=== PATIENT | female | born 1940 | race Caucasian/White ===

== ENCOUNTER 2016-07-29 11:05 | Inpatient (IN) | payer MEDICARE, OTHER ==
[~2016-07-29] VITALS: Ht 152.4 cm; Wt 81.1 kg
[2016-07-29] MEDS ORDERED: SODIUM CHLORIDE 0.9% 1L BAG IV* STA (11:08)
--- NOTE | 2016-07-29 11:16 | ERA ---
ER Documentation Chief Complaint Date/Time DATE: 07/29/16 TIME: 11:11 Chief Complaint HPI 76-year-old female history of chronic encephalopathy who presents to the emergency room with altered mental status worse than baseline. EMS providers report, [facility]. The patient does have an advanced directive that states she is okay with chest compressions , IV fluids, hospitalization but does not want mechanical ventilation or intubation. The remainder of HPI is extremely limited. Unknown duration of altered mental status. It appears the patient's baseline is mumbling. She is not mumbling currently. ROS Chronic encephalopathy Medications Home Meds Reported Medications Oxcarbazepine* (Trileptal*) 300 Mg Tablet, 300 MG PO BID, TAB 07/29/16 Quetiapine Fumarate* (Seroquel*) 50 Mg Tablet, 50 MG PO HS, TAB 07/29/16 Quetiapine Fumarate* (Seroquel*) 25 Mg Tablet, 25 MG PO AM, #30 TAB 07/29/16 Guaifenesin-Dextromethorphan* (Robitussin* DM) 100MG/10MG/5ML Syrup, 10 ML PO Q6H Y for COUGH, ML 07/29/16 Multivit,Tx,Iron/Calcm/FA/Mins (Thera-M Caplet) 1 Each Tablet, 1 TAB PO DAILY, TAB 07/29/16 Magnesium Hydroxide* (Milk Of Magnesia*) 400 Mg/5 Ml Oral.susp, 30 ML PO DAILY Y for CONSTIPATION, ML 07/29/16 Mag Hydrox/Al Hydrox/Simeth (Maalox Advanced Suspension) 355 Ml Oral.susp, 30 ML PO Q4H Y for GASTROINTESTINAL UPSET 07/29/16 Lorazepam* (Lorazepam*) 0.5 Mg Tablet, 0.5 MG PO Q6 Y for ANXIETY, TAB 07/29/16 Clonazepam* (Klonopin*) 0.5 Mg Tab, 0.25 MG PO BID Y for ANXIETY, TAB 07/29/16 Ascorbic Acid* (Ascorbic Acid*) 500 Mg/5 Ml Syrup, 500 MG PO DAILY, #150 ML 07/29/16 Acetaminophen* (Acetaminophen*) 650 Mg Tablet, 650 MG PO Q4H Y for PAIN AND OR ELEVATED TEMP, #30 TAB 07/29/16 Ipratropium-Albuterol (Ipratropium-Albuterol) 0.5-3 Mg/3 Ml Ampul.neb, 3 ML INHALATION Q6 Y for SHORTNESS OF BREATH, #30 VIAL 07/29/16 Na Phos,M-B/Na Phos,Di-Ba (Fleet Enema Extra) 230 Ml Enema, 230 ML RC Q48H Y for CONSTIPATION, ENEMA 07/29/16 Ferrous Sulfate* (Ferrous Sulfate*) 325 Mg Tabec, 325 MG PO BID, TAB 07/29/16 Bisacodyl (Dulcolax) 10 Mg Supp.rect, 10 MG RC DAILY Y for CONSTIPATION, SUPP.RECT 07/29/16 Divalproex Sodium* (Depakote* Sprinkle) 125 Mg Cap.sprink, 250 MG PO BID, #180 CAP 07/29/16 Cranberry Extract (Cranberry) 425 Mg Capsule, 425 MG PO BID, CAP 07/29/16 Docusate Sodium* (Colace*) 100 Mg Capsule, 200 MG PO HS, #60 CAP 07/29/16 Diphenhydramine Hcl* (Diphenhydramine Hcl*) 25 Mg Capsule, 25 MG PO Q6 Y for ITCHING, CAP 07/29/16 Aspirin* (Aspirin* Chew) 81 Mg Tab.chew, 81 MG PO DAILY, TAB.CHEW 07/29/16 Albuterol Sulfate* (Albuterol Sulfate* Neb) 0.083%-3 Ml Neb, 2.5 MG NEB Q6H Y for WHEEZING AND SOB, #30 VIAL 07/29/16 Physical Exam Vitals Vital Signs Date Time Temp Pulse Resp B/P Pulse Ox O2 Delivery O2 Flow Rate FiO2 07/29/16 11:30 Nasal Cannula 2 07/29/16 11:12 99.5 91 26 111/68 96 Physical Exam General: No significant distress, responsive to sternal rub, protecting airway Head: Normocephalic, atraumatic. Eyes: Pupils equally reactive, EOM intact ENT: Dry mucous membranes Neck: Supple, no lymphadenopathy Respiratory: Lungs clear bilaterally, no distress Cardiovascular: RRR, no murmurs, rubs, or gallops Abdominal: Soft, non-tender, non-distended, no peritoneal signs : Deferred MSK: Limited movement of all 4 extremities, no bony abnormalities Neurologic: Limited exam, and encephalopathic, limited movement of all 4 extremities Skin: No rash, no significant breakdown Psych: Unable to assess Result Diagram: 07/29/16 1115 07/29/16 1115 Results 24 hrs Laboratory Tests Test 07/29/16 11:08 07/29/16 11:15 Blood Gas Specimen Source Blood arterial Arterial Blood Date Drawn 07/29/2016 12:32:52 PM Arterial Blood pH (Temp corrected) 7.414 Arterial Blood pCO2 (Temp correct) 38.5mmhg Arterial Blood pO2 (Temp corrected) 163.0mmHG Arterial Blood HCO3 24.1mmol/L Arterial Blood Base Excess -0.3mmol/L Arterial Blood Oxygen Saturation 98.9mmHG Severiano Test ACCEPTAB Arterial Blood Gas Puncture Site Right Radial Arterial Blood Carboxyhemoglobin 0.3% Arterial Blood Methemoglobin 0.2% Blood Gas A-a O2 Differential 49.0mmHg Oxyhemoglobin Percent 98.4% Total Hemoglobin 11.7g/dl Blood Gas Temperature 37.0C Blood Gas Modality NASAL CANNULA FiO2 36.0% Blood Gas Notified Whom LS Blood Gas Notified Time 07/29/2016 12:38:52 PM White Blood Count 11.310^3/ul Red Blood Count 3.7310^6/ul Hemoglobin 11.0g/dl Hematocrit 33.5% Mean Corpuscular Volume 89.8fl Mean Corpuscular Hemoglobin 29.5pg Mean Corpuscular Hemoglobin Concent 32.8g/dl Red Cell Distribution Width 15.2% Platelet Count 49042^3/UL Mean Platelet Volume 10.1fl Neutrophils % 87.0% Band Neutrophils % 4.0% Lymphocytes % 4.0% Monocytes % 5.0% Neutrophils # 9.810^3/ul Lymphocytes # 0.510^3/ul Monocytes # 0.610^3/ul Differential Comment MANUAL DIFF Large Platelets OCCASIONAL Prothrombin Time 14.7Sec Prothrombin Time Ratio 1.1 INR International Normalized Ratio 1.15 Activated Partial Thromboplast Time 28.6Sec Sodium Level 135mmol/L Potassium Level 4.0mmol/L Chloride Level 101mmol/L Carbon Dioxide Level 25mmol/L Anion Gap 13 Blood Urea Nitrogen 31mg/dl Creatinine 1.21mg/dl Glucose Level 110mg/dl Lactic Acid Level 2.3mmol/L Calcium Level 9.6mg/dl Total Bilirubin 0.2mg/dl Direct Bilirubin 0.00mg/dl Indirect Bilirubin 0.2mg/dl Aspartate Amino Transf (AST/SGOT) 15IU/L Alanine Aminotransferase (ALT/SGPT) 21IU/L Alkaline Phosphatase 87IU/L Troponin I < 0.012ng/ml Total Protein 7.7g/dl Albumin 4.3g/dl Globulin 3.40g/dl Albumin/Globulin Ratio 1.26 Current Medications Medications (Trade) Dose Ordered Sig/Fabiola Route PRN Reason Start Time Stop Time Status Last Admin Dose Admin Sodium Chloride 2820 ml 2,820 ml BOLUS OVER 2 HOURS STAT IV* 07/29/16 11:08 07/29/16 11:10 DC 07/29/16 11:55 Ceftriaxone Sodium (Rocephin) 50 ml @ 100 mls/hr ONCE ONCE IVPB 07/29/16 13:00 07/29/16 13:29 DC 07/29/16 13:22 Ondansetron HCl (Zofran Inj) 4 mg BRIDGE ORDER PRN IV NAUSEA AND/OR VOMITING 07/29/16 15:00 07/30/16 14:59 Acetaminophen (Tylenol Tab) 650 mg ER BRIDGE PRN PO MILD PAIN/FEVER 07/29/16 15:00 07/30/16 14:59 Procedures/MDM EKG, MONITORS, & DIAGNOSTIC IMAGING: EKG: I reviewed and interpreted a 12-lead EKG. Rhythm: Normal sinus rhythm Ectopy: None Intervals: No abnormalities ST segments: No elevations or depressions T waves: No contiguous inversions Chest x-ray: I reviewed and interpreted a 1 view of the chest Mediastinum: No enlargement Cardiac silhouette: No cardiomegaly Airspace: Atelectasis without focal infiltrate Bones: No evidence of fracture CT brain: IMPRESSION: No significant change. 1. No acute intracranial hemorrhage. 2. Severe ventriculomegaly which is greater than sulcal prominence suggesting central greater than peripheral volume loss. Hydrocephalus or normal pressure hydrocephalus is not excluded. 3. Right frontal approach ventriculostomy catheter. 4. Mild generalized cerebral volume loss. 5. Minimal chronic microvascular ischemic changes. Further findings as detailed above. RPTAT: PP LAB INTERPRETATION: Mild leukocytosis, borderline lactic acidosis, urine not resulted given low volume MEDICAL DECISION MAKING: The patient presents with acute on chronic encephalopathy of unclear etiology. A broad differential exists including intracranial hemorrhage, electrolyte disturbance, dehydration, UTI, sepsis, progression of chronic encephalopathy. It should be noted that the patient does not wish to be intubated. We will continue to care for the patient in accordance with her goals of care. The patient will benefit from laboratory testing, diagnostic imaging including CT brain, chest x-ray, EKG, laboratory testing including troponin, lactic acid and blood cultures. Urinalysis to be obtained as well. Arterial blood gas to rule out hypercarbic state. ER COURSE: The patient has insufficient urine to check a urinalysis but does have a history of UTI, empiric antibiotics in the form of ceftriaxone provided. The patient does have a borderline lactic acid greater than 2 but no Sirs criteria. Consider dehydration. The patient has been treated as sepsis but again the patient does not meet sepsis criteria in the emergency room. Again, the patient does not meet sepsis criteria in the emergency department. She was given a 30 cc/kg bolus of saline, blood cultures, ceftriaxone. The patient will be admitted for further management of altered mental status. I kept the patient and/or family informed of laboratory and diagnostic imaging results throughout the emergency room course. DISPOSITION PLAN: Medical surgical admission to management acute on chronic encephalopathy CONSULTATION: Accepting care team and consultations: I discussed the current laboratory data, diagnostic imaging and emergency care provided. Admitting team: Dr. Felipe Admitting team indication: Insurance directed Departure Diagnosis: Primary Impression: Altered level of consciousness Additional Impressions: Urinary tract infection Qualified Code: N39.0 - Urinary tract infection without hematuria, site unspecified Moderate dehydration Lactic acidosis Condition: Stable MELVIN ALEGRE MD Jul 29, 2016 11:16
[2016-07-29 11:39] LABS: ADD SCAN DIFF NO
[2016-07-29 11:43] LABS: ABNORMAL IP MESSAGE 1; HEMATOCRIT 33.5 % (37.0-47.0); MEAN CORPUSCULAR HEMOGLOBIN 29.5 pg (29.0-33.0); MEAN CORPUSCULAR HGB CONC 32.8 g/dl (32.0-37.0); MEAN CORPUSCULAR VOLUME 89.8 fl (82.0-101.0); MEAN PLATELET VOLUME 10.1 fl (7.4-10.4); PLATELET COUNT 286 10^3/UL (140-415); RED BLOOD COUNT 3.73 10^6/ul (4.20-5.40); RED CELL DISTRIBUTION WIDTH 15.2 % (11.5-14.5); WHITE BLOOD COUNT 11.3 10^3/ul (4.8-10.8)
--- NOTE | 2016-07-29 11:53 | RADRPT ---
PROCEDURE: Noncontrast CT Head. CLINICAL INDICATION: Altered level of consciousness. Weakness. TECHNIQUE: Noncontrast CT of the head was obtained. The administered radiation dose was CTDI vol = 45.01 mGy, DLP = 720.23 mGy-cm. One or more of the following dose reduction techniques were used: Au tomated exposure control, Adjustment of the mA and/or kV according to patient size, or Use of iterat speedy reconstruction technique. COMPARISON: Noncontrast CT of the head from June 19, 2016. FINDINGS: There is severe ventricular dilatation greater than mild sulcal prominence suggesting central greate r than peripheral volume loss or hydrocephalus. There is a right frontal approach ventriculostomy c atheter with tip within the right frontal horn. There is minimal periventricular hypoattenuation sug gesting chronic microvascular ischemic changes. There is mild generalized cerebral volume loss. There are moderate to extensive vascular calcificat ions within the intracranial carotid arteries. There is no loss of miller-white differentiation to suggest acute territorial infarction. There is no acute intracranial hemorrhage or extra-axial fluid collection. There is no mass effect. No midline shift is identified. The patient is status post right lens surgery. The paranasal sinuses are well aerated. No destructive osseous lesion is identified. IMPRESSION: No significant change. 1. No acute intracranial hemorrhage. 2. Severe ventriculomegaly which is greater than sulcal prominence suggesting central greater than p eripheral volume loss. Hydrocephalus or normal pressure hydrocephalus is not excluded. 3. Right frontal approach ventriculostomy catheter. 4. Mild generalized cerebral volume loss. 5. Minimal chronic microvascular ischemic changes. Further findings as detailed above. RPTAT: PP .Rhett Nevarez MD, Date Time Electronically viewed and signed by .Rhett Nevarez MD, on 07/29/2016 11:53 .F/
[2016-07-29 12:01] LABS: INR 1.15; PROTIME 14.7 Sec (12.2-14.2); PT RATIO 1.1
[2016-07-29 12:02] LABS: PARTIAL THROMBOPLASTIN TIME 28.6 Sec (25.0-35.0)
[2016-07-29 12:04] LABS: ALANINE AMINOTRANSFERASE 21 IU/L (13-69); ALBUMIN 4.3 g/dl (3.3-4.9); ALBUMIN/GLOBULIN RATIO 1.26; ALKALINE PHOSPHATASE 87 IU/L (42-121); ANION GAP 13 (8-16); ASPARTATE AMINO TRANSFERASE 15 IU/L (15-46); BILIRUBIN,INDIRECT 0.2 mg/dl (0-1.1); BILIRUBIN,TOTAL 0.2 mg/dl (0.2-1.3); BLOOD UREA NITROGEN 31 mg/dl (7-20); CALCIUM 9.6 mg/dl (8.4-10.2); CARBON DIOXIDE 25 mmol/L (21-31); CHLORIDE 101 mmol/L (97-110); CREATININE 1.21 mg/dl (0.44-1.00); GLUCOSE 110 mg/dl (70-220); SODIUM 135 mmol/L (135-144); TOTAL PROTEIN 7.7 g/dl (6.1-8.1)
[2016-07-29 12:16] LABS: TROPONIN-I < 0.012 ng/ml (0.00-0.12)
[2016-07-29] MEDS ORDERED: LORA0.5T PO (12:23)
[2016-07-29] MEDS ORDERED: DIPH25CA6 PO (12:23)
[2016-07-29] MEDS ORDERED: FER325 PO (12:23)
[2016-07-29] MEDS ORDERED: MAG355OR14 PO (12:23)
[2016-07-29] MEDS ORDERED: CRAN425C PO (12:23)
[2016-07-29] MEDS ORDERED: ACET-2047 PO (12:23)
[2016-07-29] MEDS ORDERED: ALBU2.5V3 NEB (12:23)
[2016-07-29] MEDS ORDERED: ASPI81TA3 PO (12:23)
[2016-07-29] MEDS ORDERED: CLON-429 PO (12:23)
[2016-07-29] MEDS ORDERED: ASCO500S2 PO (12:23)
[2016-07-29] MEDS ORDERED: MAGN400O4 PO (12:23)
[2016-07-29] MEDS ORDERED: UDROBDM PO (12:23)
[2016-07-29] MEDS ORDERED: QUET25TA26 PO (12:23)
[2016-07-29] MEDS ORDERED: DIVA125C11 PO (12:23)
[2016-07-29] MEDS ORDERED: DOCU-144 PO (12:23)
[2016-07-29] MEDS ORDERED: BISA10SU55 RC (12:23)
[2016-07-29] MEDS ORDERED: MULT-276 PO (12:23)
[2016-07-29] MEDS ORDERED: IPRA3AMP INHALATION (12:23)
[2016-07-29] MEDS ORDERED: NA P230E RC (12:23)
[2016-07-29] MEDS ORDERED: OXCA300T3 PO (12:23)
[2016-07-29] MEDS ORDERED: QUET50TA16 PO (12:23)
[2016-07-29 12:39] LABS: Allen Test ACCEPTAB; Arterial Base Excess -0.3 mmol/L (-3.0-3); Arterial COHb 0.3 % (0.0-3.0); Arterial Fraction of Oxyhgb 98.4 % (93.0-99.0); Arterial HCO3 24.1 mmol/L (22.0-26.0); Arterial MetHb 0.2 % (0.0-1.5); Arterial Total Hemglobin 11.7 g/dl (12.0-18.0); MODE NASAL CANNULA
[2016-07-29 13:00] LABS: LYMPHOCYTES # 0.5 10^3/ul (0.8-2.9); MONOCYTE # 0.6 10^3/ul (0.3-0.9); NEUTROPHIL # 9.8 10^3/ul (1.6-7.5)
[2016-07-29] MEDS ORDERED: CEFTRIAXONE 1 GM/50 ML (PMX) 50 ML IVPB ONE (13:00)
--- NOTE | 2016-07-29 13:43 | RADRPT ---
PROCEDURE: XR Chest. CLINICAL INDICATION: Altered level of consciousness TECHNIQUE: Chest AP portable. COMPARISON: No comparison available. 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 The mediastinal structures are unremarkable. There is calcification of the thoracic aorta (consiste nt with atherosclerosis). There is mild cardiomegaly. There is mild pulmonary venous hypertension. There are low lung volumes. There is mild bibasilar subsegmental atelectasis. The pleural spaces are unremarkable. There are senescent changes of the axial skeleton. IMPRESSION: Mild cardiomegaly. Mild pulmonary venous hypertension. Low lung volumes. Mild bibasilar subsegmental atelectasis RPTAT: HGDB .Eamon Chahal MD, Date Time Electronically viewed and signed by .Eamon Chahal MD, on 07/29/2016 13:42 .B/
[2016-07-29] MEDS ORDERED: ONDANSETRON 4 MG INJ IV PRN ×2 (15:00→19:30)
[2016-07-29] MEDS ORDERED: ACETAMINOPHEN 325 MG TAB PO PRN (15:00)
[2016-07-29 16:15] VITALS: BP 120/56; PULSE 95; RESP 24
[2016-07-29 16:30] LABS: ADD UMIC YES; UR BILIRUBIN (Dip) NEGATIVE (NEGATIVE); UR BLOOD (Dip) 3+ (NEGATIVE); UR CLARITY CLEAR (CLEAR); UR COLOR LT. YELLOW (YELLOW); UR GLUCOSE (Dip) NEGATIVE (NEGATIVE); UR KETONES (Dip) NEGATIVE (NEGATIVE); UR LEUKOCYTE ESTERASE (Dip) 3+ (NEGATIVE); UR NITRITE (Dip) NEGATIVE (NEGATIVE); UR TOTAL PROTEIN (Dip) TRACE (NEGATIVE); UR UROBILINOGEN (Dip) 0.2 E.U./dL (0.1-1.0)
[2016-07-29 16:36] LABS: UR BACTERIA MODERATE
[2016-07-29] MEDS ORDERED: GLUCAGON 1 MG INJ IM PRN (19:30)
[2016-07-29] MEDS ORDERED: GLUCOSE GEL 15 GRAM TUBE BUCCAL PRN (19:30)
[2016-07-29] MEDS ORDERED: GLUCOSE GEL 15 GRAM TUBE PO PRN ×2 (19:30)
[2016-07-29] MEDS ORDERED: ACETAMINOPHEN 650 MG SUPP PR PRN (19:30)
[2016-07-29] MEDS ORDERED: DEXTROSE 50% 50 ML SYRINGE IV PRN ×2 (19:30)
--- NOTE | 2016-07-29 19:34 | HP ---
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 EMS providers report, very limited information from [facility] facility. The patient does have an advanced directive that states she is okay with chest compressions , IV fluids, hospitalization but does not want mechanical ventilation or intubation. The remainder of HPI is extremely limited. Unknown duration of altered mental status. It appears the patient's baseline is mumbling. She is not mumbling currently. ROS Chronic encephalopathy ROS Subjective hx not possible: pt non-verbal PMH/Family/Social Past Medical History Atherosclerotic Heart Disease, Hydrocephalus Hx Sepsis Anemia Hypothyroidism GERD Morbid Obesity Intellectual Disabilities Bipolar/Psychosis Past Surgical History Past Surgical Hx: other (sp right STRATEGY DIRECTOR shunt ) Social History Smoking Status: Unknown if ever smoked Exam/Review of Systems Vital Signs Vitals Vital Signs Date Time Temp Pulse Resp B/P Pulse Ox O2 Delivery O2 Flow Rate FiO2 07/29/16 18:12 Nasal Cannula 5.0 07/29/16 16:15 99.5 95 24 120/56 100 Exam Constitutional: alert, well developed Eyes: nl sclera Respiratory: clear to auscultation, normal air movement Cardiovascular: nl pulses, regular rate and rhythm Gastrointestinal: non-tender, soft Musculoskeletal: muscle weakness Neurological: lethargic Skin: other Labs Result Diagram: 07/29/16 1115 07/29/16 1115 Procedures Procedures EKG: Rhythm: Normal sinus rhythm Ectopy: None Intervals: No abnormalities ST segments: No elevations or depressions T waves: No contiguous inversions Chest x-ray: Mediastinum: No enlargement Cardiac silhouette: No cardiomegaly Airspace: Atelectasis without focal infiltrate Bones: No evidence of fracture CT brain: IMPRESSION: No significant change. 1. No acute intracranial hemorrhage. 2. Severe ventriculomegaly which is greater than sulcal prominence suggesting central greater than peripheral volume loss. Hydrocephalus or normal pressure hydrocephalus is not excluded. 3. Right frontal approach ventriculostomy catheter. 4. Mild generalized cerebral volume loss. 5. Minimal chronic microvascular ischemic changes. JAMES POMPA Jul 29, 2016 18:40
[2016-07-29] MEDS: SOD CHLORIDE 0.45% 1,000 ML IV SCH (19:46)
--- NOTE | 2016-07-29 20:19 | RADRPT ---
PROCEDURE: Renal US. CLINICAL INDICATION: Renal dysfunction. TECHNIQUE: Multiple sonographic images of the kidneys and urinary bladder were obtained. The imag es were reviewed on a PACS workstation. COMPARISON: No prior studies are available for comparison. FINDINGS: This is a limited study due to patient body habitus and overlying bowel gas. The right kidney measures 10.6 cm. The left kidney measures 9.1 cm. There is no renal mass. There is no hydronephrosis. There is a nonobstructing 1.0 cm calculus in the mid right kidney and a nonobstructing 0.9 cm calcul us in the mid left kidney. Renal parenchymal thickness is normal bilaterally. Echogenicity is normal bilaterally. The perirenal regions are normal with no fluid collection or mass. The urinary bladder is unremarkable. IMPRESSION: 1. Limited study. 2. Nonobstructing bilateral renal calculi. 3. No hydronephrosis. 4. Otherwise unremarkable renal ultrasound. RPTAT: QQ .Carlton Infante MD, MD Date Time Electronically viewed and signed by .Carlton Infante MD, on 07/29/2016 20:19 .R/
[2016-07-29 20:31] VITALS: BP 114/55; RESP 18
[2016-07-29] MEDS: INSULIN ASPART [NOVOLOG] 3 ML PEN SC SCH (21:00)
--- NOTE | 2016-07-29 22:06 | CONS ---
DATE OF ADMISSION: 07/29/2016 DATE OF CONSULTATION: 07/29/2016 TYPE OF CONSULTATION: Nephrology. REFERRING PHYSICIAN: Dr. Felipe REASON FOR CONSULTATION: Acute kidney injury. 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 The patient is noted to have lactic acidosis and urinary tract infection. She is a lso noted to have acute kidney injury with elevated creatinine and BUN, also had low blood pressures with decreased urine output, and Renal has been consulted for nonoliguric acute kidney injury. REVIEW OF SYSTEMS: Unable to obtain from the patient since she is currently altered. 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 SOCIAL HISTORY: No smoking, alcohol, recreational drug use. FAMILY HISTORY: Not available. PHYSICAL EXAMINATION: VITAL SIGNS: Temperature 99.3, heart rate 96, respirations 18, blood pressure 114/55, saturation is 97% on 5 L nasal cannula. GENERAL: Awake, alert, mild to moderate distress. HEENT: Pupils equal, round, reactive to light and accommodation. Extraocular muscles are intact. NECK: Supple. No JVD, no lymphadenopathy. LUNGS: Clear to auscultation. Bilateral basilar rales present. HEART: S1, S2, regular rate, regular rhythm. No murmur. ABDOMEN: Soft, nontender, nondistended. Bowel sounds are present. EXTREMITIES: No clubbing, cyanosis, edema. NEUROLOGICAL: Nonfocal, intact. PSYCHIATRIC: Appropriate affect and mood. LABORATORY DATA: WBC 11.3, hemoglobin 11, platelet count 286. Sodium 135, potassium 4, chloride 10 1, bicarbonate 25, BUN 31, creatinine 1.2, glucose 110, calcium is 9.6. Lactic acid 2.3, improved t o 1.8. LFTs are normal. PT, PTT, INR are normal. Urinalysis is dirty. IMPRESSION: This is a 76-year-old female who is getting admitted for altered level of consciousness , possibly secondary to urinary tract infection, and Renal has been consulted for: 1. Nonoliguric acute kidney injury, likely secondary to prerenal azotemia and also secondary to uri nary tract infection. 2. 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 3. Hypertension. 4. Altered of consciousness and altered mental status. 5. Urinary tract infection. 6. Anemia of chronic disease. 7. Alzheimer dementia. 8. Diabetes mellitus type 2. PLAN: Thank you, Dr. Felipe, for this consultation. 1. The patient currently has been started on IV antibiotic, Levaquin, to cover her for urinary trac t infection. She received IV ceftriaxone in the emergency room. 2. Continue the IV fluid half NS at 50 mL/hour. I am expecting the patient's creatinine to improve with IV fluid hydration and IV antibiotics. Meanwhile, I will order the patient's renal ultrasound to assess for kidney size and to rule out hydronephrosis. 3. The patient currently seen on the med/surg floor, and she will be followed up along with the cou rse of the primary care team. Once again, thank you, Dr. Felipe, for this consultation. Total time spent in this patient's consultation making assessment and plan, communicating with the n ursing staff on the floor took more than 60 minutes. Dictated By: ELLYN RECINOS MD, KP/ERIS Conf#: [id number] DID#: [id number]
[2016-07-30] MEDS: ACCU-CHEK XX SCH (02:00)
[2016-07-30] MEDS ORDERED: PANTOPRAZOLE 40 MG INJ IV SCH (06:00)
[2016-07-30 06:01] LABS: ADD SCAN DIFF NO
[2016-07-30 06:12] LABS: BASOPHILS % 0.4 % (0.0-2.0); EOSINOPHILS # 0.1 10^3/ul (0.0-0.5); EOSINOPHILS % 0.9 % (0.0-7.0); HEMOGLOBIN 10.1 g/dl (12.0-16.0); LYMPHOCYTES # 0.6 10^3/ul (0.8-2.9); LYMPHOCYTES % 8.4 % (15.0-51.0); MEAN CORPUSCULAR HEMOGLOBIN 28.9 pg (29.0-33.0); MEAN CORPUSCULAR HGB CONC 31.6 g/dl (32.0-37.0); MEAN CORPUSCULAR VOLUME 91.7 fl (82.0-101.0); MEAN PLATELET VOLUME 10.1 fl (7.4-10.4); MONOCYTE # 0.8 10^3/ul (0.3-0.9); MONOCYTES % 10.4 % (0.0-11.0); NEUTROPHIL # 6.1 10^3/ul (1.6-7.5); NEUTROPHILS % 79.6 % (39.0-77.0); PLATELET COUNT 236 10^3/UL (140-415); RED BLOOD COUNT 3.49 10^6/ul (4.20-5.40); RED CELL DISTRIBUTION WIDTH 15.5 % (11.5-14.5); WHITE BLOOD COUNT 7.6 10^3/ul (4.8-10.8)
[2016-07-30 06:43] LABS: CALCIUM 9.6 mg/dl (8.4-10.2); CREATININE 1.04 mg/dl (0.44-1.00); POTASSIUM 4.1 mmol/L (3.5-5.1)
[2016-07-30 07:04] LABS: CHOL/HDL RATIO 2.3 RATIO
[2016-07-30] MEDS: INSULIN ASPART [NOVOLOG] 3 ML PEN SC SCH ×2 (07:50→11:40)
[2016-07-30 08:47] VITALS: BP 110/56; RESP 16
[2016-07-30] MEDS: LEVOFLOXACIN 250MG/D5W (PMX) 50 ML IVPB SCH (10:49)
[2016-07-30] MEDS: DEXTROSE 5%-0.45% NACL 1,000 ML IV SCH (10:55)
[2016-07-30] MEDS: SOD CHLORIDE 0.45% 1,000 ML IV SCH (15:30)
--- NOTE | 2016-07-30 16:04 | PN ---
Date/Time of Note Date/Time of Note DATE: 07/30/16 TIME: 15:51 Assessment/Plan VTE Prophylaxis VTE Prophylaxis Intervention: SCD's Lines/Catheters IV Catheter Type (from Nrs): Peripheral IV Assessment/Plan Assessment/Plan Patient is currently is awake alert to name and situation follow commands, able to void. Assessment and plan: - Sepsis secondary to urinary tract infection with leukocytosis elevated lactate and encephalopathy. - Acute metabolic encephalopathy, resolved. - Urinary tract infection, will add vancomycin to cover her enterococcus. - Acute kidney injury, likely secondary to prerenal azotemia and also secondary to urinary tract infection. Dr. Acevedo is following in nephrology consultation. - Coronary artery disease - Hypertension. - History of [employer] shunt - Epilepsy, resume Trileptal. - Bipolar disorder with psychosis - Anemia of chronic disease. Further recommendations based on clinical course. Plan of care discussed with Dr. Felipe. Exam/Review of Systems Vital Signs Vitals Vital Signs Date Time Temp Pulse Resp B/P Pulse Ox O2 Delivery O2 Flow Rate FiO2 07/30/16 08:47 99.2 78 16 110/56 98 07/30/16 08:00 5.0 07/29/16 20:41 Nasal Cannula Intake and Output 07/29/16 07/29/16 07/30/16 15:00 23:00 07:00 Intake Total 500 ml Balance 500 ml Exam Constitutional: alert Head: atraumatic Neck: supple Respiratory: clear to auscultation Cardiovascular: nl pulses Gastrointestinal: non-tender, soft Extremities: normal pulses, other (Contracted) Neurological: nl mental status Results Result Diagram: 07/30/16 0510 07/30/16 0510 Results 24 hrs Laboratory Tests Test 07/29/16 16:20 07/29/16 18:40 07/29/16 21:42 07/30/16 05:10 Urine Color LT. YELLOW Urine Clarity CLEAR Urine pH 6.0 Urine Specific [place] 1.015 Urine Ketones NEGATIVE Urine Nitrite NEGATIVE Urine Bilirubin NEGATIVE Urine Urobilinogen 0.2 E.U./dL Urine Leukocyte Esterase 3+ H Urine Microscopic RBC 10-25 Urine Microscopic WBC 25-50 Urine Epithelial Cells MODERATE Urine Bacteria MODERATE Urine Hemoglobin 3+ H Urine Glucose NEGATIVE Urine Total Protein TRACE Lactic Acid Level 1.3 1.8 Ammonia 10 Bedside Glucose 107 White Blood Count 7.6 # Red Blood Count 3.49 L Hemoglobin 10.1 L Hematocrit 32.0 L Mean Corpuscular Volume 91.7 Mean Corpuscular Hemoglobin 28.9 L Mean Corpuscular Hemoglobin Concent 31.6 L Red Cell Distribution Width 15.5 H Platelet Count 236 Mean Platelet Volume 10.1 Neutrophils % 79.6 H Lymphocytes % 8.4 L Monocytes % 10.4 Eosinophils % 0.9 Basophils % 0.4 Nucleated Red Blood Cells % 0.0 Neutrophils # 6.1 Lymphocytes # 0.6 L Monocytes # 0.8 Eosinophils # 0.1 Basophils # 0.0 Nucleated Red Blood Cells # 0.0 Sodium Level 142 Potassium Level 4.1 Chloride Level 107 Carbon Dioxide Level 26 Anion Gap 13 Blood Urea Nitrogen 22 H Creatinine 1.04 H Glucose Level 77 Hemoglobin A1c 5.6 Calcium Level 9.6 Triglycerides Level 73 Cholesterol Level 134 LDL Cholesterol, Calculated 63 HDL Cholesterol 56 Cholesterol/HDL Ratio 2.3 Thyroid Stimulating Hormone (TSH) 1.810 Free Thyroxine 0.62 L Test 07/30/16 08:24 07/30/16 12:03 Bedside Glucose 87 82 Medications Medications Current Medications Levofloxacin/ Dextrose (Levaquin 250 Mg/ D5W 50 ml (Pmx)) 50 ml @ 50 mls/hr Q24H IVPB Last administered on 07/30/16 10:49; Admin Dose 50 MLS/HR; Start at 09:00 Diagnostic Test (Pha) 1 ea 1 ea 02 XX ; Start 07/30/16 at 02:00 Sodium Chloride (1/2 NS) 1,000 ml @ 50 mls/hr Q20H IV Last administered on 19:46; Admin Dose 50 MLS/HR; Start 07/29/16 at 19:30 Miscellaneous Information 1 ea NOTE XX ; Start 07/29/16 at 19:30 Glucose (Glutose) 15 gm Q15M PRN PO DECREASED GLUCOSE; Start 07/29/16 at 19:30 Glucose (Glutose) 22.5 gm Q15M PRN PO DECREASED GLUCOSE; Start 07/29/16 at 19: 30 Dextrose (D50w Syringe) 25 ml Q15M PRN IV DECREASED GLUCOSE; Start 07/29/16 at 19:30 Dextrose (D50w Syringe) 50 ml Q15M PRN IV DECREASED GLUCOSE; Start 07/29/16 at 19:30 Glucagon (Glucagen) 1 mg Q15M PRN IM DECREASED GLUCOSE; Start 07/29/16 at 19:30 Glucose (Glutose) 15 gm Q15M PRN BUCCAL DECREASED GLUCOSE; Start 07/29/16 at 19 :30 Pantoprazole (Protonix Iv) 40 mg DAILY@06 IV Last administered on 07/30/16 05: 44; Admin Dose 40 MG; Start 07/30/16 at 06:00 Ondansetron HCl (Zofran Inj) 4 mg Q6H PRN IV NAUSEA AND/OR VOMITING; Start at 19:30 Acetaminophen 650 mg 650 mg Q6H PRN [place] FEVER GREATER THAN 100.6; Start at 19:30 Dextrose/Sodium Chloride (D5-1/2ns) 1,000 ml @ 75 mls/hr [id number] IV Last administered on 07/30/16 10:55; Admin Dose 75 MLS/HR; Start 07/30/16 at 10:30 UMESH WILLETT Jul 30, 2016 16:02
[2016-07-30] MEDS ORDERED: VANCOMYCIN IV PER PHARMACY XX SCH (16:30)
--- NOTE | 2016-07-30 17:48 | CONS ---
Date/Time of Note Date/Time of Note DATE: 07/30/16 TIME: 17:46 Assessment/Plan Assessment/Plan Additional Assessment/Plan 1. Nonoliguric acute kidney injury, likely secondary to prerenal azotemia and also secondary to urinary tract infection. 2. 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 3. Hypertension. 4. Altered of consciousness and altered mental status. 5. Urinary tract infection. 6. Anemia of chronic disease. 7. Alzheimer dementia. 8. Diabetes mellitus type 2. PLAN: cr imrpoving with IVF hydration and UTI treatment, expectin it to be normal IV abx as per PMD BP stable afebrile will follow up Consultation Date/Type/Reason Admit Date/Time Jul 29, 2016 at 16:46 Initial Consult Date Type of Consultation: NEPHROLOGY Reason for Consultation acute kidney Injury Referring Provider: SHEN GAYLE MD 24 HR Interval Summary Free Text/Dictation no acute events, BP stable, Cr improving Exam/Review of Systems Vital Signs Vitals Vital Signs Date Time Temp Pulse Resp B/P Pulse Ox O2 Delivery O2 Flow Rate FiO2 07/30/16 08:47 99.2 78 16 110/56 98 07/30/16 08:00 5.0 07/29/16 20:41 Nasal Cannula Intake and Output 07/29/16 07/29/16 07/30/16 15:00 23:00 07:00 Intake Total 500 ml Balance 500 ml Exam GENERAL: Awake, alert, mild to moderate distress. HEENT: Pupils equal, round, reactive to light and accommodation. Extraocular muscles are intact. NECK: Supple. No JVD, no lymphadenopathy. LUNGS: Clear to auscultation. Bilateral basilar rales present. HEART: S1, S2, regular rate, regular rhythm. No murmur. ABDOMEN: Soft, nontender, nondistended. Bowel sounds are present. EXTREMITIES: No clubbing, cyanosis, edema. NEUROLOGICAL: Nonfocal, intact. PSYCHIATRIC: Appropriate affect and mood. Results Result Diagram: 07/30/16 0510 07/30/16 0510 Results 24 hrs Laboratory Tests Test 07/29/16 18:40 07/29/16 21:42 07/30/16 05:10 07/30/16 08:24 Lactic Acid Level 1.8 Ammonia 10 Bedside Glucose 107 87 White Blood Count 7.6 # Red Blood Count 3.49 L Hemoglobin 10.1 L Hematocrit 32.0 L Mean Corpuscular Volume 91.7 Mean Corpuscular Hemoglobin 28.9 L Mean Corpuscular Hemoglobin Concent 31.6 L Red Cell Distribution Width 15.5 H Platelet Count 236 Mean Platelet Volume 10.1 Neutrophils % 79.6 H Lymphocytes % 8.4 L Monocytes % 10.4 Eosinophils % 0.9 Basophils % 0.4 Nucleated Red Blood Cells % 0.0 Neutrophils # 6.1 Lymphocytes # 0.6 L Monocytes # 0.8 Eosinophils # 0.1 Basophils # 0.0 Nucleated Red Blood Cells # 0.0 Sodium Level 142 Potassium Level 4.1 Chloride Level 107 Carbon Dioxide Level 26 Anion Gap 13 Blood Urea Nitrogen 22 H Creatinine 1.04 H Glucose Level 77 Hemoglobin A1c 5.6 Calcium Level 9.6 Triglycerides Level 73 Cholesterol Level 134 LDL Cholesterol, Calculated 63 HDL Cholesterol 56 Cholesterol/HDL Ratio 2.3 Thyroid Stimulating Hormone (TSH) 1.810 Free Thyroxine 0.62 L Test 07/30/16 12:03 Bedside Glucose 82 Medications Medications Current Medications Levofloxacin/ Dextrose (Levaquin 250 Mg/ D5W 50 ml (Pmx)) 50 ml @ 50 mls/hr Q24H IVPB Last administered on 07/30/16 10:49; Admin Dose 50 MLS/HR; Start at 09:00 Diagnostic Test (Pha) 1 ea 1 ea 02 XX ; Start 07/30/16 at 02:00 Sodium Chloride (1/2 NS) 1,000 ml @ 50 mls/hr Q20H IV Last administered on 19:46; Admin Dose 50 MLS/HR; Start 07/29/16 at 19:30 Miscellaneous Information 1 ea NOTE XX ; Start 07/29/16 at 19:30 Glucose (Glutose) 15 gm Q15M PRN PO DECREASED GLUCOSE; Start 07/29/16 at 19:30 Glucose (Glutose) 22.5 gm Q15M PRN PO DECREASED GLUCOSE; Start 07/29/16 at 19: 30 Dextrose (D50w Syringe) 25 ml Q15M PRN IV DECREASED GLUCOSE; Start 07/29/16 at 19:30 Dextrose (D50w Syringe) 50 ml Q15M PRN IV DECREASED GLUCOSE; Start 07/29/16 at 19:30 Glucagon (Glucagen) 1 mg Q15M PRN IM DECREASED GLUCOSE; Start 07/29/16 at 19:30 Glucose (Glutose) 15 gm Q15M PRN BUCCAL DECREASED GLUCOSE; Start 07/29/16 at 19 :30 Ondansetron HCl (Zofran Inj) 4 mg Q6H PRN IV NAUSEA AND/OR VOMITING; Start at 19:30 Acetaminophen 650 mg 650 mg Q6H PRN [place] FEVER GREATER THAN 100.6; Start at 19:30 Dextrose/Sodium Chloride (D5-1/2ns) 1,000 ml @ 75 mls/hr [id number] IV Last administered on 07/30/16t 10:55; Admin Dose 75 MLS/HR; Start 07/30/16 at 10:30 Pantoprazole (Protonix Tab) 40 mg DAILY@06 PO ; Start 07/31/16 at 06:00 Oxcarbazepine 300 mg 300 mg BID PO ; Start 07/30/16 at 21:00 Vancomycin HCl 1.75 gm/Sodium Chloride 500 ml @ 125 mls/hr Q24H IVPB ; Start at 18:00; Stop 07/30/16 at 23:59 Vancomycin HCl (Vancocin) 250 ml @ 125 mls/hr Q24H IVPB ; Start 07/31/16 at 20: 00 ELLYN RECINOS MD Jul 30, 2016 17:48
[2016-07-30] MEDS ORDERED: VANCOMYCIN 1.75 GM in NS 500 ML IVPB SCH (18:00)
[2016-07-30] MEDS ORDERED: BISACODYL 10 MG SUPP PR PRN (18:00)
[2016-07-30] MEDS ORDERED: MAGNESIUM HYDROXIDE 30ML CUP PO PRN (18:00)
[2016-07-30] MEDS ORDERED: ALBUTEROL/IPRATROPIUM (NEB) 3 ML AMP HHN PRN (18:00)
[2016-07-30] MEDS ORDERED: ALBUTEROL 0.083% (NEB) 2.5 MG/3 ML AMP NEB PRN (18:00)
[2016-07-30] MEDS ORDERED: ACETAMINOPHEN 325 MG TAB PO PRN (18:00)
[2016-07-30 19:56] VITALS: BP 135/63; RESP 18
[2016-07-30] MEDS ORDERED: OXCARBAZEPINE 300 MG TAB PO SCH (21:00)
[2016-07-30] MEDS: DOCUSATE SODIUM 100 MG CAP PO SCH (21:38)
[2016-07-30] MEDS: FERROUS SULFATE (EC) 325 MG TAB PO SCH (21:38)
[2016-07-30] MEDS: DIVALPROEX SPRINKLE 125 MG CAP PO SCH (21:38)
[2016-07-30] MEDS: OXCARBAZEPINE 300 MG TAB PO SCH (21:38)
[2016-07-30] MEDS: QUETIAPINE 25 MG TAB PO SCH (21:38)
[2016-07-31] MEDS: ACCU-CHEK XX SCH (02:00)
[2016-07-31] MEDS: DEXTROSE 5%-0.45% NACL 1,000 ML IV SCH ×2 (02:12→13:10)
[2016-07-31 06:04] LABS: ADD SCAN DIFF NO; BASOPHILS % 0.3 % (0.0-2.0); EOSINOPHILS # 0.2 10^3/ul (0.0-0.5); EOSINOPHILS % 3.1 % (0.0-7.0); HEMATOCRIT 31.3 % (37.0-47.0); LYMPHOCYTES # 0.9 10^3/ul (0.8-2.9); LYMPHOCYTES % 13.6 % (15.0-51.0); MEAN CORPUSCULAR HEMOGLOBIN 29.2 pg (29.0-33.0); MEAN CORPUSCULAR HGB CONC 31.9 g/dl (32.0-37.0); MEAN CORPUSCULAR VOLUME 91.3 fl (82.0-101.0); MEAN PLATELET VOLUME 10.1 fl (7.4-10.4); MONOCYTE # 0.9 10^3/ul (0.3-0.9); MONOCYTES % 13.3 % (0.0-11.0); NEUTROPHIL # 4.7 10^3/ul (1.6-7.5); NEUTROPHILS % 69.4 % (39.0-77.0); PLATELET COUNT 220 10^3/UL (140-415); RED BLOOD COUNT 3.43 10^6/ul (4.20-5.40); RED CELL DISTRIBUTION WIDTH 15.3 % (11.5-14.5); WHITE BLOOD COUNT 6.7 10^3/ul (4.8-10.8)
[2016-07-31 06:23] LABS: CREATININE 1.23 mg/dl (0.44-1.00); POTASSIUM 3.5 mmol/L (3.5-5.1)
[2016-07-31] MEDS: PANTOPRAZOLE (EC) 40 MG TAB PO SCH (06:41)
[2016-07-31 08:21] VITALS: BP 104/55; RESP 18
[2016-07-31] MEDS: LEVOFLOXACIN 250MG/D5W (PMX) 50 ML IVPB SCH (09:15)
[2016-07-31] MEDS: OXCARBAZEPINE 300 MG TAB PO SCH ×2 (09:16→21:39)
[2016-07-31] MEDS: DIVALPROEX SPRINKLE 125 MG CAP PO SCH ×2 (09:16→21:39)
[2016-07-31] MEDS: FERROUS SULFATE (EC) 325 MG TAB PO SCH ×2 (09:16→21:39)
[2016-07-31] MEDS: QUETIAPINE 25 MG TAB PO SCH ×2 (09:16→21:39)
[2016-07-31] MEDS: ASPIRIN 81 MG TAB PO SCH (09:16)
[2016-07-31] MEDS: MUPIROCIN 2% 22 GM OINT TOP SCH ×2 (14:01→21:40)
[2016-07-31] MEDS: NS + KCL 20 MEQ 1,000 ML IV SCH (17:25)
--- NOTE | 2016-07-31 17:30 | PN ---
Date/Time of Note Date/Time of Note DATE: 07/31/16 TIME: 17:23 Assessment/Plan VTE Prophylaxis VTE Prophylaxis Intervention: SCD's Lines/Catheters IV Catheter Type (from [facility]): Peripheral IV Assessment/Plan Chief Complaint/Hosp Course Patient spiked fever last night, remains afebrile, neurological status is at patient's baseline. Assessment and plan: - Sepsis secondary to urinary tract infection with leukocytosis elevated lactate and encephalopathy, resolving. Follow up on repeat blood cultures. - Acute metabolic encephalopathy, resolved. - Urinary tract infection, continue Levaquin and vancomycin. 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 Dr. Acevedo is following in nephrology consultation. - Coronary artery disease, continue aspirin. - Hypertension. Patient is currently normotensive. - History of [employer] shunt - Epilepsy, continue Trileptal. - Bipolar disorder with psychosis. Continue Seroquel. - Anemia of chronic disease. Further recommendations based on clinical course. Plan of care discussed with Dr. Felipe. Problems: Exam/Review of Systems Vital Signs Vitals Vital Signs Date Time Temp Pulse Resp B/P Pulse Ox O2 Delivery O2 Flow Rate FiO2 07/31/16 08:21 98.6 67 18 104/55 96 07/30/16 08:00 5.0 07/29/16 20:41 Nasal Cannula Intake and Output 07/30/16 07/30/16 07/31/16 15:00 23:00 07:00 Intake Total 300 ml 615 ml 1150 ml Balance 300 ml 615 ml 1150 ml Exam Constitutional: alert Head: atraumatic Neck: supple Respiratory: clear to auscultation Cardiovascular: nl pulses Gastrointestinal: non-tender, soft Extremities: normal pulses, other (Contracted) Neurological: nl mental status Results Result Diagram: 07/31/16 0440 07/31/16 0440 Results 24 hrs Laboratory Tests Test 07/30/16 17:57 07/31/16 04:40 Bedside Glucose 92 White Blood Count 6.7 Red Blood Count 3.43 L Hemoglobin 10.0 L Hematocrit 31.3 L Mean Corpuscular Volume 91.3 Mean Corpuscular Hemoglobin 29.2 Mean Corpuscular Hemoglobin Concent 31.9 L Red Cell Distribution Width 15.3 H Platelet Count 220 Mean Platelet Volume 10.1 Neutrophils % 69.4 Lymphocytes % 13.6 L Monocytes % 13.3 H Eosinophils % 3.1 Basophils % 0.3 Nucleated Red Blood Cells % 0.0 Neutrophils # 4.7 Lymphocytes # 0.9 Monocytes # 0.9 Eosinophils # 0.2 Basophils # 0.0 Nucleated Red Blood Cells # 0.0 Sodium Level 136 Potassium Level 3.5 Chloride Level 105 Carbon Dioxide Level 25 Anion Gap 10 Blood Urea Nitrogen 22 H Creatinine 1.23 H Glucose Level 110 Calcium Level 9.0 Medications Medications Current Medications Levofloxacin/ Dextrose (Levaquin 250 Mg/ D5W 50 ml (Pmx)) 50 ml @ 50 mls/hr Q24H IVPB Last administered on 07/31/16 09:15; Admin Dose 50 MLS/HR; Start at 09:00 Diagnostic Test (Pha) (Accu-Chek) 1 ea 02 XX ; Start 07/30/16 at 02:00 Miscellaneous Information 1 ea NOTE XX ; Start 07/29/16 at 19:30 Glucose (Glutose) 15 gm Q15M PRN PO DECREASED GLUCOSE; Start 07/29/16 at 19:30 Glucose (Glutose) 22.5 gm Q15M PRN PO DECREASED GLUCOSE; Start 07/29/16 at 19: 30 Dextrose (D50w Syringe) 25 ml Q15M PRN IV DECREASED GLUCOSE; Start 07/29/16 at 19:30 Dextrose (D50w Syringe) 50 ml Q15M PRN IV DECREASED GLUCOSE; Start 07/29/16 at 19:30 Glucagon (Glucagen) 1 mg Q15M PRN IM DECREASED GLUCOSE; Start 07/29/16 at 19:30 Glucose (Glutose) 15 gm Q15M PRN BUCCAL DECREASED GLUCOSE; Start 07/29/16 at 19 :30 Ondansetron HCl (Zofran Inj) 4 mg Q6H PRN IV NAUSEA AND/OR VOMITING; Start at 19:30 Acetaminophen (Tylenol Supp) 650 mg Q6H PRN [place] FEVER GREATER THAN 100.6; Start 07/29/16 at 19:30 Pantoprazole (Protonix Tab) 40 mg DAILY@06 PO Last administered on 07/31/16 06 :41; Admin Dose 40 MG; Start 07/31/16 at 06:00 Oxcarbazepine (Trileptal) 300 mg BID PO Last administered on 07/31/16 09:16; Admin Dose 300 MG; Start 07/30/16 at 21:00 Acetaminophen (Tylenol Tab) 650 mg Q4H PRN PO PAIN AND OR ELEVATED TEMP Last administered on 07/30/16 21:39; Admin Dose 650 MG; Start 07/30/16 at 18:00 Aspirin (Aspirin) 81 mg DAILY PO Last administered on 07/31/16 09:16; Admin Dose 81 MG; Start 07/31/16 at 09:00 Bisacodyl (Dulcolax Supp) 10 mg DAILY PRN [place] CONSTIPATION; Start 07/30/16 at 18 :00 Clonazepam (Klonopin) 0.25 mg BID PRN PO ANXIETY; Start 07/30/16 at 18:00 Diphenhydramine HCl (Benadryl) 25 mg Q6H PRN PO ITCHING; Start 07/30/16 at 18: 00 Divalproex Sodium (Depakote Sprinkle) 250 mg BID PO Last administered on 09:16; Admin Dose 250 MG; Start 07/30/16 at 21:00 Docusate Sodium (Colace) 200 mg HS PO Last administered on 07/30/16 21:38; Admin Dose 200 MG; Start 07/30/16 at 21:00 Ferrous Sulfate (Ferrous Sulfate (Ec)) 325 mg BID PO Last administered on 09:16; Admin Dose 325 MG; Start 07/30/16 at 21:00 Lorazepam (Ativan) 0.5 mg Q6H PRN PO ANXIETY; Start 07/30/16 at 18:00 Magnesium Hydroxide (Milk Of Mag) 30 ml DAILY PRN PO CONSTIPATION; Start at 18:00 Quetiapine Fumarate (Seroquel) 25 mg AM PO Last administered on 07/31/16 09:16 ; Admin Dose 25 MG; Start 07/31/16 at 09:00 Quetiapine Fumarate 50 mg 50 mg HS PO Last administered on 07/30/16 21:38; Admin Dose 50 MG; Start 07/30/16 at 21:00 Vancomycin HCl/ Sodium Chloride (Vancocin/NS) 150 ml @ 75 mls/hr Q24H IVPB ; Start 07/31/16 at 20:00 Mupirocin 1 applic 1 applic BID TOP Last administered on 07/31/16t 14:01; Admin Dose 1 APPLIC; Start 07/31/16 at 12:00 Potassium Chloride/Sodium Chloride (NS-KCl 20 Meq) 1,000 ml @ 50 mls/hr Q20H IV ; Start 07/31/16 at 17:00 UMESH WILLETT Jul 31, 2016 17:30
--- NOTE | 2016-07-31 18:18 | CONS ---
DATE OF ADMISSION: 07/29/2016 DATE OF CONSULTATION: 07/31/2016 TYPE OF CONSULTATION: Infectious disease. REASON FOR CONSULTATION: Antibiotic management. HISTORY OF PRESENT ILLNESS: Muriel Walter is a 76-year-old female who came in on the with hi story of chronic encephalopathy and presented to the emergency room with altered mental status worse than baseline. Her past problems include: 1. Coronary artery disease. 2. Hydrocephalus. 3. Hypothyroidism. 4. GERD. 5. Morbid obesity. 6. Intellectual disabilities. 7. Bipolar/psychosis. 8. Status post right ventriculoperitoneal or ASSESSOR shunt. On admission, her white count was 11.3, H and H of 11 and 33.5, platelet count 286,000. BUN and cre atinine 31/1.21, glucose of 110. PAST MEDICAL HISTORY: Operations as outlined. FAMILY HISTORY: Noncontributory. SOCIAL HISTORY: She does not smoke, drink, or abuse drugs. ALLERGIES: NONE TO PENICILLIN, SULFA, OR FOODS. MEDICATIONS: Per chart. REVIEW OF SYSTEMS: Noncontributory. PHYSICAL EXAMINATION: GENERAL: The patient is an elderly appearing, nonverbal female who is awake and in no acute distres s. VITAL SIGNS: Stable. T-max of 99.5. SKIN: Without generalized rash. HEENT: Within normal limits. NECK: Supple. LYMPH NODES: None palpable. CHEST: Decreased breath sounds at the bases. HEART: Without murmur or gallop. ABDOMEN: Soft, nontender without organosplenomegaly or masses. EXTREMITIES: Without cyanosis, clubbing, or edema. RECTAL AND GENITAL: Deferred. NEUROLOGIC: No focal neurological abnormality. IMAGING STUDIES: CT scan of the brain shows severe ventriculomegaly, greater than sulcal prominence suggesting central greater than peripheral volume loss, hydrocephalus with normal pressure hydrocep halus is not excluded. She has a right frontal approach ventriculostomy catheter. LABORATORY DATA: Her white count today is 6.7. Her BUN and creatinine are 22/1.23. Urine shows 3+ leukocyte esterase and 25 to 50 white cells per high powered field. Blood cultures are negative. Urine cultures showing Enterobacter cloacae, enterococcus, gram-negative rods. The enterococcus is sensitive to ampicillin. The enterobacter is sensitive to cefotaxime. IMPRESSION AND PLAN: The patient is currently on vancomycin and Levaquin and the enterobacter compl ex is sensitive to Levaquin, so we are going to continue the Levaquin and vancomycin. We will obser ve her. Her chest x-ray showed mild pulmonary venous hypertension. A renal ultrasound showed nonob structing bilateral renal calculi. We will continue her on vancomycin and Levaquin. I will dictate my findings to Dr. Gayle and also to Dr. Viky Acevedo. Dictated By: ANDRAE TORRES MD, JD/NTS Conf#: [id number] DID#: [id number] CC: ELLYN ACEVEDO MD; SHEN GAYLE MD;*[facility]*
--- NOTE | 2016-07-31 19:40 | CONS ---
Date/Time of Note Date/Time of Note DATE: 07/31/16 TIME: 19:39 Assessment/Plan Assessment/Plan Additional Assessment/Plan 1. Nonoliguric acute kidney injury, likely secondary to prerenal azotemia and also secondary to urinary tract infection. 2. 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 3. Hypertension. 4. Altered of consciousness and altered mental status. 5. Urinary tract infection. 6. Anemia of chronic disease. 7. Alzheimer dementia. 8. Diabetes mellitus type 2. PLAN: on iVF< Cr bumped to 1.23- will montior with IVF today- if continues to rise tomorrow then we will consider giving Albumin IV abx as per PMD BP stable afebrile will follow up Consultation Date/Type/Reason Admit Date/Time Jul 29, 2016 at 16:46 Type of Consultation: NEPHROLOGY Referring Provider: SHEN GAYLE MD 24 HR Interval Summary Free Text/Dictation Cr bumped to 1.23 Exam/Review of Systems Vital Signs Vitals Vital Signs Date Time Temp Pulse Resp B/P Pulse Ox O2 Delivery O2 Flow Rate FiO2 07/31/16 08:21 98.6 67 18 104/55 96 07/30/16 08:00 5.0 07/29/16 20:41 Nasal Cannula Intake and Output 07/30/16 07/30/16 07/31/16 15:00 23:00 07:00 Intake Total 300 ml 615 ml 1990 ml Balance 300 ml 615 ml 1990 ml Results Result Diagram: 07/31/16 0440 07/31/16 0440 Results 24 hrs Laboratory Tests Test 07/31/16 04:40 White Blood Count 6.7 Red Blood Count 3.43 L Hemoglobin 10.0 L Hematocrit 31.3 L Mean Corpuscular Volume 91.3 Mean Corpuscular Hemoglobin 29.2 Mean Corpuscular Hemoglobin Concent 31.9 L Red Cell Distribution Width 15.3 H Platelet Count 220 Mean Platelet Volume 10.1 Neutrophils % 69.4 Lymphocytes % 13.6 L Monocytes % 13.3 H Eosinophils % 3.1 Basophils % 0.3 Nucleated Red Blood Cells % 0.0 Neutrophils # 4.7 Lymphocytes # 0.9 Monocytes # 0.9 Eosinophils # 0.2 Basophils # 0.0 Nucleated Red Blood Cells # 0.0 Sodium Level 136 Potassium Level 3.5 Chloride Level 105 Carbon Dioxide Level 25 Anion Gap 10 Blood Urea Nitrogen 22 H Creatinine 1.23 H Glucose Level 110 Calcium Level 9.0 Medications Medications Current Medications Levofloxacin/ Dextrose (Levaquin 250 Mg/ D5W 50 ml (Pmx)) 50 ml @ 50 mls/hr Q24H IVPB Last administered on 07/31/16 09:15; Admin Dose 50 MLS/HR; Start at 09:00 Diagnostic Test (Pha) (Accu-Chek) 1 ea 02 XX ; Start 07/30/16 at 02:00 Miscellaneous Information 1 ea NOTE XX ; Start 07/29/16 at 19:30 Glucose (Glutose) 15 gm Q15M PRN PO DECREASED GLUCOSE; Start 07/29/16 at 19:30 Glucose (Glutose) 22.5 gm Q15M PRN PO DECREASED GLUCOSE; Start 07/29/16 at 19: 30 Dextrose (D50w Syringe) 25 ml Q15M PRN IV DECREASED GLUCOSE; Start 07/29/16 at 19:30 Dextrose (D50w Syringe) 50 ml Q15M PRN IV DECREASED GLUCOSE; Start 07/29/16 at 19:30 Glucagon (Glucagen) 1 mg Q15M PRN IM DECREASED GLUCOSE; Start 07/29/16 at 19:30 Glucose (Glutose) 15 gm Q15M PRN BUCCAL DECREASED GLUCOSE; Start 07/29/16 at 19 :30 Ondansetron HCl (Zofran Inj) 4 mg Q6H PRN IV NAUSEA AND/OR VOMITING; Start at 19:30 Acetaminophen (Tylenol Supp) 650 mg Q6H PRN [place] FEVER GREATER THAN 100.6; Start 07/29/16 at 19:30 Pantoprazole (Protonix Tab) 40 mg DAILY@06 PO Last administered on 07/31/16 06 :41; Admin Dose 40 MG; Start 07/31/16 at 06:00 Oxcarbazepine (Trileptal) 300 mg BID PO Last administered on 07/31/16 09:16; Admin Dose 300 MG; Start 07/30/16 at 21:00 Acetaminophen (Tylenol Tab) 650 mg Q4H PRN PO PAIN AND OR ELEVATED TEMP Last administered on 07/30/16 21:39; Admin Dose 650 MG; Start 07/30/16 at 18:00 Aspirin (Aspirin) 81 mg DAILY PO Last administered on 07/31/16 09:16; Admin Dose 81 MG; Start 07/31/16 at 09:00 Bisacodyl (Dulcolax Supp) 10 mg DAILY PRN [place] CONSTIPATION; Start 07/30/16 at 18 :00 Clonazepam (Klonopin) 0.25 mg BID PRN PO ANXIETY; Start 07/30/16 at 18:00 Diphenhydramine HCl (Benadryl) 25 mg Q6H PRN PO ITCHING; Start 07/30/16 at 18: 00 Divalproex Sodium (Depakote Sprinkle) 250 mg BID PO Last administered on 09:16; Admin Dose 250 MG; Start 07/30/16 at 21:00 Docusate Sodium (Colace) 200 mg HS PO Last administered on 07/30/16 21:38; Admin Dose 200 MG; Start 07/30/16 at 21:00 Ferrous Sulfate (Ferrous Sulfate (Ec)) 325 mg BID PO Last administered on 09:16; Admin Dose 325 MG; Start 07/30/16 at 21:00 Lorazepam (Ativan) 0.5 mg Q6H PRN PO ANXIETY; Start 07/30/16 at 18:00 Magnesium Hydroxide (Milk Of Mag) 30 ml DAILY PRN PO CONSTIPATION; Start at 18:00 Quetiapine Fumarate (Seroquel) 25 mg AM PO Last administered on 07/31/16 09:16 ; Admin Dose 25 MG; Start 07/31/16 at 09:00 Quetiapine Fumarate 50 mg 50 mg HS PO Last administered on 07/30/16 21:38; Admin Dose 50 MG; Start 07/30/16 at 21:00 Vancomycin HCl/ Sodium Chloride (Vancocin/NS) 150 ml @ 75 mls/hr Q24H IVPB ; Start 07/31/16 at 20:00 Mupirocin 1 applic 1 applic BID TOP Last administered on 07/31/16 14:01; Admin Dose 1 APPLIC; Start 07/31/16 at 12:00 Potassium Chloride/Sodium Chloride (NS-KCl 20 Meq) 1,000 ml @ 50 mls/hr Q20H IV Last administered on 07/31/16 17:25; Admin Dose 50 MLS/HR; Start 07/31/16 at 17:00 ELLYN RECINOS MD Jul 31, 2016 19:40
[2016-07-31] MEDS: VANCOMYCIN 750 MG in SOD CHLORIDE 0.9% 150 ML IVPB SCH (19:52)
[2016-07-31] MEDS ORDERED: VANCOMYCIN 1 GM in NS 250 ML IVPB SCH (20:00)
[2016-07-31 20:11] VITALS: BP 116/57; RESP 18
[2016-07-31] MEDS: DOCUSATE SODIUM 100 MG CAP PO SCH (21:38)
[2016-08-01] MEDS: DIPHENHYDRAMINE 25 MG CAP PO PRN (01:07)
[2016-08-01] MEDS: ACCU-CHEK XX SCH (01:59)
[2016-08-01] MEDS: LORAZEPAM 0.5 MG TAB PO PRN (02:02)
[2016-08-01] MEDS: PANTOPRAZOLE (EC) 40 MG TAB PO SCH (05:39)
[2016-08-01 05:48] VITALS: BP 111/59; RESP 18
[2016-08-01 06:03] LABS: ADD SCAN DIFF NO
[2016-08-01 06:23] LABS: BASOPHIL # 0.1 10^3/ul (0.0-0.1); BASOPHILS % 0.8 % (0.0-2.0); EOSINOPHILS # 0.6 10^3/ul (0.0-0.5); EOSINOPHILS % 9.5 % (0.0-7.0); HEMATOCRIT 31.6 % (37.0-47.0); HEMOGLOBIN 10.1 g/dl (12.0-16.0); LYMPHOCYTES # 1.2 10^3/ul (0.8-2.9); LYMPHOCYTES % 19.6 % (15.0-51.0); MEAN CORPUSCULAR HEMOGLOBIN 29.2 pg (29.0-33.0); MEAN CORPUSCULAR VOLUME 91.3 fl (82.0-101.0); MEAN PLATELET VOLUME 10.1 fl (7.4-10.4); MONOCYTE # 0.7 10^3/ul (0.3-0.9); MONOCYTES % 11.3 % (0.0-11.0); NEUTROPHIL # 3.6 10^3/ul (1.6-7.5); NEUTROPHILS % 58.6 % (39.0-77.0); PLATELET COUNT 245 10^3/UL (140-415); RED BLOOD COUNT 3.46 10^6/ul (4.20-5.40); RED CELL DISTRIBUTION WIDTH 15.2 % (11.5-14.5); WHITE BLOOD COUNT 6.2 10^3/ul (4.8-10.8)
[2016-08-01 07:06] LABS: CALCIUM 9.1 mg/dl (8.4-10.2); CREATININE 1.21 mg/dl (0.44-1.00); POTASSIUM 3.9 mmol/L (3.5-5.1)
[2016-08-01 08:00] VITALS: BP 130/62; RESP 18
[2016-08-01] MEDS: ASPIRIN 81 MG TAB PO SCH (09:27)
[2016-08-01] MEDS: QUETIAPINE 25 MG TAB PO SCH ×2 (09:27→20:44)
[2016-08-01] MEDS: FERROUS SULFATE (EC) 325 MG TAB PO SCH ×2 (09:27→20:44)
[2016-08-01] MEDS: OXCARBAZEPINE 300 MG TAB PO SCH ×2 (09:27→20:44)
--- NOTE | 2016-08-01 11:50 | PN ---
Date/Time of Note Date/Time of Note DATE: 08/01/16 TIME: 11:45 Assessment/Plan VTE Prophylaxis VTE Prophylaxis Intervention: SCD's Lines/Catheters IV C[facility]ter Type (from [facility]): Peripheral IV Urinary Cath still in place: No Assessment/Plan Chief Complaint/Hosp Course No acute events per RN, patient looks comfortable, stable VS. Assessment and plan: - Sepsis secondary to urinary tract infection with leukocytosis elevated lactate and encephalopathy, resolving. Follow up on repeat blood cultures. - Acute metabolic encephalopathy, resolved. - Urinary tract infection, continue Levaquin and vancomycin. 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 Dr. Acevedo is following in nephrology consultation. - Coronary artery disease, continue aspirin. - Hypertension. Patient is currently normotensive. - History of [employer] shunt - Epilepsy, continue Trileptal. - Bipolar disorder with psychosis. Continue Seroquel. - Anemia of chronic disease. Continue PT. Further recommendations based on clinical course. Plan of care discussed with Dr. Felipe. Problems: Exam/Review of Systems Vital Signs Vitals Vital Signs Date Time Temp Pulse Resp B/P Pulse Ox O2 Delivery O2 Flow Rate FiO2 08/01/16 08:00 98.6 18 18 130/62 96 07/30/16 08:00 5.0 07/29/16 20:41 Nasal Cannula Intake and Output 07/31/16 07/31/16 08/01/16 15:00 23:00 07:00 Intake Total 50 ml 1050 ml 1300 ml Output Total 1050 ml Balance 50 ml 1050 ml 250 ml Exam Constitutional: alert Head: atraumatic Neck: supple Respiratory: clear to auscultation Cardiovascular: nl pulses Gastrointestinal: non-tender, soft Extremities: normal pulses, other (Contracted) Neurological: nl mental status Results Result Diagram: 08/01/16 0450 08/01/16 0450 Results 24 hrs Laboratory Tests Test 08/01/16 04:50 White Blood Count 6.2 Red Blood Count 3.46 L Hemoglobin 10.1 L Hematocrit 31.6 L Mean Corpuscular Volume 91.3 Mean Corpuscular Hemoglobin 29.2 Mean Corpuscular Hemoglobin Concent 32.0 Red Cell Distribution Width 15.2 H Platelet Count 245 Mean Platelet Volume 10.1 Neutrophils % 58.6 Lymphocytes % 19.6 Monocytes % 11.3 H Eosinophils % 9.5 H Basophils % 0.8 Nucleated Red Blood Cells % 0.0 Neutrophils # 3.6 Lymphocytes # 1.2 Monocytes # 0.7 Eosinophils # 0.6 H Basophils # 0.1 Nucleated Red Blood Cells # 0.0 Sodium Level 141 Potassium Level 3.9 Chloride Level 105 Carbon Dioxide Level 25 Anion Gap 15 Blood Urea Nitrogen 24 H Creatinine 1.21 H Glucose Level 88 Calcium Level 9.1 Medications Medications Current Medications Levofloxacin/ Dextrose (Levaquin 250 Mg/ D5W 50 ml (Pmx)) 50 ml @ 50 mls/hr Q24H IVPB Last administered on 07/31/16 09:15; Admin Dose 50 MLS/HR; Start at 09:00 Diagnostic Test (Pha) (Accu-Chek) 1 ea 02 XX ; Start 07/30/16 at 02:00 Miscellaneous Information 1 ea NOTE XX ; Start 07/29/16 at 19:30 Glucose (Glutose) 15 gm Q15M PRN PO DECREASED GLUCOSE; Start 07/29/16 at 19:30 Glucose (Glutose) 22.5 gm Q15M PRN PO DECREASED GLUCOSE; Start 07/29/16 at 19: 30 Dextrose (D50w Syringe) 25 ml Q15M PRN IV DECREASED GLUCOSE; Start 07/29/16 at 19:30 Dextrose (D50w Syringe) 50 ml Q15M PRN IV DECREASED GLUCOSE; Start 07/29/16 at 19:30 Glucagon (Glucagen) 1 mg Q15M PRN IM DECREASED GLUCOSE; Start 07/29/16 at 19:30 Glucose (Glutose) 15 gm Q15M PRN BUCCAL DECREASED GLUCOSE; Start 07/29/16 at 19 :30 Ondansetron HCl (Zofran Inj) 4 mg Q6H PRN IV NAUSEA AND/OR VOMITING; Start at 19:30 Acetaminophen (Tylenol Supp) 650 mg Q6H PRN [place] FEVER GREATER THAN 100.6; Start 07/29/16 at 19:30 Pantoprazole (Protonix Tab) 40 mg DAILY@06 PO Last administered on 08/01/16 05 :39; Admin Dose 40 MG; Start 07/31/16 at 06:00 Oxcarbazepine (Trileptal) 300 mg BID PO Last administered on 08/01/16 09:27; Admin Dose 300 MG; Start 07/30/16 at 21:00 Acetaminophen (Tylenol Tab) 650 mg Q4H PRN PO PAIN AND OR ELEVATED TEMP Last administered on 07/30/16 21:39; Admin Dose 650 MG; Start 07/30/16 at 18:00 Aspirin (Aspirin) 81 mg DAILY PO Last administered on 08/01/16 09:27; Admin Dose 81 MG; Start 07/31/16 at 09:00 Bisacodyl (Dulcolax Supp) 10 mg DAILY PRN [place] CONSTIPATION; Start 07/30/16 at 18 :00 Clonazepam (Klonopin) 0.25 mg BID PRN PO ANXIETY; Start 07/30/16 at 18:00 Diphenhydramine HCl (Benadryl) 25 mg Q6H PRN PO ITCHING Last administered on 01:07; Admin Dose 25 MG; Start 07/30/16 at 18:00 Divalproex Sodium (Depakote Sprinkle) 250 mg BID PO Last administered on 21:39; Admin Dose 250 MG; Start 07/30/16 at 21:00 Docusate Sodium (Colace) 200 mg HS PO Last administered on 07/31/16 21:38; Admin Dose 200 MG; Start 07/30/16 at 21:00 Ferrous Sulfate (Ferrous Sulfate (Ec)) 325 mg BID PO Last administered on 09:27; Admin Dose 325 MG; Start 07/30/16 at 21:00 Lorazepam (Ativan) 0.5 mg Q6H PRN PO ANXIETY Last administered on 08/01/16 02: 02; Admin Dose 0.5 MG; Start 07/30/16 at 18:00 Magnesium Hydroxide (Milk Of Mag) 30 ml DAILY PRN PO CONSTIPATION; Start at 18:00 Quetiapine Fumarate (Seroquel) 25 mg AM PO Last administered on 08/01/16 09:27 ; Admin Dose 25 MG; Start 07/31/16 at 09:00 Quetiapine Fumarate 50 mg 50 mg HS PO Last administered on 07/31/16 21:39; Admin Dose 50 MG; Start 07/30/16 at 21:00 Vancomycin HCl/ Sodium Chloride (Vancocin/NS) 150 ml @ 75 mls/hr Q24H IVPB Last administered on 07/31/16 19:52; Admin Dose 75 MLS/HR; Start 07/31/16 at 20 :00 Mupirocin 1 applic 1 applic BID TOP Last administered on 07/31/16 21:40; Admin Dose 1 APPLIC; Start 07/31/16 at 12:00 Potassium Chloride/Sodium Chloride (NS-KCl 20 Meq) 1,000 ml @ 50 mls/hr Q20H IV Last administered on 07/31/16 17:25; Admin Dose 50 MLS/HR; Start 07/31/16 at 17:00 UMESH WILLETT Aug 01, 2016 11:50
[2016-08-01] MEDS: LEVOFLOXACIN 250MG/D5W (PMX) 50 ML IVPB SCH (12:04)
[2016-08-01] MEDS: NS + KCL 20 MEQ 1,000 ML IV SCH (12:04)
[2016-08-01] MEDS: MUPIROCIN 2% 22 GM OINT TOP SCH ×2 (12:05→20:45)
[2016-08-01] MEDS: DIVALPROEX SPRINKLE 125 MG CAP PO SCH ×2 (12:05→20:44)
--- NOTE | 2016-08-01 13:32 | PN ---
DATE: 08/01/2016 SUBJECTIVE: No acute changes. The patient is awake, looks comfortable, denies pain, discomfort. N o fevers overnight. WBC today 6.2, no shift, no bands. BUN 24, creatinine 1.21. MICROBIOLOGY: Urine culture growing enterococcus species, Klebsiella and Enterobacter cloacae compl ex susceptible to Levaquin. ANTIMICROBIALS: The patient remains on: 1. Vancomycin. 2. Levaquin. ALLERGIES: 1. PENICILLIN. 2. ERTAPENEM. 3. MEROPENEM. PHYSICAL EXAMINATION: GENERAL: This is a fragile, elderly woman who is in no distress. HEENT: Head atraumatic, normocephalic. Sclerae anicteric. Buccal mucosa dry. NECK: Supple. CHEST: Rise symmetrical. Breath sounds clear. HEART: S1, S2. ABDOMEN: Soft, bowel sounds present. EXTREMITIES: Without cyanosis. ASSESSMENT: 1. Resolving sepsis status post fevers, leukocytosis and encephalopathy on admission. 2. Polymicrobial multidrug resistant urinary tract infection. 3. Methicillin-resistant Staphylococcus aureus colonization. 4. Acute kidney injury. 5. Coronary artery disease. 6. Hypertension. 7. History of ventriculoperitoneal shunt placement. PLAN: The patient remains stable on appropriate antimicrobials. Continue present care, anti-aspira tion measures. Dictated By: ALFRED GUZMÁN [employer] for ANDRAE TOMPKINS/ERIS Conf#: [id number] DID#: [id number]
--- NOTE | 2016-08-01 16:43 | CONS ---
Date/Time of Note Date/Time of Note DATE: 08/01/16 TIME: 16:41 Assessment/Plan Assessment/Plan Additional Assessment/Plan 1. Nonoliguric acute kidney injury, likely secondary to prerenal azotemia and also secondary to urinary tract infection. 2. 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 3. Hypertension. 4. Altered of consciousness and altered mental status. 5. Urinary tract infection. 6. Anemia of chronic disease. 7. Alzheimer dementia. 8. Diabetes mellitus type 2. PLAN: on iVF< Cr 1.21 IV abx as per PMD BP stable afebrile will follow up Consultation Date/Type/Reason Admit Date/Time Jul 29, 2016 at 16:46 Type of Consultation: NEPHROLOGY Referring Provider: SHEN GAYLE MD 24 HR Interval Summary Free Text/Dictation doing ok, BP stable Exam/Review of Systems Vital Signs Vitals Vital Signs Date Time Temp Pulse Resp B/P Pulse Ox O2 Delivery O2 Flow Rate FiO2 08/01/16 08:00 98.6 18 18 130/62 96 07/30/16 08:00 5.0 07/29/16 20:41 Nasal Cannula Intake and Output 07/31/16 07/31/16 08/01/16 15:00 23:00 07:00 Intake Total 50 ml 1050 ml 1300 ml Output Total 1050 ml Balance 50 ml 1050 ml 250 ml Exam GENERAL: Awake, alert, mild to moderate distress. HEENT: Pupils equal, round, reactive to light and accommodation. Extraocular muscles are intact. NECK: Supple. No JVD, no lymphadenopathy. LUNGS: Clear to auscultation. Bilateral basilar rales present. HEART: S1, S2, regular rate, regular rhythm. No murmur. ABDOMEN: Soft, nontender, nondistended. Bowel sounds are present. EXTREMITIES: No clubbing, cyanosis, edema. NEUROLOGICAL: Nonfocal, intact. PSYCHIATRIC: Appropriate affect and mood. Results Result Diagram: 08/01/160 08/01/16449 Results 24 hrs Laboratory Tests Test 08/01/16 04:50 White Blood Count 6.2 Red Blood Count 3.46 L Hemoglobin 10.1 L Hematocrit 31.6 L Mean Corpuscular Volume 91.3 Mean Corpuscular Hemoglobin 29.2 Mean Corpuscular Hemoglobin Concent 32.0 Red Cell Distribution Width 15.2 H Platelet Count 245 Mean Platelet Volume 10.1 Neutrophils % 58.6 Lymphocytes % 19.6 Monocytes % 11.3 H Eosinophils % 9.5 H Basophils % 0.8 Nucleated Red Blood Cells % 0.0 Neutrophils # 3.6 Lymphocytes # 1.2 Monocytes # 0.7 Eosinophils # 0.6 H Basophils # 0.1 Nucleated Red Blood Cells # 0.0 Sodium Level 141 Potassium Level 3.9 Chloride Level 105 Carbon Dioxide Level 25 Anion Gap 15 Blood Urea Nitrogen 24 H Creatinine 1.21 H Glucose Level 88 Calcium Level 9.1 Medications Medications Current Medications Levofloxacin/ Dextrose (Levaquin 250 Mg/ D5W 50 ml (Pmx)) 50 ml @ 50 mls/hr Q24H IVPB Last administered on 08/01/16 12:04; Admin Dose 50 MLS/HR; Start at 09:00 Diagnostic Test (Pha) (Accu-Chek) 1 ea 02 XX ; Start 07/30/16 at 02:00 Miscellaneous Information 1 ea NOTE XX ; Start 07/29/16 at 19:30 Glucose (Glutose) 15 gm Q15M PRN PO DECREASED GLUCOSE; Start 07/29/16 at 19:30 Glucose (Glutose) 22.5 gm Q15M PRN PO DECREASED GLUCOSE; Start 07/29/16 at 19: 30 Dextrose (D50w Syringe) 25 ml Q15M PRN IV DECREASED GLUCOSE; Start 07/29/16 at 19:30 Dextrose (D50w Syringe) 50 ml Q15M PRN IV DECREASED GLUCOSE; Start 07/29/16 at 19:30 Glucagon (Glucagen) 1 mg Q15M PRN IM DECREASED GLUCOSE; Start 07/29/16 at 19:30 Glucose (Glutose) 15 gm Q15M PRN BUCCAL DECREASED GLUCOSE; Start 07/29/16 at 19 :30 Ondansetron HCl (Zofran Inj) 4 mg Q6H PRN IV NAUSEA AND/OR VOMITING; Start at 19:30 Acetaminophen (Tylenol Supp) 650 mg Q6H PRN [place] FEVER GREATER THAN 100.6; Start 07/29/16 at 19:30 Pantoprazole (Protonix Tab) 40 mg DAILY@06 PO Last administered on 08/01/16 05 :39; Admin Dose 40 MG; Start 07/31/16 at 06:00 Oxcarbazepine (Trileptal) 300 mg BID PO Last administered on 08/01/16 09:27; Admin Dose 300 MG; Start 07/30/16 at 21:00 Acetaminophen (Tylenol Tab) 650 mg Q4H PRN PO PAIN AND OR ELEVATED TEMP Last administered on 07/30/16 21:39; Admin Dose 650 MG; Start 07/30/16 at 18:00 Aspirin (Aspirin) 81 mg DAILY PO Last administered on 08/01/16 09:27; Admin Dose 81 MG; Start 07/31/16 at 09:00 Bisacodyl (Dulcolax Supp) 10 mg DAILY PRN [place] CONSTIPATION; Start 07/30/16 at 18 :00 Clonazepam (Klonopin) 0.25 mg BID PRN PO ANXIETY; Start 07/30/16 at 18:00 Diphenhydramine HCl (Benadryl) 25 mg Q6H PRN PO ITCHING Last administered on 01:07; Admin Dose 25 MG; Start 07/30/16 at 18:00 Divalproex Sodium (Depakote Sprinkle) 250 mg BID PO Last administered on 12:05; Admin Dose 250 MG; Start 07/30/16 at 21:00 Docusate Sodium (Colace) 200 mg HS PO Last administered on 07/31/16 21:38; Admin Dose 200 MG; Start 07/30/16 at 21:00 Ferrous Sulfate (Ferrous Sulfate (Ec)) 325 mg BID PO Last administered on 09:27; Admin Dose 325 MG; Start 07/30/16 at 21:00 Lorazepam (Ativan) 0.5 mg Q6H PRN PO ANXIETY Last administered on 08/01/16 02: 02; Admin Dose 0.5 MG; Start 07/30/16 at 18:00 Magnesium Hydroxide (Milk Of Mag) 30 ml DAILY PRN PO CONSTIPATION; Start at 18:00 Quetiapine Fumarate (Seroquel) 25 mg AM PO Last administered on 08/01/16 09:27 ; Admin Dose 25 MG; Start 07/31/16 at 09:00 Quetiapine Fumarate 50 mg 50 mg HS PO Last administered on 07/31/16 21:39; Admin Dose 50 MG; Start 07/30/16 at 21:00 Vancomycin HCl/ Sodium Chloride (Vancocin/NS) 150 ml @ 75 mls/hr Q24H IVPB Last administered on 07/31/16 19:52; Admin Dose 75 MLS/HR; Start 07/31/16 at 20 :00 Mupirocin 1 applic 1 applic BID TOP Last administered on 08/01/16 12:05; Admin Dose 1 APPLIC; Start 07/31/16 at 12:00 Potassium Chloride/Sodium Chloride (NS-KCl 20 Meq) 1,000 ml @ 50 mls/hr Q20H IV Last administered on 08/01/16 12:04; Admin Dose 50 MLS/HR; Start 07/31/16 at 17:00 ELLYN RECINOS MD Aug 01, 2016 16:43
[2016-08-01 20:32] VITALS: BP 112/57; RESP 18
[2016-08-01] MEDS: DOCUSATE SODIUM 100 MG CAP PO SCH (20:44)
[2016-08-01] MEDS: VANCOMYCIN 750 MG in SOD CHLORIDE 0.9% 150 ML IVPB SCH (20:44)
[2016-08-02] MEDS: ACCU-CHEK XX SCH (01:19)
[2016-08-02] MEDS: PANTOPRAZOLE (EC) 40 MG TAB PO SCH (05:22)
[2016-08-02 05:44] LABS: CALCIUM 9.4 mg/dl (8.4-10.2); CREATININE 1.03 mg/dl (0.44-1.00); POTASSIUM 4.3 mmol/L (3.5-5.1)
[2016-08-02 08:00] VITALS: BP_SYST 129; BP_SYST 137; BP_DIAS 61; BP_DIAS 77; RESP 20
[2016-08-02] MEDS: ASPIRIN 81 MG TAB PO SCH (08:48)
[2016-08-02] MEDS: DIVALPROEX SPRINKLE 125 MG CAP PO SCH ×2 (08:48→20:07)
[2016-08-02] MEDS: OXCARBAZEPINE 300 MG TAB PO SCH ×2 (08:48→20:09)
[2016-08-02] MEDS: FERROUS SULFATE (EC) 325 MG TAB PO SCH ×2 (08:48→20:08)
[2016-08-02] MEDS: QUETIAPINE 25 MG TAB PO SCH ×2 (08:48→20:08)
[2016-08-02] MEDS: LEVOFLOXACIN 250MG/D5W (PMX) 50 ML IVPB SCH (11:00)
[2016-08-02] MEDS: NS + KCL 20 MEQ 1,000 ML IV SCH (11:16)
[2016-08-02] MEDS: MUPIROCIN 2% 22 GM OINT TOP SCH ×2 (13:00→20:09)
--- NOTE | 2016-08-02 14:28 | CONS ---
Date/Time of Note Date/Time of Note DATE: 08/02/16 TIME: 14:27 Assessment/Plan Assessment/Plan Chief Complaint/Hosp Course SUBJECTIVE: No acute changes. The patient is awake, looks comfortable, denies pain, discomfort. No fevers overnight. MICROBIOLOGY: Urine culture growing enterococcus species, Klebsiella and Enterobacter cloacae complex susceptible to Levaquin. ANTIMICROBIALS: The patient remains on: 1. Vancomycin. 2. Levaquin. ALLERGIES: 1. PENICILLIN. 2. ERTAPENEM. 3. MEROPENEM. PHYSICAL EXAMINATION: GENERAL: This is a fragile, elderly woman who is in no distress. HEENT: Head atraumatic, normocephalic. Sclerae anicteric. Buccal mucosa dry. NECK: Supple. CHEST: Rise symmetrical. Breath sounds clear. HEART: S1, S2. ABDOMEN: Soft, bowel sounds present. EXTREMITIES: Without cyanosis. ASSESSMENT: 1. Resolving sepsis status post fevers, leukocytosis and encephalopathy on admission. 2. Polymicrobial multidrug resistant urinary tract infection. 3. Methicillin-resistant Staphylococcus aureus colonization. 4. Acute kidney injury. 5. Coronary artery disease. 6. Hypertension. 7. History of ventriculoperitoneal shunt placement. PLAN: The patient remains stable, on appropriate antimicrobials. Continue present care, anti-aspiration measures. Abx for 5 more days [facility] staff Problems: Consultation Date/Type/Reason Admit Date/Time Jul 29, 2016 at 16:46 Initial Consult Date Type of Consultation: ID Referring Provider: SHEN GAYLE MD Exam/Review of Systems Vital Signs Vitals Vital Signs Date Time Temp Pulse Resp B/P Pulse Ox O2 Delivery O2 Flow Rate FiO2 08/02/16 08:00 98.8 60 20 137/77 96 07/30/16 08:00 5.0 07/29/16 20:41 Nasal Cannula Intake and Output 08/01/16 08/01/16 08/02/16 15:00 23:00 07:00 Intake Total 500 ml 1310 ml 740 ml Balance 500 ml 1310 ml 740 ml Results Result Diagram: 08/01/16 0450 08/02/16 0445 Results 24 hrs Laboratory Tests Test 08/02/16 04:45 Sodium Level 144 Potassium Level 4.3 Chloride Level 107 Carbon Dioxide Level 25 Anion Gap 16 Blood Urea Nitrogen 28 H Creatinine 1.03 H Glucose Level 100 Calcium Level 9.4 Medications Medications Current Medications Levofloxacin/ Dextrose (Levaquin 250 Mg/ D5W 50 ml (Pmx)) 50 ml @ 50 mls/hr Q24H IVPB Last administered on 08/02/16 11:00; Admin Dose 50 MLS/HR; Start at 09:00 Diagnostic Test (Pha) (Accu-Chek) 1 ea 02 XX ; Start 07/30/16 at 02:00 Miscellaneous Information 1 ea NOTE XX ; Start 07/29/16 at 19:30 Glucose (Glutose) 15 gm Q15M PRN PO DECREASED GLUCOSE; Start 07/29/16 at 19:30 Glucose (Glutose) 22.5 gm Q15M PRN PO DECREASED GLUCOSE; Start 07/29/16 at 19: 30 Dextrose (D50w Syringe) 25 ml Q15M PRN IV DECREASED GLUCOSE; Start 07/29/16 at 19:30 Dextrose (D50w Syringe) 50 ml Q15M PRN IV DECREASED GLUCOSE; Start 07/29/16 at 19:30 Glucagon (Glucagen) 1 mg Q15M PRN IM DECREASED GLUCOSE; Start 07/29/16 at 19:30 Glucose (Glutose) 15 gm Q15M PRN BUCCAL DECREASED GLUCOSE; Start 07/29/16 at 19 :30 Ondansetron HCl (Zofran Inj) 4 mg Q6H PRN IV NAUSEA AND/OR VOMITING; Start at 19:30 Acetaminophen (Tylenol Supp) 650 mg Q6H PRN [place] FEVER GREATER THAN 100.6; Start 07/29/16 at 19:30 Pantoprazole (Protonix Tab) 40 mg DAILY@06 PO Last administered on 08/02/16 05 :22; Admin Dose 40 MG; Start 07/31/16 at 06:00 Oxcarbazepine (Trileptal) 300 mg BID PO Last administered on 08/02/16 08:48; Admin Dose 300 MG; Start 07/30/16 at 21:00 Acetaminophen (Tylenol Tab) 650 mg Q4H PRN PO PAIN AND OR ELEVATED TEMP Last administered on 07/30/16 21:39; Admin Dose 650 MG; Start 07/30/16 at 18:00 Aspirin (Aspirin) 81 mg DAILY PO Last administered on 08/02/16 08:48; Admin Dose 81 MG; Start 07/31/16 at 09:00 Bisacodyl (Dulcolax Supp) 10 mg DAILY PRN [place] CONSTIPATION; Start 07/30/16 at 18 :00 Clonazepam (Klonopin) 0.25 mg BID PRN PO ANXIETY; Start 07/30/16 at 18:00 Diphenhydramine HCl (Benadryl) 25 mg Q6H PRN PO ITCHING Last administered on 01:07; Admin Dose 25 MG; Start 07/30/16 at 18:00 Divalproex Sodium (Depakote Sprinkle) 250 mg BID PO Last administered on 08:48; Admin Dose 250 MG; Start 07/30/16 at 21:00 Docusate Sodium (Colace) 200 mg HS PO Last administered on 08/01/16 20:44; Admin Dose 200 MG; Start 07/30/16 at 21:00 Ferrous Sulfate (Ferrous Sulfate (Ec)) 325 mg BID PO Last administered on 08:48; Admin Dose 325 MG; Start 07/30/16 at 21:00 Lorazepam (Ativan) 0.5 mg Q6H PRN PO ANXIETY Last administered on 08/01/16 02: 02; Admin Dose 0.5 MG; Start 07/30/16 at 18:00 Magnesium Hydroxide (Milk Of Mag) 30 ml DAILY PRN PO CONSTIPATION; Start at 18:00 Quetiapine Fumarate (Seroquel) 25 mg AM PO Last administered on 08/02/16 08:48 ; Admin Dose 25 MG; Start 07/31/16 at 09:00 Quetiapine Fumarate 50 mg 50 mg HS PO Last administered on 08/01/16 20:44; Admin Dose 50 MG; Start 07/30/16 at 21:00 Vancomycin HCl/ Sodium Chloride (Vancocin/NS) 150 ml @ 75 mls/hr Q24H IVPB Last administered on 08/01/16 20:44; Admin Dose 75 MLS/HR; Start 07/31/16 at 20 :00 Mupirocin 1 applic 1 applic BID TOP Last administered on 08/01/16 20:45; Admin Dose 1 APPLIC; Start 07/31/16 at 12:00 Potassium Chloride/Sodium Chloride (NS-KCl 20 Meq) 1,000 ml @ 50 mls/hr Q20H IV Last administered on 08/02/16t 11:16; Admin Dose 50 MLS/HR; Start 07/31/16 at 17:00 Miscellaneous Information (*Rx Drug Level Order Reminder*) VANCO TROUGH @ 1, 900 ON... ONCE ONCE XX ; Start 08/02/16 at 19:00; Stop 08/02/16 at 19:01 ALFRED GUZMÁN NP Aug 02, 2016 14:28
--- NOTE | 2016-08-02 18:56 | PN ---
Date/Time of Note Date/Time of Note DATE: 08/02/16 TIME: 18:55 Assessment/Plan Lines/Catheters IV [facility] ([facility] Peripheral IV Urinary Cath still in place: No Assessment/Plan Assessment/Plan - Sepsis secondary to urinary tract infection with leukocytosis elevated lactate and encephalopathy, resolving. Follow up on repeat blood cultures. - Acute metabolic encephalopathy, resolved. - Urinary tract infection, continue Levaquin and vancomycin. 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 Dr. Acevedo is following in nephrology consultation. - Coronary artery disease, continue aspirin. - Hypertension. Patient is currently normotensive. - History of [employer] shunt - Epilepsy, continue Trileptal. - Bipolar disorder with psychosis. Continue Seroquel. - Anemia of chronic disease. Continue PT. Further recommendations based on clinical course. Plan of care discussed with Dr. Felipe. Subjective 24 Hr Interval Summary Constitutional: improved Respiratory: no complaints Cardiovascular: no complaints Gastrointestinal: no complaints Genitourinary: no complaints Exam/Review of Systems Vital Signs Vitals Vital Signs Date Time Temp Pulse Resp B/P Pulse Ox O2 Delivery O2 Flow Rate FiO2 08/02/16 08:00 98.8 60 20 137/77 96 07/30/16 08:00 5.0 07/29/16 20:41 Nasal Cannula Intake and Output 08/01/16 08/01/16 08/02/16 15:00 23:00 07:00 Intake Total 500 ml 1310 ml 740 ml Balance 500 ml 1310 ml 740 ml Exam Constitutional: alert Respiratory: clear to auscultation, normal air movement Cardiovascular: nl pulses, regular rate and rhythm Gastrointestinal: non-tender, soft Extremities: normal pulses Neurological: nl mental status, nl speech Results Result Diagram: 08/01/16 0450 08/02/16 0445 Results 24 hrs Laboratory Tests Test 08/02/16 04:45 Sodium Level 144 Potassium Level 4.3 Chloride Level 107 Carbon Dioxide Level 25 Anion Gap 16 Blood Urea Nitrogen 28 H Creatinine 1.03 H Glucose Level 100 Calcium Level 9.4 Medications Medications Current Medications Levofloxacin/ Dextrose (Levaquin 250 Mg/ D5W 50 ml (Pmx)) 50 ml @ 50 mls/hr Q24H IVPB Last administered on 08/02/16 11:00; Admin Dose 50 MLS/HR; Start at 09:00 Diagnostic Test (Pha) (Accu-Chek) 1 ea 02 XX ; Start 07/30/16 at 02:00 Miscellaneous Information 1 ea NOTE XX ; Start 07/29/16 at 19:30 Glucose (Glutose) 15 gm Q15M PRN PO DECREASED GLUCOSE; Start 07/29/16 at 19:30 Glucose (Glutose) 22.5 gm Q15M PRN PO DECREASED GLUCOSE; Start 07/29/16 at 19: 30 Dextrose (D50w Syringe) 25 ml Q15M PRN IV DECREASED GLUCOSE; Start 07/29/16 at 19:30 Dextrose (D50w Syringe) 50 ml Q15M PRN IV DECREASED GLUCOSE; Start 07/29/16 at 19:30 Glucagon (Glucagen) 1 mg Q15M PRN IM DECREASED GLUCOSE; Start 07/29/16 at 19:30 Glucose (Glutose) 15 gm Q15M PRN BUCCAL DECREASED GLUCOSE; Start 07/29/16 at 19 :30 Ondansetron HCl (Zofran Inj) 4 mg Q6H PRN IV NAUSEA AND/OR VOMITING; Start at 19:30 Acetaminophen (Tylenol Supp) 650 mg Q6H PRN [place] FEVER GREATER THAN 100.6; Start 07/29/16 at 19:30 Pantoprazole (Protonix Tab) 40 mg DAILY@06 PO Last administered on 08/02/16 05 :22; Admin Dose 40 MG; Start 07/31/16 at 06:00 Oxcarbazepine (Trileptal) 300 mg BID PO Last administered on 08/02/16 08:48; Admin Dose 300 MG; Start 07/30/16 at 21:00 Acetaminophen (Tylenol Tab) 650 mg Q4H PRN PO PAIN AND OR ELEVATED TEMP Last administered on 07/30/16 21:39; Admin Dose 650 MG; Start 07/30/16 at 18:00 Aspirin (Aspirin) 81 mg DAILY PO Last administered on 08/02/16 08:48; Admin Dose 81 MG; Start 07/31/16 at 09:00 Bisacodyl (Dulcolax Supp) 10 mg DAILY PRN [place] CONSTIPATION; Start 07/30/16 at 18 :00 Clonazepam (Klonopin) 0.25 mg BID PRN PO ANXIETY; Start 07/30/16 at 18:00 Diphenhydramine HCl (Benadryl) 25 mg Q6H PRN PO ITCHING Last administered on 01:07; Admin Dose 25 MG; Start 07/30/16 at 18:00 Divalproex Sodium (Depakote Sprinkle) 250 mg BID PO Last administered on 08:48; Admin Dose 250 MG; Start 07/30/16 at 21:00 Docusate Sodium (Colace) 200 mg HS PO Last administered on 08/01/16 20:44; Admin Dose 200 MG; Start 07/30/16 at 21:00 Ferrous Sulfate (Ferrous Sulfate (Ec)) 325 mg BID PO Last administered on 08:48; Admin Dose 325 MG; Start 07/30/16 at 21:00 Lorazepam (Ativan) 0.5 mg Q6H PRN PO ANXIETY Last administered on 08/01/16 02: 02; Admin Dose 0.5 MG; Start 07/30/16 at 18:00 Magnesium Hydroxide (Milk Of Mag) 30 ml DAILY PRN PO CONSTIPATION; Start at 18:00 Quetiapine Fumarate (Seroquel) 25 mg AM PO Last administered on 08/02/16 08:48 ; Admin Dose 25 MG; Start 07/31/16 at 09:00 Quetiapine Fumarate 50 mg 50 mg HS PO Last administered on 08/01/16 20:44; Admin Dose 50 MG; Start 07/30/16 at 21:00 Vancomycin HCl/ Sodium Chloride (Vancocin/NS) 150 ml @ 75 mls/hr Q24H IVPB Last administered on 08/01/16 20:44; Admin Dose 75 MLS/HR; Start 07/31/16 at 20 :00 Mupirocin 1 applic 1 applic BID TOP Last administered on 08/02/16 13:00; Admin Dose 1 APPLIC; Start 07/31/16 at 12:00 Potassium Chloride/Sodium Chloride (NS-KCl 20 Meq) 1,000 ml @ 50 mls/hr Q20H IV Last administered on 08/02/16 11:16; Admin Dose 50 MLS/HR; Start 07/31/16 at 17:00 Miscellaneous Information (*Rx Drug Level Order Reminder*) VANCO TROUGH @ 1, 900 ON... ONCE ONCE XX ; Start 08/02/16 at 19:00; Stop 08/02/16 at 19:01 JAMES POMPA Aug 02, 2016 18:56
--- NOTE | 2016-08-02 19:07 | CONS ---
Date/Time of Note Date/Time of Note DATE: 08/02/16 TIME: 19:06 Assessment/Plan Assessment/Plan Additional Assessment/Plan 1. Nonoliguric acute kidney injury, likely secondary to prerenal azotemia and also secondary to urinary tract infection. 2. 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 3. Hypertension. 4. Altered of consciousness and altered mental status. 5. Urinary tract infection. 6. Anemia of chronic disease. 7. Alzheimer dementia. 8. Diabetes mellitus type 2. PLAN: on iVF< Cr 1.03 IV abx as per PMD BP stable afebrile will follow up Consultation Date/Type/Reason Admit Date/Time Jul 29, 2016 at 16:46 Type of Consultation: NEPHROLOGY Referring Provider: SHEN GAYLE MD Exam/Review of Systems Vital Signs Vitals Vital Signs Date Time Temp Pulse Resp B/P Pulse Ox O2 Delivery O2 Flow Rate FiO2 08/02/16 08:00 98.8 60 20 137/77 96 07/30/16 08:00 5.0 07/29/16 20:41 Nasal Cannula Intake and Output 08/01/16 08/01/16 08/02/16 15:00 23:00 07:00 Intake Total 500 ml 1310 ml 740 ml Balance 500 ml 1310 ml 740 ml Exam GENERAL: Awake, alert, mild to moderate distress. HEENT: Pupils equal, round, reactive to light and accommodation. Extraocular muscles are intact. NECK: Supple. No JVD, no lymphadenopathy. LUNGS: Clear to auscultation. Bilateral basilar rales present. HEART: S1, S2, regular rate, regular rhythm. No murmur. ABDOMEN: Soft, nontender, nondistended. Bowel sounds are present. EXTREMITIES: No clubbing, cyanosis, edema. NEUROLOGICAL: Nonfocal, intact. PSYCHIATRIC: Appropriate affect and mood. Results Result Diagram: 08/01/16 0450 08/02/16 0445 Results 24 hrs Laboratory Tests Test 08/02/16 04:45 Sodium Level 144 Potassium Level 4.3 Chloride Level 107 Carbon Dioxide Level 25 Anion Gap 16 Blood Urea Nitrogen 28 H Creatinine 1.03 H Glucose Level 100 Calcium Level 9.4 Medications Medications Current Medications Levofloxacin/ Dextrose (Levaquin 250 Mg/ D5W 50 ml (Pmx)) 50 ml @ 50 mls/hr Q24H IVPB Last administered on 08/02/16 11:00; Admin Dose 50 MLS/HR; Start at 09:00 Diagnostic Test (Pha) (Accu-Chek) 1 ea 02 XX ; Start 07/30/16 at 02:00 Miscellaneous Information 1 ea NOTE XX ; Start 07/29/16 at 19:30 Glucose (Glutose) 15 gm Q15M PRN PO DECREASED GLUCOSE; Start 07/29/16 at 19:30 Glucose (Glutose) 22.5 gm Q15M PRN PO DECREASED GLUCOSE; Start 07/29/16 at 19: 30 Dextrose (D50w Syringe) 25 ml Q15M PRN IV DECREASED GLUCOSE; Start 07/29/16 at 19:30 Dextrose (D50w Syringe) 50 ml Q15M PRN IV DECREASED GLUCOSE; Start 07/29/16 at 19:30 Glucagon (Glucagen) 1 mg Q15M PRN IM DECREASED GLUCOSE; Start 07/29/16 at 19:30 Glucose (Glutose) 15 gm Q15M PRN BUCCAL DECREASED GLUCOSE; Start 07/29/16 at 19 :30 Ondansetron HCl (Zofran Inj) 4 mg Q6H PRN IV NAUSEA AND/OR VOMITING; Start at 19:30 Acetaminophen (Tylenol Supp) 650 mg Q6H PRN [place] FEVER GREATER THAN 100.6; Start 07/29/16 at 19:30 Pantoprazole (Protonix Tab) 40 mg DAILY@06 PO Last administered on 08/02/16 05 :22; Admin Dose 40 MG; Start 07/31/16 at 06:00 Oxcarbazepine (Trileptal) 300 mg BID PO Last administered on 08/02/16 08:48; Admin Dose 300 MG; Start 07/30/16 at 21:00 Acetaminophen (Tylenol Tab) 650 mg Q4H PRN PO PAIN AND OR ELEVATED TEMP Last administered on 07/30/16 21:39; Admin Dose 650 MG; Start 07/30/16 at 18:00 Aspirin (Aspirin) 81 mg DAILY PO Last administered on 08/02/16 08:48; Admin Dose 81 MG; Start 07/31/16 at 09:00 Bisacodyl (Dulcolax Supp) 10 mg DAILY PRN [place] CONSTIPATION; Start 07/30/16 at 18 :00 Clonazepam (Klonopin) 0.25 mg BID PRN PO ANXIETY; Start 07/30/16 at 18:00 Diphenhydramine HCl (Benadryl) 25 mg Q6H PRN PO ITCHING Last administered on 01:07; Admin Dose 25 MG; Start 07/30/16 at 18:00 Divalproex Sodium (Depakote Sprinkle) 250 mg BID PO Last administered on 08:48; Admin Dose 250 MG; Start 07/30/16 at 21:00 Docusate Sodium (Colace) 200 mg HS PO Last administered on 08/01/16 20:44; Admin Dose 200 MG; Start 07/30/16 at 21:00 Ferrous Sulfate (Ferrous Sulfate (Ec)) 325 mg BID PO Last administered on 08:48; Admin Dose 325 MG; Start 07/30/16 at 21:00 Lorazepam (Ativan) 0.5 mg Q6H PRN PO ANXIETY Last administered on 08/01/16 02: 02; Admin Dose 0.5 MG; Start 07/30/16 at 18:00 Magnesium Hydroxide (Milk Of Mag) 30 ml DAILY PRN PO CONSTIPATION; Start at 18:00 Quetiapine Fumarate (Seroquel) 25 mg AM PO Last administered on 08/02/16 08:48 ; Admin Dose 25 MG; Start 07/31/16 at 09:00 Quetiapine Fumarate 50 mg 50 mg HS PO Last administered on 08/01/16 20:44; Admin Dose 50 MG; Start 07/30/16 at 21:00 Vancomycin HCl/ Sodium Chloride (Vancocin/NS) 150 ml @ 75 mls/hr Q24H IVPB Last administered on 08/01/16 20:44; Admin Dose 75 MLS/HR; Start 07/31/16 at 20 :00 Mupirocin 1 applic 1 applic BID TOP Last administered on 08/02/16 13:00; Admin Dose 1 APPLIC; Start 07/31/16 at 12:00 Potassium Chloride/Sodium Chloride (NS-KCl 20 Meq) 1,000 ml @ 50 mls/hr Q20H IV Last administered on 08/02/16 11:16; Admin Dose 50 MLS/HR; Start 07/31/16 at 17:00 ELLYN RECINOS MD Aug 02, 2016 19:07
[2016-08-02] MEDS: DOCUSATE SODIUM 100 MG CAP PO SCH (20:07)
[2016-08-02] MEDS: VANCOMYCIN 1 GM in NS 250 ML IVPB SCH (20:09)
[2016-08-02 20:44] VITALS: BP 109/52; RESP 18
[2016-08-03] MEDS: ACCU-CHEK XX SCH (01:42)
[2016-08-03] MEDS: NS + KCL 20 MEQ 1,000 ML IV SCH ×2 (05:00→17:31)
[2016-08-03] MEDS: PANTOPRAZOLE (EC) 40 MG TAB PO SCH (05:16)
[2016-08-03 06:56] LABS: ADD SCAN DIFF NO
[2016-08-03 07:02] LABS: BASOPHIL # 0.1 10^3/ul (0.0-0.1); BASOPHILS % 0.8 % (0.0-2.0); EOSINOPHILS # 0.8 10^3/ul (0.0-0.5); EOSINOPHILS % 11.6 % (0.0-7.0); HEMATOCRIT 33.6 % (37.0-47.0); HEMOGLOBIN 10.9 g/dl (12.0-16.0); LYMPHOCYTES # 1.3 10^3/ul (0.8-2.9); LYMPHOCYTES % 19.9 % (15.0-51.0); MEAN CORPUSCULAR HEMOGLOBIN 29.1 pg (29.0-33.0); MEAN CORPUSCULAR HGB CONC 32.4 g/dl (32.0-37.0); MEAN CORPUSCULAR VOLUME 89.8 fl (82.0-101.0); MEAN PLATELET VOLUME 10.1 fl (7.4-10.4); MONOCYTE # 0.5 10^3/ul (0.3-0.9); NEUTROPHIL # 3.9 10^3/ul (1.6-7.5); NEUTROPHILS % 59.4 % (39.0-77.0); PLATELET COUNT 287 10^3/UL (140-415); RED BLOOD COUNT 3.74 10^6/ul (4.20-5.40); RED CELL DISTRIBUTION WIDTH 14.8 % (11.5-14.5); WHITE BLOOD COUNT 6.5 10^3/ul (4.8-10.8)
[2016-08-03 07:55] LABS: CALCIUM 9.5 mg/dl (8.4-10.2); CREATININE 1.13 mg/dl (0.44-1.00); POTASSIUM 4.3 mmol/L (3.5-5.1)
[2016-08-03 08:00] VITALS: BP 147/67; RESP 18
[2016-08-03] MEDS: LEVOFLOXACIN 250MG/D5W (PMX) 50 ML IVPB SCH (08:54)
[2016-08-03] MEDS: DIVALPROEX SPRINKLE 125 MG CAP PO SCH ×2 (08:55→20:05)
[2016-08-03] MEDS: ASPIRIN 81 MG TAB PO SCH (08:55)
[2016-08-03] MEDS: MUPIROCIN 2% 22 GM OINT TOP SCH ×2 (08:55→20:06)
[2016-08-03] MEDS: QUETIAPINE 25 MG TAB PO SCH ×2 (08:55→20:05)
[2016-08-03] MEDS: FERROUS SULFATE (EC) 325 MG TAB PO SCH ×2 (08:55→20:05)
[2016-08-03] MEDS: OXCARBAZEPINE 300 MG TAB PO SCH ×2 (09:06→20:05)
--- NOTE | 2016-08-03 13:30 | CONS ---
Date/Time of Note Date/Time of Note DATE: 08/03/16 TIME: 13:30 Assessment/Plan Assessment/Plan Chief Complaint/Hosp Course SUBJECTIVE: No acute changes. The patient is awake, looks comfortable, denies pain, discomfort. No fevers overnight. MICROBIOLOGY: Urine culture growing enterococcus species, Klebsiella and Enterobacter cloacae complex susceptible to Levaquin. ANTIMICROBIALS: The patient remains on: 1. Vancomycin. 2. Levaquin. ALLERGIES: 1. PENICILLIN. 2. ERTAPENEM. 3. MEROPENEM. PHYSICAL EXAMINATION: GENERAL: This is a fragile, elderly woman who is in no distress. HEENT: Head atraumatic, normocephalic. Sclerae anicteric. Buccal mucosa dry. NECK: Supple. CHEST: Rise symmetrical. Breath sounds clear. HEART: S1, S2. ABDOMEN: Soft, bowel sounds present. EXTREMITIES: Without cyanosis. ASSESSMENT: 1. Resolving sepsis status post fevers, leukocytosis and encephalopathy on admission. 2. Polymicrobial multidrug resistant urinary tract infection. 3. Methicillin-resistant Staphylococcus aureus colonization. 4. Acute kidney injury. 5. Coronary artery disease. 6. Hypertension. 7. History of ventriculoperitoneal shunt placement. PLAN: The patient remains stable, on appropriate antimicrobials. Continue present care, anti-aspiration measures. Abx for 4 more days [facility] staff Problems: Consultation Date/Type/Reason Admit Date/Time Jul 29, 2016 at 16:46 Type of Consultation: ID Referring Provider: SHEN GAYLE MD Exam/Review of Systems Vital Signs Vitals Vital Signs Date Time Temp Pulse Resp B/P Pulse Ox O2 Delivery O2 Flow Rate FiO2 08/03/16 08:00 98.8 54 18 147/67 94 07/30/16 08:00 5.0 Intake and Output 08/02/16 08/02/16 08/03/16 15:00 23:00 07:00 Intake Total 250 ml 880 ml Balance 250 ml 880 ml Results Result Diagram: 08/03/16 0532 08/03/16 0532 Results 24 hrs Laboratory Tests Test 08/02/16 18:59 08/03/16 05:32 Vancomycin Level Trough 9.7 L White Blood Count 6.5 Red Blood Count 3.74 L Hemoglobin 10.9 L Hematocrit 33.6 L Mean Corpuscular Volume 89.8 Mean Corpuscular Hemoglobin 29.1 Mean Corpuscular Hemoglobin Concent 32.4 Red Cell Distribution Width 14.8 H Platelet Count 287 Mean Platelet Volume 10.1 Neutrophils % 59.4 Lymphocytes % 19.9 Monocytes % 8.0 Eosinophils % 11.6 H Basophils % 0.8 Nucleated Red Blood Cells % 0.0 Neutrophils # 3.9 Lymphocytes # 1.3 Monocytes # 0.5 Eosinophils # 0.8 H Basophils # 0.1 Nucleated Red Blood Cells # 0.0 Sodium Level 140 Potassium Level 4.3 Chloride Level 106 Carbon Dioxide Level 24 Anion Gap 14 Blood Urea Nitrogen 30 H Creatinine 1.13 H Glucose Level 87 Calcium Level 9.5 Medications Medications Current Medications Levofloxacin/ Dextrose (Levaquin 250 Mg/ D5W 50 ml (Pmx)) 50 ml @ 50 mls/hr Q24H IVPB Last administered on 08/03/16 08:54; Admin Dose 50 MLS/HR; Start at 09:00 Diagnostic Test (Pha) (Accu-Chek) 1 ea 02 XX ; Start 07/30/16 at 02:00 Miscellaneous Information 1 ea NOTE XX ; Start 07/29/16 at 19:30 Glucose (Glutose) 15 gm Q15M PRN PO DECREASED GLUCOSE; Start 07/29/16 at 19:30 Glucose (Glutose) 22.5 gm Q15M PRN PO DECREASED GLUCOSE; Start 07/29/16 at 19: 30 Dextrose (D50w Syringe) 25 ml Q15M PRN IV DECREASED GLUCOSE; Start 07/29/16 at 19:30 Dextrose (D50w Syringe) 50 ml Q15M PRN IV DECREASED GLUCOSE; Start 07/29/16 at 19:30 Glucagon (Glucagen) 1 mg Q15M PRN IM DECREASED GLUCOSE; Start 07/29/16 at 19:30 Glucose (Glutose) 15 gm Q15M PRN BUCCAL DECREASED GLUCOSE; Start 07/29/16 at 19 :30 Ondansetron HCl (Zofran Inj) 4 mg Q6H PRN IV NAUSEA AND/OR VOMITING; Start at 19:30 Acetaminophen (Tylenol Supp) 650 mg Q6H PRN [place] FEVER GREATER THAN 100.6; Start 07/29/16 at 19:30 Pantoprazole (Protonix Tab) 40 mg DAILY@06 PO Last administered on 08/03/16 05 :16; Admin Dose 40 MG; Start 07/31/16 at 06:00 Oxcarbazepine (Trileptal) 300 mg BID PO Last administered on 08/03/16 09:06; Admin Dose 300 MG; Start 07/30/16 at 21:00 Acetaminophen (Tylenol Tab) 650 mg Q4H PRN PO PAIN AND OR ELEVATED TEMP Last administered on 07/30/16 21:39; Admin Dose 650 MG; Start 07/30/16 at 18:00 Aspirin (Aspirin) 81 mg DAILY PO Last administered on 08/03/16 08:55; Admin Dose 81 MG; Start 07/31/16 at 09:00 Bisacodyl (Dulcolax Supp) 10 mg DAILY PRN [place] CONSTIPATION; Start 07/30/16 at 18 :00 Clonazepam (Klonopin) 0.25 mg BID PRN PO ANXIETY; Start 07/30/16 at 18:00 Diphenhydramine HCl (Benadryl) 25 mg Q6H PRN PO ITCHING Last administered on 01:07; Admin Dose 25 MG; Start 07/30/16 at 18:00 Divalproex Sodium (Depakote Sprinkle) 250 mg BID PO Last administered on 08:55; Admin Dose 250 MG; Start 07/30/16 at 21:00 Docusate Sodium (Colace) 200 mg HS PO Last administered on 08/02/16 20:07; Admin Dose 200 MG; Start 07/30/16 at 21:00 Ferrous Sulfate (Ferrous Sulfate (Ec)) 325 mg BID PO Last administered on 08:55; Admin Dose 325 MG; Start 07/30/16 at 21:00 Lorazepam (Ativan) 0.5 mg Q6H PRN PO ANXIETY Last administered on 08/01/16 02: 02; Admin Dose 0.5 MG; Start 07/30/16 at 18:00 Magnesium Hydroxide (Milk Of Mag) 30 ml DAILY PRN PO CONSTIPATION; Start at 18:00 Quetiapine Fumarate (Seroquel) 25 mg AM PO Last administered on 08/03/16 08:55 ; Admin Dose 25 MG; Start 07/31/16 at 09:00 Quetiapine Fumarate (Seroquel) 50 mg HS PO Last administered on 08/02/16 20:08 ; Admin Dose 50 MG; Start 07/30/16 at 21:00 Mupirocin 1 applic 1 applic BID TOP Last administered on 08/03/16 08:55; Admin Dose 1 APPLIC; Start 07/31/16 at 12:00 Potassium Chloride/Sodium Chloride 1,000 ml @ 50 mls/hr Q20H IV Last administered on 08/02/16 11:16; Admin Dose 50 MLS/HR; Start 07/31/16 at 17:00 Vancomycin HCl (Vancocin) 250 ml @ 125 mls/hr Q24H IVPB Last administered on 20:09; Admin Dose 125 MLS/HR; Start 08/02/16 at 20:15 ALFRED GUZMÁN NP Aug 03, 2016 13:30
--- NOTE | 2016-08-03 15:13 | PN ---
Date/Time of Note Date/Time of Note DATE: 08/03/16 TIME: 15:12 Assessment/Plan VTE Prophylaxis VTE Prophylaxis Intervention: SCD's Lines/Catheters IV [facility]ter [facility]from [facility]): Peripheral IV Urinary Cath still in place: No Assessment/Plan Chief Complaint/Hosp Course Patient looks comfortable, stable VS. Assessment and plan: - Sepsis secondary to urinary tract infection with leukocytosis elevated lactate and encephalopathy, resolving. Continue abx per ID. - Acute metabolic encephalopathy, resolved. - Urinary tract infection. 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 Dr. Acevedo is following in nephrology consultation. - Coronary artery disease, continue aspirin. - Hypertension. Patient is currently normotensive. - History of [employer] shunt - Epilepsy, continue Trileptal. - Bipolar disorder with psychosis. Continue Seroquel. - Anemia of chronic disease. Continue PT. Further recommendations based on clinical course. Plan of care discussed with Dr. Felipe. Problems: Exam/Review of Systems Vital Signs Vitals Vital Signs Date Time Temp Pulse Resp B/P Pulse Ox O2 Delivery O2 Flow Rate FiO2 08/03/16 08:00 98.8 54 18 147/67 94 07/30/16 08:00 5.0 Intake and Output 08/02/16 08/02/16 08/03/16 15:00 23:00 07:00 Intake Total 250 ml 880 ml Balance 250 ml 880 ml Exam Constitutional: alert Head: atraumatic Neck: supple Respiratory: clear to auscultation Cardiovascular: nl pulses Gastrointestinal: non-tender, soft Extremities: normal pulses, other (Contracted) Neurological: nl mental status Results Result Diagram: 08/03/16 0532 08/03/16 0532 Results 24 hrs Laboratory Tests Test 08/02/16 18:59 08/03/16 05:32 Vancomycin Level Trough 9.7 L White Blood Count 6.5 Red Blood Count 3.74 L Hemoglobin 10.9 L Hematocrit 33.6 L Mean Corpuscular Volume 89.8 Mean Corpuscular Hemoglobin 29.1 Mean Corpuscular Hemoglobin Concent 32.4 Red Cell Distribution Width 14.8 H Platelet Count 287 Mean Platelet Volume 10.1 Neutrophils % 59.4 Lymphocytes % 19.9 Monocytes % 8.0 Eosinophils % 11.6 H Basophils % 0.8 Nucleated Red Blood Cells % 0.0 Neutrophils # 3.9 Lymphocytes # 1.3 Monocytes # 0.5 Eosinophils # 0.8 H Basophils # 0.1 Nucleated Red Blood Cells # 0.0 Sodium Level 140 Potassium Level 4.3 Chloride Level 106 Carbon Dioxide Level 24 Anion Gap 14 Blood Urea Nitrogen 30 H Creatinine 1.13 H Glucose Level 87 Calcium Level 9.5 Medications Medications Current Medications Levofloxacin/ Dextrose (Levaquin 250 Mg/ D5W 50 ml (Pmx)) 50 ml @ 50 mls/hr Q24H IVPB Last administered on 08/03/16 08:54; Admin Dose 50 MLS/HR; Start at 09:00 Diagnostic Test (Pha) (Accu-Chek) 1 ea 02 XX ; Start 07/30/16 at 02:00 Miscellaneous Information 1 ea NOTE XX ; Start 07/29/16 at 19:30 Glucose (Glutose) 15 gm Q15M PRN PO DECREASED GLUCOSE; Start 07/29/16 at 19:30 Glucose (Glutose) 22.5 gm Q15M PRN PO DECREASED GLUCOSE; Start 07/29/16 at 19: 30 Dextrose (D50w Syringe) 25 ml Q15M PRN IV DECREASED GLUCOSE; Start 07/29/16 at 19:30 Dextrose (D50w Syringe) 50 ml Q15M PRN IV DECREASED GLUCOSE; Start 07/29/16 at 19:30 Glucagon (Glucagen) 1 mg Q15M PRN IM DECREASED GLUCOSE; Start 07/29/16 at 19:30 Glucose (Glutose) 15 gm Q15M PRN BUCCAL DECREASED GLUCOSE; Start 07/29/16 at 19 :30 Ondansetron HCl (Zofran Inj) 4 mg Q6H PRN IV NAUSEA AND/OR VOMITING; Start at 19:30 Acetaminophen (Tylenol Supp) 650 mg Q6H PRN [place] FEVER GREATER THAN 100.6; Start 07/29/16 at 19:30 Pantoprazole (Protonix Tab) 40 mg DAILY@06 PO Last administered on 08/03/16 05 :16; Admin Dose 40 MG; Start 07/31/16 at 06:00 Oxcarbazepine (Trileptal) 300 mg BID PO Last administered on 08/03/16 09:06; Admin Dose 300 MG; Start 07/30/16 at 21:00 Acetaminophen (Tylenol Tab) 650 mg Q4H PRN PO PAIN AND OR ELEVATED TEMP Last administered on 07/30/16 21:39; Admin Dose 650 MG; Start 07/30/16 at 18:00 Aspirin (Aspirin) 81 mg DAILY PO Last administered on 08/03/16 08:55; Admin Dose 81 MG; Start 07/31/16 at 09:00 Bisacodyl (Dulcolax Supp) 10 mg DAILY PRN [place] CONSTIPATION; Start 07/30/16 at 18 :00 Clonazepam (Klonopin) 0.25 mg BID PRN PO ANXIETY; Start 07/30/16 at 18:00 Diphenhydramine HCl (Benadryl) 25 mg Q6H PRN PO ITCHING Last administered on 01:07; Admin Dose 25 MG; Start 07/30/16 at 18:00 Divalproex Sodium (Depakote Sprinkle) 250 mg BID PO Last administered on 08:55; Admin Dose 250 MG; Start 07/30/16 at 21:00 Docusate Sodium (Colace) 200 mg HS PO Last administered on 08/02/16 20:07; Admin Dose 200 MG; Start 07/30/16 at 21:00 Ferrous Sulfate (Ferrous Sulfate (Ec)) 325 mg BID PO Last administered on 08:55; Admin Dose 325 MG; Start 07/30/16 at 21:00 Lorazepam (Ativan) 0.5 mg Q6H PRN PO ANXIETY Last administered on 08/01/16 02: 02; Admin Dose 0.5 MG; Start 07/30/16 at 18:00 Magnesium Hydroxide (Milk Of Mag) 30 ml DAILY PRN PO CONSTIPATION; Start at 18:00 Quetiapine Fumarate (Seroquel) 25 mg AM PO Last administered on 08/03/16 08:55 ; Admin Dose 25 MG; Start 07/31/16 at 09:00 Quetiapine Fumarate (Seroquel) 50 mg HS PO Last administered on 08/02/16 20:08 ; Admin Dose 50 MG; Start 07/30/16 at 21:00 Mupirocin 1 applic 1 applic BID TOP Last administered on 08/03/16 08:55; Admin Dose 1 APPLIC; Start 07/31/16 at 12:00 Potassium Chloride/Sodium Chloride 1,000 ml @ 50 mls/hr Q20H IV Last administered on 08/02/16 11:16; Admin Dose 50 MLS/HR; Start 07/31/16 at 17:00 Vancomycin HCl (Vancocin) 250 ml @ 125 mls/hr Q24H IVPB Last administered on 20:09; Admin Dose 125 MLS/HR; Start 08/02/16 at 20:15 UMESH WILLETT Aug 03, 2016 15:13
--- NOTE | 2016-08-03 17:06 | CONS ---
Date/Time of Note Date/Time of Note DATE: 08/03/16 TIME: 17:05 Assessment/Plan Assessment/Plan Additional Assessment/Plan 1. Nonoliguric acute kidney injury, likely secondary to prerenal azotemia and also secondary to urinary tract infection. 2. 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 3. Hypertension. 4. Altered of consciousness and altered mental status. 5. Urinary tract infection. 6. Anemia of chronic disease. 7. Alzheimer dementia. 8. Diabetes mellitus type 2. PLAN: Cr imrpove to 1.13 IV abx as per PMD BP stable afebrile will follow up possible D/c plan to SNF over the weekend Consultation Date/Type/Reason Admit Date/Time Jul 29, 2016 at 16:46 Type of Consultation: ID Referring Provider: SHEN GAYLE MD Exam/Review of Systems Vital Signs Vitals Vital Signs Date Time Temp Pulse Resp B/P Pulse Ox O2 Delivery O2 Flow Rate FiO2 08/03/16 08:00 98.8 54 18 147/67 94 07/30/16 08:00 5.0 Intake and Output 08/02/16 08/02/16 08/03/16 15:00 23:00 07:00 Intake Total 250 ml 880 ml Balance 250 ml 880 ml Exam GENERAL: Awake, alert, mild to moderate distress. HEENT: Pupils equal, round, reactive to light and accommodation. Extraocular muscles are intact. NECK: Supple. No JVD, no lymphadenopathy. LUNGS: Clear to auscultation. Bilateral basilar rales present. HEART: S1, S2, regular rate, regular rhythm. No murmur. ABDOMEN: Soft, nontender, nondistended. Bowel sounds are present. EXTREMITIES: No clubbing, cyanosis, edema. NEUROLOGICAL: Nonfocal, intact. PSYCHIATRIC: Appropriate affect and mood. Results Result Diagram: 08/03/16 0532 08/03/16 0532 Results 24 hrs Laboratory Tests Test 08/02/16 18:59 08/03/16 05:32 Vancomycin Level Trough 9.7 L White Blood Count 6.5 Red Blood Count 3.74 L Hemoglobin 10.9 L Hematocrit 33.6 L Mean Corpuscular Volume 89.8 Mean Corpuscular Hemoglobin 29.1 Mean Corpuscular Hemoglobin Concent 32.4 Red Cell Distribution Width 14.8 H Platelet Count 287 Mean Platelet Volume 10.1 Neutrophils % 59.4 Lymphocytes % 19.9 Monocytes % 8.0 Eosinophils % 11.6 H Basophils % 0.8 Nucleated Red Blood Cells % 0.0 Neutrophils # 3.9 Lymphocytes # 1.3 Monocytes # 0.5 Eosinophils # 0.8 H Basophils # 0.1 Nucleated Red Blood Cells # 0.0 Sodium Level 140 Potassium Level 4.3 Chloride Level 106 Carbon Dioxide Level 24 Anion Gap 14 Blood Urea Nitrogen 30 H Creatinine 1.13 H Glucose Level 87 Calcium Level 9.5 Medications Medications Current Medications Levofloxacin/ Dextrose (Levaquin 250 Mg/ D5W 50 ml (Pmx)) 50 ml @ 50 mls/hr Q24H IVPB Last administered on 08/03/16 08:54; Admin Dose 50 MLS/HR; Start at 09:00 Diagnostic Test (Pha) (Accu-Chek) 1 ea 02 XX ; Start 07/30/16 at 02:00 Miscellaneous Information 1 ea NOTE XX ; Start 07/29/16 at 19:30 Glucose (Glutose) 15 gm Q15M PRN PO DECREASED GLUCOSE; Start 07/29/16 at 19:30 Glucose (Glutose) 22.5 gm Q15M PRN PO DECREASED GLUCOSE; Start 07/29/16 at 19: 30 Dextrose (D50w Syringe) 25 ml Q15M PRN IV DECREASED GLUCOSE; Start 07/29/16 at 19:30 Dextrose (D50w Syringe) 50 ml Q15M PRN IV DECREASED GLUCOSE; Start 07/29/16 at 19:30 Glucagon (Glucagen) 1 mg Q15M PRN IM DECREASED GLUCOSE; Start 07/29/16 at 19:30 Glucose (Glutose) 15 gm Q15M PRN BUCCAL DECREASED GLUCOSE; Start 07/29/16 at 19 :30 Ondansetron HCl (Zofran Inj) 4 mg Q6H PRN IV NAUSEA AND/OR VOMITING; Start at 19:30 Acetaminophen (Tylenol Supp) 650 mg Q6H PRN [place] FEVER GREATER THAN 100.6; Start 07/29/16 at 19:30 Pantoprazole (Protonix Tab) 40 mg DAILY@06 PO Last administered on 08/03/16 05 :16; Admin Dose 40 MG; Start 07/31/16 at 06:00 Oxcarbazepine (Trileptal) 300 mg BID PO Last administered on 08/03/16 09:06; Admin Dose 300 MG; Start 07/30/16 at 21:00 Acetaminophen (Tylenol Tab) 650 mg Q4H PRN PO PAIN AND OR ELEVATED TEMP Last administered on 07/30/16 21:39; Admin Dose 650 MG; Start 07/30/16 at 18:00 Aspirin (Aspirin) 81 mg DAILY PO Last administered on 08/03/16 08:55; Admin Dose 81 MG; Start 07/31/16 at 09:00 Bisacodyl (Dulcolax Supp) 10 mg DAILY PRN [place] CONSTIPATION; Start 07/30/16 at 18 :00 Clonazepam (Klonopin) 0.25 mg BID PRN PO ANXIETY; Start 07/30/16 at 18:00 Diphenhydramine HCl (Benadryl) 25 mg Q6H PRN PO ITCHING Last administered on 01:07; Admin Dose 25 MG; Start 07/30/16 at 18:00 Divalproex Sodium (Depakote Sprinkle) 250 mg BID PO Last administered on 08:55; Admin Dose 250 MG; Start 07/30/16 at 21:00 Docusate Sodium (Colace) 200 mg HS PO Last administered on 08/02/16 20:07; Admin Dose 200 MG; Start 07/30/16 at 21:00 Ferrous Sulfate (Ferrous Sulfate (Ec)) 325 mg BID PO Last administered on 08:55; Admin Dose 325 MG; Start 07/30/16 at 21:00 Lorazepam (Ativan) 0.5 mg Q6H PRN PO ANXIETY Last administered on 08/01/16 02: 02; Admin Dose 0.5 MG; Start 07/30/16 at 18:00 Magnesium Hydroxide (Milk Of Mag) 30 ml DAILY PRN PO CONSTIPATION; Start at 18:00 Quetiapine Fumarate (Seroquel) 25 mg AM PO Last administered on 08/03/16 08:55 ; Admin Dose 25 MG; Start 07/31/16 at 09:00 Quetiapine Fumarate (Seroquel) 50 mg HS PO Last administered on 08/02/16 20:08 ; Admin Dose 50 MG; Start 07/30/16 at 21:00 Mupirocin 1 applic 1 applic BID TOP Last administered on 08/03/16 08:55; Admin Dose 1 APPLIC; Start 07/31/16 at 12:00 Potassium Chloride/Sodium Chloride 1,000 ml @ 50 mls/hr Q20H IV Last administered on 08/02/16 11:16; Admin Dose 50 MLS/HR; Start 07/31/16 at 17:00 Vancomycin HCl (Vancocin) 250 ml @ 125 mls/hr Q24H IVPB Last administered on 20:09; Admin Dose 125 MLS/HR; Start 08/02/16 at 20:15 ELLYN RECINOS MD Aug 03, 2016 17:06
[2016-08-03 20:00] VITALS: BP 125/60; RESP 20
[2016-08-03] MEDS: DOCUSATE SODIUM 100 MG CAP PO SCH (20:05)
[2016-08-03] MEDS: VANCOMYCIN 1 GM in NS 250 ML IVPB SCH (20:06)
[2016-08-04] MEDS: NS + KCL 20 MEQ 1,000 ML IV SCH ×2 (00:27→20:31)
[2016-08-04] MEDS: ACCU-CHEK XX SCH (01:02)
[2016-08-04] MEDS: PANTOPRAZOLE (EC) 40 MG TAB PO SCH (05:56)
[2016-08-04 07:45] VITALS: BP 121/59; PULSE 62; RESP 18
[2016-08-04] MEDS: DIVALPROEX SPRINKLE 125 MG CAP PO SCH ×2 (08:56→20:32)
[2016-08-04] MEDS: QUETIAPINE 25 MG TAB PO SCH ×2 (08:57→20:32)
[2016-08-04] MEDS: OXCARBAZEPINE 300 MG TAB PO SCH ×2 (08:57→20:32)
[2016-08-04] MEDS: ASPIRIN 81 MG TAB PO SCH (08:57)
[2016-08-04] MEDS: FERROUS SULFATE (EC) 325 MG TAB PO SCH ×2 (08:57→20:32)
[2016-08-04] MEDS: MUPIROCIN 2% 22 GM OINT TOP SCH ×2 (08:58→20:34)
[2016-08-04] MEDS: LEVOFLOXACIN 250MG/D5W (PMX) 50 ML IVPB SCH (08:58)
--- NOTE | 2016-08-04 13:14 | CONS ---
Date/Time of Note Date/Time of Note DATE: 08/04/16 TIME: 13:13 Assessment/Plan Assessment/Plan Additional Assessment/Plan 1. Nonoliguric acute kidney injury, likely secondary to prerenal azotemia and also secondary to urinary tract infection. 2. 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 3. Hypertension. 4. Altered of consciousness and altered mental status. 5. Urinary tract infection. 6. Anemia of chronic disease. 7. Alzheimer dementia. 8. Diabetes mellitus type 2. PLAN: Cr imrpove to 1.13 IV abx as per PMD BP stable afebrile will follow up possible D/c plan to SNF over the weekend Consultation Date/Type/Reason Admit Date/Time Jul 29, 2016 at 16:46 Type of Consultation: NEPHROLOGY Referring Provider: SHEN GAYLE MD Exam/Review of Systems Vital Signs Vitals Vital Signs Date Time Temp Pulse Resp B/P Pulse Ox O2 Delivery O2 Flow Rate FiO2 08/04/16 07:45 98.0 62 18 121/59 98 Room Air Intake and Output 08/03/16 08/03/16 08/04/16 15:00 23:00 07:00 Intake Total 50 ml 1950 ml 770 ml Balance 50 ml 1950 ml 770 ml Exam GENERAL: Awake, alert, mild to moderate distress. HEENT: Pupils equal, round, reactive to light and accommodation. Extraocular muscles are intact. NECK: Supple. No JVD, no lymphadenopathy. LUNGS: Clear to auscultation. Bilateral basilar rales present. HEART: S1, S2, regular rate, regular rhythm. No murmur. ABDOMEN: Soft, nontender, nondistended. Bowel sounds are present. EXTREMITIES: No clubbing, cyanosis, edema. NEUROLOGICAL: Nonfocal, intact. PSYCHIATRIC: Appropriate affect and mood. Results Result Diagram: 08/03/16 0532 08/03/16 0532 Medications Medications Current Medications Levofloxacin/ Dextrose (Levaquin 250 Mg/ D5W 50 ml (Pmx)) 50 ml @ 50 mls/hr Q24H IVPB Last administered on 08/04/16t 08:58; Admin Dose 50 MLS/HR; Start at 09:00 Diagnostic Test (Pha) (Accu-Chek) 1 ea 02 XX ; Start 07/30/16 at 02:00 Miscellaneous Information 1 ea NOTE XX ; Start 07/29/16 at 19:30 Glucose (Glutose) 15 gm Q15M PRN PO DECREASED GLUCOSE; Start 07/29/16 at 19:30 Glucose (Glutose) 22.5 gm Q15M PRN PO DECREASED GLUCOSE; Start 07/29/16 at 19: 30 Dextrose (D50w Syringe) 25 ml Q15M PRN IV DECREASED GLUCOSE; Start 07/29/16 at 19:30 Dextrose (D50w Syringe) 50 ml Q15M PRN IV DECREASED GLUCOSE; Start 07/29/16 at 19:30 Glucagon (Glucagen) 1 mg Q15M PRN IM DECREASED GLUCOSE; Start 07/29/16 at 19:30 Glucose (Glutose) 15 gm Q15M PRN BUCCAL DECREASED GLUCOSE; Start 07/29/16 at 19 :30 Ondansetron HCl (Zofran Inj) 4 mg Q6H PRN IV NAUSEA AND/OR VOMITING; Start at 19:30 Acetaminophen (Tylenol Supp) 650 mg Q6H PRN [place] FEVER GREATER THAN 100.6; Start 07/29/16 at 19:30 Pantoprazole (Protonix Tab) 40 mg DAILY@06 PO Last administered on 08/04/16 05 :56; Admin Dose 40 MG; Start 07/31/16 at 06:00 Oxcarbazepine (Trileptal) 300 mg BID PO Last administered on 08/04/16 08:57; Admin Dose 300 MG; Start 07/30/16 at 21:00 Acetaminophen (Tylenol Tab) 650 mg Q4H PRN PO PAIN AND OR ELEVATED TEMP Last administered on 07/30/16 21:39; Admin Dose 650 MG; Start 07/30/16 at 18:00 Aspirin (Aspirin) 81 mg DAILY PO Last administered on 08/04/16 08:57; Admin Dose 81 MG; Start 07/31/16 at 09:00 Bisacodyl (Dulcolax Supp) 10 mg DAILY PRN [place] CONSTIPATION; Start 07/30/16 at 18 :00 Clonazepam (Klonopin) 0.25 mg BID PRN PO ANXIETY; Start 07/30/16 at 18:00 Diphenhydramine HCl (Benadryl) 25 mg Q6H PRN PO ITCHING Last administered on 01:07; Admin Dose 25 MG; Start 07/30/16 at 18:00 Divalproex Sodium (Depakote Sprinkle) 250 mg BID PO Last administered on 08:56; Admin Dose 250 MG; Start 07/30/16 at 21:00 Docusate Sodium (Colace) 200 mg HS PO Last administered on 08/03/16 20:05; Admin Dose 200 MG; Start 07/30/16 at 21:00 Ferrous Sulfate (Ferrous Sulfate (Ec)) 325 mg BID PO Last administered on 08:57; Admin Dose 325 MG; Start 07/30/16 at 21:00 Lorazepam (Ativan) 0.5 mg Q6H PRN PO ANXIETY Last administered on 08/01/16 02: 02; Admin Dose 0.5 MG; Start 07/30/16 at 18:00 Magnesium Hydroxide (Milk Of Mag) 30 ml DAILY PRN PO CONSTIPATION; Start at 18:00 Quetiapine Fumarate (Seroquel) 25 mg AM PO Last administered on 08/04/16 08:57 ; Admin Dose 25 MG; Start 07/31/16 at 09:00 Quetiapine Fumarate (Seroquel) 50 mg HS PO Last administered on 08/03/16 20:05 ; Admin Dose 50 MG; Start 07/30/16 at 21:00 Mupirocin 1 applic 1 applic BID TOP Last administered on 08/04/16 08:58; Admin Dose 1 APPLIC; Start 07/31/16 at 12:00 Potassium Chloride/Sodium Chloride 1,000 ml @ 50 mls/hr Q20H IV Last administered on 08/03/16 17:31; Admin Dose 50 MLS/HR; Start 07/31/16 at 17:00 Vancomycin HCl (Vancocin) 250 ml @ 125 mls/hr Q24H IVPB Last administered on 20:06; Admin Dose 125 MLS/HR; Start 08/02/16 at 20:15 ELLYN RECINOS MD Aug 04, 2016 13:14
--- NOTE | 2016-08-04 13:43 | DS ---
Date/Time of Note Date/Time of Note DATE: 08/04/16 TIME: 13:41 Discharge Summary Admission/Discharge Info Admit Date/Time Jul 29, 2016 at 16:46 Discharge Date/Time 08/04/16 Discharge Diagnosis 1) urinary tract infection Patient Condition: Fair Consults ID Hx of Present Illness HPI 76-year-old female history of chronic encephalopathy who presents to the emergency room with altered mental status worse than baseline. EMS providers report, [facility]. The patient does have an advanced directive that states she is okay with chest compressions , IV fluids, hospitalization but does not want mechanical ventilation or intubation. The remainder of HPI is extremely limited. Unknown duration of altered mental status. It appears the patient's baseline is mumbling. She is not mumbling currently. ROS Chronic encephalopathy Hospital Course Patient admitted for urinary tract infection. Patient treated with antibiotics and slowly improved. Patient felt to be stable and will return to assisted with continue antibiotics. Patient looks comfortable, stable VS. Assessment and plan: - Sepsis secondary to urinary tract infection with leukocytosis elevated lactate and encephalopathy, resolving. Continue abx per ID. - Acute metabolic encephalopathy, resolved. - Urinary tract infection. 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 Dr. Acevedo is following in nephrology consultation. - Coronary artery disease, continue aspirin. - Hypertension. Patient is currently normotensive. - History of BUSBOY shunt - Epilepsy, continue Trileptal. - Bipolar disorder with psychosis. Continue Seroquel. - Anemia of chronic disease. Continue PT. Further recommendations based on clinical course. Plan of care discussed with Dr. Felipe. Home Meds Reported Medications Oxcarbazepine* (Trileptal*) 300 Mg Tablet, 300 MG PO BID, TAB 07/29/16 Quetiapine Fumarate* (Seroquel*) 50 Mg Tablet, 50 MG PO HS, TAB 07/29/16 Quetiapine Fumarate* (Seroquel*) 25 Mg Tablet, 25 MG PO AM, #30 TAB 07/29/16 Guaifenesin-Dextromethorphan* (Robitussin* DM) 100MG/10MG/5ML Syrup, 10 ML PO Q6H Y for COUGH, ML 07/29/16 Multivit,Tx,Iron/Calcm/FA/Mins (Thera-M Caplet) 1 Each Tablet, 1 TAB PO DAILY, TAB 07/29/16 Magnesium Hydroxide* (Milk Of Magnesia*) 400 Mg/5 Ml Oral.susp, 30 ML PO DAILY Y for CONSTIPATION, ML 07/29/16 Mag Hydrox/Al Hydrox/Simeth (Maalox Advanced Suspension) 355 Ml Oral.susp, 30 ML PO Q4H Y for GASTROINTESTINAL UPSET 07/29/16 Lorazepam* (Lorazepam*) 0.5 Mg Tablet, 0.5 MG PO Q6 Y for ANXIETY, TAB 07/29/16 Clonazepam* (Klonopin*) 0.5 Mg Tab, 0.25 MG PO BID Y for ANXIETY, TAB 07/29/16 Ascorbic Acid* (Ascorbic Acid*) 500 Mg/5 Ml Syrup, 500 MG PO DAILY, #150 ML 07/29/16 Acetaminophen* (Acetaminophen*) 650 Mg Tablet, 650 MG PO Q4H Y for PAIN AND OR ELEVATED TEMP, #30 TAB 07/29/16 Ipratropium-Albuterol (Ipratropium-Albuterol) 0.5-3 Mg/3 Ml Ampul.neb, 3 ML INHALATION Q6 Y for SHORTNESS OF BREATH, #30 VIAL 07/29/16 Na Phos,M-B/Na Phos,Di-Ba (Fleet Enema Extra) 230 Ml Enema, 230 ML RC Q48H Y for CONSTIPATION, ENEMA 07/29/16 Ferrous Sulfate* (Ferrous Sulfate*) 325 Mg Tabec, 325 MG PO BID, TAB 07/29/16 Bisacodyl (Dulcolax) 10 Mg Supp.rect, 10 MG RC DAILY Y for CONSTIPATION, SUPP.RECT 07/29/16 Divalproex Sodium* (Depakote* Sprinkle) 125 Mg Cap.sprink, 250 MG PO BID, #180 CAP 07/29/16 Cranberry Extract (Cranberry) 425 Mg Capsule, 425 MG PO BID, CAP 07/29/16 Docusate Sodium* (Colace*) 100 Mg Capsule, 200 MG PO HS, #60 CAP 07/29/16 Diphenhydramine Hcl* (Diphenhydramine Hcl*) 25 Mg Capsule, 25 MG PO Q6 Y for ITCHING, CAP 07/29/16 Aspirin* (Aspirin* Chew) 81 Mg Tab.chew, 81 MG PO DAILY, TAB.CHEW 07/29/16 Albuterol Sulfate* (Albuterol Sulfate* Neb) 0.083%-3 Ml Neb, 2.5 MG NEB Q6H Y for WHEEZING AND SOB, #30 VIAL 07/29/16 Primary Care Provider MD ADELA Oden LOREN Y Aug 04, 2016 13:43
[2016-08-04] MEDS: DIPHENHYDRAMINE 25 MG CAP PO PRN (16:59)
--- NOTE | 2016-08-04 19:37 | CONS ---
Date/Time of Note Date/Time of Note DATE: 08/04/16 TIME: 19:33 Assessment/Plan Assessment/Plan Chief Complaint/Hosp Course ID PROGRESS NOTE * SUBJECTIVE: Eyes open, lethargic, VSS, NAD, no fevers, no complaints offered. * MICROBIOLOGY: Urine culture growing enterococcus species, Klebsiella and Enterobacter cloacae complex susceptible to Levaquin. * ANTIMICROBIALS: 1. Vancomycin. 2. Levaquin. PHYSICAL EXAMINATION: GENERAL: This is a fragile, elderly woman who is in no distress. HEENT: Head atraumatic, normocephalic. Sclerae anicteric. Buccal mucosa dry. NECK: Supple. CHEST: Rise symmetrical. Breath sounds clear. HEART: S1, S2. ABDOMEN: Soft, bowel sounds present. EXTREMITIES: Without cyanosis. ID ASSESSMENT: 1. Resolving sepsis status post fevers, leukocytosis and encephalopathy on admission. 2. Polymicrobial multidrug resistant urinary tract infection. 3. Methicillin-resistant Staphylococcus aureus colonization. 4. Acute kidney injury. 5. Coronary artery disease. 6. Hypertension. 7. History of ventriculoperitoneal shunt placement. 8. MULTIPLE ABX ALLERGIES: PENICILLIN. ERTAPENEM. MEROPENEM. ID PLAN: The patient remains stable, on appropriate antimicrobials. Continue present care, anti-aspiration measures. * Continue ABX until last . Problems: Consultation Date/Type/Reason Admit Date/Time Jul 29, 2016 at 16:46 Initial Consult Date Type of Consultation: ID Referring Provider: SHEN GAYLE MD Exam/Review of Systems Vital Signs Vitals Vital Signs Date Time Temp Pulse Resp B/P Pulse Ox O2 Delivery O2 Flow Rate FiO2 08/04/16 07:45 98.0 62 18 121/59 98 Room Air Intake and Output 08/03/16 08/03/16 08/04/16 15:00 23:00 07:00 Intake Total 50 ml 1950 ml 770 ml Balance 50 ml 1950 ml 770 ml Results Result Diagram: 08/03/16 0532 08/03/16 0532 Medications Medications Current Medications Levofloxacin/ Dextrose (Levaquin 250 Mg/ D5W 50 ml (Pmx)) 50 ml @ 50 mls/hr Q24H IVPB Last administered on 08/04/16t 08:58; Admin Dose 50 MLS/HR; Start at 09:00 Diagnostic Test (Pha) (Accu-Chek) 1 ea 02 XX ; Start 07/30/16 at 02:00 Miscellaneous Information 1 ea NOTE XX ; Start 07/29/16 at 19:30 Glucose (Glutose) 15 gm Q15M PRN PO DECREASED GLUCOSE; Start 07/29/16 at 19:30 Glucose (Glutose) 22.5 gm Q15M PRN PO DECREASED GLUCOSE; Start 07/29/16 at 19: 30 Dextrose (D50w Syringe) 25 ml Q15M PRN IV DECREASED GLUCOSE; Start 07/29/16 at 19:30 Dextrose (D50w Syringe) 50 ml Q15M PRN IV DECREASED GLUCOSE; Start 07/29/16 at 19:30 Glucagon (Glucagen) 1 mg Q15M PRN IM DECREASED GLUCOSE; Start 07/29/16 at 19:30 Glucose (Glutose) 15 gm Q15M PRN BUCCAL DECREASED GLUCOSE; Start 07/29/16 at 19 :30 Ondansetron HCl (Zofran Inj) 4 mg Q6H PRN IV NAUSEA AND/OR VOMITING; Start at 19:30 Acetaminophen (Tylenol Supp) 650 mg Q6H PRN [place] FEVER GREATER THAN 100.6; Start 07/29/16 at 19:30 Pantoprazole (Protonix Tab) 40 mg DAILY@06 PO Last administered on 08/04/16 05 :56; Admin Dose 40 MG; Start 07/31/16 at 06:00 Oxcarbazepine (Trileptal) 300 mg BID PO Last administered on 08/04/16 08:57; Admin Dose 300 MG; Start 07/30/16 at 21:00 Acetaminophen (Tylenol Tab) 650 mg Q4H PRN PO PAIN AND OR ELEVATED TEMP Last administered on 07/30/16 21:39; Admin Dose 650 MG; Start 07/30/16 at 18:00 Aspirin (Aspirin) 81 mg DAILY PO Last administered on 08/04/16 08:57; Admin Dose 81 MG; Start 07/31/16 at 09:00 Bisacodyl (Dulcolax Supp) 10 mg DAILY PRN [place] CONSTIPATION; Start 07/30/16 at 18 :00 Clonazepam (Klonopin) 0.25 mg BID PRN PO ANXIETY; Start 07/30/16 at 18:00 Diphenhydramine HCl (Benadryl) 25 mg Q6H PRN PO ITCHING Last administered on 16:59; Admin Dose 25 MG; Start 07/30/16 at 18:00 Divalproex Sodium (Depakote Sprinkle) 250 mg BID PO Last administered on 08:56; Admin Dose 250 MG; Start 07/30/16 at 21:00 Docusate Sodium (Colace) 200 mg HS PO Last administered on 08/03/16 20:05; Admin Dose 200 MG; Start 07/30/16 at 21:00 Ferrous Sulfate (Ferrous Sulfate (Ec)) 325 mg BID PO Last administered on 08:57; Admin Dose 325 MG; Start 07/30/16 at 21:00 Lorazepam (Ativan) 0.5 mg Q6H PRN PO ANXIETY Last administered on 08/01/16 02: 02; Admin Dose 0.5 MG; Start 07/30/16 at 18:00 Magnesium Hydroxide (Milk Of Mag) 30 ml DAILY PRN PO CONSTIPATION; Start at 18:00 Quetiapine Fumarate (Seroquel) 25 mg AM PO Last administered on 08/04/16 08:57 ; Admin Dose 25 MG; Start 07/31/16 at 09:00 Quetiapine Fumarate (Seroquel) 50 mg HS PO Last administered on 08/03/16 20:05 ; Admin Dose 50 MG; Start 07/30/16 at 21:00 Mupirocin 1 applic 1 applic BID TOP Last administered on 08/04/16 08:58; Admin Dose 1 APPLIC; Start 07/31/16 at 12:00 Potassium Chloride/Sodium Chloride 1,000 ml @ 50 mls/hr Q20H IV Last administered on 08/03/16 17:31; Admin Dose 50 MLS/HR; Start 07/31/16 at 17:00 Vancomycin HCl (Vancocin) 250 ml @ 125 mls/hr Q24H IVPB Last administered on 20:06; Admin Dose 125 MLS/HR; Start 08/02/16 at 20:15 JESSICA JARRETT NP Aug 04, 2016 19:37
[2016-08-04] MEDS: VANCOMYCIN 1 GM in NS 250 ML IVPB SCH (20:31)
[2016-08-04] MEDS: DOCUSATE SODIUM 100 MG CAP PO SCH (20:32)
[2016-08-04 20:54] VITALS: BP 118/56; RESP 19
[2016-08-05] MEDS: ACCU-CHEK XX SCH (02:00)
[2016-08-05] MEDS: PANTOPRAZOLE (EC) 40 MG TAB PO SCH (06:03)
[2016-08-05 07:57] VITALS: BP 130/73; RESP 17
[2016-08-05] MEDS: MUPIROCIN 2% 22 GM OINT TOP SCH ×2 (08:16→20:33)
[2016-08-05] MEDS: QUETIAPINE 25 MG TAB PO SCH ×2 (08:16→20:34)
[2016-08-05] MEDS: OXCARBAZEPINE 300 MG TAB PO SCH ×2 (08:16→20:34)
[2016-08-05] MEDS: ASPIRIN 81 MG TAB PO SCH (08:16)
[2016-08-05] MEDS: FERROUS SULFATE (EC) 325 MG TAB PO SCH ×2 (08:16→20:33)
[2016-08-05] MEDS: LEVOFLOXACIN 250MG/D5W (PMX) 50 ML IVPB SCH (08:16)
[2016-08-05] MEDS: DIVALPROEX SPRINKLE 125 MG CAP PO SCH ×2 (08:16→20:34)
--- NOTE | 2016-08-05 13:06 | PN ---
Date/Time of Note Date/Time of Note DATE: 08/05/16 TIME: 13:05 Assessment/Plan VTE Prophylaxis VTE Prophylaxis Intervention: other Lines/Catheters IV Catheter Type (from [facility]): Peripheral IV Urinary Cath still in place: No Assessment/Plan Chief Complaint/Hosp Course Patient admitted for urinary tract infection. Patient treated with antibiotics and slowly improved. Patient felt to be stable and will return to [facility] with continue antibiotics. Patient looks comfortable, stable VS. Assessment and plan: - Sepsis secondary to urinary tract infection with leukocytosis elevated lactate and encephalopathy, resolving. Continue abx per ID. - Acute metabolic encephalopathy, resolved. - Urinary tract infection. 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 Dr. Acevedo is following in nephrology consultation. - Coronary artery disease, continue aspirin. - Hypertension. Patient is currently normotensive. - History of [employer] shunt - Epilepsy, continue Trileptal. - Bipolar disorder with psychosis. Continue Seroquel. - Anemia of chronic disease. Continue PT. Further recommendations based on clinical course. Plan of care discussed with Dr. Felipe. Problems: Subjective 24 Hr Interval Summary Free Text/Dictation Patient has no complaints, is enjoying her lunch Exam/Review of Systems Vital Signs Vitals Vital Signs Date Time Temp Pulse Resp B/P Pulse Ox O2 Delivery O2 Flow Rate FiO2 08/05/16 07:57 98.5 83 17 130/73 97 08/04/16 07:45 Room Air Intake and Output 08/04/16 08/04/16 08/05/16 15:00 23:00 07:00 Intake Total 750 ml 590 ml Balance 750 ml 590 ml Exam Constitutional: well developed Head: atraumatic, normocephalic Neck: supple Respiratory: diminished breath sounds Cardiovascular: regular rate and rhythm Gastrointestinal: non-tender, soft Extremities: normal pulses Results Result Diagram: 08/03/16 0532 08/03/16 0532 Medications Medications Current Medications Levofloxacin/ Dextrose (Levaquin 250 Mg/ D5W 50 ml (Pmx)) 50 ml @ 50 mls/hr Q24H IVPB Last administered on 08/05/16t 08:16; Admin Dose 50 MLS/HR; Start at 09:00 Diagnostic Test (Pha) (Accu-Chek) 1 ea 02 XX ; Start 07/30/16 at 02:00 Miscellaneous Information 1 ea NOTE XX ; Start 07/29/16 at 19:30 Glucose (Glutose) 15 gm Q15M PRN PO DECREASED GLUCOSE; Start 07/29/16 at 19:30 Glucose (Glutose) 22.5 gm Q15M PRN PO DECREASED GLUCOSE; Start 07/29/16 at 19: 30 Dextrose (D50w Syringe) 25 ml Q15M PRN IV DECREASED GLUCOSE; Start 07/29/16 at 19:30 Dextrose (D50w Syringe) 50 ml Q15M PRN IV DECREASED GLUCOSE; Start 07/29/16 at 19:30 Glucagon (Glucagen) 1 mg Q15M PRN IM DECREASED GLUCOSE; Start 07/29/16 at 19:30 Glucose (Glutose) 15 gm Q15M PRN BUCCAL DECREASED GLUCOSE; Start 07/29/16 at 19 :30 Ondansetron HCl (Zofran Inj) 4 mg Q6H PRN IV NAUSEA AND/OR VOMITING; Start at 19:30 Acetaminophen (Tylenol Supp) 650 mg Q6H PRN [place] FEVER GREATER THAN 100.6; Start 07/29/16 at 19:30 Pantoprazole (Protonix Tab) 40 mg DAILY@06 PO Last administered on 08/05/16 06 :03; Admin Dose 40 MG; Start 07/31/16 at 06:00 Oxcarbazepine (Trileptal) 300 mg BID PO Last administered on 08/05/16 08:16; Admin Dose 300 MG; Start 07/30/16 at 21:00 Acetaminophen (Tylenol Tab) 650 mg Q4H PRN PO PAIN AND OR ELEVATED TEMP Last administered on 07/30/16 21:39; Admin Dose 650 MG; Start 07/30/16 at 18:00 Aspirin (Aspirin) 81 mg DAILY PO Last administered on 08/05/16 08:16; Admin Dose 81 MG; Start 07/31/16 at 09:00 Bisacodyl (Dulcolax Supp) 10 mg DAILY PRN [place] CONSTIPATION; Start 07/30/16 at 18 :00 Clonazepam (Klonopin) 0.25 mg BID PRN PO ANXIETY; Start 07/30/16 at 18:00 Diphenhydramine HCl (Benadryl) 25 mg Q6H PRN PO ITCHING Last administered on 16:59; Admin Dose 25 MG; Start 07/30/16 at 18:00 Divalproex Sodium (Depakote Sprinkle) 250 mg BID PO Last administered on 08:16; Admin Dose 250 MG; Start 07/30/16 at 21:00 Docusate Sodium (Colace) 200 mg HS PO Last administered on 08/04/16 20:32; Admin Dose 200 MG; Start 07/30/16 at 21:00 Ferrous Sulfate (Ferrous Sulfate (Ec)) 325 mg BID PO Last administered on 08:16; Admin Dose 325 MG; Start 07/30/16 at 21:00 Lorazepam (Ativan) 0.5 mg Q6H PRN PO ANXIETY Last administered on 08/01/16 02: 02; Admin Dose 0.5 MG; Start 07/30/16 at 18:00 Magnesium Hydroxide (Milk Of Mag) 30 ml DAILY PRN PO CONSTIPATION; Start at 18:00 Quetiapine Fumarate (Seroquel) 25 mg AM PO Last administered on 08/05/16 08:16 ; Admin Dose 25 MG; Start 07/31/16 at 09:00 Quetiapine Fumarate (Seroquel) 50 mg HS PO Last administered on 08/04/16 20:32 ; Admin Dose 50 MG; Start 07/30/16 at 21:00 Mupirocin 1 applic 1 applic BID TOP Last administered on 08/05/16 08:16; Admin Dose 1 APPLIC; Start 07/31/16 at 12:00 Potassium Chloride/Sodium Chloride 1,000 ml @ 50 mls/hr Q20H IV Last administered on 08/04/16 20:31; Admin Dose 50 MLS/HR; Start 07/31/16 at 17:00 Vancomycin HCl (Vancocin) 250 ml @ 125 mls/hr Q24H IVPB Last administered on 20:31; Admin Dose 125 MLS/HR; Start 08/02/16 at 20:15 Miscellaneous Information (*Rx Drug Level Order Reminder*) VANCOMYCIN TROUGH AT 1900 ONCE ONCE XX ; Start 08/05/16 at 19:00; Stop 08/05/16 at 19:01 JONN CHAPMAN Aug 05, 2016 13:06
--- NOTE | 2016-08-05 17:58 | CONS ---
Date/Time of Note Date/Time of Note DATE: 08/05/16 TIME: 17:57 Assessment/Plan Assessment/Plan Chief Complaint/Hosp Course SUBJECTIVE: No acute changes. The patient is awake, looks comfortable, denies pain, discomfort. MICROBIOLOGY: Urine culture growing enterococcus species, Klebsiella and Enterobacter cloacae complex susceptible to Levaquin. ANTIMICROBIALS: The patient remains on: 1. Vancomycin. 2. Levaquin. ALLERGIES: 1. PENICILLIN. 2. ERTAPENEM. 3. MEROPENEM. PHYSICAL EXAMINATION: GENERAL: This is a fragile, elderly woman who is in no distress. HEENT: Head atraumatic, normocephalic. Sclerae anicteric. Buccal mucosa dry. NECK: Supple. CHEST: Rise symmetrical. Breath sounds clear. HEART: S1, S2. ABDOMEN: Soft, bowel sounds present. EXTREMITIES: Without cyanosis. ASSESSMENT: 1. Resolving sepsis status post fevers, leukocytosis and encephalopathy on admission. 2. Polymicrobial multidrug resistant urinary tract infection. 3. Methicillin-resistant Staphylococcus aureus colonization. 4. Acute kidney injury. 5. Coronary artery disease. 6. Hypertension. 7. History of ventriculoperitoneal shunt placement. PLAN: The patient remains stable, completing abx. Continue present care, anti- aspiration measures. DW staff Problems: Consultation Date/Type/Reason Admit Date/Time Jul 29, 2016 at 16:46 Type of Consultation: ID Referring Provider: SHEN GAYLE MD Exam/Review of Systems Vital Signs Vitals Vital Signs Date Time Temp Pulse Resp B/P Pulse Ox O2 Delivery O2 Flow Rate FiO2 08/05/16 07:57 98.5 83 17 130/73 97 08/04/16 07:45 Room Air Intake and Output 08/04/16 08/04/16 08/05/16 15:00 23:00 07:00 Intake Total 750 ml 590 ml Balance 750 ml 590 ml Results Result Diagram: 08/03/16 0532 08/03/16 0532 Medications Medications Current Medications Levofloxacin/ Dextrose (Levaquin 250 Mg/ D5W 50 ml (Pmx)) 50 ml @ 50 mls/hr Q24H IVPB Last administered on 08/05/16t 08:16; Admin Dose 50 MLS/HR; Start at 09:00 Diagnostic Test (Pha) (Accu-Chek) 1 ea 02 XX ; Start 07/30/16 at 02:00 Miscellaneous Information 1 ea NOTE XX ; Start 07/29/16 at 19:30 Glucose (Glutose) 15 gm Q15M PRN PO DECREASED GLUCOSE; Start 07/29/16 at 19:30 Glucose (Glutose) 22.5 gm Q15M PRN PO DECREASED GLUCOSE; Start 07/29/16 at 19: 30 Dextrose (D50w Syringe) 25 ml Q15M PRN IV DECREASED GLUCOSE; Start 07/29/16 at 19:30 Dextrose (D50w Syringe) 50 ml Q15M PRN IV DECREASED GLUCOSE; Start 07/29/16 at 19:30 Glucagon (Glucagen) 1 mg Q15M PRN IM DECREASED GLUCOSE; Start 07/29/16 at 19:30 Glucose (Glutose) 15 gm Q15M PRN BUCCAL DECREASED GLUCOSE; Start 07/29/16 at 19 :30 Ondansetron HCl (Zofran Inj) 4 mg Q6H PRN IV NAUSEA AND/OR VOMITING; Start at 19:30 Acetaminophen (Tylenol Supp) 650 mg Q6H PRN [place] FEVER GREATER THAN 100.6; Start 07/29/16 at 19:30 Pantoprazole (Protonix Tab) 40 mg DAILY@06 PO Last administered on 08/05/16 06 :03; Admin Dose 40 MG; Start 07/31/16 at 06:00 Oxcarbazepine (Trileptal) 300 mg BID PO Last administered on 08/05/16 08:16; Admin Dose 300 MG; Start 07/30/16 at 21:00 Acetaminophen (Tylenol Tab) 650 mg Q4H PRN PO PAIN AND OR ELEVATED TEMP Last administered on 07/30/16 21:39; Admin Dose 650 MG; Start 07/30/16 at 18:00 Aspirin (Aspirin) 81 mg DAILY PO Last administered on 08/05/16 08:16; Admin Dose 81 MG; Start 07/31/16 at 09:00 Bisacodyl (Dulcolax Supp) 10 mg DAILY PRN [place] CONSTIPATION; Start 07/30/16 at 18 :00 Clonazepam (Klonopin) 0.25 mg BID PRN PO ANXIETY; Start 07/30/16 at 18:00 Diphenhydramine HCl (Benadryl) 25 mg Q6H PRN PO ITCHING Last administered on 16:59; Admin Dose 25 MG; Start 07/30/16 at 18:00 Divalproex Sodium (Depakote Sprinkle) 250 mg BID PO Last administered on 08:16; Admin Dose 250 MG; Start 07/30/16 at 21:00 Docusate Sodium (Colace) 200 mg HS PO Last administered on 08/04/16 20:32; Admin Dose 200 MG; Start 07/30/16 at 21:00 Ferrous Sulfate (Ferrous Sulfate (Ec)) 325 mg BID PO Last administered on 08:16; Admin Dose 325 MG; Start 07/30/16 at 21:00 Lorazepam (Ativan) 0.5 mg Q6H PRN PO ANXIETY Last administered on 08/01/16 02: 02; Admin Dose 0.5 MG; Start 07/30/16 at 18:00 Magnesium Hydroxide (Milk Of Mag) 30 ml DAILY PRN PO CONSTIPATION; Start at 18:00 Quetiapine Fumarate (Seroquel) 25 mg AM PO Last administered on 08/05/16 08:16 ; Admin Dose 25 MG; Start 07/31/16 at 09:00 Quetiapine Fumarate (Seroquel) 50 mg HS PO Last administered on 08/04/16 20:32 ; Admin Dose 50 MG; Start 07/30/16 at 21:00 Mupirocin 1 applic 1 applic BID TOP Last administered on 08/05/16 08:16; Admin Dose 1 APPLIC; Start 07/31/16 at 12:00 Potassium Chloride/Sodium Chloride 1,000 ml @ 50 mls/hr Q20H IV Last administered on 08/04/16 20:31; Admin Dose 50 MLS/HR; Start 07/31/16 at 17:00 Vancomycin HCl (Vancocin) 250 ml @ 125 mls/hr Q24H IVPB Last administered on 20:31; Admin Dose 125 MLS/HR; Start 08/02/16 at 20:15 Miscellaneous Information (*Rx Drug Level Order Reminder*) VANCOMYCIN TROUGH AT 1900 ONCE ONCE XX ; Start 08/05/16 at 19:00; Stop 08/05/16 at 19:01 ALFRED GUZMÁN NP Aug 05, 2016 17:58
[2016-08-05] MEDS: NS + KCL 20 MEQ 1,000 ML IV SCH (18:36)
[2016-08-05 20:09] VITALS: BP 128/61; RESP 18
[2016-08-05] MEDS: DOCUSATE SODIUM 100 MG CAP PO SCH (20:33)
[2016-08-05] MEDS: VANCOMYCIN 1 GM in NS 250 ML IVPB SCH (21:31)
[2016-08-05] MEDS: LORAZEPAM 0.5 MG TAB PO PRN (22:01)
[2016-08-05] MEDS ORDERED: hydrOXYzine HCL 25 MG TAB PO PRN ×2 (23:00)
[2016-08-06] MEDS: ACCU-CHEK XX SCH (02:00)
[2016-08-06] MEDS: PANTOPRAZOLE (EC) 40 MG TAB PO SCH (05:41)
[2016-08-06 08:14] VITALS: BP 100/48; RESP 18
[2016-08-06] MEDS: LEVOFLOXACIN 250MG/D5W (PMX) 50 ML IVPB SCH (09:05)
[2016-08-06] MEDS: FERROUS SULFATE (EC) 325 MG TAB PO SCH ×2 (09:13→20:07)
[2016-08-06] MEDS: ASPIRIN 81 MG TAB PO SCH (09:13)
[2016-08-06] MEDS: QUETIAPINE 25 MG TAB PO SCH ×2 (09:13→20:06)
[2016-08-06] MEDS: OXCARBAZEPINE 300 MG TAB PO SCH ×2 (09:13→20:07)
[2016-08-06] MEDS: MUPIROCIN 2% 22 GM OINT TOP SCH ×2 (09:13→20:06)
[2016-08-06] MEDS: DIVALPROEX SPRINKLE 125 MG CAP PO SCH ×2 (09:13→20:07)
[2016-08-06] MEDS: NS + KCL 20 MEQ 1,000 ML IV SCH ×2 (13:00→18:00)
--- NOTE | 2016-08-06 13:57 | CONS ---
Date/Time of Note Date/Time of Note DATE: 08/06/16 TIME: 13:56 Assessment/Plan Assessment/Plan Chief Complaint/Hosp Course SUBJECTIVE: No acute changes. The patient is alert, looks comfortable, denies pain, discomfort. MICROBIOLOGY: Urine culture growing enterococcus species, Klebsiella and Enterobacter cloacae complex susceptible to Levaquin. ANTIMICROBIALS: 1. Vancomycin. 2. Levaquin. ALLERGIES: 1. PENICILLIN. 2. ERTAPENEM. 3. MEROPENEM. PHYSICAL EXAMINATION: GENERAL: This is a fragile, elderly woman who is in no distress. HEENT: Head atraumatic, normocephalic. Sclerae anicteric. Buccal mucosa dry. NECK: Supple. CHEST: Rise symmetrical. Breath sounds clear. HEART: S1, S2. ABDOMEN: Soft, bowel sounds present. EXTREMITIES: Without cyanosis. ASSESSMENT: 1. S/p sepsis with fevers, leukocytosis and encephalopathy on admission. 2. Polymicrobial multidrug resistant urinary tract infection. 3. Methicillin-resistant Staphylococcus aureus colonization. 4. Acute kidney injury. 5. Coronary artery disease. 6. Hypertension. 7. History of ventriculoperitoneal shunt placement. PLAN: The patient remains stable, will dc abx and observe. Will reculture prn. DW staff Problems: Consultation Date/Type/Reason Admit Date/Time Jul 29, 2016 at 16:46 Type of Consultation: ID Referring Provider: SHEN GAYLE MD Exam/Review of Systems Vital Signs Vitals Vital Signs Date Time Temp Pulse Resp B/P Pulse Ox O2 Delivery O2 Flow Rate FiO2 08/06/16 08:14 97.7 73 18 100/48 98 08/04/16 07:45 Room Air Intake and Output 08/05/16 08/05/16 08/06/16 15:00 23:00 07:00 Intake Total 50 ml 1500 ml 1075 ml Balance 50 ml 1500 ml 1075 ml Results Result Diagram: 08/03/16 0532 08/03/16 0532 Results 24 hrs Laboratory Tests Test 08/05/16 19:25 Vancomycin Level Trough 13.9 Medications Medications Current Medications Levofloxacin/ Dextrose (Levaquin 250 Mg/ D5W 50 ml (Pmx)) 50 ml @ 50 mls/hr Q24H IVPB Last administered on 08/06/16t 09:05; Admin Dose 50 MLS/HR; Start at 09:00 Diagnostic Test (Pha) (Accu-Chek) 1 ea 02 XX ; Start 07/30/16 at 02:00 Miscellaneous Information 1 ea NOTE XX ; Start 07/29/16 at 19:30 Glucose (Glutose) 15 gm Q15M PRN PO DECREASED GLUCOSE; Start 07/29/16 at 19:30 Glucose (Glutose) 22.5 gm Q15M PRN PO DECREASED GLUCOSE; Start 07/29/16 at 19: 30 Dextrose (D50w Syringe) 25 ml Q15M PRN IV DECREASED GLUCOSE; Start 07/29/16 at 19:30 Dextrose (D50w Syringe) 50 ml Q15M PRN IV DECREASED GLUCOSE; Start 07/29/16 at 19:30 Glucagon (Glucagen) 1 mg Q15M PRN IM DECREASED GLUCOSE; Start 07/29/16 at 19:30 Glucose (Glutose) 15 gm Q15M PRN BUCCAL DECREASED GLUCOSE; Start 07/29/16 at 19 :30 Ondansetron HCl (Zofran Inj) 4 mg Q6H PRN IV NAUSEA AND/OR VOMITING; Start at 19:30 Acetaminophen (Tylenol Supp) 650 mg Q6H PRN [place] FEVER GREATER THAN 100.6; Start 07/29/16 at 19:30 Pantoprazole (Protonix Tab) 40 mg DAILY@06 PO Last administered on 08/06/16 05 :41; Admin Dose 40 MG; Start 07/31/16 at 06:00 Oxcarbazepine (Trileptal) 300 mg BID PO Last administered on 08/06/16 09:13; Admin Dose 300 MG; Start 07/30/16 at 21:00 Acetaminophen (Tylenol Tab) 650 mg Q4H PRN PO PAIN AND OR ELEVATED TEMP Last administered on 07/30/16 21:39; Admin Dose 650 MG; Start 07/30/16 at 18:00 Aspirin (Aspirin) 81 mg DAILY PO Last administered on 08/06/16 09:13; Admin Dose 81 MG; Start 07/31/16 at 09:00 Bisacodyl (Dulcolax Supp) 10 mg DAILY PRN [place] CONSTIPATION; Start 07/30/16 at 18 :00 Clonazepam (Klonopin) 0.25 mg BID PRN PO ANXIETY; Start 07/30/16 at 18:00 Diphenhydramine HCl (Benadryl) 25 mg Q6H PRN PO ITCHING Last administered on 16:59; Admin Dose 25 MG; Start 07/30/16 at 18:00 Divalproex Sodium (Depakote Sprinkle) 250 mg BID PO Last administered on 09:13; Admin Dose 250 MG; Start 07/30/16 at 21:00 Docusate Sodium (Colace) 200 mg HS PO Last administered on 08/05/16 20:33; Admin Dose 200 MG; Start 07/30/16 at 21:00 Ferrous Sulfate (Ferrous Sulfate (Ec)) 325 mg BID PO Last administered on 09:13; Admin Dose 325 MG; Start 07/30/16 at 21:00 Lorazepam (Ativan) 0.5 mg Q6H PRN PO ANXIETY Last administered on 08/05/16 22: 01; Admin Dose 0.5 MG; Start 07/30/16 at 18:00 Magnesium Hydroxide (Milk Of Mag) 30 ml DAILY PRN PO CONSTIPATION; Start at 18:00 Quetiapine Fumarate (Seroquel) 25 mg AM PO Last administered on 08/06/16 09:13 ; Admin Dose 25 MG; Start 07/31/16 at 09:00 Quetiapine Fumarate (Seroquel) 50 mg HS PO Last administered on 08/05/16 20:34 ; Admin Dose 50 MG; Start 07/30/16 at 21:00 Mupirocin 1 applic 1 applic BID TOP Last administered on 08/06/16 09:13; Admin Dose 1 APPLIC; Start 07/31/16 at 12:00 Potassium Chloride/Sodium Chloride 1,000 ml @ 50 mls/hr Q20H IV Last administered on 08/05/16 18:36; Admin Dose 50 MLS/HR; Start 07/31/16 at 17:00 Vancomycin HCl (Vancocin) 250 ml @ 125 mls/hr Q24H IVPB Last administered on 21:31; Admin Dose 125 MLS/HR; Start 08/02/16 at 20:15 Hydroxyzine HCl (Atarax) 25 mg Q6H PRN PO ITCHING Last administered on 6/25/ 17at 22:51; Admin Dose 25 MG; Start 08/05/16 at 23:00 ALFRED GUZMÁN NP Aug 06, 2016 13:57
--- NOTE | 2016-08-06 15:03 | PN ---
Date/Time of Note Date/Time of Note DATE: 08/06/16 TIME: 15:01 Assessment/Plan VTE Prophylaxis VTE Prophylaxis Intervention: SCD's Lines/Catheters IV C[facility]ter Type (from [email or web address] Peripheral IV Urinary Cath still in place: No Assessment/Plan Chief Complaint/Hosp Course Patient remained afebrile, no change in neuro status. Assessment and plan: - Sepsis secondary to urinary tract infection with leukocytosis elevated lactate and encephalopathy, resolving. Continue abx per ID. Dr. Galvez is following infection disease consultation. - Acute metabolic encephalopathy, resolved. - Urinary tract infection. 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 Dr. Acevedo is following in nephrology consultation. - Coronary artery disease, continue aspirin. - History of [employer] shunt - Epilepsy, continue Trileptal. - Bipolar disorder with psychosis. Continue Seroquel. - Anemia of chronic disease. Continue PT. Further recommendations based on clinical course. Plan of care discussed with Dr. Felipe. Problems: Exam/Review of Systems Vital Signs Vitals Vital Signs Date Time Temp Pulse Resp B/P Pulse Ox O2 Delivery O2 Flow Rate FiO2 08/06/16 08:14 97.7 73 18 100/48 98 08/04/16 07:45 Room Air Intake and Output 08/05/16 08/05/16 08/06/16 15:00 23:00 07:00 Intake Total 50 ml 1500 ml 1075 ml Balance 50 ml 1500 ml 1075 ml Exam Constitutional: alert Head: atraumatic Neck: supple Respiratory: clear to auscultation Cardiovascular: nl pulses Gastrointestinal: non-tender, soft Extremities: normal pulses, other (Contracted) Neurological: nl mental status Results Result Diagram: 08/03/16 0532 08/03/16 0532 Results 24 hrs Laboratory Tests Test 08/05/16 19:25 Vancomycin Level Trough 13.9 Medications Medications Current Medications Diagnostic Test (Pha) (Accu-Chek) 1 ea 02 XX ; Start 07/30/16 at 02:00 Miscellaneous Information 1 ea NOTE XX ; Start 07/29/16 at 19:30 Glucose (Glutose) 15 gm Q15M PRN PO DECREASED GLUCOSE; Start 07/29/16 at 19:30 Glucose (Glutose) 22.5 gm Q15M PRN PO DECREASED GLUCOSE; Start 07/29/16 at 19: 30 Dextrose (D50w Syringe) 25 ml Q15M PRN IV DECREASED GLUCOSE; Start 07/29/16 at 19:30 Dextrose (D50w Syringe) 50 ml Q15M PRN IV DECREASED GLUCOSE; Start 07/29/16 at 19:30 Glucagon (Glucagen) 1 mg Q15M PRN IM DECREASED GLUCOSE; Start 07/29/16 at 19:30 Glucose (Glutose) 15 gm Q15M PRN BUCCAL DECREASED GLUCOSE; Start 07/29/16 at 19 :30 Ondansetron HCl (Zofran Inj) 4 mg Q6H PRN IV NAUSEA AND/OR VOMITING; Start at 19:30 Acetaminophen (Tylenol Supp) 650 mg Q6H PRN [place] FEVER GREATER THAN 100.6; Start 07/29/16 at 19:30 Pantoprazole (Protonix Tab) 40 mg DAILY@06 PO Last administered on 08/06/16 05 :41; Admin Dose 40 MG; Start 07/31/16 at 06:00 Oxcarbazepine (Trileptal) 300 mg BID PO Last administered on 08/06/16 09:13; Admin Dose 300 MG; Start 07/30/16 at 21:00 Acetaminophen (Tylenol Tab) 650 mg Q4H PRN PO PAIN AND OR ELEVATED TEMP Last administered on 07/30/16 21:39; Admin Dose 650 MG; Start 07/30/16 at 18:00 Aspirin (Aspirin) 81 mg DAILY PO Last administered on 08/06/16 09:13; Admin Dose 81 MG; Start 07/31/16 at 09:00 Bisacodyl (Dulcolax Supp) 10 mg DAILY PRN [place] CONSTIPATION; Start 07/30/16 at 18 :00 Clonazepam (Klonopin) 0.25 mg BID PRN PO ANXIETY; Start 07/30/16 at 18:00 Diphenhydramine HCl (Benadryl) 25 mg Q6H PRN PO ITCHING Last administered on 16:59; Admin Dose 25 MG; Start 07/30/16 at 18:00 Divalproex Sodium (Depakote Sprinkle) 250 mg BID PO Last administered on 09:13; Admin Dose 250 MG; Start 07/30/16 at 21:00 Docusate Sodium (Colace) 200 mg HS PO Last administered on 08/05/16 20:33; Admin Dose 200 MG; Start 07/30/16 at 21:00 Ferrous Sulfate (Ferrous Sulfate (Ec)) 325 mg BID PO Last administered on 09:13; Admin Dose 325 MG; Start 07/30/16 at 21:00 Lorazepam (Ativan) 0.5 mg Q6H PRN PO ANXIETY Last administered on 08/05/16 22: 01; Admin Dose 0.5 MG; Start 07/30/16 at 18:00 Magnesium Hydroxide (Milk Of Mag) 30 ml DAILY PRN PO CONSTIPATION; Start at 18:00 Quetiapine Fumarate (Seroquel) 25 mg AM PO Last administered on 08/06/16 09:13 ; Admin Dose 25 MG; Start 07/31/16 at 09:00 Quetiapine Fumarate (Seroquel) 50 mg HS PO Last administered on 08/05/16 20:34 ; Admin Dose 50 MG; Start 07/30/16 at 21:00 Mupirocin 1 applic 1 applic BID TOP Last administered on 08/06/16 09:13; Admin Dose 1 APPLIC; Start 07/31/16 at 12:00 Potassium Chloride/Sodium Chloride (NS-KCl 20 Meq) 1,000 ml @ 50 mls/hr Q20H IV Last administered on 08/05/16 18:36; Admin Dose 50 MLS/HR; Start 07/31/16 at 17:00 Hydroxyzine HCl (Atarax) 25 mg Q6H PRN PO ITCHING Last administered on 22:51; Admin Dose 25 MG; Start 08/05/16 at 23:00 UMESH WILLETT Aug 06, 2016 15:03
--- NOTE | 2016-08-06 17:45 | CONS ---
Date/Time of Note Date/Time of Note DATE: 08/06/16 TIME: 17:45 Assessment/Plan Assessment/Plan Additional Assessment/Plan 1. Nonoliguric acute kidney injury, likely secondary to prerenal azotemia and also secondary to urinary tract infection. 2. 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 3. Hypertension. 4. Altered of consciousness and altered mental status. 5. Urinary tract infection. 6. Anemia of chronic disease. 7. Alzheimer dementia. 8. Diabetes mellitus type 2. PLAN: Cr imrpove to 1.13 IV abx as per PMD BP stable afebrile will follow up possible D/c plan to SNF Consultation Date/Type/Reason Admit Date/Time Jul 29, 2016 at 16:46 Type of Consultation: NEPHROLOGY Referring Provider: SHEN GAYLE MD Exam/Review of Systems Vital Signs Vitals Vital Signs Date Time Temp Pulse Resp B/P Pulse Ox O2 Delivery O2 Flow Rate FiO2 08/06/16 08:14 97.7 73 18 100/48 98 08/04/16 07:45 Room Air Intake and Output 08/05/16 08/05/16 08/06/16 15:00 23:00 07:00 Intake Total 50 ml 1500 ml 1075 ml Balance 50 ml 1500 ml 1075 ml Results Result Diagram: 08/03/16 0532 08/03/16 0532 Results 24 hrs Laboratory Tests Test 08/05/16 19:25 Vancomycin Level Trough 13.9 Medications Medications Current Medications Diagnostic Test (Pha) (Accu-Chek) 1 ea 02 XX ; Start 07/30/16 at 02:00 Miscellaneous Information 1 ea NOTE XX ; Start 07/29/16 at 19:30 Glucose (Glutose) 15 gm Q15M PRN PO DECREASED GLUCOSE; Start 07/29/16 at 19:30 Glucose (Glutose) 22.5 gm Q15M PRN PO DECREASED GLUCOSE; Start 07/29/16 at 19: 30 Dextrose (D50w Syringe) 25 ml Q15M PRN IV DECREASED GLUCOSE; Start 07/29/16 at 19:30 Dextrose (D50w Syringe) 50 ml Q15M PRN IV DECREASED GLUCOSE; Start 07/29/16 at 19:30 Glucagon (Glucagen) 1 mg Q15M PRN IM DECREASED GLUCOSE; Start 07/29/16 at 19:30 Glucose (Glutose) 15 gm Q15M PRN BUCCAL DECREASED GLUCOSE; Start 07/29/16 at 19 :30 Ondansetron HCl (Zofran Inj) 4 mg Q6H PRN IV NAUSEA AND/OR VOMITING; Start at 19:30 Acetaminophen (Tylenol Supp) 650 mg Q6H PRN [place] FEVER GREATER THAN 100.6; Start 07/29/16 at 19:30 Pantoprazole (Protonix Tab) 40 mg DAILY@06 PO Last administered on 08/06/16 05 :41; Admin Dose 40 MG; Start 07/31/16 at 06:00 Oxcarbazepine (Trileptal) 300 mg BID PO Last administered on 08/06/16 09:13; Admin Dose 300 MG; Start 07/30/16 at 21:00 Acetaminophen (Tylenol Tab) 650 mg Q4H PRN PO PAIN AND OR ELEVATED TEMP Last administered on 07/30/16 21:39; Admin Dose 650 MG; Start 07/30/16 at 18:00 Aspirin (Aspirin) 81 mg DAILY PO Last administered on 08/06/16 09:13; Admin Dose 81 MG; Start 07/31/16 at 09:00 Bisacodyl (Dulcolax Supp) 10 mg DAILY PRN [place] CONSTIPATION; Start 07/30/16 at 18 :00 Clonazepam (Klonopin) 0.25 mg BID PRN PO ANXIETY; Start 07/30/16 at 18:00 Diphenhydramine HCl (Benadryl) 25 mg Q6H PRN PO ITCHING Last administered on 16:59; Admin Dose 25 MG; Start 07/30/16 at 18:00 Divalproex Sodium (Depakote Sprinkle) 250 mg BID PO Last administered on 09:13; Admin Dose 250 MG; Start 07/30/16 at 21:00 Docusate Sodium (Colace) 200 mg HS PO Last administered on 08/05/16 20:33; Admin Dose 200 MG; Start 07/30/16 at 21:00 Ferrous Sulfate (Ferrous Sulfate (Ec)) 325 mg BID PO Last administered on 09:13; Admin Dose 325 MG; Start 07/30/16 at 21:00 Lorazepam (Ativan) 0.5 mg Q6H PRN PO ANXIETY Last administered on 08/05/16 22: 01; Admin Dose 0.5 MG; Start 07/30/16 at 18:00 Magnesium Hydroxide (Milk Of Mag) 30 ml DAILY PRN PO CONSTIPATION; Start at 18:00 Quetiapine Fumarate (Seroquel) 25 mg AM PO Last administered on 08/06/16 09:13 ; Admin Dose 25 MG; Start 07/31/16 at 09:00 Quetiapine Fumarate (Seroquel) 50 mg HS PO Last administered on 08/05/16 20:34 ; Admin Dose 50 MG; Start 07/30/16 at 21:00 Mupirocin 1 applic 1 applic BID TOP Last administered on 08/06/16 09:13; Admin Dose 1 APPLIC; Start 07/31/16 at 12:00 Potassium Chloride/Sodium Chloride (NS-KCl 20 Meq) 1,000 ml @ 50 mls/hr Q20H IV Last administered on 08/05/16 18:36; Admin Dose 50 MLS/HR; Start 07/31/16 at 17:00 Hydroxyzine HCl (Atarax) 25 mg Q6H PRN PO ITCHING Last administered on 22:51; Admin Dose 25 MG; Start 08/05/16 at 23:00 ELLYN RECINOS MD Aug 06, 2016 17:45
[2016-08-06] MEDS: DOCUSATE SODIUM 100 MG CAP PO SCH (20:06)
[2016-08-06] MEDS: LORAZEPAM 0.5 MG TAB PO PRN (20:12)
[2016-08-06 20:16] VITALS: BP 119/58; RESP 17
[2016-08-06] MEDS: clonAZEPAM 0.5 MG TAB PO PRN (21:11)
[2016-08-06] MEDS ORDERED: ZOLPIDEM 5 MG TAB PO PRN ×2 (21:30→22:00)
[2016-08-07] MEDS: ACCU-CHEK XX SCH (02:00)
[2016-08-07] MEDS: PANTOPRAZOLE (EC) 40 MG TAB PO SCH (05:53)
[2016-08-07 08:00] VITALS: BP 125/60; PULSE 90; RESP 17
[2016-08-07 08:13] LABS: CALCIUM 9.9 mg/dl (8.4-10.2); CREATININE 1.2 mg/dl (0.44-1.00); POTASSIUM 4.6 mmol/L (3.5-5.1)
[2016-08-07] MEDS: FERROUS SULFATE (EC) 325 MG TAB PO SCH (08:18)
[2016-08-07] MEDS: QUETIAPINE 25 MG TAB PO SCH (08:18)
[2016-08-07] MEDS: ASPIRIN 81 MG TAB PO SCH (08:18)
[2016-08-07] MEDS: OXCARBAZEPINE 300 MG TAB PO SCH (08:18)
[2016-08-07] MEDS: DIVALPROEX SPRINKLE 125 MG CAP PO SCH (08:18)
[2016-08-07] MEDS: MUPIROCIN 2% 22 GM OINT TOP SCH (08:19)
[2016-08-07] MEDS: LORAZEPAM 0.5 MG TAB PO PRN ×2 (10:16→17:01)
[2016-08-07] MEDS: NS + KCL 20 MEQ 1,000 ML IV SCH (10:16)
[2016-08-07] MEDS: clonAZEPAM 0.5 MG TAB PO PRN (11:15)
--- NOTE | 2016-08-07 18:01 | CONS ---
Date/Time of Note Date/Time of Note DATE: 08/07/16 TIME: 18:00 Assessment/Plan Assessment/Plan Additional Assessment/Plan 1. Nonoliguric acute kidney injury, likely secondary to prerenal azotemia and also secondary to urinary tract infection. 2. 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 3. Hypertension. 4. Altered of consciousness and altered mental status. 5. Urinary tract infection. 6. Anemia of chronic disease. 7. Alzheimer dementia. 8. Diabetes mellitus type 2. PLAN: Cr imrpove to 1.2, Na 147 IV abx as per PMD BP stable afebrile will follow up possible D/c plan to SNF Consultation Date/Type/Reason Admit Date/Time Jul 29, 2016 at 16:46 Type of Consultation: NEPHROLOGY Referring Provider: SHEN GAYLE MD 24 HR Interval Summary Free Text/Dictation no acute events, Exam/Review of Systems Vital Signs Vitals Vital Signs Date Time Temp Pulse Resp B/P Pulse Ox O2 Delivery O2 Flow Rate FiO2 08/06/16 20:16 98.2 73 17 119/58 94 08/04/16 07:45 Room Air Intake and Output 08/06/16 08/06/16 08/07/16 15:00 23:00 07:00 Intake Total 50 ml 1655 ml 1100 ml Balance 50 ml 1655 ml 1100 ml Results Result Diagram: 08/03/16 0532 08/07/16 0636 Results 24 hrs Laboratory Tests Test 08/07/16 06:36 Sodium Level 147 H Potassium Level 4.6 Chloride Level 110 Carbon Dioxide Level 24 Anion Gap 18 H Blood Urea Nitrogen 42 H Creatinine 1.20 H Glucose Level 132 Calcium Level 9.9 Medications Medications Current Medications Diagnostic Test (Pha) (Accu-Chek) 1 ea 02 XX ; Start 07/30/16 at 02:00 Miscellaneous Information 1 ea NOTE XX ; Start 07/29/16 at 19:30 Glucose (Glutose) 15 gm Q15M PRN PO DECREASED GLUCOSE; Start 07/29/16 at 19:30 Glucose (Glutose) 22.5 gm Q15M PRN PO DECREASED GLUCOSE; Start 07/29/16 at 19: 30 Dextrose (D50w Syringe) 25 ml Q15M PRN IV DECREASED GLUCOSE; Start 07/29/16 at 19:30 Dextrose (D50w Syringe) 50 ml Q15M PRN IV DECREASED GLUCOSE; Start 07/29/16 at 19:30 Glucagon (Glucagen) 1 mg Q15M PRN IM DECREASED GLUCOSE; Start 07/29/16 at 19:30 Glucose (Glutose) 15 gm Q15M PRN BUCCAL DECREASED GLUCOSE; Start 07/29/16 at 19 :30 Ondansetron HCl (Zofran Inj) 4 mg Q6H PRN IV NAUSEA AND/OR VOMITING; Start at 19:30 Acetaminophen (Tylenol Supp) 650 mg Q6H PRN [place] FEVER GREATER THAN 100.6; Start 07/29/16 at 19:30 Pantoprazole (Protonix Tab) 40 mg DAILY@06 PO Last administered on 08/07/16 05 :53; Admin Dose 40 MG; Start 07/31/16 at 06:00 Oxcarbazepine (Trileptal) 300 mg BID PO Last administered on 08/07/16 08:18; Admin Dose 300 MG; Start 07/30/16 at 21:00 Acetaminophen (Tylenol Tab) 650 mg Q4H PRN PO PAIN AND OR ELEVATED TEMP Last administered on 07/30/16 21:39; Admin Dose 650 MG; Start 07/30/16 at 18:00 Aspirin (Aspirin) 81 mg DAILY PO Last administered on 08/07/16 08:18; Admin Dose 81 MG; Start 07/31/16 at 09:00 Bisacodyl (Dulcolax Supp) 10 mg DAILY PRN [place] CONSTIPATION; Start 07/30/16 at 18 :00 Clonazepam (Klonopin) 0.25 mg BID PRN PO ANXIETY Last administered on 11:15; Admin Dose 0.25 MG; Start 07/30/16 at 18:00 Diphenhydramine HCl (Benadryl) 25 mg Q6H PRN PO ITCHING Last administered on 16:59; Admin Dose 25 MG; Start 07/30/16 at 18:00 Divalproex Sodium (Depakote Sprinkle) 250 mg BID PO Last administered on 08:18; Admin Dose 250 MG; Start 07/30/16 at 21:00 Docusate Sodium (Colace) 200 mg HS PO Last administered on 08/06/16 20:06; Admin Dose 200 MG; Start 07/30/16 at 21:00 Ferrous Sulfate (Ferrous Sulfate (Ec)) 325 mg BID PO Last administered on 08:18; Admin Dose 325 MG; Start 07/30/16 at 21:00 Lorazepam (Ativan) 0.5 mg Q6H PRN PO ANXIETY Last administered on 08/07/16 17: 01; Admin Dose 0.5 MG; Start 07/30/16 at 18:00 Magnesium Hydroxide (Milk Of Mag) 30 ml DAILY PRN PO CONSTIPATION; Start at 18:00 Quetiapine Fumarate (Seroquel) 25 mg AM PO Last administered on 08/07/16 08:18 ; Admin Dose 25 MG; Start 07/31/16 at 09:00 Quetiapine Fumarate (Seroquel) 50 mg HS PO Last administered on 08/06/16 20:06 ; Admin Dose 50 MG; Start 07/30/16 at 21:00 Mupirocin 1 applic 1 applic BID TOP Last administered on 08/07/16 08:19; Admin Dose 1 APPLIC; Start 07/31/16 at 12:00 Potassium Chloride/Sodium Chloride (NS-KCl 20 Meq) 1,000 ml @ 50 mls/hr Q20H IV Last administered on 08/07/16 10:16; Admin Dose 50 MLS/HR; Start 07/31/16 at 17:00 Hydroxyzine HCl (Atarax) 25 mg Q6H PRN PO ITCHING Last administered on 22:51; Admin Dose 25 MG; Start 08/05/16 at 23:00 Zolpidem Tartrate (Ambien) 10 mg HS PRN PO INSOMNIA; Start 08/06/16 at 22:00 ELLYN RECINOS MD Aug 07, 2016 18:01
[2016-08-07] MEDS ORDERED: LORAZEPAM 0.5 MG TAB PO PRN (19:00)
--- NOTE | 2016-08-07 21:15 | CONS ---
Date/Time of Note Date/Time of Note DATE: 08/07/16 TIME: 21:14 Assessment/Plan Assessment/Plan Chief Complaint/Hosp Course SUBJECTIVE: No acute changes. The patient is alert, eating lunch, looks comfortable ALLERGIES: 1. PENICILLIN. 2. ERTAPENEM. 3. MEROPENEM. PHYSICAL EXAMINATION: GENERAL: This is a fragile, elderly woman who is in no distress. HEENT: Head atraumatic, normocephalic. Sclerae anicteric. Buccal mucosa dry. NECK: Supple. CHEST: Rise symmetrical. Breath sounds clear. HEART: S1, S2. ABDOMEN: Soft, bowel sounds present. EXTREMITIES: Without cyanosis. ASSESSMENT: 1. S/p sepsis with fevers, leukocytosis and encephalopathy on admission. 2. S/p polymicrobial multidrug resistant urinary tract infection. 3. Methicillin-resistant Staphylococcus aureus colonization. 4. Acute kidney injury. 5. Coronary artery disease. 6. Hypertension. 7. History of ventriculoperitoneal shunt placement. PLAN: The patient remains stable, completed abx, pending dc planning. DW staff Problems: Consultation Date/Type/Reason Admit Date/Time Jul 29, 2016 at 16:46 Type of Consultation: ID Referring Provider: SHEN GAYLE MD Exam/Review of Systems Vital Signs Vitals Vital Signs Date Time Temp Pulse Resp B/P Pulse Ox O2 Delivery O2 Flow Rate FiO2 08/07/16 08:00 97.6 90 17 125/60 95 Room Air Intake and Output 08/06/16 08/06/16 08/07/16 15:00 23:00 07:00 Intake Total 50 ml 1655 ml 1100 ml Balance 50 ml 1655 ml 1100 ml Results Result Diagram: 08/03/16 0532 08/07/16 0636 Results 24 hrs Laboratory Tests Test 08/07/16 06:36 Sodium Level 147 H Potassium Level 4.6 Chloride Level 110 Carbon Dioxide Level 24 Anion Gap 18 H Blood Urea Nitrogen 42 H Creatinine 1.20 H Glucose Level 132 Calcium Level 9.9 ALFRED GUZMÁN NP Aug 07, 2016 21:15
--- NOTE | 2016-08-10 20:15 | DS ---
Date/Time of Note Date/Time of Note DATE: 08/10/16 TIME: 20:12 Discharge Summary Admission/Discharge Info Admit Date/Time Jul 29, 2016 at 16:46 Discharge Date/Time Aug 07, 2016 at 20:01 Discharge Diagnosis - Sepsis secondary to urinary tract infection - Acute metabolic encephalopathy, resolved. - Urinary tract infection. 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 - Anemia of chronic disease. Patient Condition: Good Hx of Present Illness HPI 76-year-old female history of chronic encephalopathy who presents to the emergency room with altered mental status worse than baseline. EMS providers report, very limited information from [facility] facility. The patient does have an advanced directive that states she is okay with chest compressions , IV fluids, hospitalization but does not want mechanical ventilation or intubation. The remainder of HPI is extremely limited. Unknown duration of altered mental status. ROS Chronic encephalopathy Hospital Course - Sepsis secondary to urinary tract infection with leukocytosis elevated lactate and encephalopathy, resolving. Continue abx per ID. Dr. Galvez is following infection disease consultation. - Acute metabolic encephalopathy, resolved. - Urinary tract infection. 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 Dr. Acevedo is following in nephrology consultation. - Coronary artery disease, continue aspirin. 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 - Bipolar disorder with psychosis. Continue Seroquel. - Anemia of chronic disease. Home Meds Reported Medications Oxcarbazepine* (Trileptal*) 300 Mg Tablet, 300 MG PO BID, TAB 07/29/16 Quetiapine Fumarate* (Seroquel*) 50 Mg Tablet, 50 MG PO HS, TAB 07/29/16 Quetiapine Fumarate* (Seroquel*) 25 Mg Tablet, 25 MG PO AM, #30 TAB 07/29/16 Guaifenesin-Dextromethorphan* (Robitussin* DM) 100MG/10MG/5ML Syrup, 10 ML PO Q6H Y for COUGH, ML 07/29/16 Multivit,Tx,Iron/Calcm/FA/Mins (Thera-M Caplet) 1 Each Tablet, 1 TAB PO DAILY, TAB 07/29/16 Magnesium Hydroxide* (Milk Of Magnesia*) 400 Mg/5 Ml Oral.susp, 30 ML PO DAILY Y for CONSTIPATION, ML 07/29/16 Mag Hydrox/Al Hydrox/Simeth (Maalox Advanced Suspension) 355 Ml Oral.susp, 30 ML PO Q4H Y for GASTROINTESTINAL UPSET 07/29/16 Lorazepam* (Lorazepam*) 0.5 Mg Tablet, 0.5 MG PO Q6 Y for ANXIETY, TAB 07/29/16 Clonazepam* (Klonopin*) 0.5 Mg Tab, 0.25 MG PO BID Y for ANXIETY, TAB 07/29/16 Ascorbic Acid* (Ascorbic Acid*) 500 Mg/5 Ml Syrup, 500 MG PO DAILY, #150 ML 07/29/16 Acetaminophen* (Acetaminophen*) 650 Mg Tablet, 650 MG PO Q4H Y for PAIN AND OR ELEVATED TEMP, #30 TAB 07/29/16 Ipratropium-Albuterol (Ipratropium-Albuterol) 0.5-3 Mg/3 Ml Ampul.neb, 3 ML INHALATION Q6 Y for SHORTNESS OF BREATH, #30 VIAL 07/29/16 Na Phos,M-B/Na Phos,Di-Ba (Fleet Enema Extra) 230 Ml Enema, 230 ML RC Q48H Y for CONSTIPATION, ENEMA 07/29/16 Ferrous Sulfate* (Ferrous Sulfate*) 325 Mg Tabec, 325 MG PO BID, TAB 07/29/16 Bisacodyl (Dulcolax) 10 Mg Supp.rect, 10 MG RC DAILY Y for CONSTIPATION, SUPP.RECT 07/29/16 Divalproex Sodium* (Depakote* Sprinkle) 125 Mg Cap.sprink, 250 MG PO BID, #180 CAP 07/29/16 Cranberry Extract (Cranberry) 425 Mg Capsule, 425 MG PO BID, CAP 07/29/16 Docusate Sodium* (Colace*) 100 Mg Capsule, 200 MG PO HS, #60 CAP 07/29/16 Diphenhydramine Hcl* (Diphenhydramine Hcl*) 25 Mg Capsule, 25 MG PO Q6 Y for ITCHING, CAP 07/29/16 Aspirin* (Aspirin* Chew) 81 Mg Tab.chew, 81 MG PO DAILY, TAB.CHEW 07/29/16 Albuterol Sulfate* (Albuterol Sulfate* Neb) 0.083%-3 Ml Neb, 2.5 MG NEB Q6H Y for WHEEZING AND SOB, #30 VIAL 07/29/16 Primary Care Provider MD TAMIE Oden SVETLANA Aug 10, 2016 20:15
== END 2016-08-07 20:01 | DRG 871 ==
LOC: E/R 11:05 → MS2 16:46 → MS1 23:06 → PP2 08-01 02:15
PROVIDERS: ADMIT Internal Medicine; ATTEND Internal Medicine
DX: A41.9 Sepsis, unspecified organism (principal); G93.41 Metabolic encephalopathy; N17.9 Acute kidney failure, unspecified; N39.0 Urinary tract infection, site not specified; B95.2 Enterococcus as the cause of diseases classified elsewhere; B96.89 Other specified bacterial agents as the cause of diseases classified elsewhere; D63.8 Anemia in other chronic diseases classified elsewhere; E03.9 Hypothyroidism, unspecified; E11.21 Type 2 diabetes mellitus with diabetic nephropathy; E66.01 Morbid (severe) obesity due to excess calories; F31.9 Bipolar disorder, unspecified; F79 Unspecified intellectual disabilities; F02.80 Dementia in other diseases classified elsewhere, unspecified severity, without behavioral disturbance, psychotic disturbance, mood disturbance, and anxiety; G30.9 Alzheimer's disease, unspecified; G40.909 Epilepsy, unspecified, not intractable, without status epilepticus; I10 Essential (primary) hypertension; Z68.34 Body mass index [BMI] 34.0-34.9, adult; Z98.2 Presence of cerebrospinal fluid drainage device; I25.10 Atherosclerotic heart disease of native coronary artery without angina pectoris; Z22.322 Carrier or suspected carrier of Methicillin resistant Staphylococcus aureus; Z16.35 Resistance to multiple antimicrobial drugs
CPT/HCPCS: 36415; 36600; 70450; 71010; 76775; 80048; 80053; 80061; 80202; 81001; 82140; 82803; 82962; 83036; 83605; 84439; 84443; 84484; 85025; 85610; 85730; 87040; 87070; 87086; 92610; 93005; 96374; 97110; 97162; 97530; C9113; J0696; J1815; J1956; J3370; J3480; J7030; J7040; J7042

== ENCOUNTER 2016-08-13 13:22 | Inpatient (IN) | payer MEDICARE, OTHER ==
[~2016-08-13] VITALS: Ht 160 cm; Wt 82.0 kg
[~2016-08-13 13:22] MED LIST: ACET-2047 PO; ALBU2.5V3 NEB; ASCO500S2 PO; ASPI81TA3 PO; BISA10SU55 RC; CLON-429 PO; CRAN425C PO; DIPH25CA6 PO; DIVA125C11 PO; DOCU-144 PO; FER325 PO; IPRA3AMP INHALATION; LORA0.5T PO; MAG355OR14 PO; MAGN400O4 PO; MULT-276 PO; NA P230E RC; OXCA300T3 PO; QUET25TA26 PO; QUET50TA16 PO; UDROBDM PO
[2016-08-13 14:05] LABS: ADD SCAN DIFF NO
--- NOTE | 2016-08-13 14:05 | ERA ---
ER Documentation Chief Complaint Date/Time DATE: 08/13/16 TIME: 14:03 Chief Complaint INCREASED PARANOIA PER STAFF NON COMBATIVE. ALERT BUT CONFUSED. 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 The patient states that staff members at the assisted living facility are trying to get her in or possibly part of the government agency. The patient denies any headaches or fevers or chills, no chest pain or shortness of breath no suicidal thoughts. Remainder of history is somewhat limited given the patient's disorganized state. ROS All systems reviewed and are negative except as per history of present illness. Medications Home Meds Reported Medications Oxcarbazepine* (Trileptal*) 300 Mg Tablet, 300 MG PO BID, TAB 07/29/16 Quetiapine Fumarate* (Seroquel*) 50 Mg Tablet, 50 MG PO HS, TAB 07/29/16 Quetiapine Fumarate* (Seroquel*) 25 Mg Tablet, 25 MG PO AM, #30 TAB 07/29/16 Guaifenesin-Dextromethorphan* (Robitussin* DM) 100MG/10MG/5ML Syrup, 10 ML PO Q6H Y for COUGH, ML 07/29/16 Multivit,Tx,Iron/Calcm/FA/Mins (Thera-M Caplet) 1 Each Tablet, 1 TAB PO DAILY, TAB 07/29/16 Magnesium Hydroxide* (Milk Of Magnesia*) 400 Mg/5 Ml Oral.susp, 30 ML PO DAILY Y for CONSTIPATION, ML 07/29/16 Mag Hydrox/Al Hydrox/Simeth (Maalox Advanced Suspension) 355 Ml Oral.susp, 30 ML PO Q4H Y for GASTROINTESTINAL UPSET 07/29/16 Lorazepam* (Lorazepam*) 0.5 Mg Tablet, 0.5 MG PO Q6 Y for ANXIETY, TAB 07/29/16 Clonazepam* (Klonopin*) 0.5 Mg Tab, 0.25 MG PO BID Y for ANXIETY, TAB 07/29/16 Ascorbic Acid* (Ascorbic Acid*) 500 Mg/5 Ml Syrup, 500 MG PO DAILY, #150 ML 07/29/16 Acetaminophen* (Acetaminophen*) 650 Mg Tablet, 650 MG PO Q4H Y for PAIN AND OR ELEVATED TEMP, #30 TAB 07/29/16 Ipratropium-Albuterol (Ipratropium-Albuterol) 0.5-3 Mg/3 Ml Ampul.neb, 3 ML INHALATION Q6 Y for SHORTNESS OF BREATH, #30 VIAL 07/29/16 Na Phos,M-B/Na Phos,Di-Ba (Fleet Enema Extra) 230 Ml Enema, 230 ML RC Q48H Y for CONSTIPATION, ENEMA 07/29/16 Ferrous Sulfate* (Ferrous Sulfate*) 325 Mg Tabec, 325 MG PO BID, TAB 07/29/16 Bisacodyl (Dulcolax) 10 Mg Supp.rect, 10 MG RC DAILY Y for CONSTIPATION, SUPP.RECT 07/29/16 Divalproex Sodium* (Depakote* Sprinkle) 125 Mg Cap.sprink, 250 MG PO BID, #180 CAP 07/29/16 Cranberry Extract (Cranberry) 425 Mg Capsule, 425 MG PO BID, CAP 07/29/16 Docusate Sodium* (Colace*) 100 Mg Capsule, 200 MG PO HS, #60 CAP 07/29/16 Diphenhydramine Hcl* (Diphenhydramine Hcl*) 25 Mg Capsule, 25 MG PO Q6 Y for ITCHING, CAP 07/29/16 Aspirin* (Aspirin* Chew) 81 Mg Tab.chew, 81 MG PO DAILY, TAB.CHEW 07/29/16 Albuterol Sulfate* (Albuterol Sulfate* Neb) 0.083%-3 Ml Neb, 2.5 MG NEB Q6H Y for WHEEZING AND SOB, #30 VIAL 07/29/16 Allergies Allergies: Coded Allergies: chocolate flavor (Verified Allergy, Severe, HIVES, 08/13/16) PER SON, per residential meropenem (Verified Allergy, Severe, HIVES, 08/13/16) PER SON, per residential strawberry (Verified Allergy, Severe, HIVES, 08/13/16) PER SON, per residential tomato (Verified Allergy, Severe, HIVES, 08/13/16) PER SON, per residential ertapenem (Verified Allergy, Unknown, 08/13/16) ibuprofen (Verified Allergy, Unknown, HIVES, 08/13/16) soap (Verified Allergy, Unknown, 08/13/16) per residential Cecil And Derivatives (Verified Adverse Reaction, Severe, HIVES, 08/13/16) per residential, PER SON Penicillins (Verified Adverse Reaction, Severe, HIVES, 08/13/16) PER SON, per residential PMhx/Soc Hx Neurological Disorder: Yes Hx Cardiac Disorders: Yes (angina, atherosclerosis) Hx Psychiatric Problems: Yes (bipolar, dementia, alzheimers) FmHx Family History: No diabetes Physical Exam Vitals Vital Signs Date Time Temp Pulse Resp B/P Pulse Ox O2 Delivery O2 Flow Rate FiO2 08/13/16 16:59 66 18 118/56 98 Room Air 08/13/16 13:42 98.7 94 20 146/88 97 Physical Exam General: Well developed, well nourished, no acute distress Head: Normocephalic, atraumatic. Eyes: Pupils equally reactive, EOM intact ENT: Moist mucous membranes Neck: Supple, no lymphadenopathy Respiratory: Lungs clear bilaterally, no distress Cardiovascular: RRR, no murmurs, rubs, or gallops Abdominal: Soft, non-tender, non-distended, no peritoneal signs : Deferred MSK: No edema, no unilateral swelling, 5/5 strength Neurologic: Alert and oriented, moving all extremities, normal speech, no focal weakness, no cerebellar signs Skin: No rash Psych: Agitated, delusions of persecution, paranoia Result Diagram: 08/13/16 1339 08/13/16 1339 Results 24 hrs Laboratory Tests Test 08/13/16 13:39 08/13/16 15:10 White Blood Count 7.710^3/ul Red Blood Count 3.6010^6/ul Hemoglobin 10.7g/dl Hematocrit 33.4% Mean Corpuscular Volume 92.8fl Mean Corpuscular Hemoglobin 29.7pg Mean Corpuscular Hemoglobin Concent 32.0g/dl Red Cell Distribution Width 14.9% Platelet Count 19821^3/UL Mean Platelet Volume 10.2fl Neutrophils % 69.8% Lymphocytes % 15.9% Monocytes % 6.6% Eosinophils % 6.6% Basophils % 0.8% Nucleated Red Blood Cells % 0.0/100WBC Neutrophils # 5.410^3/ul Lymphocytes # 1.210^3/ul Monocytes # 0.510^3/ul Eosinophils # 0.510^3/ul Basophils # 0.110^3/ul Nucleated Red Blood Cells # 0.010^3/ul Sodium Level 143mmol/L Potassium Level 4.4mmol/L Chloride Level 109mmol/L Carbon Dioxide Level 23mmol/L Anion Gap 15 Blood Urea Nitrogen 34mg/dl Creatinine 1.32mg/dl Glucose Level 131mg/dl Calcium Level 9.0mg/dl Total Bilirubin 0.0mg/dl Direct Bilirubin 0.00mg/dl Indirect Bilirubin 0.0mg/dl Aspartate Amino Transf (AST/SGOT) 12IU/L Alanine Aminotransferase (ALT/SGPT) 19IU/L Alkaline Phosphatase 99IU/L Total Protein 8.0g/dl Albumin 4.4g/dl Globulin 3.60g/dl Albumin/Globulin Ratio 1.22 Ethyl Alcohol Level < 10.0mg/dl Urine Color YELLOW Urine Clarity SLIGHTLY CLOUDY Urine pH 6.0 Urine Specific [place] 1.015 Urine Ketones NEGATIVEmg/dL Urine Nitrite NEGATIVEmg/dL Urine Bilirubin NEGATIVEmg/dL Urine Urobilinogen NEGATIVEmg/dL Urine Leukocyte Esterase 3+Nayana/ul Urine Microscopic RBC 8/HPF Urine Microscopic WBC 146/HPF Urine Bacteria FEW/HPF Urine Yeast (Budding) FEW/HPF Urine Hemoglobin 1+mg/dL Urine Glucose NEGATIVEmg/dL Urine Total Protein NEGATIVEmg/dl Urine Opiates Screen Negative Urine Barbiturates Negative Urine Amphetamines Screen Negative Urine Benzodiazepines Screen Negative Urine Cocaine Screen Negative Urine Cannabinoids Negative Current Medications Medications (Trade) Dose Ordered Sig/Fabiola Route PRN Reason Start Time Stop Time Status Last Admin Dose Admin Ciprofloxacin (Cipro) 500 mg ONCE ONCE PO 08/13/16 16:00 08/13/16 16:01 DC 08/13/16 15:56 Ondansetron HCl (Zofran Inj) 4 mg BRIDGE ORDER PRN IV NAUSEA AND/OR VOMITING 08/13/16 17:00 08/14/16 16:59 Acetaminophen (Tylenol Tab) 650 mg ER BRIDGE PRN PO MILD PAIN/FEVER 08/13/16 17:00 08/14/16 16:59 Acetaminophen (Tylenol Tab) 650 mg Q4H PRN PO PAIN AND OR ELEVATED TEMP 08/13/16 17:30 Albuterol (Proventil 0.083% (Neb)) 2.5 mg Q6H PRN NEB WHEEZING AND SOB 08/13/16 17:30 Ascorbic Acid (Vitamin C) 500 mg DAILY PO 08/14/16 09:00 Aspirin (Aspirin) 81 mg DAILY PO 08/14/16 09:00 Bisacodyl (Dulcolax Supp) 10 mg DAILY PRN [place] CONSTIPATION 08/13/16 17:30 Clonazepam (Klonopin) 0.25 mg BID PRN PO ANXIETY 08/13/16 17:30 Divalproex Sodium (Depakote Sprinkle) 250 mg BID PO 08/13/16 21:00 Docusate Sodium (Colace) 200 mg HS PO 08/13/16 21:00 Ferrous Sulfate (Ferrous Sulfate (Ec)) 325 mg BID PO 08/13/16 21:00 Oxcarbazepine (Trileptal) 300 mg BID PO 08/13/16 21:00 Quetiapine Fumarate (Seroquel) 25 mg AM PO 08/14/16 09:00 Quetiapine Fumarate (Seroquel) 50 mg HS PO 08/13/16 21:00 Ondansetron HCl (Zofran Inj) 4 mg Q6H PRN IV NAUSEA AND/OR VOMITING 08/13/16 17:30 Enoxaparin Sodium (Lovenox) 30 mg DAILY SC 08/14/16 09:00 Lorazepam 0.5 mg 0.5 mg Q6H PRN PO AGITATION 08/13/16 17:30 Aztreonam/Sodium Chloride (Azactam/NS) 100 ml @ 100 mls/hr Q12 IVPB 08/13/16 18:00 Procedures/MDM EKG/DIAGNOSTIC IMAGING: CT brain: IMPRESSION: 1. No intracranial hemorrhage, mass effect or midline shift. 2. No change in severe ventriculomegaly of the lateral and third ventricles sparing the bilateral temporal horns of the lateral ventricle. Right frontal approach ROOFING PLANT SUPERVISOR shunt catheter remains in place. 3. Generalized atrophy more evident in bilateral frontal lobes. 4. Mild generalized atrophy. Mild microangiopathic ischemic change. 5. Intracranial atherosclerosis. RPTAT: BB LAB INTERPRETATION: UTI MEDICAL DECISION MAKING: The patient's presentation is consistent with underlying psychiatric illness and likely exacerbation of this illness and/or psychosis. I have a much lower clinical concern for delirium or acute organic pathology such as toxicologic, metabolic, ischemic, intracranial hemorrhage, infectious process. However, we must rule this out prior to relying a diagnosis of underlying psychiatric illness. The patient's workup will include medical screening examination, laboratory analysis, and diagnostic imaging such as EKG, chest x-ray or CT brain as indicated. If the patient's medical examination and laboratory analysis do not reveal acute organic pathology the patient will be medically cleared for psychiatric evaluation. ER COURSE: The patient's laboratory analysis, diagnostic imaging do not suggest an acute organic pathology. At this time I believe the patient's presentation is very consistent with underlying psychiatric illness. The patient is medically cleared for psychiatric evaluation. The patient may benefit from geropsychiatric hospitalization. I will attempt to get the patient placed at [facility] who has the specialized facility. The benefits outweigh the risks of transfer at this time. [facility] and [facility] are full. I spoke to Dr. Felipe to admit the patient for urinary tract infection and attempt psychiatric evaluation as an inpatient. Cipro provided for UTI I kept the patient and/or family informed of laboratory and diagnostic imaging results throughout the emergency room course. DISPOSITION PLAN: Medical surgical admission for UTI, psychiatric evaluation Accepting care team and consultations: I discussed the current laboratory data, diagnostic imaging and emergency care provided. Admitting team: Dr. Felipe Admitting team indication: Insurance directed Departure Diagnosis: Primary Impression: Urinary tract infection Qualified Code: N30.00 - Acute cystitis without hematuria Additional Impressions: Altered mental status Qualified Code: R41.82 - Altered mental status, unspecified altered mental status type Acute psychosis MELVIN ALEGRE MD Aug 13, 2016 14:04
[2016-08-13 14:06] LABS: BASOPHIL # 0.1 10^3/ul (0.0-0.1); BASOPHILS % 0.8 % (0.0-2.0); EOSINOPHILS # 0.5 10^3/ul (0.0-0.5); EOSINOPHILS % 6.6 % (0.0-7.0); HEMATOCRIT 33.4 % (37.0-47.0); HEMOGLOBIN 10.7 g/dl (12.0-16.0); LYMPHOCYTES # 1.2 10^3/ul (0.8-2.9); LYMPHOCYTES % 15.9 % (15.0-51.0); MEAN CORPUSCULAR HEMOGLOBIN 29.7 pg (29.0-33.0); MEAN CORPUSCULAR VOLUME 92.8 fl (82.0-101.0); MEAN PLATELET VOLUME 10.2 fl (7.4-10.4); MONOCYTE # 0.5 10^3/ul (0.3-0.9); MONOCYTES % 6.6 % (0.0-11.0); NEUTROPHIL # 5.4 10^3/ul (1.6-7.5); NEUTROPHILS % 69.8 % (39.0-77.0); PLATELET COUNT 322 10^3/UL (140-415); RED CELL DISTRIBUTION WIDTH 14.9 % (11.5-14.5); WHITE BLOOD COUNT 7.7 10^3/ul (4.8-10.8)
--- NOTE | 2016-08-13 14:16 | RADRPT ---
PROCEDURE: CT Brain without contrast. CLINICAL INDICATION: Headache. Medical clearance. TECHNIQUE: A CT of the brain was performed on a multidetector CT scanner utilizing axial sections from the skull base through the vertex without contrast. Images were reviewed on a high-resolution [employer] workstation. Exam CTDI = 43.77 mGy and the DLP = 720.23 mGy-cm. One or more of the following dose reduction techniques were used: Automated exposure control Adjustment of the mA and/or kV according to patient size. Use of iterative reconstruction technique. COMPARISON: CT head 07/29/2016 FINDINGS: There is severe ventriculomegaly involving the lateral and third ventricle sparing the temporal horn s of the lateral ventricles. Right frontal approach SATELLITE INSTALLATION TECHNICIAN shunt catheter remains in place. There is a trophy more evident in the bilateral frontal lobes. There is no evidence of intracranial hemorrhage, mass effect or midline shift. No abnormal intra-axial or extra-axial fluid collections are seen. The density of the brain is normal and the miller/white matter differentiation is well preserved. Mil d patchy diffuse deep white matter microangiopathic ischemic change is seen. The osseous structur es are unremarkable. Paranasal sinuses are clear. Vascular calcifications are identified. IMPRESSION: 1. No intracranial hemorrhage, mass effect or midline shift. 2. No change in severe ventriculomegaly of the lateral and third ventricles sparing the bilateral t emporal horns of the lateral ventricle. Right frontal approach SATELLITE INSTALLATION TECHNICIAN shunt catheter remains in place. 3. Generalized atrophy more evident in bilateral frontal lobes. 4. Mild generalized atrophy. Mild microangiopathic ischemic change. 5. Intracranial atherosclerosis. RPTAT: BB .Lj Parsons MD, Date Time Electronically viewed and signed by .Lj Parsons MD, MD on 08/13/2016 14:16 .O/
[2016-08-13 14:24] LABS: ALANINE AMINOTRANSFERASE 19 IU/L (13-69); ALBUMIN 4.4 g/dl (3.3-4.9); ALBUMIN/GLOBULIN RATIO 1.22; ALKALINE PHOSPHATASE 99 IU/L (42-121); ANION GAP 15 (8-16); ASPARTATE AMINO TRANSFERASE 12 IU/L (15-46); BLOOD UREA NITROGEN 34 mg/dl (7-20); CARBON DIOXIDE 23 mmol/L (21-31); CHLORIDE 109 mmol/L (97-110); CREATININE 1.32 mg/dl (0.44-1.00); GLUCOSE 131 mg/dl (70-220); POTASSIUM 4.4 mmol/L (3.5-5.1); SODIUM 143 mmol/L (135-144)
[2016-08-13 14:29] LABS: ETHANOL < 10.0 mg/dl
[2016-08-13 15:23] LABS: ADD UMIC YES; UR ASCORBIC ACID NEGATIVE (NEGATIVE); UR BACTERIA FEW /HPF (NONE SEEN); UR BILIRUBIN (Dip) NEGATIVE (NEGATIVE); UR BLOOD (Dip) 1+ mg/dL (NEGATIVE); UR BUDDING YEAST FEW /HPF (NONE SEEN); UR CLARITY SLIGHTLY CLOUDY (CLEAR); UR COLOR YELLOW (YELLOW); UR GLUCOSE (Dip) NEGATIVE (NEGATIVE); UR KETONES (Dip) NEGATIVE (NEGATIVE); UR LEUKOCYTE ESTERASE (Dip) 3+ Leu/ul (NEGATIVE); UR NITRITE (Dip) NEGATIVE (NEGATIVE); UR RBC 8 /HPF (0-5); UR SPECIFIC GRAVITY (Dip) 1.015 (1.003-1.030); UR TOTAL PROTEIN (Dip) NEGATIVE (NEGATIVE); UR UROBILINOGEN (Dip) NEGATIVE (NEGATIVE); UR WBC CLUMPS FEW /HPF (NONE SEEN)
[2016-08-13] MEDS ORDERED: CIPROFLOXACIN 500 MG TAB PO ONE (16:00)
[2016-08-13 16:05] LABS: BARBITURATES Negative (NEGATIVE); BENZODIAZEPINES Negative (NEGATIVE)
[2016-08-13 16:06] LABS: CANNABINOIDS Negative (NEGATIVE); COCAINE Negative (NEGATIVE); OPIATES Negative (NEGATIVE)
[2016-08-13] MEDS ORDERED: ACETAMINOPHEN 325 MG TAB PO PRN ×2 (17:00→17:30)
[2016-08-13] MEDS ORDERED: ONDANSETRON 4 MG INJ IV PRN ×2 (17:00→17:30)
--- NOTE | 2016-08-13 17:11 | HP ---
Date/Time of Note Date/Time of Note DATE: 08/13/16 TIME: 17:05 Assessment/Plan VTE Prophylaxis VTE Prophylaxis Intervention: SCD's Lines/Catheters Urinary Cath still in place: Yes Reason Cath still needed: urinary retention Assessment/Plan Assessment/Plan - Urinary tract infection per UA. Cont abx, f/up on cx. Dr Galvez will be following in ID consultation. - Bipolar disorder with psychosis. 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 PMH/Family/Social Past Medical History Atherosclerotic Heart Disease, Hydrocephalus Hx Sepsis Anemia Hypothyroidism GERD Morbid Obesity Intellectual Disabilities Bipolar/Psychosis Past Surgical History Past Surgical Hx: other Family History Significant Family History: no pertinent family hx Social History Smoking Status: Never smoker Exam/Review of Systems Vital Signs Vitals Vital Signs Date Time Temp Pulse Resp B/P Pulse Ox O2 Delivery O2 Flow Rate FiO2 08/13/16 16:59 66 18 118/56 98 Room Air 08/13/16 13:42 98.7 Exam Constitutional: alert Psych: anxiety Head: atraumatic, normocephalic ENMT: mucosa pink and moist Neck: non-tender, supple Respiratory: normal air movement Cardiovascular: nl pulses Gastrointestinal: non-tender, soft Neurological: confused Skin: nl turgor Labs Result Diagram: 08/13/16 1339 08/13/16 1339 UMESH WILLETT Aug 13, 2016 17:11
[2016-08-13] MEDS ORDERED: BISACODYL 10 MG SUPP PR PRN (17:30)
[2016-08-13] MEDS ORDERED: ALBUTEROL 0.083% (NEB) 2.5 MG/3 ML AMP NEB PRN (17:30)
[2016-08-13 18:10] VITALS: BP 127/60; RESP 18
[2016-08-13 19:53] VITALS: Ht 160 cm; Wt 82.0 kg
[2016-08-13 20:01] VITALS: BP 118/56; RESP 18
[2016-08-13] MEDS: AZTREONAM 2 GM in SOD CHLORIDE 0.9% 100 ML IVPB SCH (20:56)
[2016-08-13] MEDS: FERROUS SULFATE (EC) 325 MG TAB PO SCH (20:57)
[2016-08-13] MEDS: DOCUSATE SODIUM 100 MG CAP PO SCH (20:57)
[2016-08-13] MEDS ORDERED: QUETIAPINE 25 MG TAB PO SCH (21:00)
[2016-08-13] MEDS: SOD CHLORIDE 0.45% 1,000 ML IV SCH (21:11)
[2016-08-13] MEDS: OXCARBAZEPINE 300 MG TAB PO SCH (21:39)
[2016-08-13] MEDS: DIVALPROEX SPRINKLE 125 MG CAP PO SCH (21:39)
[2016-08-14 05:35] LABS: ADD SCAN DIFF NO
[2016-08-14 05:39] LABS: BASOPHIL # 0.1 10^3/ul (0.0-0.1); BASOPHILS % 0.9 % (0.0-2.0); EOSINOPHILS # 0.6 10^3/ul (0.0-0.5); EOSINOPHILS % 9.7 % (0.0-7.0); HEMATOCRIT 31.4 % (37.0-47.0); HEMOGLOBIN 9.6 g/dl (12.0-16.0); LYMPHOCYTES # 1.5 10^3/ul (0.8-2.9); LYMPHOCYTES % 25.4 % (15.0-51.0); MEAN CORPUSCULAR HEMOGLOBIN 28.6 pg (29.0-33.0); MEAN CORPUSCULAR HGB CONC 30.6 g/dl (32.0-37.0); MEAN CORPUSCULAR VOLUME 93.5 fl (82.0-101.0); MEAN PLATELET VOLUME 10.5 fl (7.4-10.4); MONOCYTE # 0.5 10^3/ul (0.3-0.9); MONOCYTES % 8.5 % (0.0-11.0); NEUTROPHIL # 3.2 10^3/ul (1.6-7.5); NEUTROPHILS % 55.2 % (39.0-77.0); PLATELET COUNT 263 10^3/UL (140-415); RED BLOOD COUNT 3.36 10^6/ul (4.20-5.40); RED CELL DISTRIBUTION WIDTH 15.3 % (11.5-14.5); WHITE BLOOD COUNT 5.9 10^3/ul (4.8-10.8)
[2016-08-14 07:22] LABS: CREATININE 1.46 mg/dl (0.44-1.00); POTASSIUM 4.7 mmol/L (3.5-5.1)
[2016-08-14 07:45] VITALS: BP 139/63; RESP 18
[2016-08-14] MEDS ORDERED: QUETIAPINE 25 MG TAB PO SCH (09:00)
[2016-08-14] MEDS: ENOXAPARIN 30 MG/0.3 ML SYG SC SCH (09:38)
[2016-08-14] MEDS: DIVALPROEX SPRINKLE 125 MG CAP PO SCH ×2 (09:39→21:35)
[2016-08-14] MEDS: ASCORBIC ACID 500 MG TAB PO SCH (09:39)
[2016-08-14] MEDS: ASPIRIN 81 MG TAB PO SCH (09:39)
[2016-08-14] MEDS: OXCARBAZEPINE 300 MG TAB PO SCH ×2 (09:39→21:36)
[2016-08-14] MEDS: FERROUS SULFATE (EC) 325 MG TAB PO SCH ×2 (09:39→21:36)
[2016-08-14] MEDS: AZTREONAM 2 GM in SOD CHLORIDE 0.9% 100 ML IVPB SCH ×2 (10:31→21:42)
[2016-08-14] MEDS: LORAZEPAM 0.5 MG TAB PO PRN (11:38)
--- NOTE | 2016-08-14 12:17 | PN ---
Date/Time of Note Date/Time of Note DATE: 08/14/16 TIME: 12:09 Assessment/Plan VTE Prophylaxis VTE Prophylaxis Intervention: other Lines/Catheters IV Catheter Type (from Nrsg): Peripheral IV Urinary Cath still in place: No Assessment/Plan Assessment/Plan - Urinary tract infection per UA. Cont abx, f/up on cx. Dr Galvez will be following in ID consultation. - Bipolar disorder with psychosis. - Acute metabolic encephalopathy - Acute kidney injury - Coronary artery disease - History of PINMAKER shunt - Epilepsy MAR Felipe Subjective 24 Hr Interval Summary Free Text/Dictation confused, no fever, chest pain. shortness of breath reported. agitated, screams at staff, will get a psych consult for her med adjustments. conditioning room worker consult to get psych consult. dw staff. Respiratory: no complaints Cardiovascular: no complaints Gastrointestinal: no complaints Exam/Review of Systems Vital Signs Vitals Vital Signs Date Time Temp Pulse Resp B/P Pulse Ox O2 Delivery O2 Flow Rate FiO2 08/14/16 07:45 98.0 71 18 139/63 96 08/13/16 20:00 Room Air Intake and Output 08/13/16 08/13/16 08/14/16 14:59 22:59 06:59 Intake Total 100 ml 550 ml Output Total 250 ml Balance 100 ml 300 ml Exam Constitutional: alert, well developed Respiratory: clear to auscultation, normal air movement Cardiovascular: nl pulses, regular rate and rhythm Gastrointestinal: non-tender, soft Musculoskeletal: nl extremities to inspection Extremities: normal pulses Neurological: confused Results Result Diagram: 08/14/16 0516 08/14/16 0516 Results 24 hrs Laboratory Tests Test 08/13/16 13:39 08/13/16 15:10 08/14/16 05:16 White Blood Count 7.7 5.9 # Red Blood Count 3.60 L 3.36 L Hemoglobin 10.7 L 9.6 L Hematocrit 33.4 L 31.4 L Mean Corpuscular Volume 92.8 93.5 Mean Corpuscular Hemoglobin 29.7 28.6 L Mean Corpuscular Hemoglobin Concent 32.0 30.6 L Red Cell Distribution Width 14.9 H 15.3 H Platelet Count 322 263 Mean Platelet Volume 10.2 10.5 H Neutrophils % 69.8 55.2 Lymphocytes % 15.9 25.4 Monocytes % 6.6 8.5 Eosinophils % 6.6 9.7 H Basophils % 0.8 0.9 Nucleated Red Blood Cells % 0.0 0.0 Neutrophils # 5.4 3.2 Lymphocytes # 1.2 1.5 Monocytes # 0.5 0.5 Eosinophils # 0.5 0.6 H Basophils # 0.1 0.1 Nucleated Red Blood Cells # 0.0 0.0 Sodium Level 143 142 Potassium Level 4.4 4.7 Chloride Level 109 111 H Carbon Dioxide Level 23 23 Anion Gap 15 13 Blood Urea Nitrogen 34 H 36 H Creatinine 1.32 H 1.46 H Glucose Level 131 94 Calcium Level 9.0 9.0 Total Bilirubin 0.0 L Direct Bilirubin 0.00 Indirect Bilirubin 0.0 Aspartate Amino Transf (AST/SGOT) 12 L Alanine Aminotransferase (ALT/SGPT) 19 Alkaline Phosphatase 99 Total Protein 8.0 Albumin 4.4 Globulin 3.60 H Albumin/Globulin Ratio 1.22 Ethyl Alcohol Level < 10.0 Urine Color YELLOW Urine Clarity SLIGHTLY CLOUDY A Urine pH 6.0 Urine Specific [place] 1.015 Urine Ketones NEGATIVE Urine Nitrite NEGATIVE Urine Bilirubin NEGATIVE Urine Urobilinogen NEGATIVE Urine Leukocyte Esterase 3+ H Urine Microscopic RBC 8 H Urine Microscopic WBC 146 H Urine Bacteria FEW A Urine Yeast (Budding) FEW A Urine Hemoglobin 1+ H Urine Glucose NEGATIVE Urine Total Protein NEGATIVE Urine Opiates Screen Negative Urine Barbiturates Negative Urine Amphetamines Screen Negative Urine Benzodiazepines Screen Negative Urine Cocaine Screen Negative Urine Cannabinoids Negative Medications Medications Current Medications Acetaminophen (Tylenol Tab) 650 mg Q4H PRN PO PAIN AND OR ELEVATED TEMP; Start 08/13/16 at 17:30 Albuterol (Proventil 0.083% (Neb)) 2.5 mg Q6H PRN NEB WHEEZING AND SOB; Start 08/13/16 at 17:30 Ascorbic Acid (Vitamin C) 500 mg DAILY PO Last administered on 08/14/16 09:39; Admin Dose 500 MG; Start 08/14/16 at 09:00 Aspirin (Aspirin) 81 mg DAILY PO Last administered on 08/14/16 09:39; Admin Dose 81 MG; Start 08/14/16 at 09:00 Bisacodyl (Dulcolax Supp) 10 mg DAILY PRN [place] CONSTIPATION; Start 08/13/16 at 17: 30 Clonazepam (Klonopin) 0.25 mg BID PRN PO ANXIETY; Start 08/13/16 at 17:30 Divalproex Sodium (Depakote Sprinkle) 250 mg BID PO Last administered on 09:39; Admin Dose 250 MG; Start 08/13/16 at 21:00 Docusate Sodium (Colace) 200 mg HS PO Last administered on 08/13/16 20:57; Admin Dose 200 MG; Start 08/13/16 at 21:00 Ferrous Sulfate (Ferrous Sulfate (Ec)) 325 mg BID PO Last administered on 09:39; Admin Dose 325 MG; Start 08/13/16 at 21:00 Oxcarbazepine (Trileptal) 300 mg BID PO Last administered on 08/14/16 09:39; Admin Dose 300 MG; Start 08/13/16 at 21:00 Quetiapine Fumarate (Seroquel) 25 mg AM PO Last administered on 08/14/16 09:39 ; Admin Dose 25 MG; Start 08/14/16 at 09:00 Quetiapine Fumarate (Seroquel) 50 mg HS PO Last administered on 08/13/16 20:57 ; Admin Dose 50 MG; Start 08/13/16 at 21:00 Ondansetron HCl (Zofran Inj) 4 mg Q6H PRN IV NAUSEA AND/OR VOMITING; Start 08/13 at 17:30 Enoxaparin Sodium (Lovenox) 30 mg DAILY SC Last administered on 08/14/16 09:38 ; Admin Dose 30 MG; Start 08/14/16 at 09:00 Lorazepam 0.5 mg 0.5 mg Q6H PRN PO AGITATION Last administered on 08/14/16 11: 38; Admin Dose 0.5 MG; Start 08/13/16 at 17:30 Aztreonam 2 gm/ Sodium Chloride 100 ml @ 100 mls/hr Q12 IVPB Last administered on 08/14/16 10:31; Admin Dose 100 MLS/HR; Start 08/13/16 at 18:00 Sodium Chloride (1/2 NS) 1,000 ml @ 60 mls/hr [id number] IV Last administered on 08/13/16 21:11; Admin Dose 60 MLS/HR; Start 08/13/16 at 21:30 JAMES POMPA Aug 14, 2016 12:16
--- NOTE | 2016-08-14 13:32 | CONS ---
Date/Time of Note Date/Time of Note DATE: 08/14/16 TIME: 13:29 Assessment/Plan Assessment/Plan Chief Complaint/Hosp Course No acute changes overnight, patient is lying comfortably in bed, complaining of pain and itching, no fevers. Laboratory data: WBC 5.9 H&H 9.6 and 31.4 platelets 263 no shift BUN 36 creatinine 1.46 Diagnostics: CT of the brain yesterday revealed no intracranial hemorrhage and no changes Antimicrobials: patient is on aztreonam status post oral Cipro dose Allergies: penicillins Invanz Merrem Physical examination: Chronically ill-appearing fragile elderly woman who is alert in no distress. Head atraumatic normocephalic, sclera nonicteric. Neck is supple, trachea midline. Chest rise symmetrical breath sounds clear, diminished basis. Heart S1-S2. Abdomen soft, bowel tones present. Extremities without cyanosis. ASSESSMENT: 1. Acute encephalopathy 2. Recurrent UTI as per urinalysis 3. History of methicillin-resistant Staphylococcus aureus colonization. 4. Acute kidney injury. 5. Dementia. 6. Hypertension. 7. History of ventriculoperitoneal shunt placement. PLAN: Clinically stable, pending urine culture, will add Diflucan for presence of yeast in the urine Discussed with staff Problems: Consultation Date/Type/Reason Admit Date/Time Aug 13, 2016 at 16:40 Initial Consult Date Type of Consultation: ID Exam/Review of Systems Vital Signs Vitals Vital Signs Date Time Temp Pulse Resp B/P Pulse Ox O2 Delivery O2 Flow Rate FiO2 08/14/16 07:45 98.0 71 18 139/63 96 08/13/16 20:00 Room Air Intake and Output 08/13/16 08/13/16 08/14/16 15:00 23:00 07:00 Intake Total 100 ml 550 ml Output Total 250 ml Balance 100 ml 300 ml Results Result Diagram: 08/14/16 0516 08/14/16 0516 Results 24 hrs Laboratory Tests Test 08/13/16 13:39 08/13/16 15:10 08/14/16 05:16 White Blood Count 7.7 5.9 # Red Blood Count 3.60 L 3.36 L Hemoglobin 10.7 L 9.6 L Hematocrit 33.4 L 31.4 L Mean Corpuscular Volume 92.8 93.5 Mean Corpuscular Hemoglobin 29.7 28.6 L Mean Corpuscular Hemoglobin Concent 32.0 30.6 L Red Cell Distribution Width 14.9 H 15.3 H Platelet Count 322 263 Mean Platelet Volume 10.2 10.5 H Neutrophils % 69.8 55.2 Lymphocytes % 15.9 25.4 Monocytes % 6.6 8.5 Eosinophils % 6.6 9.7 H Basophils % 0.8 0.9 Nucleated Red Blood Cells % 0.0 0.0 Neutrophils # 5.4 3.2 Lymphocytes # 1.2 1.5 Monocytes # 0.5 0.5 Eosinophils # 0.5 0.6 H Basophils # 0.1 0.1 Nucleated Red Blood Cells # 0.0 0.0 Sodium Level 143 142 Potassium Level 4.4 4.7 Chloride Level 109 111 H Carbon Dioxide Level 23 23 Anion Gap 15 13 Blood Urea Nitrogen 34 H 36 H Creatinine 1.32 H 1.46 H Glucose Level 131 94 Calcium Level 9.0 9.0 Total Bilirubin 0.0 L Direct Bilirubin 0.00 Indirect Bilirubin 0.0 Aspartate Amino Transf (AST/SGOT) 12 L Alanine Aminotransferase (ALT/SGPT) 19 Alkaline Phosphatase 99 Total Protein 8.0 Albumin 4.4 Globulin 3.60 H Albumin/Globulin Ratio 1.22 Ethyl Alcohol Level < 10.0 Urine Color YELLOW Urine Clarity SLIGHTLY CLOUDY A Urine pH 6.0 Urine Specific [place] 1.015 Urine Ketones NEGATIVE Urine Nitrite NEGATIVE Urine Bilirubin NEGATIVE Urine Urobilinogen NEGATIVE Urine Leukocyte Esterase 3+ H Urine Microscopic RBC 8 H Urine Microscopic WBC 146 H Urine Bacteria FEW A Urine Yeast (Budding) FEW A Urine Hemoglobin 1+ H Urine Glucose NEGATIVE Urine Total Protein NEGATIVE Urine Opiates Screen Negative Urine Barbiturates Negative Urine Amphetamines Screen Negative Urine Benzodiazepines Screen Negative Urine Cocaine Screen Negative Urine Cannabinoids Negative Medications Medications Current Medications Acetaminophen (Tylenol Tab) 650 mg Q4H PRN PO PAIN AND OR ELEVATED TEMP; Start 08/13/16 at 17:30 Albuterol (Proventil 0.083% (Neb)) 2.5 mg Q6H PRN NEB WHEEZING AND SOB; Start 08/13/16 at 17:30 Ascorbic Acid (Vitamin C) 500 mg DAILY PO Last administered on 08/14/16 09:39; Admin Dose 500 MG; Start 08/14/16 at 09:00 Aspirin (Aspirin) 81 mg DAILY PO Last administered on 08/14/16 09:39; Admin Dose 81 MG; Start 08/14/16 at 09:00 Bisacodyl (Dulcolax Supp) 10 mg DAILY PRN [place] CONSTIPATION; Start 08/13/16 at 17: 30 Clonazepam (Klonopin) 0.25 mg BID PRN PO ANXIETY; Start 08/13/16 at 17:30 Divalproex Sodium (Depakote Sprinkle) 250 mg BID PO Last administered on 09:39; Admin Dose 250 MG; Start 08/13/16 at 21:00 Docusate Sodium (Colace) 200 mg HS PO Last administered on 08/13/16 20:57; Admin Dose 200 MG; Start 08/13/16 at 21:00 Ferrous Sulfate (Ferrous Sulfate (Ec)) 325 mg BID PO Last administered on 09:39; Admin Dose 325 MG; Start 08/13/16 at 21:00 Oxcarbazepine (Trileptal) 300 mg BID PO Last administered on 08/14/16 09:39; Admin Dose 300 MG; Start 08/13/16 at 21:00 Quetiapine Fumarate (Seroquel) 25 mg AM PO Last administered on 08/14/16 09:39 ; Admin Dose 25 MG; Start 08/14/16 at 09:00 Quetiapine Fumarate (Seroquel) 50 mg HS PO Last administered on 08/13/16 20:57 ; Admin Dose 50 MG; Start 08/13/16 at 21:00 Ondansetron HCl (Zofran Inj) 4 mg Q6H PRN IV NAUSEA AND/OR VOMITING; Start 08/13 at 17:30 Enoxaparin Sodium (Lovenox) 30 mg DAILY SC Last administered on 08/14/16 09:38 ; Admin Dose 30 MG; Start 08/14/16 at 09:00 Lorazepam 0.5 mg 0.5 mg Q6H PRN PO AGITATION Last administered on 08/14/16 11: 38; Admin Dose 0.5 MG; Start 08/13/16 at 17:30 Aztreonam 2 gm/ Sodium Chloride 100 ml @ 100 mls/hr Q12 IVPB Last administered on 08/14/16 10:31; Admin Dose 100 MLS/HR; Start 08/13/16 at 18:00 Sodium Chloride (1/2 NS) 1,000 ml @ 60 mls/hr [id number] IV Last administered on 08/13/16t 21:11; Admin Dose 60 MLS/HR; Start 08/13/16 at 21:30 ALFRED GUZMÁN NP Aug 14, 2016 13:32 ALFRED GUZMÁN NP Aug 14, 2016 13:32
--- NOTE | 2016-08-14 14:17 | PSY ---
Date/Time of Note Date/Time of Note DATE: 08/14/16 TIME: 17:10 Psychiatric Subjective Eval Consent Pt consented to telemedicine: Yes Subjective Evaluation Patient location: inpatient Chief Complaint: INCREASED PARANOIA PER STAFF NON COMBATIVE. ALERT BUT CONFUSED. NO TRAUMA History of present illness HPI: 76 yo female with ho bipolar disorder, pt was living at long-term and became agitated, delusional (concerned about infestation of nrusing home and now hospital and that it iwll infect her shunt), constantly reporting itchign near shunt, much less sleep, disorganization. WAs sent to the hospital has UTI and now on inpatient medicine. Denies AVH, drug use, SI/hi. Her son was in the room and gave this hx as pt was nearly unable to provide history. Past Psych Hx: numerous psych admits for sharon/psychosis, one suicide attempt -PMHx: hydrocephalus s/p shunt 15 yo ago, current uti Meds: trileptal 300mg bid, seroquel 25mg/50mg, VPA 250mg bid, asa, lovenox, atiavan and clonazepam prn All: as above MSE: pt lying in bed, seems overly alert, very focused and aroused thought not moving and just lying in bed, not moving staring straight ahead, robotic, intense speech, very vague adn denies most questions, denies avh denises si/hi, knows it is august 14 but thinks it is 2001, does not know president Imp: 76 yo female manic and delirious likely due to UTI -VPA level and continue current dose -increase seroquel to 75mg bid for 2 days then 100mg bid, -fall precautions -must find out doses of ativan and clonazepam that she was actually taking at long-term and give the same amount in hospital no more no less as patients this age and delirious should not receive benzodiazepins except to prevent withdrawal -prn of 50mg seroquel for moderate agitation -recommend reconsult psych tomorrow -continue close monitoring for infection Medical history Problems Medical Problems: (1) Acute psychosis Status: Acute (2) Altered level of consciousness Status: Acute (3) Altered mental status Status: Acute (4) Lactic acidosis Status: Acute (5) Moderate dehydration Status: Acute (6) Urinary tract infection Status: Acute (7) Urinary tract infection Status: Acute Allergies: Coded Allergies: chocolate flavor (Verified Allergy, Severe, HIVES, 08/13/16) PER SON, per long-term meropenem (Verified Allergy, Severe, HIVES, 08/13/16) PER SON, per long-term strawberry (Verified Allergy, Severe, HIVES, 08/13/16) PER SON, per long-term tomato (Verified Allergy, Severe, HIVES, 08/13/16) PER SON, per long-term ertapenem (Verified Allergy, Unknown, 08/13/16) ibuprofen (Verified Allergy, Unknown, HIVES, 08/13/16) soap (Verified Allergy, Unknown, 08/13/16) per long-term [place] And Derivatives (Verified Adverse Reaction, Severe, HIVES, 08/13/16) per long-term, PER SON Penicillins (Verified Adverse Reaction, Severe, HIVES, 08/13/16) PER SON, per long-term Psychiatric Objective Eval Mental Status Examination: Laboratory Results Laboratory Tests Test 08/13/16 13:39 08/13/16 15:10 08/14/16 05:16 White Blood Count 7.710^3/ul 5.910^3/ul Red Blood Count 3.6010^6/ul 3.3610^6/ul Hemoglobin 10.7g/dl 9.6g/dl Hematocrit 33.4% 31.4% Mean Corpuscular Volume 92.8fl 93.5fl Mean Corpuscular Hemoglobin 29.7pg 28.6pg Mean Corpuscular Hemoglobin Concent 32.0g/dl 30.6g/dl Red Cell Distribution Width 14.9% 15.3% Platelet Count 80087^3/UL 12274^3/UL Mean Platelet Volume 10.2fl 10.5fl Neutrophils % 69.8% 55.2% Lymphocytes % 15.9% 25.4% Monocytes % 6.6% 8.5% Eosinophils % 6.6% 9.7% Basophils % 0.8% 0.9% Nucleated Red Blood Cells % 0.0/100WBC 0.0/100WBC Neutrophils # 5.410^3/ul 3.210^3/ul Lymphocytes # 1.210^3/ul 1.510^3/ul Monocytes # 0.510^3/ul 0.510^3/ul Eosinophils # 0.510^3/ul 0.610^3/ul Basophils # 0.110^3/ul 0.110^3/ul Nucleated Red Blood Cells # 0.010^3/ul 0.010^3/ul Sodium Level 143mmol/L 142mmol/L Potassium Level 4.4mmol/L 4.7mmol/L Chloride Level 109mmol/L 111mmol/L Carbon Dioxide Level 23mmol/L 23mmol/L Anion Gap 15 13 Blood Urea Nitrogen 34mg/dl 36mg/dl Creatinine 1.32mg/dl 1.46mg/dl Glucose Level 131mg/dl 94mg/dl Calcium Level 9.0mg/dl 9.0mg/dl Total Bilirubin 0.0mg/dl Direct Bilirubin 0.00mg/dl Indirect Bilirubin 0.0mg/dl Aspartate Amino Transf (AST/SGOT) 12IU/L Alanine Aminotransferase (ALT/SGPT) 19IU/L Alkaline Phosphatase 99IU/L Total Protein 8.0g/dl Albumin 4.4g/dl Globulin 3.60g/dl Albumin/Globulin Ratio 1.22 Ethyl Alcohol Level < 10.0mg/dl Urine Color YELLOW Urine Clarity SLIGHTLY CLOUDY Urine pH 6.0 Urine Specific [place] 1.015 Urine Ketones NEGATIVEmg/dL Urine Nitrite NEGATIVEmg/dL Urine Bilirubin NEGATIVEmg/dL Urine Urobilinogen NEGATIVEmg/dL Urine Leukocyte Esterase 3+[place]/ul Urine Microscopic RBC 8/HPF Urine Microscopic WBC 146/HPF Urine Bacteria FEW/HPF Urine Yeast (Budding) FEW/HPF Urine Hemoglobin 1+mg/dL Urine Glucose NEGATIVEmg/dL Urine Total Protein NEGATIVEmg/dl Urine Opiates Screen Negative Urine Barbiturates Negative Urine Amphetamines Screen Negative Urine Benzodiazepines Screen Negative Urine Cocaine Screen Negative Urine Cannabinoids Negative LUIS E SZYMANSKI Aug 14, 2016 14:16
--- NOTE | 2016-08-14 14:33 | CONS ---
Date/Time of Note Date/Time of Note DATE: 08/14/16 TIME: 14:32 Assessment/Plan Assessment/Plan Additional Assessment/Plan 1 . acute Kidney injury due to UTI and prerenal azotemia 2. Acute encephalopathy due to UTI 3. Recurrent UTI as per Urinalysis 4. H/o MRSA Colonisation 5. H/o Bipolar disorder 6. Hypertension 7. Dementia 8. H/o CAN CAPPER shunt placement Plan : Continue current IV abx as per ID continue current IVF 1/2 NS at 60 cc/hr Expecting creatinine to improve with IVF BP stable ID following will follow up Total time spent in Consultation and communicating with Nursing staff is more than 60 minutes Consultation Date/Type/Reason Admit Date/Time Aug 13, 2016 at 16:40 Date of Consultation: Aug 14, 2016 Type of Consultation: NEPHROLOGY Reason for Consultation acute kidney injury Referring Provider: SHEN GAYLE MD Hx of Present Illness The patient is a 76-year-old female history of CAN CAPPER shunt, bipolar disorder who presents with agitation and paranoia that has been worse over the last several days. she is found to have Acute encephalopathy , sepsis with fevers, leukocytosis and encephalopathy on admission.she also has Recurrent UTI as per urinalysis . Renal has been consulted for acute kidney injury with Creatinine 1.46 Subjective hx not possible: pt non-verbal Respiratory: no complaints Cardiovascular: no complaints Gastrointestinal: no complaints Psychological: anxiety Past Surgical History Past Surgical Hx: other Social History Smoking Status: Never smoker Exam/Review of Systems Vital Signs Vitals Vital Signs Date Time Temp Pulse Resp B/P Pulse Ox O2 Delivery O2 Flow Rate FiO2 08/14/16 07:45 98.0 71 18 139/63 96 08/13/16 20:00 Room Air Intake and Output 08/13/16 08/13/16 08/14/16 15:00 23:00 07:00 Intake Total 100 ml 550 ml Output Total 250 ml Balance 100 ml 300 ml Exam Constitutional: alert, other (agitated ) Psych: no complaints Head: normocephalic Neck: non-tender, supple Respiratory: clear to auscultation, normal air movement Cardiovascular: regular rate and rhythm Gastrointestinal: non-tender, soft Musculoskeletal: nl extremities to inspection Neurological: TECHNOLOGY ADMINISTRATOR II-XII intact, confused Results Result Diagram: 08/14/16 0516 08/14/16 0516 Results 24 hrs Laboratory Tests Test 08/13/16 15:10 08/14/16 05:16 Urine Color YELLOW Urine Clarity SLIGHTLY CLOUDY A Urine pH 6.0 Urine Specific [place] 1.015 Urine Ketones NEGATIVE Urine Nitrite NEGATIVE Urine Bilirubin NEGATIVE Urine Urobilinogen NEGATIVE Urine Leukocyte Esterase 3+ H Urine Microscopic RBC 8 H Urine Microscopic WBC 146 H Urine Bacteria FEW A Urine Yeast (Budding) FEW A Urine Hemoglobin 1+ H Urine Glucose NEGATIVE Urine Total Protein NEGATIVE Urine Opiates Screen Negative Urine Barbiturates Negative Urine Amphetamines Screen Negative Urine Benzodiazepines Screen Negative Urine Cocaine Screen Negative Urine Cannabinoids Negative White Blood Count 5.9 # Red Blood Count 3.36 L Hemoglobin 9.6 L Hematocrit 31.4 L Mean Corpuscular Volume 93.5 Mean Corpuscular Hemoglobin 28.6 L Mean Corpuscular Hemoglobin Concent 30.6 L Red Cell Distribution Width 15.3 H Platelet Count 263 Mean Platelet Volume 10.5 H Neutrophils % 55.2 Lymphocytes % 25.4 Monocytes % 8.5 Eosinophils % 9.7 H Basophils % 0.9 Nucleated Red Blood Cells % 0.0 Neutrophils # 3.2 Lymphocytes # 1.5 Monocytes # 0.5 Eosinophils # 0.6 H Basophils # 0.1 Nucleated Red Blood Cells # 0.0 Sodium Level 142 Potassium Level 4.7 Chloride Level 111 H Carbon Dioxide Level 23 Anion Gap 13 Blood Urea Nitrogen 36 H Creatinine 1.46 H Glucose Level 94 Calcium Level 9.0 Medications Medications Current Medications Acetaminophen (Tylenol Tab) 650 mg Q4H PRN PO PAIN AND OR ELEVATED TEMP; Start 08/13/16 at 17:30 Albuterol (Proventil 0.083% (Neb)) 2.5 mg Q6H PRN NEB WHEEZING AND SOB; Start 08/13/16 at 17:30 Ascorbic Acid (Vitamin C) 500 mg DAILY PO Last administered on 08/14/16 09:39; Admin Dose 500 MG; Start 08/14/16 at 09:00 Aspirin (Aspirin) 81 mg DAILY PO Last administered on 08/14/16 09:39; Admin Dose 81 MG; Start 08/14/16 at 09:00 Bisacodyl (Dulcolax Supp) 10 mg DAILY PRN [place] CONSTIPATION; Start 08/13/16 at 17: 30 Clonazepam (Klonopin) 0.25 mg BID PRN PO ANXIETY; Start 08/13/16 at 17:30 Divalproex Sodium (Depakote Sprinkle) 250 mg BID PO Last administered on 09:39; Admin Dose 250 MG; Start 08/13/16 at 21:00 Docusate Sodium (Colace) 200 mg HS PO Last administered on 08/13/16 20:57; Admin Dose 200 MG; Start 08/13/16 at 21:00 Ferrous Sulfate (Ferrous Sulfate (Ec)) 325 mg BID PO Last administered on 09:39; Admin Dose 325 MG; Start 08/13/16 at 21:00 Oxcarbazepine (Trileptal) 300 mg BID PO Last administered on 08/14/16 09:39; Admin Dose 300 MG; Start 08/13/16 at 21:00 Quetiapine Fumarate (Seroquel) 25 mg AM PO Last administered on 08/14/16 09:39 ; Admin Dose 25 MG; Start 08/14/16 at 09:00 Quetiapine Fumarate (Seroquel) 50 mg HS PO Last administered on 08/13/16 20:57 ; Admin Dose 50 MG; Start 08/13/16 at 21:00 Ondansetron HCl (Zofran Inj) 4 mg Q6H PRN IV NAUSEA AND/OR VOMITING; Start 08/13 at 17:30 Enoxaparin Sodium (Lovenox) 30 mg DAILY SC Last administered on 08/14/16 09:38 ; Admin Dose 30 MG; Start 08/14/16 at 09:00 Lorazepam 0.5 mg 0.5 mg Q6H PRN PO AGITATION Last administered on 08/14/16 11: 38; Admin Dose 0.5 MG; Start 08/13/16 at 17:30 Aztreonam 2 gm/ Sodium Chloride 100 ml @ 100 mls/hr Q12 IVPB Last administered on 08/14/16 10:31; Admin Dose 100 MLS/HR; Start 08/13/16 at 18:00 Sodium Chloride (1/2 NS) 1,000 ml @ 60 mls/hr [id number] IV Last administered on 08/13/16 21:11; Admin Dose 60 MLS/HR; Start 08/13/16 at 21:30 Fluconazole (Diflucan) 100 mg DAILY PO ; Start 08/14/16 at 14:00 ELLYN RECINOS MD Aug 14, 2016 14:33
[2016-08-14] MEDS: FLUCONAZOLE 100 MG TAB PO SCH (14:38)
[2016-08-14] MEDS: SOD CHLORIDE 0.45% 1,000 ML IV SCH ×2 (14:39→18:28)
[2016-08-14] MEDS: clonAZEPAM 0.5 MG TAB PO PRN (16:52)
[2016-08-14] MEDS: DIPHENHYDRAMINE 50 MG INJ IV PRN (19:49)
[2016-08-14 20:00] VITALS: BP 131/61; RESP 20
[2016-08-14] MEDS: DOCUSATE SODIUM 100 MG CAP PO SCH (21:35)
[2016-08-14] MEDS: QUETIAPINE 25 MG TAB PO SCH (21:36)
[2016-08-15 06:09] LABS: ADD SCAN DIFF NO
[2016-08-15 06:11] LABS: BASOPHILS % 0.6 % (0.0-2.0); EOSINOPHILS # 0.5 10^3/ul (0.0-0.5); EOSINOPHILS % 7.8 % (0.0-7.0); HEMOGLOBIN 10.7 g/dl (12.0-16.0); LYMPHOCYTES # 1.4 10^3/ul (0.8-2.9); MEAN CORPUSCULAR HEMOGLOBIN 29.3 pg (29.0-33.0); MEAN CORPUSCULAR HGB CONC 31.5 g/dl (32.0-37.0); MEAN CORPUSCULAR VOLUME 93.2 fl (82.0-101.0); MEAN PLATELET VOLUME 10.5 fl (7.4-10.4); MONOCYTE # 0.5 10^3/ul (0.3-0.9); NEUTROPHILS % 62.3 % (39.0-77.0); PLATELET COUNT 284 10^3/UL (140-415); RED BLOOD COUNT 3.65 10^6/ul (4.20-5.40); RED CELL DISTRIBUTION WIDTH 14.8 % (11.5-14.5); WHITE BLOOD COUNT 6.4 10^3/ul (4.8-10.8)
[2016-08-15 07:00] LABS: CALCIUM 9.5 mg/dl (8.4-10.2); CREATININE 1.29 mg/dl (0.44-1.00); POTASSIUM 4.5 mmol/L (3.5-5.1)
[2016-08-15 07:43] VITALS: BP 136/64; RESP 18
[2016-08-15] MEDS: QUETIAPINE 25 MG TAB PO SCH ×2 (09:09→21:30)
[2016-08-15] MEDS: ASCORBIC ACID 500 MG TAB PO SCH (09:09)
[2016-08-15] MEDS: ASPIRIN 81 MG TAB PO SCH (09:09)
[2016-08-15] MEDS: FERROUS SULFATE (EC) 325 MG TAB PO SCH ×2 (09:10→21:30)
[2016-08-15] MEDS: OXCARBAZEPINE 300 MG TAB PO SCH ×2 (09:10→21:30)
[2016-08-15] MEDS: FLUCONAZOLE 100 MG TAB PO SCH (09:10)
[2016-08-15] MEDS: DIVALPROEX SPRINKLE 125 MG CAP PO SCH ×2 (09:11→21:30)
[2016-08-15] MEDS: ENOXAPARIN 30 MG/0.3 ML SYG SC SCH (09:15)
[2016-08-15] MEDS: AZTREONAM 2 GM in SOD CHLORIDE 0.9% 100 ML IVPB SCH ×2 (09:16→21:30)
--- NOTE | 2016-08-15 12:46 | CONS ---
Date/Time of Note Date/Time of Note DATE: 08/15/16 TIME: 12:44 Assessment/Plan Assessment/Plan Chief Complaint/Hosp Course Subjective no acute changes overnight, patient is lying comfortably in bed, no fevers. Antimicrobials: Aztreonam Diflucan Allergies: penicillins Invanz Merrem Physical examination: Chronically ill-appearing fragile elderly woman who is alert in no distress. Head atraumatic normocephalic, sclera nonicteric. Neck is supple, trachea midline. Chest rise symmetrical breath sounds clear, diminished basis. Heart S1-S2. Abdomen soft, bowel tones present. Extremities without cyanosis. ASSESSMENT: 1. Acute encephalopathy 2. Recurrent UTI as per urinalysis 3. History of methicillin-resistant Staphylococcus aureus colonization. 4. Acute kidney injury. 5. Dementia. 6. Hypertension. 7. History of ventriculoperitoneal shunt placement. PLAN: Clinically stable, pending urine culture Discussed with staff Problems: Consultation Date/Type/Reason Admit Date/Time Aug 13, 2016 at 16:40 Type of Consultation: Infectious disease Referring Provider: SHEN GAYLE MD Exam/Review of Systems Vital Signs Vitals Vital Signs Date Time Temp Pulse Resp B/P Pulse Ox O2 Delivery O2 Flow Rate FiO2 08/15/16 07:43 98.0 67 18 136/64 98 08/14/16 20:00 Room Air Intake and Output 08/14/16 08/14/16 08/15/16 15:00 23:00 07:00 Intake Total 1880 ml 1260 ml Balance 1880 ml 1260 ml Results Result Diagram: 08/15/16 0520 08/15/16 0520 Results 24 hrs Laboratory Tests Test 08/15/16 05:20 White Blood Count 6.4 Red Blood Count 3.65 L Hemoglobin 10.7 L Hematocrit 34.0 L Mean Corpuscular Volume 93.2 Mean Corpuscular Hemoglobin 29.3 Mean Corpuscular Hemoglobin Concent 31.5 L Red Cell Distribution Width 14.8 H Platelet Count 284 Mean Platelet Volume 10.5 H Neutrophils % 62.3 Lymphocytes % 22.0 Monocytes % 7.0 Eosinophils % 7.8 H Basophils % 0.6 Nucleated Red Blood Cells % 0.0 Neutrophils # 4.0 Lymphocytes # 1.4 Monocytes # 0.5 Eosinophils # 0.5 Basophils # 0.0 Nucleated Red Blood Cells # 0.0 Sodium Level 144 Potassium Level 4.5 Chloride Level 103 Carbon Dioxide Level 25 Anion Gap 21 #H Blood Urea Nitrogen 37 H Creatinine 1.29 H Glucose Level 94 Calcium Level 9.5 Medications Medications Current Medications Acetaminophen (Tylenol Tab) 650 mg Q4H PRN PO PAIN AND OR ELEVATED TEMP; Start 08/13/16 at 17:30 Albuterol (Proventil 0.083% (Neb)) 2.5 mg Q6H PRN NEB WHEEZING AND SOB; Start 08/13/16 at 17:30 Ascorbic Acid (Vitamin C) 500 mg DAILY PO Last administered on 08/15/16 09:09; Admin Dose 500 MG; Start 08/14/16 at 09:00 Aspirin (Aspirin) 81 mg DAILY PO Last administered on 08/15/16 09:09; Admin Dose 81 MG; Start 08/14/16 at 09:00 Bisacodyl (Dulcolax Supp) 10 mg DAILY PRN [place] CONSTIPATION; Start 08/13/16 at 17: 30 Clonazepam (Klonopin) 0.25 mg BID PRN PO ANXIETY Last administered on 08/14/16 16:52; Admin Dose 0.25 MG; Start 08/13/16 at 17:30 Divalproex Sodium (Depakote Sprinkle) 250 mg BID PO Last administered on 09:11; Admin Dose 250 MG; Start 08/13/16 at 21:00 Docusate Sodium (Colace) 200 mg HS PO Last administered on 08/14/16 21:35; Admin Dose 200 MG; Start 08/13/16 at 21:00 Ferrous Sulfate (Ferrous Sulfate (Ec)) 325 mg BID PO Last administered on 09:10; Admin Dose 325 MG; Start 08/13/16 at 21:00 Oxcarbazepine (Trileptal) 300 mg BID PO Last administered on 08/15/16 09:10; Admin Dose 300 MG; Start 08/13/16 at 21:00 Ondansetron HCl (Zofran Inj) 4 mg Q6H PRN IV NAUSEA AND/OR VOMITING; Start 08/13 at 17:30 Enoxaparin Sodium (Lovenox) 30 mg DAILY SC Last administered on 08/15/16 09:15 ; Admin Dose 30 MG; Start 08/14/16 at 09:00 Lorazepam 0.5 mg 0.5 mg Q6H PRN PO AGITATION Last administered on 08/14/16 11: 38; Admin Dose 0.5 MG; Start 08/13/16 at 17:30 Aztreonam 2 gm/ Sodium Chloride 100 ml @ 100 mls/hr Q12 IVPB Last administered on 08/15/16 09:16; Admin Dose 100 MLS/HR; Start 08/13/16 at 18:00 Sodium Chloride (1/2 NS) 1,000 ml @ 60 mls/hr [id number] IV Last administered on 08/14/16 18:28; Admin Dose 60 MLS/HR; Start 08/13/16 at 21:30 Fluconazole (Diflucan) 100 mg DAILY PO Last administered on 08/15/16 09:10; Admin Dose 100 MG; Start 08/14/16 at 14:00 Quetiapine Fumarate (Seroquel) 75 mg BID PO Last administered on 08/15/16 09:09 ; Admin Dose 75 MG; Start 08/14/16 at 21:00; Stop 08/16/16 at 09:01 Quetiapine Fumarate (Seroquel) 100 mg BID PO ; Start 08/16/16 at 21:00 Diphenhydramine HCl (Benadryl) 25 mg Q6H PRN IV itching Last administered on 19:49; Admin Dose 25 MG; Start 08/14/16 at 19:30 ALFRED GUZMÁN NP Aug 15, 2016 12:45
--- NOTE | 2016-08-15 15:10 | PN ---
Date/Time of Note Date/Time of Note DATE: 08/15/16 TIME: 15:04 Assessment/Plan VTE Prophylaxis VTE Prophylaxis Intervention: SCD's Lines/Catheters IV C[facility] Type (from [facility] Peripheral IV Urinary Cath still in place: No Assessment/Plan Chief Complaint/Hosp Course No acute events overnight, patient looks comfortable, afebrile. Assessment/Plan - Urinary tract infection per UA. Cont abx, f/up on cx. Dr Galvez is following in ID consultation. - Bipolar disorder with psychosis. Status post evaluation by tele-psychiatry. Continue Seroquel. Continue VPA, will check level. - Acute metabolic encephalopathy, resolving. - Acute kidney injury, Dr. Acevedo is following in nephrology consultation - Coronary artery disease - History of hydrocephalus, status post SALES REPRESENTATIVE shunt - Epilepsy, continue Trileptal. Further recommendations based on clinical course. Plan of care discussed with Dr. Felipe Problems: Exam/Review of Systems Vital Signs Vitals Vital Signs Date Time Temp Pulse Resp B/P Pulse Ox O2 Delivery O2 Flow Rate FiO2 08/15/16 07:43 98.0 67 18 136/64 98 08/14/16 20:00 Room Air Intake and Output 08/14/16 08/14/16 08/15/16 15:00 23:00 07:00 Intake Total 1880 ml 1260 ml Balance 1880 ml 1260 ml Exam Constitutional: alert Psych: anxiety Head: atraumatic, normocephalic ENMT: mucosa pink and moist Neck: non-tender, supple Respiratory: normal air movement Cardiovascular: nl pulses Gastrointestinal: non-tender, soft Neurological: confused Skin: nl turgor Results Result Diagram: 08/15/1620 08/15/16 0520 Results 24 hrs Laboratory Tests Test 08/15/16 05:20 White Blood Count 6.4 Red Blood Count 3.65 L Hemoglobin 10.7 L Hematocrit 34.0 L Mean Corpuscular Volume 93.2 Mean Corpuscular Hemoglobin 29.3 Mean Corpuscular Hemoglobin Concent 31.5 L Red Cell Distribution Width 14.8 H Platelet Count 284 Mean Platelet Volume 10.5 H Neutrophils % 62.3 Lymphocytes % 22.0 Monocytes % 7.0 Eosinophils % 7.8 H Basophils % 0.6 Nucleated Red Blood Cells % 0.0 Neutrophils # 4.0 Lymphocytes # 1.4 Monocytes # 0.5 Eosinophils # 0.5 Basophils # 0.0 Nucleated Red Blood Cells # 0.0 Sodium Level 144 Potassium Level 4.5 Chloride Level 103 Carbon Dioxide Level 25 Anion Gap 21 #H Blood Urea Nitrogen 37 H Creatinine 1.29 H Glucose Level 94 Calcium Level 9.5 Medications Medications Current Medications Acetaminophen (Tylenol Tab) 650 mg Q4H PRN PO PAIN AND OR ELEVATED TEMP; Start 08/13/16 at 17:30 Albuterol (Proventil 0.083% (Neb)) 2.5 mg Q6H PRN NEB WHEEZING AND SOB; Start 08/13/16 at 17:30 Ascorbic Acid (Vitamin C) 500 mg DAILY PO Last administered on 08/15/16 09:09; Admin Dose 500 MG; Start 08/14/16 at 09:00 Aspirin (Aspirin) 81 mg DAILY PO Last administered on 08/15/16 09:09; Admin Dose 81 MG; Start 08/14/16 at 09:00 Bisacodyl (Dulcolax Supp) 10 mg DAILY PRN [place] CONSTIPATION; Start 08/13/16 at 17: 30 Clonazepam (Klonopin) 0.25 mg BID PRN PO ANXIETY Last administered on 08/14/16 16:52; Admin Dose 0.25 MG; Start 08/13/16 at 17:30 Divalproex Sodium (Depakote Sprinkle) 250 mg BID PO Last administered on 09:11; Admin Dose 250 MG; Start 08/13/16 at 21:00 Docusate Sodium (Colace) 200 mg HS PO Last administered on 08/14/16 21:35; Admin Dose 200 MG; Start 08/13/16 at 21:00 Ferrous Sulfate (Ferrous Sulfate (Ec)) 325 mg BID PO Last administered on 09:10; Admin Dose 325 MG; Start 08/13/16 at 21:00 Oxcarbazepine (Trileptal) 300 mg BID PO Last administered on 08/15/16 09:10; Admin Dose 300 MG; Start 08/13/16 at 21:00 Ondansetron HCl (Zofran Inj) 4 mg Q6H PRN IV NAUSEA AND/OR VOMITING; Start 08/13 at 17:30 Enoxaparin Sodium (Lovenox) 30 mg DAILY SC Last administered on 08/15/16 09:15 ; Admin Dose 30 MG; Start 08/14/16 at 09:00 Lorazepam 0.5 mg 0.5 mg Q6H PRN PO AGITATION Last administered on 08/14/16 11: 38; Admin Dose 0.5 MG; Start 08/13/16 at 17:30 Aztreonam 2 gm/ Sodium Chloride 100 ml @ 100 mls/hr Q12 IVPB Last administered on 08/15/16 09:16; Admin Dose 100 MLS/HR; Start 08/13/16 at 18:00 Sodium Chloride (1/2 NS) 1,000 ml @ 60 mls/hr [id number] IV Last administered on 08/14/16 18:28; Admin Dose 60 MLS/HR; Start 08/13/16 at 21:30 Fluconazole (Diflucan) 100 mg DAILY PO Last administered on 08/15/16 09:10; Admin Dose 100 MG; Start 08/14/16 at 14:00 Quetiapine Fumarate (Seroquel) 75 mg BID PO Last administered on 08/15/16 09:09 ; Admin Dose 75 MG; Start 08/14/16 at 21:00; Stop 08/16/16 at 09:01 Quetiapine Fumarate (Seroquel) 100 mg BID PO ; Start 08/16/16 at 21:00 Diphenhydramine HCl (Benadryl) 25 mg Q6H PRN IV itching Last administered on 19:49; Admin Dose 25 MG; Start 08/14/16 at 19:30 UMESH WILLETT Aug 15, 2016 15:09
[2016-08-15] MEDS: SOD CHLORIDE 0.45% 1,000 ML IV SCH (15:29)
--- NOTE | 2016-08-15 17:35 | CONS ---
Date/Time of Note Date/Time of Note DATE: 08/15/16 TIME: 17:30 Assessment/Plan Assessment/Plan Chief Complaint/Hosp Course The patient is a 76-year-old female history of CALENDER OPERATOR HELPER shunt, bipolar disorder who presents with agitation and paranoia that has been worse over the last several days. she is found to have Acute encephalopathy , sepsis with fevers, leukocytosis and encephalopathy on admission.she also has Recurrent UTI as per urinalysis . Renal has been consulted for acute kidney injury with Creatinine 1.46 Problems: Additional Assessment/Plan 1 . acute Kidney injury due to UTI and prerenal azotemia 2. Acute encephalopathy due to UTI 3. Recurrent UTI as per Urinalysis 4. H/o MRSA Colonisation 5. H/o Bipolar disorder 6. Hypertension 7. Dementia 8. H/o CALENDER OPERATOR HELPER shunt placement Plan : Continue current IV abx as per ID, Creatinine improved to 1.29 continue current IVF 1/2 NS at 60 cc/hr Expecting creatinine to improve with IVF BP stable ID following will follow up Consultation Date/Type/Reason Admit Date/Time Aug 13, 2016 at 16:40 Initial Consult Date 08/14/16 Type of Consultation: NEPHROLOGY Referring Provider: SHEN GAYLE MD Exam/Review of Systems Vital Signs Vitals Vital Signs Date Time Temp Pulse Resp B/P Pulse Ox O2 Delivery O2 Flow Rate FiO2 08/15/16 07:43 98.0 67 18 136/64 98 08/14/16 20:00 Room Air Intake and Output 08/14/16 08/14/16 08/15/16 15:00 23:00 07:00 Intake Total 1880 ml 1260 ml Balance 1880 ml 1260 ml Exam Constitutional: alert, other (agitated ) Psych: no complaints Head: normocephalic Neck: non-tender, supple Respiratory: clear to auscultation, normal air movement Cardiovascular: regular rate and rhythm Gastrointestinal: non-tender, soft Musculoskeletal: nl extremities to inspection Neurological: IT SALES EXECUTIVE II-XII intact, confused Results Result Diagram: 08/15/16 0520 08/15/16 0520 Results 24 hrs Laboratory Tests Test 08/15/16 05:20 White Blood Count 6.4 Red Blood Count 3.65 L Hemoglobin 10.7 L Hematocrit 34.0 L Mean Corpuscular Volume 93.2 Mean Corpuscular Hemoglobin 29.3 Mean Corpuscular Hemoglobin Concent 31.5 L Red Cell Distribution Width 14.8 H Platelet Count 284 Mean Platelet Volume 10.5 H Neutrophils % 62.3 Lymphocytes % 22.0 Monocytes % 7.0 Eosinophils % 7.8 H Basophils % 0.6 Nucleated Red Blood Cells % 0.0 Neutrophils # 4.0 Lymphocytes # 1.4 Monocytes # 0.5 Eosinophils # 0.5 Basophils # 0.0 Nucleated Red Blood Cells # 0.0 Sodium Level 144 Potassium Level 4.5 Chloride Level 103 Carbon Dioxide Level 25 Anion Gap 21 #H Blood Urea Nitrogen 37 H Creatinine 1.29 H Glucose Level 94 Calcium Level 9.5 Medications Medications Current Medications Acetaminophen (Tylenol Tab) 650 mg Q4H PRN PO PAIN AND OR ELEVATED TEMP; Start 08/13/16 at 17:30 Albuterol (Proventil 0.083% (Neb)) 2.5 mg Q6H PRN NEB WHEEZING AND SOB; Start 08/13/16 at 17:30 Ascorbic Acid (Vitamin C) 500 mg DAILY PO Last administered on 08/15/16 09:09; Admin Dose 500 MG; Start 08/14/16 at 09:00 Aspirin (Aspirin) 81 mg DAILY PO Last administered on 08/15/16 09:09; Admin Dose 81 MG; Start 08/14/16 at 09:00 Bisacodyl (Dulcolax Supp) 10 mg DAILY PRN [place] CONSTIPATION; Start 08/13/16 at 17: 30 Clonazepam (Klonopin) 0.25 mg BID PRN PO ANXIETY Last administered on 08/14/16 16:52; Admin Dose 0.25 MG; Start 08/13/16 at 17:30 Divalproex Sodium (Depakote Sprinkle) 250 mg BID PO Last administered on 09:11; Admin Dose 250 MG; Start 08/13/16 at 21:00 Docusate Sodium (Colace) 200 mg HS PO Last administered on 08/14/16 21:35; Admin Dose 200 MG; Start 08/13/16 at 21:00 Ferrous Sulfate (Ferrous Sulfate (Ec)) 325 mg BID PO Last administered on 09:10; Admin Dose 325 MG; Start 08/13/16 at 21:00 Oxcarbazepine (Trileptal) 300 mg BID PO Last administered on 08/15/16 09:10; Admin Dose 300 MG; Start 08/13/16 at 21:00 Ondansetron HCl (Zofran Inj) 4 mg Q6H PRN IV NAUSEA AND/OR VOMITING; Start 08/13 at 17:30 Enoxaparin Sodium (Lovenox) 30 mg DAILY SC Last administered on 08/15/16 09:15 ; Admin Dose 30 MG; Start 08/14/16 at 09:00 Lorazepam 0.5 mg 0.5 mg Q6H PRN PO AGITATION Last administered on 08/14/16 11: 38; Admin Dose 0.5 MG; Start 08/13/16 at 17:30 Aztreonam 2 gm/ Sodium Chloride 100 ml @ 100 mls/hr Q12 IVPB Last administered on 08/15/16 09:16; Admin Dose 100 MLS/HR; Start 08/13/16 at 18:00 Sodium Chloride (1/2 NS) 1,000 ml @ 60 mls/hr [id number] IV Last administered on 08/15/16 15:29; Admin Dose 60 MLS/HR; Start 08/13/16 at 21:30 Fluconazole (Diflucan) 100 mg DAILY PO Last administered on 08/15/16 09:10; Admin Dose 100 MG; Start 08/14/16 at 14:00 Quetiapine Fumarate (Seroquel) 75 mg BID PO Last administered on 08/15/16 09:09 ; Admin Dose 75 MG; Start 08/14/16 at 21:00; Stop 08/16/16 at 09:01 Quetiapine Fumarate (Seroquel) 100 mg BID PO ; Start 08/16/16 at 21:00 Diphenhydramine HCl (Benadryl) 25 mg Q6H PRN IV itching Last administered on 19:49; Admin Dose 25 MG; Start 08/14/16 at 19:30 ELLYN RECINOS MD Aug 15, 2016 17:35
[2016-08-15 20:20] VITALS: BP 120/58; RESP 18
[2016-08-15] MEDS: LORAZEPAM 0.5 MG TAB PO PRN (21:30)
[2016-08-15] MEDS: DOCUSATE SODIUM 100 MG CAP PO SCH (21:30)
[2016-08-16 05:36] LABS: ADD SCAN DIFF NO
[2016-08-16 05:49] LABS: BASOPHIL # 0.1 10^3/ul (0.0-0.1); EOSINOPHILS # 0.6 10^3/ul (0.0-0.5); EOSINOPHILS % 9.4 % (0.0-7.0); HEMATOCRIT 35.6 % (37.0-47.0); HEMOGLOBIN 11.2 g/dl (12.0-16.0); LYMPHOCYTES # 1.2 10^3/ul (0.8-2.9); LYMPHOCYTES % 20.1 % (15.0-51.0); MEAN CORPUSCULAR HEMOGLOBIN 28.9 pg (29.0-33.0); MEAN CORPUSCULAR HGB CONC 31.5 g/dl (32.0-37.0); MEAN PLATELET VOLUME 10.3 fl (7.4-10.4); MONOCYTE # 0.4 10^3/ul (0.3-0.9); MONOCYTES % 6.4 % (0.0-11.0); NEUTROPHIL # 3.8 10^3/ul (1.6-7.5); NEUTROPHILS % 62.8 % (39.0-77.0); PLATELET COUNT 298 10^3/UL (140-415); RED BLOOD COUNT 3.87 10^6/ul (4.20-5.40); RED CELL DISTRIBUTION WIDTH 14.8 % (11.5-14.5); WHITE BLOOD COUNT 6.1 10^3/ul (4.8-10.8)
[2016-08-16] MEDS: DIPHENHYDRAMINE 50 MG INJ IV PRN (05:50)
[2016-08-16 06:48] LABS: CALCIUM 9.5 mg/dl (8.4-10.2); CREATININE 1.06 mg/dl (0.44-1.00); POTASSIUM 4.8 mmol/L (3.5-5.1)
[2016-08-16 07:58] VITALS: BP 100/59; RESP 18
[2016-08-16] MEDS: QUETIAPINE 25 MG TAB PO SCH (08:19)
[2016-08-16] MEDS: FLUCONAZOLE 100 MG TAB PO SCH (08:19)
[2016-08-16] MEDS: FERROUS SULFATE (EC) 325 MG TAB PO SCH ×2 (08:19→22:29)
[2016-08-16] MEDS: AZTREONAM 2 GM in SOD CHLORIDE 0.9% 100 ML IVPB SCH (08:19)
[2016-08-16] MEDS: OXCARBAZEPINE 300 MG TAB PO SCH ×2 (08:20→22:29)
[2016-08-16] MEDS: ASPIRIN 81 MG TAB PO SCH (08:20)
[2016-08-16] MEDS: ASCORBIC ACID 500 MG TAB PO SCH (08:20)
[2016-08-16] MEDS: DIVALPROEX SPRINKLE 125 MG CAP PO SCH ×2 (08:20→22:29)
[2016-08-16] MEDS: ENOXAPARIN 30 MG/0.3 ML SYG SC SCH (08:23)
[2016-08-16] MEDS: ZYVOX 600 MG TAB PO SCH ×2 (10:53→22:29)
[2016-08-16] MEDS: SOD CHLORIDE 0.45% 1,000 ML IV SCH ×2 (10:53→16:10)
--- NOTE | 2016-08-16 11:27 | CONS ---
Date/Time of Note Date/Time of Note DATE: 08/16/16 TIME: 11:23 Assessment/Plan Assessment/Plan Chief Complaint/Hosp Course No acute changes overnight, patient is lying comfortably in bed, no fevers. Allergies: penicillins Invanz Merrem Physical examination: Chronically ill-appearing fragile elderly woman who is alert in no distress. Head atraumatic normocephalic, sclera nonicteric. Neck is supple, trachea midline. Chest rise symmetrical breath sounds clear, diminished basis. Heart S1-S2. Abdomen soft, bowel tones present. Extremities without cyanosis. ASSESSMENT: 1. Acute encephalopathy 2. 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 History of methicillin-resistant Staphylococcus aureus colonization. 4. Acute kidney injury. 5. Dementia. 6. Hypertension. 7. History of ventriculoperitoneal shunt placement. PLAN: Clinically stable, will change abx to Zyvox Discussed with staff Problems: Consultation Date/Type/Reason Admit Date/Time Aug 15, 2016 at 15:31 Type of Consultation: ID Referring Provider: SHEN GAYLE MD Exam/Review of Systems Vital Signs Vitals Vital Signs Date Time Temp Pulse Resp B/P Pulse Ox O2 Delivery O2 Flow Rate FiO2 08/16/16 07:58 98.4 70 18 100/59 95 08/14/16 20:00 Room Air Intake and Output 08/15/16 08/15/16 08/16/16 15:01 23:01 07:01 Intake Total 100 ml 2000 ml 1520 ml Balance 100 ml 2000 ml 1520 ml Results Result Diagram: 08/16/16 0520 08/16/16 0520 Results 24 hrs Laboratory Tests Test 08/16/16 05:20 White Blood Count 6.1 Red Blood Count 3.87 L Hemoglobin 11.2 L Hematocrit 35.6 L Mean Corpuscular Volume 92.0 Mean Corpuscular Hemoglobin 28.9 L Mean Corpuscular Hemoglobin Concent 31.5 L Red Cell Distribution Width 14.8 H Platelet Count 298 Mean Platelet Volume 10.3 Neutrophils % 62.8 Lymphocytes % 20.1 Monocytes % 6.4 Eosinophils % 9.4 H Basophils % 1.0 Nucleated Red Blood Cells % 0.0 Neutrophils # 3.8 Lymphocytes # 1.2 Monocytes # 0.4 Eosinophils # 0.6 H Basophils # 0.1 Nucleated Red Blood Cells # 0.0 Sodium Level 137 Potassium Level 4.8 Chloride Level 101 Carbon Dioxide Level 26 Anion Gap 15 Blood Urea Nitrogen 35 H Creatinine 1.06 H Glucose Level 105 Calcium Level 9.5 Valproic Acid (Depakene) Level 27 L Medications Medications Current Medications Acetaminophen (Tylenol Tab) 650 mg Q4H PRN PO PAIN AND OR ELEVATED TEMP; Start 08/13/16 at 17:30 Albuterol (Proventil 0.083% (Neb)) 2.5 mg Q6H PRN NEB WHEEZING AND SOB; Start 08/13/16 at 17:30 Ascorbic Acid (Vitamin C) 500 mg DAILY PO Last administered on 08/16/16 08:20; Admin Dose 500 MG; Start 08/14/16 at 09:00 Aspirin (Aspirin) 81 mg DAILY PO Last administered on 08/16/16 08:20; Admin Dose 81 MG; Start 08/14/16 at 09:00 Bisacodyl (Dulcolax Supp) 10 mg DAILY PRN [place] CONSTIPATION; Start 08/13/16 at 17: 30 Clonazepam (Klonopin) 0.25 mg BID PRN PO ANXIETY Last administered on 08/14/16 16:52; Admin Dose 0.25 MG; Start 08/13/16 at 17:30 Divalproex Sodium (Depakote Sprinkle) 250 mg BID PO Last administered on 08:20; Admin Dose 250 MG; Start 08/13/16 at 21:00 Docusate Sodium (Colace) 200 mg HS PO Last administered on 08/15/16 21:30; Admin Dose 200 MG; Start 08/13/16 at 21:00 Ferrous Sulfate (Ferrous Sulfate (Ec)) 325 mg BID PO Last administered on 08:19; Admin Dose 325 MG; Start 08/13/16 at 21:00 Oxcarbazepine (Trileptal) 300 mg BID PO Last administered on 08/16/16 08:20; Admin Dose 300 MG; Start 08/13/16 at 21:00 Ondansetron HCl (Zofran Inj) 4 mg Q6H PRN IV NAUSEA AND/OR VOMITING; Start 08/13 at 17:30 Enoxaparin Sodium (Lovenox) 30 mg DAILY SC Last administered on 08/16/16 08:23 ; Admin Dose 30 MG; Start 08/14/16 at 09:00 Lorazepam 0.5 mg 0.5 mg Q6H PRN PO AGITATION Last administered on 08/15/16 21: 30; Admin Dose 0.5 MG; Start 08/13/16 at 17:30 Sodium Chloride (1/2 NS) 1,000 ml @ 60 mls/hr [id number] IV Last administered on 08/16/16 10:53; Admin Dose 60 MLS/HR; Start 08/13/16 at 21:30 Fluconazole (Diflucan) 100 mg DAILY PO Last administered on 08/16/16 08:19; Admin Dose 100 MG; Start 08/14/16 at 14:00 Quetiapine Fumarate (Seroquel) 100 mg BID PO ; Start 08/16/16 at 21:00 Diphenhydramine HCl (Benadryl) 25 mg Q6H PRN IV itching Last administered on 05:50; Admin Dose 25 MG; Start 08/14/16 at 19:30 Linezolid (Zyvox) 600 mg BID PO Last administered on 08/16/16 10:53; Admin Dose 600 MG; Start 08/16/16 at 10:00 ALFRED GUZMÁN NP Aug 16, 2016 11:26
--- NOTE | 2016-08-16 11:54 | PN ---
Date/Time of Note Date/Time of Note DATE: 08/16/16 TIME: 11:50 Assessment/Plan VTE Prophylaxis VTE Prophylaxis Intervention: other Lines/Catheters IV C[facility]ter Type (from [facility]): Peripheral IV Urinary Cath still in place: No Assessment/Plan Assessment/Plan - Urinary tract infection per UA. Cont abx, f/up on cx. Dr Galvez is following in ID consultation. - URINE CULTURE Final Organism 1 VANCO RESISTANT ENTEROCOCCUS COLONY COUNT 50,000 - 60,000 CFU/ml, MULTI DRUG RESISTANT ORGANISM - Bipolar disorder with psychosis. Status post evaluation by tele-psychiatry. Continue Seroquel. Continue VPA, will check level. - Acute metabolic encephalopathy, resolving. - Acute kidney injury, Dr. Acevedo is following in nephrology consultation - Coronary artery disease - History of hydrocephalus, status post PBX OPERATOR shunt - Epilepsy, continue Trileptal. Further recommendations based on clinical course. Plan of care discussed with Dr. Felipe Subjective 24 Hr Interval Summary Free Text/Dictation nad, afebrile, seems comfortable,no agitation, No acute events overnight per staff Cardiovascular: no complaints Gastrointestinal: no complaints Exam/Review of Systems Vital Signs Vitals Vital Signs Date Time Temp Pulse Resp B/P Pulse Ox O2 Delivery O2 Flow Rate FiO2 08/16/16 07:58 98.4 70 18 100/59 95 08/14/16 20:00 Room Air Intake and Output 08/15/16 08/15/16 08/16/16 15:00 23:00 07:00 Intake Total 100 ml 2000 ml 1520 ml Balance 100 ml 2000 ml 1520 ml Exam Constitutional: alert, well developed Respiratory: clear to auscultation, normal air movement Cardiovascular: nl pulses, regular rate and rhythm Gastrointestinal: non-tender, soft Musculoskeletal: nl extremities to inspection Extremities: normal pulses Neurological: other Results Result Diagram: 08/16/16 0520 08/16/16 0520 Results 24 hrs Laboratory Tests Test 08/16/16 05:20 White Blood Count 6.1 Red Blood Count 3.87 L Hemoglobin 11.2 L Hematocrit 35.6 L Mean Corpuscular Volume 92.0 Mean Corpuscular Hemoglobin 28.9 L Mean Corpuscular Hemoglobin Concent 31.5 L Red Cell Distribution Width 14.8 H Platelet Count 298 Mean Platelet Volume 10.3 Neutrophils % 62.8 Lymphocytes % 20.1 Monocytes % 6.4 Eosinophils % 9.4 H Basophils % 1.0 Nucleated Red Blood Cells % 0.0 Neutrophils # 3.8 Lymphocytes # 1.2 Monocytes # 0.4 Eosinophils # 0.6 H Basophils # 0.1 Nucleated Red Blood Cells # 0.0 Sodium Level 137 Potassium Level 4.8 Chloride Level 101 Carbon Dioxide Level 26 Anion Gap 15 Blood Urea Nitrogen 35 H Creatinine 1.06 H Glucose Level 105 Calcium Level 9.5 Valproic Acid (Depakene) Level 27 L Medications Medications Current Medications Acetaminophen (Tylenol Tab) 650 mg Q4H PRN PO PAIN AND OR ELEVATED TEMP; Start 08/13/16 at 17:30 Albuterol (Proventil 0.083% (Neb)) 2.5 mg Q6H PRN NEB WHEEZING AND SOB; Start 08/13/16 at 17:30 Ascorbic Acid (Vitamin C) 500 mg DAILY PO Last administered on 08/16/16 08:20; Admin Dose 500 MG; Start 08/14/16 at 09:00 Aspirin (Aspirin) 81 mg DAILY PO Last administered on 08/16/16 08:20; Admin Dose 81 MG; Start 08/14/16 at 09:00 Bisacodyl (Dulcolax Supp) 10 mg DAILY PRN [place] CONSTIPATION; Start 08/13/16 at 17: 30 Clonazepam (Klonopin) 0.25 mg BID PRN PO ANXIETY Last administered on 08/14/16 16:52; Admin Dose 0.25 MG; Start 08/13/16 at 17:30 Divalproex Sodium (Depakote Sprinkle) 250 mg BID PO Last administered on 08:20; Admin Dose 250 MG; Start 08/13/16 at 21:00 Docusate Sodium (Colace) 200 mg HS PO Last administered on 08/15/16 21:30; Admin Dose 200 MG; Start 08/13/16 at 21:00 Ferrous Sulfate (Ferrous Sulfate (Ec)) 325 mg BID PO Last administered on 08:19; Admin Dose 325 MG; Start 08/13/16 at 21:00 Oxcarbazepine (Trileptal) 300 mg BID PO Last administered on 08/16/16 08:20; Admin Dose 300 MG; Start 08/13/16 at 21:00 Ondansetron HCl (Zofran Inj) 4 mg Q6H PRN IV NAUSEA AND/OR VOMITING; Start 08/13 at 17:30 Enoxaparin Sodium (Lovenox) 30 mg DAILY SC Last administered on 08/16/16 08:23 ; Admin Dose 30 MG; Start 08/14/16 at 09:00 Lorazepam 0.5 mg 0.5 mg Q6H PRN PO AGITATION Last administered on 08/15/16 21: 30; Admin Dose 0.5 MG; Start 08/13/16 at 17:30 Sodium Chloride (1/2 NS) 1,000 ml @ 60 mls/hr [id number] IV Last administered on 08/16/16 10:53; Admin Dose 60 MLS/HR; Start 08/13/16 at 21:30 Fluconazole (Diflucan) 100 mg DAILY PO Last administered on 08/16/16 08:19; Admin Dose 100 MG; Start 08/14/16 at 14:00 Quetiapine Fumarate (Seroquel) 100 mg BID PO ; Start 08/16/16 at 21:00 Diphenhydramine HCl (Benadryl) 25 mg Q6H PRN IV itching Last administered on 05:50; Admin Dose 25 MG; Start 08/14/16 at 19:30 Linezolid (Zyvox) 600 mg BID PO Last administered on 08/16/16 10:53; Admin Dose 600 MG; Start 08/16/16 at 10:00 JAMES POMPA Aug 16, 2016 11:54
--- NOTE | 2016-08-16 16:57 | CONS ---
Date/Time of Note Date/Time of Note DATE: 08/16/16 TIME: 16:54 Assessment/Plan Assessment/Plan Chief Complaint/Hosp Course The patient is a 76-year-old female history of CLAIMS SUPERVISOR shunt, bipolar disorder who presents with agitation and paranoia that has been worse over the last several days. she is found to have Acute encephalopathy , sepsis with fevers, leukocytosis and encephalopathy on admission.she also has Recurrent UTI as per urinalysis . Renal has been consulted for acute kidney injury with Creatinine 1.46 Problems: Additional Assessment/Plan 1 . acute Kidney injury due to UTI and prerenal azotemia 2. Acute encephalopathy due to UTI 3. Recurrent UTI as per Urinalysis 4. H/o MRSA Colonisation 5. H/o Bipolar disorder 6. Hypertension 7. Dementia 8. H/o CLAIMS SUPERVISOR shunt placement Plan : Continue current IV abx as per ID, Creatinine improved to 1.06 continue current IVF 1/2 NS at 60 cc/hr Expecting creatinine to improve with IVF BP stable ID following will follow up Consultation Date/Type/Reason Admit Date/Time Aug 15, 2016 at 15:31 Initial Consult Date 08/14/16 Type of Consultation: NEPHROLOGY Referring Provider: SHEN GAYLE MD 24 HR Interval Summary Free Text/Dictation Cr .06, other electrolytes stable Exam/Review of Systems Vital Signs Vitals Vital Signs Date Time Temp Pulse Resp B/P Pulse Ox O2 Delivery O2 Flow Rate FiO2 08/16/16 07:58 98.4 70 18 100/59 95 08/14/16 20:00 Room Air Intake and Output 08/15/16 08/15/16 08/16/16 15:00 23:00 07:00 Intake Total 100 ml 2000 ml 1520 ml Balance 100 ml 2000 ml 1520 ml Results Result Diagram: 08/16/16 0520 08/16/16 0520 Results 24 hrs Laboratory Tests Test 08/16/16 05:20 White Blood Count 6.1 Red Blood Count 3.87 L Hemoglobin 11.2 L Hematocrit 35.6 L Mean Corpuscular Volume 92.0 Mean Corpuscular Hemoglobin 28.9 L Mean Corpuscular Hemoglobin Concent 31.5 L Red Cell Distribution Width 14.8 H Platelet Count 298 Mean Platelet Volume 10.3 Neutrophils % 62.8 Lymphocytes % 20.1 Monocytes % 6.4 Eosinophils % 9.4 H Basophils % 1.0 Nucleated Red Blood Cells % 0.0 Neutrophils # 3.8 Lymphocytes # 1.2 Monocytes # 0.4 Eosinophils # 0.6 H Basophils # 0.1 Nucleated Red Blood Cells # 0.0 Sodium Level 137 Potassium Level 4.8 Chloride Level 101 Carbon Dioxide Level 26 Anion Gap 15 Blood Urea Nitrogen 35 H Creatinine 1.06 H Glucose Level 105 Calcium Level 9.5 Valproic Acid (Depakene) Level 27 L Medications Medications Current Medications Acetaminophen (Tylenol Tab) 650 mg Q4H PRN PO PAIN AND OR ELEVATED TEMP; Start 08/13/16 at 17:30 Albuterol (Proventil 0.083% (Neb)) 2.5 mg Q6H PRN NEB WHEEZING AND SOB; Start 08/13/16 at 17:30 Ascorbic Acid (Vitamin C) 500 mg DAILY PO Last administered on 08/16/16 08:20; Admin Dose 500 MG; Start 08/14/16 at 09:00 Aspirin (Aspirin) 81 mg DAILY PO Last administered on 08/16/16 08:20; Admin Dose 81 MG; Start 08/14/16 at 09:00 Bisacodyl (Dulcolax Supp) 10 mg DAILY PRN [place] CONSTIPATION; Start 08/13/16 at 17: 30 Clonazepam (Klonopin) 0.25 mg BID PRN PO ANXIETY Last administered on 08/14/16 16:52; Admin Dose 0.25 MG; Start 08/13/16 at 17:30 Divalproex Sodium (Depakote Sprinkle) 250 mg BID PO Last administered on 08:20; Admin Dose 250 MG; Start 08/13/16 at 21:00 Docusate Sodium (Colace) 200 mg HS PO Last administered on 08/15/16 21:30; Admin Dose 200 MG; Start 08/13/16 at 21:00 Ferrous Sulfate (Ferrous Sulfate (Ec)) 325 mg BID PO Last administered on 08:19; Admin Dose 325 MG; Start 08/13/16 at 21:00 Oxcarbazepine (Trileptal) 300 mg BID PO Last administered on 08/16/16 08:20; Admin Dose 300 MG; Start 08/13/16 at 21:00 Ondansetron HCl (Zofran Inj) 4 mg Q6H PRN IV NAUSEA AND/OR VOMITING; Start 08/13 at 17:30 Enoxaparin Sodium (Lovenox) 30 mg DAILY SC Last administered on 08/16/16 08:23 ; Admin Dose 30 MG; Start 08/14/16 at 09:00 Lorazepam 0.5 mg 0.5 mg Q6H PRN PO AGITATION Last administered on 08/15/16 21: 30; Admin Dose 0.5 MG; Start 08/13/16 at 17:30 Sodium Chloride (1/2 NS) 1,000 ml @ 60 mls/hr [id number] IV Last administered on 08/16/16 10:53; Admin Dose 60 MLS/HR; Start 08/13/16 at 21:30 Fluconazole (Diflucan) 100 mg DAILY PO Last administered on 08/16/16 08:19; Admin Dose 100 MG; Start 08/14/16 at 14:00 Quetiapine Fumarate (Seroquel) 100 mg BID PO ; Start 08/16/16 at 21:00 Diphenhydramine HCl (Benadryl) 25 mg Q6H PRN IV itching Last administered on 05:50; Admin Dose 25 MG; Start 08/14/16 at 19:30 Linezolid (Zyvox) 600 mg BID PO Last administered on 08/16/16 10:53; Admin Dose 600 MG; Start 08/16/16 at 10:00 ELLYN RECINOS MD Aug 16, 2016 16:57
[2016-08-16 20:04] VITALS: BP 133/59; RESP 20
[2016-08-16] MEDS: DOCUSATE SODIUM 100 MG CAP PO SCH (22:29)
[2016-08-16] MEDS: QUETIAPINE 100 MG TAB PO SCH (22:29)
[2016-08-17 03:04] VITALS: BP 123/59; RESP 20
[2016-08-17] MEDS: SOD CHLORIDE 0.45% 1,000 ML IV SCH ×2 (05:18→08:50)
[2016-08-17 05:39] LABS: ADD SCAN DIFF NO
[2016-08-17 05:46] LABS: BASOPHIL # 0.1 10^3/ul (0.0-0.1); BASOPHILS % 0.8 % (0.0-2.0); EOSINOPHILS # 0.6 10^3/ul (0.0-0.5); EOSINOPHILS % 9.8 % (0.0-7.0); HEMATOCRIT 31.2 % (37.0-47.0); HEMOGLOBIN 10.3 g/dl (12.0-16.0); LYMPHOCYTES # 1.5 10^3/ul (0.8-2.9); LYMPHOCYTES % 23.8 % (15.0-51.0); MEAN CORPUSCULAR HEMOGLOBIN 29.7 pg (29.0-33.0); MEAN CORPUSCULAR VOLUME 89.9 fl (82.0-101.0); MEAN PLATELET VOLUME 10.3 fl (7.4-10.4); MONOCYTE # 0.5 10^3/ul (0.3-0.9); MONOCYTES % 7.7 % (0.0-11.0); NEUTROPHIL # 3.6 10^3/ul (1.6-7.5); NEUTROPHILS % 57.7 % (39.0-77.0); PLATELET COUNT 285 10^3/UL (140-415); RED BLOOD COUNT 3.47 10^6/ul (4.20-5.40); RED CELL DISTRIBUTION WIDTH 14.8 % (11.5-14.5); WHITE BLOOD COUNT 6.2 10^3/ul (4.8-10.8)
[2016-08-17 06:16] LABS: CALCIUM 9.4 mg/dl (8.4-10.2); CREATININE 1.17 mg/dl (0.44-1.00); POTASSIUM 4.5 mmol/L (3.5-5.1)
[2016-08-17 08:17] VITALS: BP 113/59; RESP 22
[2016-08-17] MEDS: ASPIRIN 81 MG TAB PO SCH (09:01)
[2016-08-17] MEDS: ASCORBIC ACID 500 MG TAB PO SCH (09:01)
[2016-08-17] MEDS: DIVALPROEX SPRINKLE 125 MG CAP PO SCH ×2 (09:02→20:56)
[2016-08-17] MEDS: OXCARBAZEPINE 300 MG TAB PO SCH ×2 (09:02→20:56)
[2016-08-17] MEDS: FERROUS SULFATE (EC) 325 MG TAB PO SCH ×2 (09:02→20:56)
[2016-08-17] MEDS: QUETIAPINE 100 MG TAB PO SCH ×2 (09:02→20:56)
[2016-08-17] MEDS: ZYVOX 600 MG TAB PO SCH ×2 (09:02→20:56)
[2016-08-17] MEDS: FLUCONAZOLE 100 MG TAB PO SCH (09:02)
[2016-08-17] MEDS: ENOXAPARIN 30 MG/0.3 ML SYG SC SCH (09:07)
--- NOTE | 2016-08-17 12:41 | CONS ---
Date/Time of Note Date/Time of Note DATE: 08/17/16 TIME: 12:40 Assessment/Plan Assessment/Plan Chief Complaint/Hosp Course No acute changes. Patient is lethargic, no fevers, looks comfortable Laboratory data: WBC 6.2 H&H 10 point and 31.2 platelets 285, no shift no balance BUN 31 creatinine 1.17 Antimicrobials: Zyvox Allergies: penicillins Invanz Merrem Physical examination: Chronically ill-appearing fragile elderly woman who is alert in no distress. Head atraumatic normocephalic, sclera nonicteric. Neck is supple, trachea midline. Chest rise symmetrical breath sounds clear, diminished basis. Heart S1-S2. Abdomen soft, bowel tones present. Extremities without cyanosis. ASSESSMENT: 1. Acute encephalopathy 2. 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 History of methicillin-resistant Staphylococcus aureus colonization. 4. Acute kidney injury. 5. Dementia. 6. Hypertension. 7. History of ventriculoperitoneal shunt placement. PLAN: Clinically stable, continue present care, antibiotics, follow recommendations of consultants Discussed with staff Problems: Consultation Date/Type/Reason Admit Date/Time Aug 15, 2016 at 15:31 Type of Consultation: ID Referring Provider: SHEN GAYLE MD Exam/Review of Systems Vital Signs Vitals Vital Signs Date Time Temp Pulse Resp B/P Pulse Ox O2 Delivery O2 Flow Rate FiO2 08/17/16 08:17 98.0 69 22 113/59 96 08/14/16 20:00 Room Air Intake and Output 08/16/16 08/16/16 08/17/16 15:00 23:00 07:00 Intake Total 1100 ml 1200 ml 840 ml Balance 1100 ml 1200 ml 840 ml Results Result Diagram: 08/17/16 0522 08/17/16 0522 Results 24 hrs Laboratory Tests Test 08/17/16 05:22 White Blood Count 6.2 Red Blood Count 3.47 L Hemoglobin 10.3 L Hematocrit 31.2 L Mean Corpuscular Volume 89.9 Mean Corpuscular Hemoglobin 29.7 Mean Corpuscular Hemoglobin Concent 33.0 Red Cell Distribution Width 14.8 H Platelet Count 285 Mean Platelet Volume 10.3 Neutrophils % 57.7 Lymphocytes % 23.8 Monocytes % 7.7 Eosinophils % 9.8 H Basophils % 0.8 Nucleated Red Blood Cells % 0.0 Neutrophils # 3.6 Lymphocytes # 1.5 Monocytes # 0.5 Eosinophils # 0.6 H Basophils # 0.1 Nucleated Red Blood Cells # 0.0 Sodium Level 139 Potassium Level 4.5 Chloride Level 100 Carbon Dioxide Level 26 Anion Gap 18 H Blood Urea Nitrogen 37 H Creatinine 1.17 H Glucose Level 99 Calcium Level 9.4 Medications Medications Current Medications Acetaminophen (Tylenol Tab) 650 mg Q4H PRN PO PAIN AND OR ELEVATED TEMP; Start 08/13/16 at 17:30 Albuterol (Proventil 0.083% (Neb)) 2.5 mg Q6H PRN NEB WHEEZING AND SOB; Start 08/13/16 at 17:30 Ascorbic Acid (Vitamin C) 500 mg DAILY PO Last administered on 08/17/16 09:01; Admin Dose 500 MG; Start 08/14/16 at 09:00 Aspirin (Aspirin) 81 mg DAILY PO Last administered on 08/17/16 09:01; Admin Dose 81 MG; Start 08/14/16 at 09:00 Bisacodyl (Dulcolax Supp) 10 mg DAILY PRN [place] CONSTIPATION; Start 08/13/16 at 17: 30 Clonazepam (Klonopin) 0.25 mg BID PRN PO ANXIETY Last administered on 08/14/16 16:52; Admin Dose 0.25 MG; Start 08/13/16 at 17:30 Divalproex Sodium (Depakote Sprinkle) 250 mg BID PO Last administered on 09:02; Admin Dose 250 MG; Start 08/13/16 at 21:00 Docusate Sodium (Colace) 200 mg HS PO Last administered on 08/16/16 22:29; Admin Dose 200 MG; Start 08/13/16 at 21:00 Ferrous Sulfate (Ferrous Sulfate (Ec)) 325 mg BID PO Last administered on 09:02; Admin Dose 325 MG; Start 08/13/16 at 21:00 Oxcarbazepine (Trileptal) 300 mg BID PO Last administered on 08/17/16 09:02; Admin Dose 300 MG; Start 08/13/16 at 21:00 Ondansetron HCl (Zofran Inj) 4 mg Q6H PRN IV NAUSEA AND/OR VOMITING; Start 08/13 at 17:30 Enoxaparin Sodium (Lovenox) 30 mg DAILY SC Last administered on 08/17/16 09:07 ; Admin Dose 30 MG; Start 08/14/16 at 09:00 Lorazepam 0.5 mg 0.5 mg Q6H PRN PO AGITATION Last administered on 08/15/16 21: 30; Admin Dose 0.5 MG; Start 08/13/16 at 17:30 Sodium Chloride (1/2 NS) 1,000 ml @ 60 mls/hr [id number] IV Last administered on 08/17/16 05:18; Admin Dose 60 MLS/HR; Start 08/13/16 at 21:30 Quetiapine Fumarate (Seroquel) 100 mg BID PO Last administered on 08/17/16 09: 02; Admin Dose 100 MG; Start 08/16/16 at 21:00 Diphenhydramine HCl (Benadryl) 25 mg Q6H PRN IV itching Last administered on 05:50; Admin Dose 25 MG; Start 08/14/16 at 19:30 Linezolid (Zyvox) 600 mg BID PO Last administered on 08/17/16 09:02; Admin Dose 600 MG; Start 08/16/16 at 10:00 ALFRED GUZMÁN NP Aug 17, 2016 12:41
--- NOTE | 2016-08-17 15:32 | PN ---
Date/Time of Note Date/Time of Note DATE: 08/17/16 TIME: 15:26 Assessment/Plan VTE Prophylaxis VTE Prophylaxis Intervention: SCD's Lines/Catheters [facility] Peripheral IV Urinary Cath still in place: No Assessment/Plan Chief Complaint/Hosp Course Patient remains hemodynamically stable, afebrile. Assessment/Plan -Recurrent VRE UTI, continue Zyvox. Dr Galvez is following in ID consultation. - Bipolar disorder with psychosis. Status post evaluation by tele-psychiatry. Continue Seroquel, VPA. - Acute metabolic encephalopathy, resolving. - Acute kidney injury, Dr. Acevedo is following in nephrology consultation - Coronary artery disease - History of hydrocephalus, status post ENGINEERING FACULTY shunt - Epilepsy, continue Trileptal. Further recommendations based on clinical course. Plan of care discussed with Dr. Felipe Problems: Exam/Review of Systems Vital Signs Vitals Vital Signs Date Time Temp Pulse Resp B/P Pulse Ox O2 Delivery O2 Flow Rate FiO2 08/17/16 08:17 98.0 69 22 113/59 96 08/14/16 20:00 Room Air Intake and Output 08/16/16 08/16/16 08/17/16 15:00 23:00 07:00 Intake Total 1100 ml 1200 ml 840 ml Balance 1100 ml 1200 ml 840 ml Exam Constitutional: alert Psych: anxiety Head: atraumatic, normocephalic ENMT: mucosa pink and moist Neck: non-tender, supple Respiratory: normal air movement Cardiovascular: nl pulses Gastrointestinal: non-tender, soft Neurological: confused Skin: nl turgor Results Result Diagram: 08/17/16 0522 08/17/16 0522 Results 24 hrs Laboratory Tests Test 08/17/16 05:22 White Blood Count 6.2 Red Blood Count 3.47 L Hemoglobin 10.3 L Hematocrit 31.2 L Mean Corpuscular Volume 89.9 Mean Corpuscular Hemoglobin 29.7 Mean Corpuscular Hemoglobin Concent 33.0 Red Cell Distribution Width 14.8 H Platelet Count 285 Mean Platelet Volume 10.3 Neutrophils % 57.7 Lymphocytes % 23.8 Monocytes % 7.7 Eosinophils % 9.8 H Basophils % 0.8 Nucleated Red Blood Cells % 0.0 Neutrophils # 3.6 Lymphocytes # 1.5 Monocytes # 0.5 Eosinophils # 0.6 H Basophils # 0.1 Nucleated Red Blood Cells # 0.0 Sodium Level 139 Potassium Level 4.5 Chloride Level 100 Carbon Dioxide Level 26 Anion Gap 18 H Blood Urea Nitrogen 37 H Creatinine 1.17 H Glucose Level 99 Calcium Level 9.4 Medications Medications Current Medications Acetaminophen (Tylenol Tab) 650 mg Q4H PRN PO PAIN AND OR ELEVATED TEMP; Start 08/13/16 at 17:30 Albuterol (Proventil 0.083% (Neb)) 2.5 mg Q6H PRN NEB WHEEZING AND SOB; Start 08/13/16 at 17:30 Ascorbic Acid (Vitamin C) 500 mg DAILY PO Last administered on 08/17/16 09:01; Admin Dose 500 MG; Start 08/14/16 at 09:00 Aspirin (Aspirin) 81 mg DAILY PO Last administered on 08/17/16 09:01; Admin Dose 81 MG; Start 08/14/16 at 09:00 Bisacodyl (Dulcolax Supp) 10 mg DAILY PRN [place] CONSTIPATION; Start 08/13/16 at 17: 30 Clonazepam (Klonopin) 0.25 mg BID PRN PO ANXIETY Last administered on 08/14/16 16:52; Admin Dose 0.25 MG; Start 08/13/16 at 17:30 Divalproex Sodium (Depakote Sprinkle) 250 mg BID PO Last administered on 09:02; Admin Dose 250 MG; Start 08/13/16 at 21:00 Docusate Sodium (Colace) 200 mg HS PO Last administered on 08/16/16 22:29; Admin Dose 200 MG; Start 08/13/16 at 21:00 Ferrous Sulfate (Ferrous Sulfate (Ec)) 325 mg BID PO Last administered on 09:02; Admin Dose 325 MG; Start 08/13/16 at 21:00 Oxcarbazepine (Trileptal) 300 mg BID PO Last administered on 08/17/16 09:02; Admin Dose 300 MG; Start 08/13/16 at 21:00 Ondansetron HCl (Zofran Inj) 4 mg Q6H PRN IV NAUSEA AND/OR VOMITING; Start 08/13 at 17:30 Enoxaparin Sodium (Lovenox) 30 mg DAILY SC Last administered on 08/17/16 09:07 ; Admin Dose 30 MG; Start 08/14/16 at 09:00 Lorazepam 0.5 mg 0.5 mg Q6H PRN PO AGITATION Last administered on 08/15/16 21: 30; Admin Dose 0.5 MG; Start 08/13/16 at 17:30 Sodium Chloride (1/2 NS) 1,000 ml @ 60 mls/hr [id number] IV Last administered on 08/17/16 05:18; Admin Dose 60 MLS/HR; Start 08/13/16 at 21:30 Quetiapine Fumarate (Seroquel) 100 mg BID PO Last administered on 08/17/16 09: 02; Admin Dose 100 MG; Start 08/16/16 at 21:00 Diphenhydramine HCl (Benadryl) 25 mg Q6H PRN IV itching Last administered on 05:50; Admin Dose 25 MG; Start 08/14/16 at 19:30 Linezolid (Zyvox) 600 mg BID PO Last administered on 08/17/16 09:02; Admin Dose 600 MG; Start 08/16/16 at 10:00 UMESH WILLETT Aug 17, 2016 15:32
--- NOTE | 2016-08-17 17:13 | CONS ---
Date/Time of Note Date/Time of Note DATE: 08/17/16 TIME: 17:10 Assessment/Plan Assessment/Plan Chief Complaint/Hosp Course Problems: Additional Assessment/Plan 1 . acute Kidney injury due to UTI and prerenal azotemia 2. Acute encephalopathy due to UTI 3. Recurrent UTI as per Urinalysis 4. H/o MRSA Colonisation 5. H/o Bipolar disorder 6. Hypertension 7. Dementia 8. 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 Plan : Continue current IV abx as per ID, Creatinine improved to 1.17 D/c IVF and encourage PO intake Expecting creatinine to improve with IVF BP stable ID following will follow up Consultation Date/Type/Reason Admit Date/Time Aug 15, 2016 at 15:31 Initial Consult Date 08/14/16 Type of Consultation: NEPHROLOGY Referring Provider: SHEN GAYLE MD 24 HR Interval Summary Free Text/Dictation doing ok, BP stable Exam/Review of Systems Vital Signs Vitals Vital Signs Date Time Temp Pulse Resp B/P Pulse Ox O2 Delivery O2 Flow Rate FiO2 08/17/16 08:17 98.0 69 22 113/59 96 08/14/16 20:00 Room Air Intake and Output 08/16/16 08/16/16 08/17/16 15:00 23:00 07:00 Intake Total 1100 ml 1200 ml 840 ml Balance 1100 ml 1200 ml 840 ml Exam Constitutional: alert, other (agitated ) Psych: no complaints Head: normocephalic Neck: non-tender, supple Respiratory: clear to auscultation, normal air movement Cardiovascular: regular rate and rhythm Gastrointestinal: non-tender, soft Musculoskeletal: nl extremities to inspection Neurological: COTTON FEEDER II-XII intact, confused Results Result Diagram: 08/17/16 0522 08/17/16 0522 Results 24 hrs Laboratory Tests Test 08/17/16 05:22 White Blood Count 6.2 Red Blood Count 3.47 L Hemoglobin 10.3 L Hematocrit 31.2 L Mean Corpuscular Volume 89.9 Mean Corpuscular Hemoglobin 29.7 Mean Corpuscular Hemoglobin Concent 33.0 Red Cell Distribution Width 14.8 H Platelet Count 285 Mean Platelet Volume 10.3 Neutrophils % 57.7 Lymphocytes % 23.8 Monocytes % 7.7 Eosinophils % 9.8 H Basophils % 0.8 Nucleated Red Blood Cells % 0.0 Neutrophils # 3.6 Lymphocytes # 1.5 Monocytes # 0.5 Eosinophils # 0.6 H Basophils # 0.1 Nucleated Red Blood Cells # 0.0 Sodium Level 139 Potassium Level 4.5 Chloride Level 100 Carbon Dioxide Level 26 Anion Gap 18 H Blood Urea Nitrogen 37 H Creatinine 1.17 H Glucose Level 99 Calcium Level 9.4 Medications Medications Current Medications Acetaminophen (Tylenol Tab) 650 mg Q4H PRN PO PAIN AND OR ELEVATED TEMP; Start 08/13/16 at 17:30 Albuterol (Proventil 0.083% (Neb)) 2.5 mg Q6H PRN NEB WHEEZING AND SOB; Start 08/13/16 at 17:30 Ascorbic Acid (Vitamin C) 500 mg DAILY PO Last administered on 08/17/16 09:01; Admin Dose 500 MG; Start 08/14/16 at 09:00 Aspirin (Aspirin) 81 mg DAILY PO Last administered on 08/17/16 09:01; Admin Dose 81 MG; Start 08/14/16 at 09:00 Bisacodyl (Dulcolax Supp) 10 mg DAILY PRN [place] CONSTIPATION; Start 08/13/16 at 17: 30 Clonazepam (Klonopin) 0.25 mg BID PRN PO ANXIETY Last administered on 08/14/16 16:52; Admin Dose 0.25 MG; Start 08/13/16 at 17:30 Divalproex Sodium (Depakote Sprinkle) 250 mg BID PO Last administered on 09:02; Admin Dose 250 MG; Start 08/13/16 at 21:00 Docusate Sodium (Colace) 200 mg HS PO Last administered on 08/16/16 22:29; Admin Dose 200 MG; Start 08/13/16 at 21:00 Ferrous Sulfate (Ferrous Sulfate (Ec)) 325 mg BID PO Last administered on 09:02; Admin Dose 325 MG; Start 08/13/16 at 21:00 Oxcarbazepine (Trileptal) 300 mg BID PO Last administered on 08/17/16 09:02; Admin Dose 300 MG; Start 08/13/16 at 21:00 Ondansetron HCl (Zofran Inj) 4 mg Q6H PRN IV NAUSEA AND/OR VOMITING; Start 08/13 at 17:30 Enoxaparin Sodium (Lovenox) 30 mg DAILY SC Last administered on 08/17/16 09:07 ; Admin Dose 30 MG; Start 08/14/16 at 09:00 Lorazepam 0.5 mg 0.5 mg Q6H PRN PO AGITATION Last administered on 08/15/16 21: 30; Admin Dose 0.5 MG; Start 08/13/16 at 17:30 Sodium Chloride (1/2 NS) 1,000 ml @ 60 mls/hr [id number] IV Last administered on 08/17/16 05:18; Admin Dose 60 MLS/HR; Start 08/13/16 at 21:30 Quetiapine Fumarate (Seroquel) 100 mg BID PO Last administered on 08/17/16 09: 02; Admin Dose 100 MG; Start 08/16/16 at 21:00 Diphenhydramine HCl (Benadryl) 25 mg Q6H PRN IV itching Last administered on 05:50; Admin Dose 25 MG; Start 08/14/16 at 19:30 Linezolid (Zyvox) 600 mg BID PO Last administered on 08/17/16 09:02; Admin Dose 600 MG; Start 08/16/16 at 10:00 ELLYN RECINOS MD Aug 17, 2016 17:13
[2016-08-17 20:35] VITALS: BP 140/61; RESP 22
[2016-08-17] MEDS: DOCUSATE SODIUM 100 MG CAP PO SCH (20:56)
[2016-08-18 02:00] VITALS: BP 133/76; PULSE 88; RESP 18
[2016-08-18 03:02] VITALS: BP 125/61; RESP 20
[2016-08-18 08:21] VITALS: BP 108/52; RESP 20
[2016-08-18] MEDS: FERROUS SULFATE (EC) 325 MG TAB PO SCH ×2 (08:40→20:50)
[2016-08-18] MEDS: OXCARBAZEPINE 300 MG TAB PO SCH ×2 (08:40→20:50)
[2016-08-18] MEDS: ASPIRIN 81 MG TAB PO SCH (08:40)
[2016-08-18] MEDS: ZYVOX 600 MG TAB PO SCH ×2 (08:40→20:50)
[2016-08-18] MEDS: DIVALPROEX SPRINKLE 125 MG CAP PO SCH ×2 (08:40→20:50)
[2016-08-18] MEDS: ASCORBIC ACID 500 MG TAB PO SCH (08:40)
[2016-08-18] MEDS: QUETIAPINE 100 MG TAB PO SCH ×2 (08:40→20:50)
[2016-08-18] MEDS: ENOXAPARIN 30 MG/0.3 ML SYG SC SCH (08:46)
[2016-08-18 09:12] LABS: ADD SCAN DIFF NO
[2016-08-18 09:16] LABS: BASOPHIL # 0.1 10^3/ul (0.0-0.1); BASOPHILS % 1.1 % (0.0-2.0); EOSINOPHILS # 0.6 10^3/ul (0.0-0.5); EOSINOPHILS % 11.2 % (0.0-7.0); HEMATOCRIT 36.1 % (37.0-47.0); HEMOGLOBIN 11.2 g/dl (12.0-16.0); LYMPHOCYTES # 1.1 10^3/ul (0.8-2.9); LYMPHOCYTES % 20.7 % (15.0-51.0); MEAN CORPUSCULAR HEMOGLOBIN 28.4 pg (29.0-33.0); MEAN CORPUSCULAR VOLUME 91.4 fl (82.0-101.0); MEAN PLATELET VOLUME 10.4 fl (7.4-10.4); MONOCYTE # 0.4 10^3/ul (0.3-0.9); MONOCYTES % 6.8 % (0.0-11.0); NEUTROPHIL # 3.3 10^3/ul (1.6-7.5); NEUTROPHILS % 59.8 % (39.0-77.0); PLATELET COUNT 303 10^3/UL (140-415); RED BLOOD COUNT 3.95 10^6/ul (4.20-5.40); RED CELL DISTRIBUTION WIDTH 15.2 % (11.5-14.5); WHITE BLOOD COUNT 5.5 10^3/ul (4.8-10.8)
[2016-08-18] MEDS: LORAZEPAM 0.5 MG TAB PO PRN (09:31)
[2016-08-18 09:39] LABS: CALCIUM 9.9 mg/dl (8.4-10.2); CREATININE 1.31 mg/dl (0.44-1.00); POTASSIUM 4.5 mmol/L (3.5-5.1)
--- NOTE | 2016-08-18 10:50 | PN ---
Date/Time of Note Date/Time of Note DATE: 08/18/16 TIME: 10:48 Assessment/Plan VTE Prophylaxis VTE Prophylaxis Intervention: other Lines/Catheters IV [facility] ([facility] Peripheral IV Urinary Cath still in place: No Assessment/Plan Chief Complaint/Hosp Course - Recurrent VRE UTI, continue Zyvox. Dr Galvez is following in ID consultation. - Bipolar disorder with psychosis. Status post evaluation by tele-psychiatry. Continue Seroquel, VPA. - Acute metabolic encephalopathy, resolving. - Acute kidney injury, Dr. 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 - Dermatitis. give hydrocortisone Problems: Subjective 24 Hr Interval Summary Free Text/Dictation Patient complain of rash around neck Exam/Review of Systems Vital Signs Vitals Vital Signs Date Time Temp Pulse Resp B/P Pulse Ox O2 Delivery O2 Flow Rate FiO2 08/18/16 08:21 97.9 74 20 108/52 96 08/18/16 02:00 Room Air Intake and Output 08/17/16 08/17/16 08/18/16 15:00 23:00 07:00 Intake Total 2815 ml 600 ml Balance 2815 ml 600 ml Exam Constitutional: well developed Head: atraumatic, normocephalic Neck: other (rash around neck, dermatitis in appearance), supple Results Result Diagram: 08/18/16 0850 08/18/16 0850 Results 24 hrs Laboratory Tests Test 08/18/16 08:50 White Blood Count 5.5 Red Blood Count 3.95 L Hemoglobin 11.2 L Hematocrit 36.1 L Mean Corpuscular Volume 91.4 Mean Corpuscular Hemoglobin 28.4 L Mean Corpuscular Hemoglobin Concent 31.0 L Red Cell Distribution Width 15.2 H Platelet Count 303 Mean Platelet Volume 10.4 Neutrophils % 59.8 Lymphocytes % 20.7 Monocytes % 6.8 Eosinophils % 11.2 H Basophils % 1.1 Nucleated Red Blood Cells % 0.0 Neutrophils # 3.3 Lymphocytes # 1.1 Monocytes # 0.4 Eosinophils # 0.6 H Basophils # 0.1 Nucleated Red Blood Cells # 0.0 Sodium Level 141 Potassium Level 4.5 Chloride Level 98 Carbon Dioxide Level 27 Anion Gap 21 H Blood Urea Nitrogen 35 H Creatinine 1.31 H Glucose Level 124 Calcium Level 9.9 Medications Medications Current Medications Acetaminophen (Tylenol Tab) 650 mg Q4H PRN PO PAIN AND OR ELEVATED TEMP; Start 08/13/16 at 17:30 Albuterol (Proventil 0.083% (Neb)) 2.5 mg Q6H PRN NEB WHEEZING AND SOB; Start 08/13/16 at 17:30 Ascorbic Acid (Vitamin C) 500 mg DAILY PO Last administered on 08/18/16 08:40; Admin Dose 500 MG; Start 08/14/16 at 09:00 Aspirin (Aspirin) 81 mg DAILY PO Last administered on 08/18/16 08:40; Admin Dose 81 MG; Start 08/14/16 at 09:00 Bisacodyl (Dulcolax Supp) 10 mg DAILY PRN [place] CONSTIPATION; Start 08/13/16 at 17: 30 Clonazepam (Klonopin) 0.25 mg BID PRN PO ANXIETY Last administered on 08/14/16 16:52; Admin Dose 0.25 MG; Start 08/13/16 at 17:30 Divalproex Sodium (Depakote Sprinkle) 250 mg BID PO Last administered on 08:40; Admin Dose 250 MG; Start 08/13/16 at 21:00 Docusate Sodium (Colace) 200 mg HS PO Last administered on 08/17/16 20:56; Admin Dose 200 MG; Start 08/13/16 at 21:00 Ferrous Sulfate (Ferrous Sulfate (Ec)) 325 mg BID PO Last administered on 08:40; Admin Dose 325 MG; Start 08/13/16 at 21:00 Oxcarbazepine (Trileptal) 300 mg BID PO Last administered on 08/18/16 08:40; Admin Dose 300 MG; Start 08/13/16 at 21:00 Ondansetron HCl (Zofran Inj) 4 mg Q6H PRN IV NAUSEA AND/OR VOMITING; Start 08/13 at 17:30 Enoxaparin Sodium (Lovenox) 30 mg DAILY SC Last administered on 08/18/16 08:46 ; Admin Dose 30 MG; Start 08/14/16 at 09:00 Lorazepam (Ativan) 0.5 mg Q6H PRN PO AGITATION Last administered on 08/18/16 09 :31; Admin Dose 0.5 MG; Start 08/13/16 at 17:30 Quetiapine Fumarate (Seroquel) 100 mg BID PO Last administered on 08/18/16 08: 40; Admin Dose 100 MG; Start 08/16/16 at 21:00 Diphenhydramine HCl (Benadryl) 25 mg Q6H PRN IV itching Last administered on 05:50; Admin Dose 25 MG; Start 08/14/16 at 19:30 Linezolid (Zyvox) 600 mg BID PO Last administered on 08/18/16 08:40; Admin Dose 600 MG; Start 08/16/16 at 10:00 JONN CHAPMAN Aug 18, 2016 10:50
--- NOTE | 2016-08-18 12:16 | CONS ---
Date/Time of Note Date/Time of Note DATE: 08/18/16 TIME: 12:15 Assessment/Plan Assessment/Plan Additional Assessment/Plan 1 . acute Kidney injury due to UTI and prerenal azotemia 2. Acute encephalopathy due to UTI 3. Recurrent UTI as per Urinalysis 4. H/o MRSA Colonisation 5. H/o Bipolar disorder 6. Hypertension 7. Dementiayy 8. 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 Plan :ay Continue current IV abx as per ID, Creatinine 1.31 today D/c IVF and encourage PO intake Expecting creatinine to improve with IVF BP stable ID following will follow up Plan of`care Dw Dr Lubna Acevedo/staff Consultation Date/Type/Reason Admit Date/Time Aug 15, 2016 at 15:31 Initial Consult Date 08/14/16 Type of Consultation: NEPHROLOGY Referring Provider: SHEN GAYLE MD 24 HR Interval Summary Free Text/Dictation afebrile, doing ok, BP stable.mood stable, dw staff Exam/Review of Systems Vital Signs Vitals Vital Signs Date Time Temp Pulse Resp B/P Pulse Ox O2 Delivery O2 Flow Rate FiO2 08/18/16 08:21 97.9 74 20 108/52 96 08/18/16 02:00 Room Air Intake and Output 08/17/16 08/17/16 08/18/16 15:00 23:00 07:00 Intake Total 2815 ml 600 ml Balance 2815 ml 600 ml Exam Constitutional: alert, well developed Psych: nl mood/affect Respiratory: clear to auscultation, normal air movement Cardiovascular: nl pulses, regular rate and rhythm Gastrointestinal: non-tender, soft Musculoskeletal: nl extremities to inspection Extremities: edema (mild edema ble noted) Neurological: confused, nl speech Results Result Diagram: 08/18/16 0850 08/18/16 0850 Results 24 hrs Laboratory Tests Test 08/18/16 08:50 White Blood Count 5.5 Red Blood Count 3.95 L Hemoglobin 11.2 L Hematocrit 36.1 L Mean Corpuscular Volume 91.4 Mean Corpuscular Hemoglobin 28.4 L Mean Corpuscular Hemoglobin Concent 31.0 L Red Cell Distribution Width 15.2 H Platelet Count 303 Mean Platelet Volume 10.4 Neutrophils % 59.8 Lymphocytes % 20.7 Monocytes % 6.8 Eosinophils % 11.2 H Basophils % 1.1 Nucleated Red Blood Cells % 0.0 Neutrophils # 3.3 Lymphocytes # 1.1 Monocytes # 0.4 Eosinophils # 0.6 H Basophils # 0.1 Nucleated Red Blood Cells # 0.0 Sodium Level 141 Potassium Level 4.5 Chloride Level 98 Carbon Dioxide Level 27 Anion Gap 21 H Blood Urea Nitrogen 35 H Creatinine 1.31 H Glucose Level 124 Calcium Level 9.9 Medications Medications Current Medications Acetaminophen (Tylenol Tab) 650 mg Q4H PRN PO PAIN AND OR ELEVATED TEMP; Start 08/13/16 at 17:30 Albuterol (Proventil 0.083% (Neb)) 2.5 mg Q6H PRN NEB WHEEZING AND SOB; Start 08/13/16 at 17:30 Ascorbic Acid (Vitamin C) 500 mg DAILY PO Last administered on 08/18/16 08:40; Admin Dose 500 MG; Start 08/14/16 at 09:00 Aspirin (Aspirin) 81 mg DAILY PO Last administered on 08/18/16 08:40; Admin Dose 81 MG; Start 08/14/16 at 09:00 Bisacodyl (Dulcolax Supp) 10 mg DAILY PRN [place] CONSTIPATION; Start 08/13/16 at 17: 30 Clonazepam (Klonopin) 0.25 mg BID PRN PO ANXIETY Last administered on 08/14/16 16:52; Admin Dose 0.25 MG; Start 08/13/16 at 17:30 Divalproex Sodium (Depakote Sprinkle) 250 mg BID PO Last administered on 08:40; Admin Dose 250 MG; Start 08/13/16 at 21:00 Docusate Sodium (Colace) 200 mg HS PO Last administered on 08/17/16 20:56; Admin Dose 200 MG; Start 08/13/16 at 21:00 Ferrous Sulfate (Ferrous Sulfate (Ec)) 325 mg BID PO Last administered on 08:40; Admin Dose 325 MG; Start 08/13/16 at 21:00 Oxcarbazepine (Trileptal) 300 mg BID PO Last administered on 08/18/16 08:40; Admin Dose 300 MG; Start 08/13/16 at 21:00 Ondansetron HCl (Zofran Inj) 4 mg Q6H PRN IV NAUSEA AND/OR VOMITING; Start 08/13 at 17:30 Enoxaparin Sodium (Lovenox) 30 mg DAILY SC Last administered on 08/18/16 08:46 ; Admin Dose 30 MG; Start 08/14/16 at 09:00 Lorazepam (Ativan) 0.5 mg Q6H PRN PO AGITATION Last administered on 08/18/16 09 :31; Admin Dose 0.5 MG; Start 08/13/16 at 17:30 Quetiapine Fumarate (Seroquel) 100 mg BID PO Last administered on 08/18/16 08: 40; Admin Dose 100 MG; Start 08/16/16 at 21:00 Diphenhydramine HCl (Benadryl) 25 mg Q6H PRN IV itching Last administered on 05:50; Admin Dose 25 MG; Start 08/14/16 at 19:30 Linezolid (Zyvox) 600 mg BID PO Last administered on 08/18/16 08:40; Admin Dose 600 MG; Start 08/16/16 at 10:00 Hydrocortisone (Hydrocortisone 1% Cr) 1 applic BID TOP ; Start 08/18/16 at 21:00 JAMES POMPA Aug 18, 2016 12:16
--- NOTE | 2016-08-18 15:55 | CONS ---
Date/Time of Note Date/Time of Note DATE: 08/18/16 TIME: 15:54 Assessment/Plan Assessment/Plan Chief Complaint/Hosp Course No acute changes. Awake, looks comfortable Antimicrobials: Zyvox Allergies: penicillins Invanz Merrem Physical examination: Chronically ill-appearing fragile elderly woman who is alert in no distress. Head atraumatic normocephalic, sclera nonicteric. Neck is supple, trachea midline. Chest rise symmetrical breath sounds clear, diminished basis. Heart S1-S2. Abdomen soft, bowel tones present. Extremities without cyanosis. ASSESSMENT: 1. 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 History of methicillin-resistant Staphylococcus aureus colonization. 4. Acute kidney injury. 5. Dementia. 6. Hypertension. 7. History of ventriculoperitoneal shunt placement. PLAN: Clinically stable, continue present care, antibiotics, follow recommendations of consultants Discussed with staff Problems: Consultation Date/Type/Reason Admit Date/Time Aug 15, 2016 at 15:31 Type of Consultation: Infectious disease Referring Provider: SHEN GAYLE MD Exam/Review of Systems Vital Signs Vitals Vital Signs Date Time Temp Pulse Resp B/P Pulse Ox O2 Delivery O2 Flow Rate FiO2 08/18/16 08:21 97.9 74 20 108/52 96 08/18/16 02:00 Room Air Intake and Output 08/17/16 08/17/16 08/18/16 15:00 23:00 07:00 Intake Total 2815 ml 600 ml Balance 2815 ml 600 ml Results Result Diagram: 08/18/16 0850 08/18/16 0850 Results 24 hrs Laboratory Tests Test 08/18/16 08:50 White Blood Count 5.5 Red Blood Count 3.95 L Hemoglobin 11.2 L Hematocrit 36.1 L Mean Corpuscular Volume 91.4 Mean Corpuscular Hemoglobin 28.4 L Mean Corpuscular Hemoglobin Concent 31.0 L Red Cell Distribution Width 15.2 H Platelet Count 303 Mean Platelet Volume 10.4 Neutrophils % 59.8 Lymphocytes % 20.7 Monocytes % 6.8 Eosinophils % 11.2 H Basophils % 1.1 Nucleated Red Blood Cells % 0.0 Neutrophils # 3.3 Lymphocytes # 1.1 Monocytes # 0.4 Eosinophils # 0.6 H Basophils # 0.1 Nucleated Red Blood Cells # 0.0 Sodium Level 141 Potassium Level 4.5 Chloride Level 98 Carbon Dioxide Level 27 Anion Gap 21 H Blood Urea Nitrogen 35 H Creatinine 1.31 H Glucose Level 124 Calcium Level 9.9 Medications Medications Current Medications Acetaminophen (Tylenol Tab) 650 mg Q4H PRN PO PAIN AND OR ELEVATED TEMP; Start 08/13/16 at 17:30 Albuterol (Proventil 0.083% (Neb)) 2.5 mg Q6H PRN NEB WHEEZING AND SOB; Start 08/13/16 at 17:30 Ascorbic Acid (Vitamin C) 500 mg DAILY PO Last administered on 08/18/16 08:40; Admin Dose 500 MG; Start 08/14/16 at 09:00 Aspirin (Aspirin) 81 mg DAILY PO Last administered on 08/18/16 08:40; Admin Dose 81 MG; Start 08/14/16 at 09:00 Bisacodyl (Dulcolax Supp) 10 mg DAILY PRN [place] CONSTIPATION; Start 08/13/16 at 17: 30 Clonazepam (Klonopin) 0.25 mg BID PRN PO ANXIETY Last administered on 08/14/16 16:52; Admin Dose 0.25 MG; Start 08/13/16 at 17:30 Divalproex Sodium (Depakote Sprinkle) 250 mg BID PO Last administered on 08:40; Admin Dose 250 MG; Start 08/13/16 at 21:00 Docusate Sodium (Colace) 200 mg HS PO Last administered on 08/17/16 20:56; Admin Dose 200 MG; Start 08/13/16 at 21:00 Ferrous Sulfate (Ferrous Sulfate (Ec)) 325 mg BID PO Last administered on 08:40; Admin Dose 325 MG; Start 08/13/16 at 21:00 Oxcarbazepine (Trileptal) 300 mg BID PO Last administered on 08/18/16 08:40; Admin Dose 300 MG; Start 08/13/16 at 21:00 Ondansetron HCl (Zofran Inj) 4 mg Q6H PRN IV NAUSEA AND/OR VOMITING; Start 08/13 at 17:30 Enoxaparin Sodium (Lovenox) 30 mg DAILY SC Last administered on 08/18/16 08:46 ; Admin Dose 30 MG; Start 08/14/16 at 09:00 Lorazepam (Ativan) 0.5 mg Q6H PRN PO AGITATION Last administered on 08/18/16 09 :31; Admin Dose 0.5 MG; Start 08/13/16 at 17:30 Quetiapine Fumarate (Seroquel) 100 mg BID PO Last administered on 08/18/16 08: 40; Admin Dose 100 MG; Start 08/16/16 at 21:00 Diphenhydramine HCl (Benadryl) 25 mg Q6H PRN IV itching Last administered on 05:50; Admin Dose 25 MG; Start 08/14/16 at 19:30 Linezolid (Zyvox) 600 mg BID PO Last administered on 08/18/16 08:40; Admin Dose 600 MG; Start 08/16/16 at 10:00 Hydrocortisone (Hydrocortisone 1% Cr) 1 applic BID TOP ; Start 08/18/16 at 21:00 ALFRED GUZMÁN NP Aug 18, 2016 15:55
[2016-08-18 20:10] VITALS: BP 146/62; RESP 18
[2016-08-18] MEDS: DOCUSATE SODIUM 100 MG CAP PO SCH (20:50)
[2016-08-18] MEDS: HYDROCORTISONE 1% 28 GM CR TOP SCH (20:51)
[2016-08-19 04:11] VITALS: BP 127/56; RESP 18
[2016-08-19 08:15] VITALS: BP 121/58; RESP 18
[2016-08-19] MEDS: DIVALPROEX SPRINKLE 125 MG CAP PO SCH ×2 (08:58→20:34)
[2016-08-19] MEDS: QUETIAPINE 100 MG TAB PO SCH ×2 (08:58→20:35)
[2016-08-19] MEDS: OXCARBAZEPINE 300 MG TAB PO SCH ×2 (08:58→20:35)
[2016-08-19] MEDS: FERROUS SULFATE (EC) 325 MG TAB PO SCH ×2 (08:58→20:35)
[2016-08-19] MEDS: ASPIRIN 81 MG TAB PO SCH (08:58)
[2016-08-19] MEDS: ASCORBIC ACID 500 MG TAB PO SCH (08:58)
[2016-08-19] MEDS: ZYVOX 600 MG TAB PO SCH ×2 (09:04→20:35)
[2016-08-19] MEDS: ENOXAPARIN 30 MG/0.3 ML SYG SC SCH (09:12)
[2016-08-19] MEDS: HYDROCORTISONE 1% 28 GM CR TOP SCH ×2 (09:19→20:34)
--- NOTE | 2016-08-19 11:17 | CONS ---
Date/Time of Note Date/Time of Note DATE: 08/19/16 TIME: 11:15 Assessment/Plan Assessment/Plan Additional Assessment/Plan 1 . acute Kidney injury due to UTI and prerenal azotemia 2. Acute encephalopathy due to UTI 3. Recurrent UTI as per Urinalysis 4. H/o MRSA Colonisation 5. H/o Bipolar disorder 6. Hypertension 7. Dementia 8. 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 dw staff Constitutional: requiring IVF Exam/Review of Systems Vital Signs Vitals Vital Signs Date Time Temp Pulse Resp B/P Pulse Ox O2 Delivery O2 Flow Rate FiO2 08/19/16 08:15 97.7 75 18 121/58 96 08/18/16 02:00 Room Air Intake and Output 08/18/16 08/18/16 08/19/16 14:59 22:59 06:59 Intake Total 1040 ml 350 ml Output Total 1360 ml Balance -320 ml 350 ml Exam Constitutional: alert, well developed Respiratory: clear to auscultation, normal air movement Cardiovascular: nl pulses, regular rate and rhythm Gastrointestinal: non-tender, soft Musculoskeletal: nl extremities to inspection Extremities: normal pulses Neurological: confused, nl speech Results Result Diagram: 08/18/16 0850 08/18/16 0850 Medications Medications Current Medications Acetaminophen (Tylenol Tab) 650 mg Q4H PRN PO PAIN AND OR ELEVATED TEMP; Start 08/13/16 at 17:30 Albuterol (Proventil 0.083% (Neb)) 2.5 mg Q6H PRN NEB WHEEZING AND SOB; Start 08/13/16 at 17:30 Ascorbic Acid (Vitamin C) 500 mg DAILY PO Last administered on 08/19/16t 08:58; Admin Dose 500 MG; Start 08/14/16 at 09:00 Aspirin (Aspirin) 81 mg DAILY PO Last administered on 08/19/16 08:58; Admin Dose 81 MG; Start 08/14/16 at 09:00 Bisacodyl (Dulcolax Supp) 10 mg DAILY PRN [place] CONSTIPATION; Start 08/13/16 at 17: 30 Clonazepam (Klonopin) 0.25 mg BID PRN PO ANXIETY Last administered on 08/14/16 16:52; Admin Dose 0.25 MG; Start 08/13/16 at 17:30 Divalproex Sodium (Depakote Sprinkle) 250 mg BID PO Last administered on 08:58; Admin Dose 250 MG; Start 08/13/16 at 21:00 Docusate Sodium (Colace) 200 mg HS PO Last administered on 08/18/16 20:50; Admin Dose 200 MG; Start 08/13/16 at 21:00 Ferrous Sulfate (Ferrous Sulfate (Ec)) 325 mg BID PO Last administered on 08:58; Admin Dose 325 MG; Start 08/13/16 at 21:00 Oxcarbazepine (Trileptal) 300 mg BID PO Last administered on 08/19/16 08:58; Admin Dose 300 MG; Start 08/13/16 at 21:00 Ondansetron HCl (Zofran Inj) 4 mg Q6H PRN IV NAUSEA AND/OR VOMITING; Start 08/13 at 17:30 Enoxaparin Sodium (Lovenox) 30 mg DAILY SC Last administered on 08/19/16 09:12 ; Admin Dose 30 MG; Start 08/14/16 at 09:00 Lorazepam (Ativan) 0.5 mg Q6H PRN PO AGITATION Last administered on 08/18/16 09 :31; Admin Dose 0.5 MG; Start 08/13/16 at 17:30 Quetiapine Fumarate (Seroquel) 100 mg BID PO Last administered on 08/19/16 08: 58; Admin Dose 100 MG; Start 08/16/16 at 21:00 Diphenhydramine HCl (Benadryl) 25 mg Q6H PRN IV itching Last administered on 05:50; Admin Dose 25 MG; Start 08/14/16 at 19:30 Linezolid (Zyvox) 600 mg BID PO Last administered on 08/19/16 09:04; Admin Dose 600 MG; Start 08/16/16 at 10:00 Hydrocortisone (Hydrocortisone 1% Cr) 1 applic BID TOP Last administered on 08/19 09:19; Admin Dose 1 APPLIC; Start 08/18/16 at 21:00 JAMES POMPA Aug 19, 2016 11:17
--- NOTE | 2016-08-19 11:19 | PN ---
Date/Time of Note Date/Time of Note DATE: 08/19/16 TIME: 11:19 Assessment/Plan VTE Prophylaxis VTE Prophylaxis Intervention: other Lines/Catheters IV [facility] Urinary Cath still in place: No Assessment/Plan Chief Complaint/Hosp Course - Recurrent VRE UTI, continue Zyvox. Dr Galvez is following in ID consultation. - Bipolar disorder with psychosis. Status post evaluation by tele-psychiatry. Continue Seroquel, VPA. - Acute metabolic encephalopathy, resolving. - Acute kidney injury, Dr. Acevedo is following in nephrology consultation - Coronary artery disease - History of hydrocephalus, status post VOCATIONAL REHABILITATION ADMINISTRATOR shunt - Epilepsy, continue Trileptal. - Dermatitis. give hydrocortisone Problems: Subjective 24 Hr Interval Summary Free Text/Dictation Patient appears to be doing better Exam/Review of Systems Vital Signs Vitals Vital Signs Date Time Temp Pulse Resp B/P Pulse Ox O2 Delivery O2 Flow Rate FiO2 08/19/16 08:15 97.7 75 18 121/58 96 08/18/16 02:00 Room Air Intake and Output 08/18/16 08/18/16 08/19/16 15:00 23:00 07:00 Intake Total 1040 ml 350 ml Output Total 1360 ml Balance -320 ml 350 ml Exam Constitutional: well developed Head: atraumatic, normocephalic Neck: supple Respiratory: clear to auscultation Cardiovascular: regular rate and rhythm Gastrointestinal: non-tender, soft Extremities: normal pulses Results Result Diagram: 08/18/16 0850 08/18/16 0850 Medications Medications Current Medications Acetaminophen (Tylenol Tab) 650 mg Q4H PRN PO PAIN AND OR ELEVATED TEMP; Start 08/13/16 at 17:30 Albuterol (Proventil 0.083% (Neb)) 2.5 mg Q6H PRN NEB WHEEZING AND SOB; Start 08/13/16 at 17:30 Ascorbic Acid (Vitamin C) 500 mg DAILY PO Last administered on 08/19/16 08:58; Admin Dose 500 MG; Start 08/14/16 at 09:00 Aspirin (Aspirin) 81 mg DAILY PO Last administered on 08/19/16 08:58; Admin Dose 81 MG; Start 08/14/16 at 09:00 Bisacodyl (Dulcolax Supp) 10 mg DAILY PRN OR CONSTIPATION; Start 08/13/16 at 17: 30 Clonazepam (Klonopin) 0.25 mg BID PRN PO ANXIETY Last administered on 08/14/16 16:52; Admin Dose 0.25 MG; Start 08/13/16 at 17:30 Divalproex Sodium (Depakote Sprinkle) 250 mg BID PO Last administered on 08:58; Admin Dose 250 MG; Start 08/13/16 at 21:00 Docusate Sodium (Colace) 200 mg HS PO Last administered on 08/18/16 20:50; Admin Dose 200 MG; Start 08/13/16 at 21:00 Ferrous Sulfate (Ferrous Sulfate (Ec)) 325 mg BID PO Last administered on 08:58; Admin Dose 325 MG; Start 08/13/16 at 21:00 Oxcarbazepine (Trileptal) 300 mg BID PO Last administered on 08/19/16 08:58; Admin Dose 300 MG; Start 08/13/16 at 21:00 Ondansetron HCl (Zofran Inj) 4 mg Q6H PRN IV NAUSEA AND/OR VOMITING; Start 08/13 at 17:30 Enoxaparin Sodium (Lovenox) 30 mg DAILY SC Last administered on 08/19/16 09:12 ; Admin Dose 30 MG; Start 08/14/16 at 09:00 Lorazepam (Ativan) 0.5 mg Q6H PRN PO AGITATION Last administered on 08/18/16 09 :31; Admin Dose 0.5 MG; Start 08/13/16 at 17:30 Quetiapine Fumarate (Seroquel) 100 mg BID PO Last administered on 08/19/16 08: 58; Admin Dose 100 MG; Start 08/16/16 at 21:00 Diphenhydramine HCl (Benadryl) 25 mg Q6H PRN IV itching Last administered on 05:50; Admin Dose 25 MG; Start 08/14/16 at 19:30 Linezolid (Zyvox) 600 mg BID PO Last administered on 08/19/16 09:04; Admin Dose 600 MG; Start 08/16/16 at 10:00 Hydrocortisone (Hydrocortisone 1% Cr) 1 applic BID TOP Last administered on 08/19 09:19; Admin Dose 1 APPLIC; Start 08/18/16 at 21:00 JONN CHAPMAN Aug 19, 2016 11:19
[2016-08-19] MEDS: DIPHENHYDRAMINE 50 MG INJ IV PRN (11:37)
[2016-08-19] MEDS: LORAZEPAM 0.5 MG TAB PO PRN (11:37)
[2016-08-19] MEDS: clonAZEPAM 0.5 MG TAB PO PRN (14:49)
--- NOTE | 2016-08-19 15:34 | CONS ---
Date/Time of Note Date/Time of Note DATE: 08/19/16 TIME: 15:34 Assessment/Plan Assessment/Plan Chief Complaint/Hosp Course No acute changes. Awake, confused, looks comfortable Antimicrobials: Zyvox Allergies: penicillins Invanz Merrem Physical examination: Chronically ill-appearing fragile elderly woman who is alert in no distress. Head atraumatic normocephalic, sclera nonicteric. Neck is supple, trachea midline. Chest rise symmetrical breath sounds clear, diminished basis. Heart S1-S2. Abdomen soft, bowel tones present. Extremities without cyanosis. ASSESSMENT: 1. 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 History of methicillin-resistant Staphylococcus aureus colonization. 4. Acute kidney injury. 5. Dementia. 6. Hypertension. 7. History of ventriculoperitoneal shunt placement. PLAN: Clinically stable, continue present care, antibiotics, follow recommendations of consultants Discussed with staff Problems: Consultation Date/Type/Reason Admit Date/Time Aug 15, 2016 at 15:31 Type of Consultation: Infectious disease Referring Provider: SHEN GAYLE MD Exam/Review of Systems Vital Signs Vitals Vital Signs Date Time Temp Pulse Resp B/P Pulse Ox O2 Delivery O2 Flow Rate FiO2 08/19/16 08:15 97.7 75 18 121/58 96 08/18/16 02:00 Room Air Intake and Output 08/18/16 08/18/16 08/19/16 15:00 23:00 07:00 Intake Total 1040 ml 350 ml Output Total 1360 ml Balance -320 ml 350 ml Results Result Diagram: 08/18/16 0850 08/18/16 0850 Medications Medications Current Medications Acetaminophen (Tylenol Tab) 650 mg Q4H PRN PO PAIN AND OR ELEVATED TEMP; Start 08/13/16 at 17:30 Albuterol (Proventil 0.083% (Neb)) 2.5 mg Q6H PRN NEB WHEEZING AND SOB; Start 08/13/16 at 17:30 Ascorbic Acid (Vitamin C) 500 mg DAILY PO Last administered on 08/19/16 08:58; Admin Dose 500 MG; Start 08/14/16 at 09:00 Aspirin (Aspirin) 81 mg DAILY PO Last administered on 08/19/16 08:58; Admin Dose 81 MG; Start 08/14/16 at 09:00 Bisacodyl (Dulcolax Supp) 10 mg DAILY PRN [place] CONSTIPATION; Start 08/13/16 at 17: 30 Clonazepam (Klonopin) 0.25 mg BID PRN PO ANXIETY Last administered on 08/19/16 14:49; Admin Dose 0.25 MG; Start 08/13/16 at 17:30 Divalproex Sodium (Depakote Sprinkle) 250 mg BID PO Last administered on 08:58; Admin Dose 250 MG; Start 08/13/16 at 21:00 Docusate Sodium (Colace) 200 mg HS PO Last administered on 08/18/16 20:50; Admin Dose 200 MG; Start 08/13/16 at 21:00 Ferrous Sulfate (Ferrous Sulfate (Ec)) 325 mg BID PO Last administered on 08:58; Admin Dose 325 MG; Start 08/13/16 at 21:00 Oxcarbazepine (Trileptal) 300 mg BID PO Last administered on 08/19/16 08:58; Admin Dose 300 MG; Start 08/13/16 at 21:00 Ondansetron HCl (Zofran Inj) 4 mg Q6H PRN IV NAUSEA AND/OR VOMITING; Start 08/13 at 17:30 Enoxaparin Sodium (Lovenox) 30 mg DAILY SC Last administered on 08/19/16 09:12 ; Admin Dose 30 MG; Start 08/14/16 at 09:00 Lorazepam (Ativan) 0.5 mg Q6H PRN PO AGITATION Last administered on 08/19/16 11 :37; Admin Dose 0.5 MG; Start 08/13/16 at 17:30 Quetiapine Fumarate (Seroquel) 100 mg BID PO Last administered on 08/19/16 08: 58; Admin Dose 100 MG; Start 08/16/16 at 21:00 Diphenhydramine HCl (Benadryl) 25 mg Q6H PRN IV itching Last administered on 11:37; Admin Dose 25 MG; Start 08/14/16 at 19:30 Linezolid (Zyvox) 600 mg BID PO Last administered on 08/19/16 09:04; Admin Dose 600 MG; Start 08/16/16 at 10:00 Hydrocortisone (Hydrocortisone 1% Cr) 1 applic BID TOP Last administered on 08/19t 09:19; Admin Dose 1 APPLIC; Start 08/18/16 at 21:00 ALFRED GUZMÁN NP Aug 19, 2016 15:34
[2016-08-19 20:00] VITALS: BP 129/64; RESP 20
[2016-08-19] MEDS: DOCUSATE SODIUM 100 MG CAP PO SCH (20:35)
[2016-08-20 02:00] VITALS: BP 122/58; RESP 16
[2016-08-20 08:11] VITALS: BP 128/64; RESP 20
[2016-08-20] MEDS: FERROUS SULFATE (EC) 325 MG TAB PO SCH ×2 (09:26→21:12)
[2016-08-20] MEDS: QUETIAPINE 100 MG TAB PO SCH ×2 (09:26→21:13)
[2016-08-20] MEDS: ASCORBIC ACID 500 MG TAB PO SCH (09:26)
[2016-08-20] MEDS: ZYVOX 600 MG TAB PO SCH ×2 (09:26→21:13)
[2016-08-20] MEDS: ASPIRIN 81 MG TAB PO SCH (09:27)
[2016-08-20] MEDS: OXCARBAZEPINE 300 MG TAB PO SCH ×2 (09:27→21:13)
[2016-08-20] MEDS: DIVALPROEX SPRINKLE 125 MG CAP PO SCH ×2 (09:27→21:13)
[2016-08-20] MEDS: ENOXAPARIN 30 MG/0.3 ML SYG SC SCH (09:44)
--- NOTE | 2016-08-20 13:12 | CONS ---
Date/Time of Note Date/Time of Note DATE: 08/20/16 TIME: 13:12 Assessment/Plan Assessment/Plan Chief Complaint/Hosp Course No acute changes. Awake, looks comfortable Antimicrobials: Zyvox Allergies: penicillins Invanz Merrem Physical examination: Chronically ill-appearing fragile elderly woman who is alert in no distress. Head atraumatic normocephalic, sclera nonicteric. Neck is supple, trachea midline. Chest rise symmetrical breath sounds clear, diminished basis. Heart S1-S2. Abdomen soft, bowel tones present. Extremities without cyanosis. ASSESSMENT: 1. 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 History of methicillin-resistant Staphylococcus aureus colonization. 4. Acute kidney injury. 5. Dementia. 6. Hypertension. 7. History of ventriculoperitoneal shunt placement. PLAN: Clinically stable, continue present care, antibiotics for 3 more days, follow recommendations of consultants Discussed with staff Problems: Consultation Date/Type/Reason Admit Date/Time Aug 15, 2016 at 15:31 Type of Consultation: Infectious disease Referring Provider: SHEN GAYLE MD Exam/Review of Systems Vital Signs Vitals Vital Signs Date Time Temp Pulse Resp B/P Pulse Ox O2 Delivery O2 Flow Rate FiO2 08/20/16 08:11 98.0 73 20 128/64 95 08/18/16 02:00 Room Air Intake and Output 08/19/16 08/19/16 08/20/16 15:00 23:00 07:00 Intake Total 800 ml 980 ml Balance 800 ml 980 ml Results Result Diagram: 08/18/16 0850 08/18/16 0850 Medications Medications Current Medications Acetaminophen (Tylenol Tab) 650 mg Q4H PRN PO PAIN AND OR ELEVATED TEMP; Start 08/13/16 at 17:30 Albuterol (Proventil 0.083% (Neb)) 2.5 mg Q6H PRN NEB WHEEZING AND SOB; Start 08/13/16 at 17:30 Ascorbic Acid (Vitamin C) 500 mg DAILY PO Last administered on 08/20/16 09:26 ; Admin Dose 500 MG; Start 08/14/16 at 09:00 Aspirin (Aspirin) 81 mg DAILY PO Last administered on 08/20/16 09:27; Admin Dose 81 MG; Start 08/14/16 at 09:00 Bisacodyl (Dulcolax Supp) 10 mg DAILY PRN [place] CONSTIPATION; Start 08/13/16 at 17: 30 Clonazepam (Klonopin) 0.25 mg BID PRN PO ANXIETY Last administered on 08/19/16 14:49; Admin Dose 0.25 MG; Start 08/13/16 at 17:30 Divalproex Sodium (Depakote Sprinkle) 250 mg BID PO Last administered on 09:27; Admin Dose 250 MG; Start 08/13/16 at 21:00 Docusate Sodium (Colace) 200 mg HS PO Last administered on 08/19/16 20:35; Admin Dose 200 MG; Start 08/13/16 at 21:00 Ferrous Sulfate (Ferrous Sulfate (Ec)) 325 mg BID PO Last administered on 09:26; Admin Dose 325 MG; Start 08/13/16 at 21:00 Oxcarbazepine (Trileptal) 300 mg BID PO Last administered on 08/20/16 09:27; Admin Dose 300 MG; Start 08/13/16 at 21:00 Ondansetron HCl (Zofran Inj) 4 mg Q6H PRN IV NAUSEA AND/OR VOMITING; Start 08/13 at 17:30 Enoxaparin Sodium (Lovenox) 30 mg DAILY SC Last administered on 08/20/16 09:44 ; Admin Dose 30 MG; Start 08/14/16 at 09:00 Lorazepam (Ativan) 0.5 mg Q6H PRN PO AGITATION Last administered on 08/19/16 11 :37; Admin Dose 0.5 MG; Start 08/13/16 at 17:30 Quetiapine Fumarate (Seroquel) 100 mg BID PO Last administered on 08/20/16 09: 26; Admin Dose 100 MG; Start 08/16/16 at 21:00 Diphenhydramine HCl (Benadryl) 25 mg Q6H PRN IV itching Last administered on 11:37; Admin Dose 25 MG; Start 08/14/16 at 19:30 Linezolid (Zyvox) 600 mg BID PO Last administered on 08/20/16 09:26; Admin Dose 600 MG; Start 08/16/16 at 10:00 Hydrocortisone (Hydrocortisone 1% Cr) 1 applic BID TOP Last administered on 08/19t 20:34; Admin Dose 1 APPLIC; Start 08/18/16 at 21:00 ALFRED GUZMÁN NP Aug 20, 2016 13:12
--- NOTE | 2016-08-20 13:16 | CONS ---
Date/Time of Note Date/Time of Note DATE: 08/20/16 TIME: 13:09 Assessment/Plan Assessment/Plan Additional Assessment/Plan 1 . acute Kidney injury due to UTI and prerenal azotemia -Cr 1.31 - UO 1.3 2. Acute encephalopathy due to UTI 3. Recurrent UTI as per Urinalysis 4. H/o MRSA Colonisation 5. H/o Bipolar disorder 6. Hypertension 7. 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 Plan : Continue current IV abx as per ID D/c IVF and encourage PO intake Expecting creatinine to improve with IVF BP stable ID following will follow up Plan of care MAR Acevedo/staff Consultation Date/Type/Reason Admit Date/Time Aug 15, 2016 at 15:31 Initial Consult Date 08/14/16 Type of Consultation: Infectious disease Referring Provider: SHEN GAYLE MD 24 HR Interval Summary Free Text/Dictation afebrile, confused, agitated, mar staff Constitutional: requiring O2 Exam/Review of Systems Vital Signs Vitals Vital Signs Date Time Temp Pulse Resp B/P Pulse Ox O2 Delivery O2 Flow Rate FiO2 08/20/16 08:11 98.0 73 20 128/64 95 08/18/16 02:00 Room Air Intake and Output 08/19/16 08/19/16 08/20/16 15:00 23:00 07:00 Intake Total 800 ml 980 ml Balance 800 ml 980 ml Exam Constitutional: alert, well developed Respiratory: clear to auscultation, normal air movement Cardiovascular: nl pulses, regular rate and rhythm Gastrointestinal: non-tender, soft Musculoskeletal: nl extremities to inspection Extremities: normal pulses Neurological: confused, nl speech Results Result Diagram: 08/18/16 0850 08/18/16 0850 Medications Medications Current Medications Acetaminophen (Tylenol Tab) 650 mg Q4H PRN PO PAIN AND OR ELEVATED TEMP; Start 08/13/16 at 17:30 Albuterol (Proventil 0.083% (Neb)) 2.5 mg Q6H PRN NEB WHEEZING AND SOB; Start 08/13/16 at 17:30 Ascorbic Acid (Vitamin C) 500 mg DAILY PO Last administered on 08/20/16 09:26 ; Admin Dose 500 MG; Start 08/14/16 at 09:00 Aspirin (Aspirin) 81 mg DAILY PO Last administered on 08/20/16 09:27; Admin Dose 81 MG; Start 08/14/16 at 09:00 Bisacodyl (Dulcolax Supp) 10 mg DAILY PRN [place] CONSTIPATION; Start 08/13/16 at 17: 30 Clonazepam (Klonopin) 0.25 mg BID PRN PO ANXIETY Last administered on 08/19/16 14:49; Admin Dose 0.25 MG; Start 08/13/16 at 17:30 Divalproex Sodium (Depakote Sprinkle) 250 mg BID PO Last administered on 09:27; Admin Dose 250 MG; Start 08/13/16 at 21:00 Docusate Sodium (Colace) 200 mg HS PO Last administered on 08/19/16 20:35; Admin Dose 200 MG; Start 08/13/16 at 21:00 Ferrous Sulfate (Ferrous Sulfate (Ec)) 325 mg BID PO Last administered on 09:26; Admin Dose 325 MG; Start 08/13/16 at 21:00 Oxcarbazepine (Trileptal) 300 mg BID PO Last administered on 08/20/16 09:27; Admin Dose 300 MG; Start 08/13/16 at 21:00 Ondansetron HCl (Zofran Inj) 4 mg Q6H PRN IV NAUSEA AND/OR VOMITING; Start 08/13 at 17:30 Enoxaparin Sodium (Lovenox) 30 mg DAILY SC Last administered on 08/20/16 09:44 ; Admin Dose 30 MG; Start 08/14/16 at 09:00 Lorazepam (Ativan) 0.5 mg Q6H PRN PO AGITATION Last administered on 08/19/16 11 :37; Admin Dose 0.5 MG; Start 08/13/16 at 17:30 Quetiapine Fumarate (Seroquel) 100 mg BID PO Last administered on 08/20/16 09: 26; Admin Dose 100 MG; Start 08/16/16 at 21:00 Diphenhydramine HCl (Benadryl) 25 mg Q6H PRN IV itching Last administered on 11:37; Admin Dose 25 MG; Start 08/14/16 at 19:30 Linezolid (Zyvox) 600 mg BID PO Last administered on 08/20/16 09:26; Admin Dose 600 MG; Start 08/16/16 at 10:00 Hydrocortisone (Hydrocortisone 1% Cr) 1 applic BID TOP Last administered on 08/19 20:34; Admin Dose 1 APPLIC; Start 08/18/16 at 21:00 JAMES POMPA Aug 20, 2016 13:16
[2016-08-20 15:11] VITALS: BP 116/55; PULSE 85; RESP 18
[2016-08-20] MEDS: HYDROCORTISONE 1% 28 GM CR TOP SCH ×2 (15:11→21:13)
--- NOTE | 2016-08-20 18:42 | PN ---
Date/Time of Note Date/Time of Note DATE: 08/20/16 TIME: 18:39 Assessment/Plan VTE Prophylaxis VTE Prophylaxis Intervention: SCD's Lines/Catheters IV Catheter Type (from [facility]): Saline Lock Urinary Cath still in place: No Assessment/Plan Chief Complaint/Hosp Course No acute events overnight, patient looks comfortable with intermittent episodes of agitation. Assessment/Plan - Recurrent VRE UTI, continue Zyvox. Dr Galvez is following in ID consultation. - Bipolar disorder with psychosis. Status post evaluation by tele-psychiatry. Continue Seroquel, VPA. - Acute metabolic encephalopathy, resolving. - Acute kidney injury, Dr. Acevedo is following in nephrology consultation - Coronary artery disease - History of hydrocephalus, status post DR[employer] SAF[employer] SCIENTIST shunt - Epilepsy, continue Trileptal. Further recommendations based on clinical course. Plan of care discussed with Dr. Felipe Problems: Exam/Review of Systems Vital Signs Vitals Vital Signs Date Time Temp Pulse Resp B/P Pulse Ox O2 Delivery O2 Flow Rate FiO2 08/20/16 15:11 97.7 85 18 116/55 93 Room Air Intake and Output 08/19/16 08/19/16 08/20/16 15:00 23:00 07:00 Intake Total 800 ml 980 ml Balance 800 ml 980 ml Exam Constitutional: alert Psych: anxiety Head: atraumatic, normocephalic ENMT: mucosa pink and moist Neck: non-tender, supple Respiratory: normal air movement Cardiovascular: nl pulses Gastrointestinal: non-tender, soft Neurological: confused Skin: nl turgor Results Result Diagram: 08/18/16 0850 08/18/16 0850 Medications Medications Current Medications Acetaminophen (Tylenol Tab) 650 mg Q4H PRN PO PAIN AND OR ELEVATED TEMP; Start 08/13/16 at 17:30 Albuterol (Proventil 0.083% (Neb)) 2.5 mg Q6H PRN NEB WHEEZING AND SOB; Start 08/13/16 at 17:30 Ascorbic Acid (Vitamin C) 500 mg DAILY PO Last administered on 08/20/16 09:26 ; Admin Dose 500 MG; Start 08/14/16 at 09:00 Aspirin (Aspirin) 81 mg DAILY PO Last administered on 08/20/16 09:27; Admin Dose 81 MG; Start 08/14/16 at 09:00 Bisacodyl (Dulcolax Supp) 10 mg DAILY PRN [place] CONSTIPATION; Start 08/13/16 at 17: 30 Clonazepam (Klonopin) 0.25 mg BID PRN PO ANXIETY Last administered on 08/19/16 14:49; Admin Dose 0.25 MG; Start 08/13/16 at 17:30 Divalproex Sodium (Depakote Sprinkle) 250 mg BID PO Last administered on 09:27; Admin Dose 250 MG; Start 08/13/16 at 21:00 Docusate Sodium (Colace) 200 mg HS PO Last administered on 08/19/16 20:35; Admin Dose 200 MG; Start 08/13/16 at 21:00 Ferrous Sulfate (Ferrous Sulfate (Ec)) 325 mg BID PO Last administered on 09:26; Admin Dose 325 MG; Start 08/13/16 at 21:00 Oxcarbazepine (Trileptal) 300 mg BID PO Last administered on 08/20/16 09:27; Admin Dose 300 MG; Start 08/13/16 at 21:00 Ondansetron HCl (Zofran Inj) 4 mg Q6H PRN IV NAUSEA AND/OR VOMITING; Start 08/13 at 17:30 Enoxaparin Sodium (Lovenox) 30 mg DAILY SC Last administered on 08/20/16 09:44 ; Admin Dose 30 MG; Start 08/14/16 at 09:00 Lorazepam (Ativan) 0.5 mg Q6H PRN PO AGITATION Last administered on 08/19/16 11 :37; Admin Dose 0.5 MG; Start 08/13/16 at 17:30 Quetiapine Fumarate (Seroquel) 100 mg BID PO Last administered on 08/20/16 09: 26; Admin Dose 100 MG; Start 08/16/16 at 21:00 Diphenhydramine HCl (Benadryl) 25 mg Q6H PRN IV itching Last administered on 11:37; Admin Dose 25 MG; Start 08/14/16 at 19:30 Linezolid (Zyvox) 600 mg BID PO Last administered on 08/20/16 09:26; Admin Dose 600 MG; Start 08/16/16 at 10:00 Hydrocortisone (Hydrocortisone 1% Cr) 1 applic BID TOP Last administered on t 15:11; Admin Dose 1 APPLIC; Start 08/18/16 at 21:00 Nystatin (Nystatin Powder) 1 applic BID TOP ; Start 08/20/16 at 21:00 UMESH WILLETT Aug 20, 2016 18:42
[2016-08-20 20:00] VITALS: BP 136/74; RESP 18
[2016-08-20] MEDS: DOCUSATE SODIUM 100 MG CAP PO SCH (21:13)
[2016-08-20] MEDS: NYSTATIN 30 GM POWDER BTL TOP SCH (21:13)
[2016-08-20] MEDS: DIPHENHYDRAMINE 50 MG INJ IV PRN (23:59)
[2016-08-21 02:24] VITALS: BP 125/61; RESP 16
[2016-08-21 05:54] LABS: ADD SCAN DIFF NO
[2016-08-21 05:58] LABS: BASOPHIL # 0.1 10^3/ul (0.0-0.1); EOSINOPHILS # 0.5 10^3/ul (0.0-0.5); EOSINOPHILS % 10.2 % (0.0-7.0); HEMATOCRIT 32.9 % (37.0-47.0); HEMOGLOBIN 10.4 g/dl (12.0-16.0); LYMPHOCYTES # 1.4 10^3/ul (0.8-2.9); LYMPHOCYTES % 27.8 % (15.0-51.0); MEAN CORPUSCULAR HEMOGLOBIN 29.7 pg (29.0-33.0); MEAN CORPUSCULAR HGB CONC 31.6 g/dl (32.0-37.0); MEAN PLATELET VOLUME 10.2 fl (7.4-10.4); MONOCYTE # 0.5 10^3/ul (0.3-0.9); NEUTROPHIL # 2.6 10^3/ul (1.6-7.5); NEUTROPHILS % 50.6 % (39.0-77.0); PLATELET COUNT 289 10^3/UL (140-415); RED CELL DISTRIBUTION WIDTH 15.4 % (11.5-14.5); WHITE BLOOD COUNT 5.1 10^3/ul (4.8-10.8)
[2016-08-21 06:24] LABS: CALCIUM 9.3 mg/dl (8.4-10.2); CREATININE 1.44 mg/dl (0.44-1.00); POTASSIUM 4.3 mmol/L (3.5-5.1)
[2016-08-21 08:24] VITALS: BP 125/61; RESP 18
[2016-08-21] MEDS: DIVALPROEX SPRINKLE 125 MG CAP PO SCH ×2 (09:33→20:19)
[2016-08-21] MEDS: ASPIRIN 81 MG TAB PO SCH (09:33)
[2016-08-21] MEDS: ASCORBIC ACID 500 MG TAB PO SCH (09:34)
[2016-08-21] MEDS: FERROUS SULFATE (EC) 325 MG TAB PO SCH ×2 (09:34→20:19)
[2016-08-21] MEDS: ZYVOX 600 MG TAB PO SCH ×2 (09:34→20:19)
[2016-08-21] MEDS: QUETIAPINE 100 MG TAB PO SCH ×2 (09:35→20:19)
[2016-08-21] MEDS: OXCARBAZEPINE 300 MG TAB PO SCH ×2 (09:35→20:19)
[2016-08-21] MEDS: NYSTATIN 30 GM POWDER BTL TOP SCH ×2 (09:36→20:19)
[2016-08-21] MEDS: HYDROCORTISONE 1% 28 GM CR TOP SCH ×2 (09:36→20:19)
[2016-08-21] MEDS: ENOXAPARIN 30 MG/0.3 ML SYG SC SCH (09:51)
--- NOTE | 2016-08-21 12:22 | CONS ---
Date/Time of Note Date/Time of Note DATE: 08/21/16 TIME: 12:19 Assessment/Plan Assessment/Plan Additional Assessment/Plan 1 . acute Kidney injury due to UTI and prerenal azotemia - Cr 1.4 - UO 1.3 2. Acute encephalopathy due to UTI 3. Recurrent UTI as per Urinalysis 4. H/o MRSA Colonisation 5. H/o Bipolar disorder 6. Hypertension 7. Dementia 8. H/o CCU NURSE shunt placement Plan : Continue current IV abx as per ID D/c IVF and encourage PO intake Expecting creatinine to improve with IVF BP stable ID following will follow up Plan of care MAR Acevedo/staff Consultation Date/Type/Reason Admit Date/Time Aug 15, 2016 at 15:31 Initial Consult Date 08/14/16 Type of Consultation: Infectious disease Referring Provider: SHEN GAYLE MD 24 HR Interval Summary Free Text/Dictation having Lunch. mood stable. mar staff Exam/Review of Systems Vital Signs Vitals Vital Signs Date Time Temp Pulse Resp B/P Pulse Ox O2 Delivery O2 Flow Rate FiO2 08/21/16 08:24 98.0 86 18 125/61 98 08/20/16 15:11 Room Air Intake and Output 08/20/16 08/20/16 08/21/16 15:00 23:00 07:00 Intake Total 1040 ml Balance 1040 ml Exam Constitutional: alert, well developed Cardiovascular: nl pulses, regular rate and rhythm Gastrointestinal: non-tender, soft Neurological: confused, nl speech Results Result Diagram: 08/21/16 0535 08/21/16 0535 Results 24 hrs Laboratory Tests Test 08/21/16 05:35 White Blood Count 5.1 Red Blood Count 3.50 L Hemoglobin 10.4 L Hematocrit 32.9 L Mean Corpuscular Volume 94.0 Mean Corpuscular Hemoglobin 29.7 Mean Corpuscular Hemoglobin Concent 31.6 L Red Cell Distribution Width 15.4 H Platelet Count 289 Mean Platelet Volume 10.2 Neutrophils % 50.6 Lymphocytes % 27.8 Monocytes % 10.0 Eosinophils % 10.2 H Basophils % 1.0 Nucleated Red Blood Cells % 0.0 Neutrophils # 2.6 Lymphocytes # 1.4 Monocytes # 0.5 Eosinophils # 0.5 Basophils # 0.1 Nucleated Red Blood Cells # 0.0 Sodium Level 137 Potassium Level 4.3 Chloride Level 106 Carbon Dioxide Level 23 Anion Gap 12 Blood Urea Nitrogen 47 H Creatinine 1.44 H Glucose Level 106 Calcium Level 9.3 Medications Medications Current Medications Acetaminophen (Tylenol Tab) 650 mg Q4H PRN PO PAIN AND OR ELEVATED TEMP; Start 08/13/16 at 17:30 Albuterol (Proventil 0.083% (Neb)) 2.5 mg Q6H PRN NEB WHEEZING AND SOB; Start 08/13/16 at 17:30 Ascorbic Acid (Vitamin C) 500 mg DAILY PO Last administered on 08/21/16 09:34 ; Admin Dose 500 MG; Start 08/14/16 at 09:00 Aspirin (Aspirin) 81 mg DAILY PO Last administered on 08/21/16 09:33; Admin Dose 81 MG; Start 08/14/16 at 09:00 Bisacodyl (Dulcolax Supp) 10 mg DAILY PRN [place] CONSTIPATION; Start 08/13/16 at 17: 30 Clonazepam (Klonopin) 0.25 mg BID PRN PO ANXIETY Last administered on 08/19/16 14:49; Admin Dose 0.25 MG; Start 08/13/16 at 17:30 Divalproex Sodium (Depakote Sprinkle) 250 mg BID PO Last administered on 09:33; Admin Dose 250 MG; Start 08/13/16 at 21:00 Docusate Sodium (Colace) 200 mg HS PO Last administered on 08/20/16 21:13; Admin Dose 200 MG; Start 08/13/16 at 21:00 Ferrous Sulfate (Ferrous Sulfate (Ec)) 325 mg BID PO Last administered on 09:34; Admin Dose 325 MG; Start 08/13/16 at 21:00 Oxcarbazepine (Trileptal) 300 mg BID PO Last administered on 08/21/16 09:35; Admin Dose 300 MG; Start 08/13/16 at 21:00 Ondansetron HCl (Zofran Inj) 4 mg Q6H PRN IV NAUSEA AND/OR VOMITING; Start 08/13 at 17:30 Enoxaparin Sodium (Lovenox) 30 mg DAILY SC Last administered on 08/21/16 09:51 ; Admin Dose 30 MG; Start 08/14/16 at 09:00 Lorazepam (Ativan) 0.5 mg Q6H PRN PO AGITATION Last administered on 08/19/16 11 :37; Admin Dose 0.5 MG; Start 08/13/16 at 17:30 Quetiapine Fumarate (Seroquel) 100 mg BID PO Last administered on 08/21/16 09: 35; Admin Dose 100 MG; Start 08/16/16 at 21:00 Diphenhydramine HCl (Benadryl) 25 mg Q6H PRN IV itching Last administered on 23:59; Admin Dose 25 MG; Start 08/14/16 at 19:30 Linezolid (Zyvox) 600 mg BID PO Last administered on 08/21/16 09:34; Admin Dose 600 MG; Start 08/16/16 at 10:00 Hydrocortisone (Hydrocortisone 1% Cr) 1 applic BID TOP Last administered on 09:36; Admin Dose 1 APPLIC; Start 08/18/16 at 21:00 Nystatin (Nystatin Powder) 1 applic BID TOP Last administered on 08/21/16 09: 36; Admin Dose 1 APPLIC; Start 08/20/16 at 21:00 JAMES POMPA Aug 21, 2016 12:22
--- NOTE | 2016-08-21 13:20 | CONS ---
Date/Time of Note Date/Time of Note DATE: 08/21/16 TIME: 13:17 Assessment/Plan Assessment/Plan Chief Complaint/Hosp Course No acute changes. Awake, looks comfortable Antimicrobials: Zyvox Allergies: penicillins Invanz Merrem Physical examination: Chronically ill-appearing fragile elderly woman who is alert in no distress. Head atraumatic normocephalic, sclera nonicteric. Neck is supple, trachea midline. Chest rise symmetrical breath sounds clear, diminished basis. Heart S1-S2. Abdomen soft, bowel tones present. Extremities without cyanosis. ASSESSMENT: 1. 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 History of methicillin-resistant Staphylococcus aureus colonization. 4. Acute kidney injury. 5. Dementia. 6. Hypertension. 7. History of ventriculoperitoneal shunt placement. PLAN: Clinically stable, continue present care, antibiotics for2 more days, follow recommendations of consultants Discussed with staff Problems: Consultation Date/Type/Reason Admit Date/Time Aug 15, 2016 at 15:31 Type of Consultation: Infectious disease Referring Provider: SHEN GAYLE MD Exam/Review of Systems Vital Signs Vitals Vital Signs Date Time Temp Pulse Resp B/P Pulse Ox O2 Delivery O2 Flow Rate FiO2 08/21/16 08:24 98.0 86 18 125/61 98 08/20/16 15:11 Room Air Intake and Output 08/20/16 08/20/16 08/21/16 15:00 23:00 07:00 Intake Total 1040 ml Balance 1040 ml Results Result Diagram: 08/21/16 0535 08/21/16 0535 Results 24 hrs Laboratory Tests Test 08/21/16 05:35 White Blood Count 5.1 Red Blood Count 3.50 L Hemoglobin 10.4 L Hematocrit 32.9 L Mean Corpuscular Volume 94.0 Mean Corpuscular Hemoglobin 29.7 Mean Corpuscular Hemoglobin Concent 31.6 L Red Cell Distribution Width 15.4 H Platelet Count 289 Mean Platelet Volume 10.2 Neutrophils % 50.6 Lymphocytes % 27.8 Monocytes % 10.0 Eosinophils % 10.2 H Basophils % 1.0 Nucleated Red Blood Cells % 0.0 Neutrophils # 2.6 Lymphocytes # 1.4 Monocytes # 0.5 Eosinophils # 0.5 Basophils # 0.1 Nucleated Red Blood Cells # 0.0 Sodium Level 137 Potassium Level 4.3 Chloride Level 106 Carbon Dioxide Level 23 Anion Gap 12 Blood Urea Nitrogen 47 H Creatinine 1.44 H Glucose Level 106 Calcium Level 9.3 Medications Medications Current Medications Acetaminophen (Tylenol Tab) 650 mg Q4H PRN PO PAIN AND OR ELEVATED TEMP; Start 08/13/16 at 17:30 Albuterol (Proventil 0.083% (Neb)) 2.5 mg Q6H PRN NEB WHEEZING AND SOB; Start 08/13/16 at 17:30 Ascorbic Acid (Vitamin C) 500 mg DAILY PO Last administered on 08/21/16 09:34 ; Admin Dose 500 MG; Start 08/14/16 at 09:00 Aspirin (Aspirin) 81 mg DAILY PO Last administered on 08/21/16 09:33; Admin Dose 81 MG; Start 08/14/16 at 09:00 Bisacodyl (Dulcolax Supp) 10 mg DAILY PRN [place] CONSTIPATION; Start 08/13/16 at 17: 30 Clonazepam (Klonopin) 0.25 mg BID PRN PO ANXIETY Last administered on 08/19/16 14:49; Admin Dose 0.25 MG; Start 08/13/16 at 17:30 Divalproex Sodium (Depakote Sprinkle) 250 mg BID PO Last administered on 09:33; Admin Dose 250 MG; Start 08/13/16 at 21:00 Docusate Sodium (Colace) 200 mg HS PO Last administered on 08/20/16 21:13; Admin Dose 200 MG; Start 08/13/16 at 21:00 Ferrous Sulfate (Ferrous Sulfate (Ec)) 325 mg BID PO Last administered on 09:34; Admin Dose 325 MG; Start 08/13/16 at 21:00 Oxcarbazepine (Trileptal) 300 mg BID PO Last administered on 08/21/16 09:35; Admin Dose 300 MG; Start 08/13/16 at 21:00 Ondansetron HCl (Zofran Inj) 4 mg Q6H PRN IV NAUSEA AND/OR VOMITING; Start 08/13 at 17:30 Enoxaparin Sodium (Lovenox) 30 mg DAILY SC Last administered on 08/21/16 09:51 ; Admin Dose 30 MG; Start 08/14/16 at 09:00 Lorazepam (Ativan) 0.5 mg Q6H PRN PO AGITATION Last administered on 08/19/16 11 :37; Admin Dose 0.5 MG; Start 08/13/16 at 17:30 Quetiapine Fumarate (Seroquel) 100 mg BID PO Last administered on 08/21/16 09: 35; Admin Dose 100 MG; Start 08/16/16 at 21:00 Diphenhydramine HCl (Benadryl) 25 mg Q6H PRN IV itching Last administered on 23:59; Admin Dose 25 MG; Start 08/14/16 at 19:30 Linezolid (Zyvox) 600 mg BID PO Last administered on 08/21/16 09:34; Admin Dose 600 MG; Start 08/16/16 at 10:00 Hydrocortisone (Hydrocortisone 1% Cr) 1 applic BID TOP Last administered on 09:36; Admin Dose 1 APPLIC; Start 08/18/16 at 21:00 Nystatin (Nystatin Powder) 1 applic BID TOP Last administered on 08/21/16 09: 36; Admin Dose 1 APPLIC; Start 08/20/16 at 21:00 ALFRED GUZMÁN NP Aug 21, 2016 13:20
--- NOTE | 2016-08-21 15:18 | PN ---
Date/Time of Note Date/Time of Note DATE: 08/21/16 TIME: 15:05 Assessment/Plan VTE Prophylaxis VTE Prophylaxis Intervention: SCD's Lines/Catheters IV [facility]ter Type (from [facility] Saline Lock Urinary Cath still in place: No Assessment/Plan Chief Complaint/Hosp Course Patient remains hemodynamically stable, no acute events overnight. Creatinine increased to 1.44, continue fluids, continue to monitor BUN and creatinine. Assessment/Plan - Recurrent VRE UTI, continue Zyvox. Dr Galvez is following in ID consultation. - Bipolar disorder with psychosis. Status post evaluation by tele-psychiatry. Continue Seroquel, VPA. - Acute metabolic encephalopathy, resolving. - Acute kidney injury, Dr. Acevedo is following in nephrology consultation - Coronary artery disease - History of hydrocephalus, status post M[employer] shunt - Epilepsy, continue Trileptal. Further recommendations based on clinical course. Plan of care discussed with Dr. Felipe Problems: Exam/Review of Systems Vital Signs Vitals Vital Signs Date Time Temp Pulse Resp B/P Pulse Ox O2 Delivery O2 Flow Rate FiO2 08/21/16 08:24 98.0 86 18 125/61 98 08/20/16 15:11 Room Air Intake and Output 08/20/16 08/20/16 08/21/16 15:00 23:00 07:00 Intake Total 1040 ml Balance 1040 ml Exam Constitutional: alert Psych: anxiety Head: atraumatic, normocephalic ENMT: mucosa pink and moist Neck: non-tender, supple Respiratory: normal air movement Cardiovascular: nl pulses Gastrointestinal: non-tender, soft Neurological: confused Skin: nl turgor Results Result Diagram: 08/21/16 0535 08/21/16 0535 Results 24 hrs Laboratory Tests Test 08/21/16 05:35 White Blood Count 5.1 Red Blood Count 3.50 L Hemoglobin 10.4 L Hematocrit 32.9 L Mean Corpuscular Volume 94.0 Mean Corpuscular Hemoglobin 29.7 Mean Corpuscular Hemoglobin Concent 31.6 L Red Cell Distribution Width 15.4 H Platelet Count 289 Mean Platelet Volume 10.2 Neutrophils % 50.6 Lymphocytes % 27.8 Monocytes % 10.0 Eosinophils % 10.2 H Basophils % 1.0 Nucleated Red Blood Cells % 0.0 Neutrophils # 2.6 Lymphocytes # 1.4 Monocytes # 0.5 Eosinophils # 0.5 Basophils # 0.1 Nucleated Red Blood Cells # 0.0 Sodium Level 137 Potassium Level 4.3 Chloride Level 106 Carbon Dioxide Level 23 Anion Gap 12 Blood Urea Nitrogen 47 H Creatinine 1.44 H Glucose Level 106 Calcium Level 9.3 Medications Medications Current Medications Acetaminophen (Tylenol Tab) 650 mg Q4H PRN PO PAIN AND OR ELEVATED TEMP; Start 08/13/16 at 17:30 Albuterol (Proventil 0.083% (Neb)) 2.5 mg Q6H PRN NEB WHEEZING AND SOB; Start 08/13/16 at 17:30 Ascorbic Acid (Vitamin C) 500 mg DAILY PO Last administered on 08/21/16 09:34 ; Admin Dose 500 MG; Start 08/14/16 at 09:00 Aspirin (Aspirin) 81 mg DAILY PO Last administered on 08/21/16 09:33; Admin Dose 81 MG; Start 08/14/16 at 09:00 Bisacodyl (Dulcolax Supp) 10 mg DAILY PRN [place] CONSTIPATION; Start 08/13/16 at 17: 30 Clonazepam (Klonopin) 0.25 mg BID PRN PO ANXIETY Last administered on 08/19/16 14:49; Admin Dose 0.25 MG; Start 08/13/16 at 17:30 Divalproex Sodium (Depakote Sprinkle) 250 mg BID PO Last administered on 09:33; Admin Dose 250 MG; Start 08/13/16 at 21:00 Docusate Sodium (Colace) 200 mg HS PO Last administered on 08/20/16 21:13; Admin Dose 200 MG; Start 08/13/16 at 21:00 Ferrous Sulfate (Ferrous Sulfate (Ec)) 325 mg BID PO Last administered on 09:34; Admin Dose 325 MG; Start 08/13/16 at 21:00 Oxcarbazepine (Trileptal) 300 mg BID PO Last administered on 08/21/16 09:35; Admin Dose 300 MG; Start 08/13/16 at 21:00 Ondansetron HCl (Zofran Inj) 4 mg Q6H PRN IV NAUSEA AND/OR VOMITING; Start 08/13 at 17:30 Enoxaparin Sodium (Lovenox) 30 mg DAILY SC Last administered on 08/21/16 09:51 ; Admin Dose 30 MG; Start 08/14/16 at 09:00 Lorazepam (Ativan) 0.5 mg Q6H PRN PO AGITATION Last administered on 08/19/16 11 :37; Admin Dose 0.5 MG; Start 08/13/16 at 17:30 Quetiapine Fumarate (Seroquel) 100 mg BID PO Last administered on 08/21/16 09: 35; Admin Dose 100 MG; Start 08/16/16 at 21:00 Diphenhydramine HCl (Benadryl) 25 mg Q6H PRN IV itching Last administered on 23:59; Admin Dose 25 MG; Start 08/14/16 at 19:30 Linezolid (Zyvox) 600 mg BID PO Last administered on 08/21/16 09:34; Admin Dose 600 MG; Start 08/16/16 at 10:00 Hydrocortisone (Hydrocortisone 1% Cr) 1 applic BID TOP Last administered on 09:36; Admin Dose 1 APPLIC; Start 08/18/16 at 21:00 Nystatin (Nystatin Powder) 1 applic BID TOP Last administered on 08/21/16 09: 36; Admin Dose 1 APPLIC; Start 08/20/16 at 21:00 UMESH WILLETT Aug 21, 2016 15:16
[2016-08-21] MEDS: DIPHENHYDRAMINE 50 MG INJ IV PRN (19:55)
[2016-08-21 19:59] VITALS: BP 118/62; RESP 20
[2016-08-21] MEDS: DOCUSATE SODIUM 100 MG CAP PO SCH (20:19)
[2016-08-22] MEDS: clonAZEPAM 0.5 MG TAB PO PRN (02:03)
[2016-08-22] MEDS: DIPHENHYDRAMINE 50 MG INJ IV PRN (05:39)
[2016-08-22 06:13] LABS: ADD SCAN DIFF NO
[2016-08-22 06:20] LABS: BASOPHILS % 0.7 % (0.0-2.0); EOSINOPHILS # 0.6 10^3/ul (0.0-0.5); EOSINOPHILS % 10.7 % (0.0-7.0); HEMATOCRIT 33.9 % (37.0-47.0); HEMOGLOBIN 10.7 g/dl (12.0-16.0); LYMPHOCYTES # 1.5 10^3/ul (0.8-2.9); LYMPHOCYTES % 27.9 % (15.0-51.0); MEAN CORPUSCULAR HEMOGLOBIN 29.3 pg (29.0-33.0); MEAN CORPUSCULAR HGB CONC 31.6 g/dl (32.0-37.0); MEAN CORPUSCULAR VOLUME 92.9 fl (82.0-101.0); MONOCYTE # 0.5 10^3/ul (0.3-0.9); MONOCYTES % 8.7 % (0.0-11.0); NEUTROPHIL # 2.8 10^3/ul (1.6-7.5); NEUTROPHILS % 51.8 % (39.0-77.0); PLATELET COUNT 289 10^3/UL (140-415); RED BLOOD COUNT 3.65 10^6/ul (4.20-5.40); RED CELL DISTRIBUTION WIDTH 15.3 % (11.5-14.5); WHITE BLOOD COUNT 5.5 10^3/ul (4.8-10.8)
[2016-08-22 06:42] LABS: CALCIUM 9.6 mg/dl (8.4-10.2); CREATININE 1.42 mg/dl (0.44-1.00)
[2016-08-22 08:00] VITALS: BP 122/68; RESP 18
[2016-08-22] MEDS: ASPIRIN 81 MG TAB PO SCH (09:49)
[2016-08-22] MEDS: OXCARBAZEPINE 300 MG TAB PO SCH ×2 (09:49→21:51)
[2016-08-22] MEDS: QUETIAPINE 100 MG TAB PO SCH ×2 (09:49→21:51)
[2016-08-22] MEDS: ZYVOX 600 MG TAB PO SCH (09:50)
[2016-08-22] MEDS: DIVALPROEX SPRINKLE 125 MG CAP PO SCH ×2 (09:50→21:51)
[2016-08-22] MEDS: ASCORBIC ACID 500 MG TAB PO SCH (09:50)
[2016-08-22] MEDS: FERROUS SULFATE (EC) 325 MG TAB PO SCH ×2 (09:50→21:51)
[2016-08-22] MEDS: HYDROCORTISONE 1% 28 GM CR TOP SCH ×2 (09:51→21:51)
[2016-08-22] MEDS: NYSTATIN 30 GM POWDER BTL TOP SCH ×2 (09:51→21:51)
[2016-08-22] MEDS: ENOXAPARIN 30 MG/0.3 ML SYG SC SCH (10:00)
--- NOTE | 2016-08-22 11:48 | CONS ---
Date/Time of Note Date/Time of Note DATE: 08/22/16 TIME: 11:47 Assessment/Plan Assessment/Plan Chief Complaint/Hosp Course No acute changes. Awake, looks comfortable, denies pain discomfort Antimicrobials: Zyvox Allergies: penicillins Invanz Merrem Physical examination: Chronically ill-appearing fragile elderly woman who is alert in no distress. Head atraumatic normocephalic, sclera nonicteric. Neck is supple, trachea midline. Chest rise symmetrical breath sounds clear, diminished basis. Heart S1-S2. Abdomen soft, bowel tones present. Extremities without cyanosis. ASSESSMENT: 1. 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 History of methicillin-resistant Staphylococcus aureus colonization. 4. Acute kidney injury. 5. Dementia. 6. Hypertension. 7. History of ventriculoperitoneal shunt placement. PLAN: Clinically stable, continue present care, will discontinue antibiotics tomorrow, follow recommendations of consultants Discussed with staff Problems: Consultation Date/Type/Reason Admit Date/Time Aug 15, 2016 at 15:31 Type of Consultation: Infectious disease Referring Provider: SHEN GAYLE MD Exam/Review of Systems Vital Signs Vitals Vital Signs Date Time Temp Pulse Resp B/P Pulse Ox O2 Delivery O2 Flow Rate FiO2 08/22/16 08:00 98.2 72 18 122/68 95 08/20/16 15:11 Room Air Intake and Output 08/21/16 08/21/16 08/22/16 15:00 23:00 07:00 Intake Total 1080 ml 480 ml Balance 1080 ml 480 ml Results Result Diagram: 08/22/16 0548 08/22/16 0548 Results 24 hrs Laboratory Tests Test 08/22/16 05:48 White Blood Count 5.5 Red Blood Count 3.65 L Hemoglobin 10.7 L Hematocrit 33.9 L Mean Corpuscular Volume 92.9 Mean Corpuscular Hemoglobin 29.3 Mean Corpuscular Hemoglobin Concent 31.6 L Red Cell Distribution Width 15.3 H Platelet Count 289 Mean Platelet Volume 10.0 Neutrophils % 51.8 Lymphocytes % 27.9 Monocytes % 8.7 Eosinophils % 10.7 H Basophils % 0.7 Nucleated Red Blood Cells % 0.0 Neutrophils # 2.8 Lymphocytes # 1.5 Monocytes # 0.5 Eosinophils # 0.6 H Basophils # 0.0 Nucleated Red Blood Cells # 0.0 Sodium Level 137 Potassium Level 4.0 Chloride Level 102 Carbon Dioxide Level 26 Anion Gap 13 Blood Urea Nitrogen 43 H Creatinine 1.42 H Glucose Level 117 Calcium Level 9.6 Medications Medications Current Medications Acetaminophen (Tylenol Tab) 650 mg Q4H PRN PO PAIN AND OR ELEVATED TEMP; Start 08/13/16 at 17:30 Albuterol (Proventil 0.083% (Neb)) 2.5 mg Q6H PRN NEB WHEEZING AND SOB; Start 08/13/16 at 17:30 Ascorbic Acid (Vitamin C) 500 mg DAILY PO Last administered on 08/22/16 09:50 ; Admin Dose 500 MG; Start 08/14/16 at 09:00 Aspirin (Aspirin) 81 mg DAILY PO Last administered on 08/22/16 09:49; Admin Dose 81 MG; Start 08/14/16 at 09:00 Bisacodyl (Dulcolax Supp) 10 mg DAILY PRN [place] CONSTIPATION; Start 08/13/16 at 17: 30 Clonazepam (Klonopin) 0.25 mg BID PRN PO ANXIETY Last administered on 02:03; Admin Dose 0.25 MG; Start 08/13/16 at 17:30 Divalproex Sodium (Depakote Sprinkle) 250 mg BID PO Last administered on 09:50; Admin Dose 250 MG; Start 08/13/16 at 21:00 Docusate Sodium (Colace) 200 mg HS PO Last administered on 08/21/16 20:19; Admin Dose 200 MG; Start 08/13/16 at 21:00 Ferrous Sulfate (Ferrous Sulfate (Ec)) 325 mg BID PO Last administered on 09:50; Admin Dose 325 MG; Start 08/13/16 at 21:00 Oxcarbazepine (Trileptal) 300 mg BID PO Last administered on 08/22/16 09:49; Admin Dose 300 MG; Start 08/13/16 at 21:00 Ondansetron HCl (Zofran Inj) 4 mg Q6H PRN IV NAUSEA AND/OR VOMITING; Start 08/13 at 17:30 Enoxaparin Sodium (Lovenox) 30 mg DAILY SC Last administered on 08/22/16 10:00 ; Admin Dose 30 MG; Start 08/14/16 at 09:00 Lorazepam (Ativan) 0.5 mg Q6H PRN PO AGITATION Last administered on 08/19/16 11 :37; Admin Dose 0.5 MG; Start 08/13/16 at 17:30 Quetiapine Fumarate (Seroquel) 100 mg BID PO Last administered on 08/22/16 09: 49; Admin Dose 100 MG; Start 08/16/16 at 21:00 Diphenhydramine HCl (Benadryl) 25 mg Q6H PRN IV itching Last administered on 05:39; Admin Dose 25 MG; Start 08/14/16 at 19:30 Linezolid (Zyvox) 600 mg BID PO Last administered on 08/22/16 09:50; Admin Dose 600 MG; Start 08/16/16 at 10:00 Hydrocortisone (Hydrocortisone 1% Cr) 1 applic BID TOP Last administered on 09:51; Admin Dose 1 APPLIC; Start 08/18/16 at 21:00 Nystatin (Nystatin Powder) 1 applic BID TOP Last administered on 08/22/16 09: 51; Admin Dose 1 APPLIC; Start 08/20/16 at 21:00 ALFRED GUZMÁN NP Aug 22, 2016 11:47
--- NOTE | 2016-08-22 13:57 | CONS ---
Date/Time of Note Date/Time of Note DATE: 08/22/16 TIME: 13:55 Assessment/Plan Assessment/Plan Additional Assessment/Plan 1 . acute Kidney injury due to UTI and prerenal azotemia - Cr 1.4 - UO 1.5 2. Acute encephalopathy due to UTI 3. Recurrent UTI as per Urinalysis 4. H/o MRSA Colonisation 5. H/o Bipolar disorder 6. Hypertension 7. Dementia 8. H/o ADMINISTRATIVE TECH shunt placement Plan : Continue current IV abx as per ID D/c IVF and encourage PO intake Expecting creatinine to improve with IVF BP stable ID following will follow up Plan of care MAR Acevedo/staff Consultation Date/Type/Reason Admit Date/Time Aug 15, 2016 at 15:31 Initial Consult Date 08/14/16 Type of Consultation: Infectious disease Referring Provider: SHEN GAYLE MD 24 HR Interval Summary Constitutional: requiring IVF Exam/Review of Systems Vital Signs Vitals Vital Signs Date Time Temp Pulse Resp B/P Pulse Ox O2 Delivery O2 Flow Rate FiO2 08/22/16 08:00 98.2 72 18 122/68 95 08/20/16 15:11 Room Air Intake and Output 08/21/16 08/21/16 08/22/16 15:00 23:00 07:00 Intake Total 1080 ml 480 ml Balance 1080 ml 480 ml Exam Constitutional: alert, well developed Respiratory: clear to auscultation, normal air movement Cardiovascular: nl pulses, regular rate and rhythm Gastrointestinal: non-tender, soft Musculoskeletal: nl extremities to inspection Extremities: normal pulses Neurological: confused, nl speech Skin: nl turgor Lymph: nontender Results Result Diagram: 08/22/16 0548 08/22/16 0548 Results 24 hrs Laboratory Tests Test 08/22/16 05:48 White Blood Count 5.5 Red Blood Count 3.65 L Hemoglobin 10.7 L Hematocrit 33.9 L Mean Corpuscular Volume 92.9 Mean Corpuscular Hemoglobin 29.3 Mean Corpuscular Hemoglobin Concent 31.6 L Red Cell Distribution Width 15.3 H Platelet Count 289 Mean Platelet Volume 10.0 Neutrophils % 51.8 Lymphocytes % 27.9 Monocytes % 8.7 Eosinophils % 10.7 H Basophils % 0.7 Nucleated Red Blood Cells % 0.0 Neutrophils # 2.8 Lymphocytes # 1.5 Monocytes # 0.5 Eosinophils # 0.6 H Basophils # 0.0 Nucleated Red Blood Cells # 0.0 Sodium Level 137 Potassium Level 4.0 Chloride Level 102 Carbon Dioxide Level 26 Anion Gap 13 Blood Urea Nitrogen 43 H Creatinine 1.42 H Glucose Level 117 Calcium Level 9.6 Medications Medications Current Medications Acetaminophen (Tylenol Tab) 650 mg Q4H PRN PO PAIN AND OR ELEVATED TEMP; Start 08/13/16 at 17:30 Albuterol (Proventil 0.083% (Neb)) 2.5 mg Q6H PRN NEB WHEEZING AND SOB; Start 08/13/16 at 17:30 Ascorbic Acid (Vitamin C) 500 mg DAILY PO Last administered on 08/22/16 09:50 ; Admin Dose 500 MG; Start 08/14/16 at 09:00 Aspirin (Aspirin) 81 mg DAILY PO Last administered on 08/22/16 09:49; Admin Dose 81 MG; Start 08/14/16 at 09:00 Bisacodyl (Dulcolax Supp) 10 mg DAILY PRN [place] CONSTIPATION; Start 08/13/16 at 17: 30 Clonazepam (Klonopin) 0.25 mg BID PRN PO ANXIETY Last administered on 02:03; Admin Dose 0.25 MG; Start 08/13/16 at 17:30 Divalproex Sodium (Depakote Sprinkle) 250 mg BID PO Last administered on 09:50; Admin Dose 250 MG; Start 08/13/16 at 21:00 Docusate Sodium (Colace) 200 mg HS PO Last administered on 08/21/16 20:19; Admin Dose 200 MG; Start 08/13/16 at 21:00 Ferrous Sulfate (Ferrous Sulfate (Ec)) 325 mg BID PO Last administered on 09:50; Admin Dose 325 MG; Start 08/13/16 at 21:00 Oxcarbazepine (Trileptal) 300 mg BID PO Last administered on 08/22/16 09:49; Admin Dose 300 MG; Start 08/13/16 at 21:00 Ondansetron HCl (Zofran Inj) 4 mg Q6H PRN IV NAUSEA AND/OR VOMITING; Start 08/13 at 17:30 Enoxaparin Sodium (Lovenox) 30 mg DAILY SC Last administered on 08/22/16 10:00 ; Admin Dose 30 MG; Start 08/14/16 at 09:00 Lorazepam (Ativan) 0.5 mg Q6H PRN PO AGITATION Last administered on 08/19/16 11 :37; Admin Dose 0.5 MG; Start 08/13/16 at 17:30 Quetiapine Fumarate (Seroquel) 100 mg BID PO Last administered on 08/22/16 09: 49; Admin Dose 100 MG; Start 08/16/16 at 21:00 Diphenhydramine HCl (Benadryl) 25 mg Q6H PRN IV itching Last administered on 05:39; Admin Dose 25 MG; Start 08/14/16 at 19:30 Hydrocortisone (Hydrocortisone 1% Cr) 1 applic BID TOP Last administered on 09:51; Admin Dose 1 APPLIC; Start 08/18/16 at 21:00 Nystatin (Nystatin Powder) 1 applic BID TOP Last administered on 08/22/16 09: 51; Admin Dose 1 APPLIC; Start 08/20/16 at 21:00 JAMES POMPA Aug 22, 2016 13:56
--- NOTE | 2016-08-22 15:33 | PN ---
Date/Time of Note Date/Time of Note DATE: 08/22/16 TIME: 15:28 Assessment/Plan VTE Prophylaxis VTE Prophylaxis Intervention: SCD's Lines/Catheters [facility] Urinary Cath still in place: No Assessment/Plan Chief Complaint/Hosp Course Slight improvement in creatinine today, continue IV fluids, BMP tomorrow, patient looks comfortable, remains stable. Assessment/Plan - Acute kidney injury, Dr. Acevedo is following in nephrology consultation - Recurrent VRE UTI, continue Zyvox. Dr Galvez is following in ID consultation. - Bipolar disorder with psychosis. Status post evaluation by tele-psychiatry. Continue Seroquel, VPA. - Acute metabolic encephalopathy, resolving. - Coronary artery disease, continue aspirin. - History of hydrocephalus, status post [employer] shunt - Epilepsy, continue Trileptal. Further recommendations based on clinical course. Plan of care discussed with Dr. Felipe Problems: Exam/Review of Systems Vital Signs Vitals Vital Signs Date Time Temp Pulse Resp B/P Pulse Ox O2 Delivery O2 Flow Rate FiO2 08/22/16 08:00 98.2 72 18 122/68 95 08/20/16 15:11 Room Air Intake and Output 08/21/16 08/21/16 08/22/16 15:00 23:00 07:00 Intake Total 1080 ml 480 ml Balance 1080 ml 480 ml Exam Constitutional: alert Psych: anxiety Head: atraumatic, normocephalic ENMT: mucosa pink and moist Neck: non-tender, supple Respiratory: normal air movement Cardiovascular: nl pulses Gastrointestinal: non-tender, soft Neurological: confused Skin: nl turgor Results Result Diagram: 08/22/16 0548 08/22/16 0548 Results 24 hrs Laboratory Tests Test 08/22/16 05:48 White Blood Count 5.5 Red Blood Count 3.65 L Hemoglobin 10.7 L Hematocrit 33.9 L Mean Corpuscular Volume 92.9 Mean Corpuscular Hemoglobin 29.3 Mean Corpuscular Hemoglobin Concent 31.6 L Red Cell Distribution Width 15.3 H Platelet Count 289 Mean Platelet Volume 10.0 Neutrophils % 51.8 Lymphocytes % 27.9 Monocytes % 8.7 Eosinophils % 10.7 H Basophils % 0.7 Nucleated Red Blood Cells % 0.0 Neutrophils # 2.8 Lymphocytes # 1.5 Monocytes # 0.5 Eosinophils # 0.6 H Basophils # 0.0 Nucleated Red Blood Cells # 0.0 Sodium Level 137 Potassium Level 4.0 Chloride Level 102 Carbon Dioxide Level 26 Anion Gap 13 Blood Urea Nitrogen 43 H Creatinine 1.42 H Glucose Level 117 Calcium Level 9.6 Medications Medications Current Medications Acetaminophen (Tylenol Tab) 650 mg Q4H PRN PO PAIN AND OR ELEVATED TEMP; Start 08/13/16 at 17:30 Albuterol (Proventil 0.083% (Neb)) 2.5 mg Q6H PRN NEB WHEEZING AND SOB; Start 08/13/16 at 17:30 Ascorbic Acid (Vitamin C) 500 mg DAILY PO Last administered on 08/22/16 09:50 ; Admin Dose 500 MG; Start 08/14/16 at 09:00 Aspirin (Aspirin) 81 mg DAILY PO Last administered on 08/22/16 09:49; Admin Dose 81 MG; Start 08/14/16 at 09:00 Bisacodyl (Dulcolax Supp) 10 mg DAILY PRN [place] CONSTIPATION; Start 08/13/16 at 17: 30 Clonazepam (Klonopin) 0.25 mg BID PRN PO ANXIETY Last administered on 02:03; Admin Dose 0.25 MG; Start 08/13/16 at 17:30 Divalproex Sodium (Depakote Sprinkle) 250 mg BID PO Last administered on 09:50; Admin Dose 250 MG; Start 08/13/16 at 21:00 Docusate Sodium (Colace) 200 mg HS PO Last administered on 08/21/16 20:19; Admin Dose 200 MG; Start 08/13/16 at 21:00 Ferrous Sulfate (Ferrous Sulfate (Ec)) 325 mg BID PO Last administered on 09:50; Admin Dose 325 MG; Start 08/13/16 at 21:00 Oxcarbazepine (Trileptal) 300 mg BID PO Last administered on 08/22/16 09:49; Admin Dose 300 MG; Start 08/13/16 at 21:00 Ondansetron HCl (Zofran Inj) 4 mg Q6H PRN IV NAUSEA AND/OR VOMITING; Start 08/13 at 17:30 Enoxaparin Sodium (Lovenox) 30 mg DAILY SC Last administered on 08/22/16 10:00 ; Admin Dose 30 MG; Start 08/14/16 at 09:00 Lorazepam (Ativan) 0.5 mg Q6H PRN PO AGITATION Last administered on 08/19/16 11 :37; Admin Dose 0.5 MG; Start 08/13/16 at 17:30 Quetiapine Fumarate (Seroquel) 100 mg BID PO Last administered on 08/22/16 09: 49; Admin Dose 100 MG; Start 08/16/16 at 21:00 Diphenhydramine HCl (Benadryl) 25 mg Q6H PRN IV itching Last administered on 05:39; Admin Dose 25 MG; Start 08/14/16 at 19:30 Hydrocortisone (Hydrocortisone 1% Cr) 1 applic BID TOP Last administered on 09:51; Admin Dose 1 APPLIC; Start 08/18/16 at 21:00 Nystatin (Nystatin Powder) 1 applic BID TOP Last administered on 08/22/16 09: 51; Admin Dose 1 APPLIC; Start 08/20/16 at 21:00 UMESH WILLETT Aug 22, 2016 15:33
[2016-08-22 21:11] VITALS: BP 153/58; RESP 18
[2016-08-22] MEDS: DOCUSATE SODIUM 100 MG CAP PO SCH (21:51)
[2016-08-23 07:07] LABS: CALCIUM 9.6 mg/dl (8.4-10.2); CREATININE 1.2 mg/dl (0.44-1.00); MAGNESIUM 1.9 mg/dl (1.7-2.5); POTASSIUM 4.5 mmol/L (3.5-5.1)
[2016-08-23 08:14] VITALS: BP 116/55; RESP 18
[2016-08-23] MEDS: QUETIAPINE 100 MG TAB PO SCH ×2 (08:41→23:25)
[2016-08-23] MEDS: ASPIRIN 81 MG TAB PO SCH (08:41)
[2016-08-23] MEDS: DIVALPROEX SPRINKLE 125 MG CAP PO SCH ×2 (08:41→23:25)
[2016-08-23] MEDS: ASCORBIC ACID 500 MG TAB PO SCH (08:41)
[2016-08-23] MEDS: FERROUS SULFATE (EC) 325 MG TAB PO SCH ×2 (08:41→23:25)
[2016-08-23] MEDS: OXCARBAZEPINE 300 MG TAB PO SCH ×2 (08:41→23:25)
[2016-08-23] MEDS: HYDROCORTISONE 1% 28 GM CR TOP SCH ×2 (08:42→23:22)
[2016-08-23] MEDS: ENOXAPARIN 30 MG/0.3 ML SYG SC SCH (08:55)
[2016-08-23] MEDS: NYSTATIN 30 GM POWDER BTL TOP SCH ×2 (09:00→23:22)
[2016-08-23] MEDS ORDERED: DEXTROSE 5%-0.45% NACL 1,000 ML IV SCH (11:30)
[2016-08-23] MEDS ORDERED: SOD CHLORIDE 0.9% 1,000 ML IV SCH (12:00)
--- NOTE | 2016-08-23 12:06 | PN ---
Date/Time of Note Date/Time of Note DATE: 08/23/16 TIME: 11:57 Assessment/Plan VTE Prophylaxis VTE Prophylaxis Intervention: other Lines/Catheters IV Catheter Type (from [facility]): Saline Lock Urinary Cath still in place: No Assessment/Plan Assessment/Plan Slight improvement in creatinine today, continue IV fluids, BMP tomorrow, patient looks comfortable, remains stable. - Acute kidney injury, Dr. Acevedo is following in nephrology consultation - will give her NS @ 100 cc/hr. BMP am - anticipate transfer am - Recurrent VRE UTI, continue Zyvox. Dr Galvez is following in ID consultation. - Bipolar disorder with psychosis. Status post evaluation by tele-psychiatry. Continue Seroquel, VPA. - Acute metabolic encephalopathy, resolving. - Coronary artery disease, continue aspirin. - History of hydrocephalus, status post MANAGER BENEFIT shunt - Epilepsy, continue Trileptal. - seizure precautions Further recommendations based on clinical course. Plan of care discussed with Dr. Felipe Subjective 24 Hr Interval Summary Free Text/Dictation BUN still elevated- will no NS 1000 ccx1- 100 cc/hr. dw staff Constitutional: requiring IVF Respiratory: no complaints Cardiovascular: no complaints Gastrointestinal: no complaints Genitourinary: no complaints Exam/Review of Systems Vital Signs Vitals Vital Signs Date Time Temp Pulse Resp B/P Pulse Ox O2 Delivery O2 Flow Rate FiO2 08/23/16 08:14 97.4 67 18 116/55 97 08/20/16 15:11 Room Air Intake and Output 08/22/16 08/22/16 08/23/16 15:00 23:00 07:00 Intake Total 970 ml Balance 970 ml Exam Constitutional: alert, well developed Respiratory: clear to auscultation, normal air movement Cardiovascular: nl pulses, regular rate and rhythm Gastrointestinal: non-tender, soft Musculoskeletal: nl extremities to inspection Neurological: confused, nl speech Results Result Diagram: 08/22/16 0548 08/23/16 0602 Results 24 hrs Laboratory Tests Test 08/23/16 06:02 Sodium Level 133 L Potassium Level 4.5 Chloride Level 100 Carbon Dioxide Level 26 Anion Gap 12 Blood Urea Nitrogen 42 H Creatinine 1.20 H Glucose Level 98 Calcium Level 9.6 Magnesium Level 1.9 Medications Medications Current Medications Acetaminophen (Tylenol Tab) 650 mg Q4H PRN PO PAIN AND OR ELEVATED TEMP; Start 08/13/16 at 17:30 Albuterol (Proventil 0.083% (Neb)) 2.5 mg Q6H PRN NEB WHEEZING AND SOB; Start 08/13/16 at 17:30 Ascorbic Acid (Vitamin C) 500 mg DAILY PO Last administered on 08/23/16 08:41 ; Admin Dose 500 MG; Start 08/14/16 at 09:00 Aspirin (Aspirin) 81 mg DAILY PO Last administered on 08/23/16 08:41; Admin Dose 81 MG; Start 08/14/16 at 09:00 Bisacodyl (Dulcolax Supp) 10 mg DAILY PRN [place] CONSTIPATION; Start 08/13/16 at 17: 30 Clonazepam (Klonopin) 0.25 mg BID PRN PO ANXIETY Last administered on 02:03; Admin Dose 0.25 MG; Start 08/13/16 at 17:30 Divalproex Sodium (Depakote Sprinkle) 250 mg BID PO Last administered on 08:41; Admin Dose 250 MG; Start 08/13/16 at 21:00 Docusate Sodium (Colace) 200 mg HS PO Last administered on 08/22/16 21:51; Admin Dose 200 MG; Start 08/13/16 at 21:00 Ferrous Sulfate (Ferrous Sulfate (Ec)) 325 mg BID PO Last administered on 08:41; Admin Dose 325 MG; Start 08/13/16 at 21:00 Oxcarbazepine (Trileptal) 300 mg BID PO Last administered on 08/23/16 08:41; Admin Dose 300 MG; Start 08/13/16 at 21:00 Ondansetron HCl (Zofran Inj) 4 mg Q6H PRN IV NAUSEA AND/OR VOMITING; Start 08/13 at 17:30 Enoxaparin Sodium (Lovenox) 30 mg DAILY SC Last administered on 08/23/16 08:55 ; Admin Dose 30 MG; Start 08/14/16 at 09:00 Lorazepam (Ativan) 0.5 mg Q6H PRN PO AGITATION Last administered on 08/19/16 11 :37; Admin Dose 0.5 MG; Start 08/13/16 at 17:30 Quetiapine Fumarate (Seroquel) 100 mg BID PO Last administered on 08/23/16 08: 41; Admin Dose 100 MG; Start 08/16/16 at 21:00 Diphenhydramine HCl (Benadryl) 25 mg Q6H PRN IV itching Last administered on 05:39; Admin Dose 25 MG; Start 08/14/16 at 19:30 Hydrocortisone (Hydrocortisone 1% Cr) 1 applic BID TOP Last administered on 08:42; Admin Dose 1 APPLIC; Start 08/18/16 at 21:00 Nystatin 1 applic 1 applic BID TOP Last administered on 08/23/16 09:00; Admin Dose 1 APPLIC; Start 08/20/16 at 21:00 Dextrose/Sodium Chloride (D5-1/2ns) 1,000 ml @ 50 mls/hr Q20H IV ; Start at 11:30 JAMES POMPA Aug 23, 2016 12:05
--- NOTE | 2016-08-23 12:17 | CONS ---
Date/Time of Note Date/Time of Note DATE: 08/23/16 TIME: 12:16 Assessment/Plan Assessment/Plan Chief Complaint/Hosp Course No acute changes. Awake, looks comfortable, denies pain discomfort Allergies: penicillins Invanz Merrem Physical examination: Chronically ill-appearing fragile elderly woman who is alert in no distress. Head atraumatic normocephalic, sclera nonicteric. Neck is supple, trachea midline. Chest rise symmetrical breath sounds clear, diminished basis. Heart S1-S2. Abdomen soft, bowel tones present. Extremities without cyanosis. ASSESSMENT: 1. Acute encephalopathy, resolving 2. 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 History of methicillin-resistant Staphylococcus aureus colonization. 4. Acute kidney injury. 5. Dementia. 6. Hypertension. 7. History of ventriculoperitoneal shunt placement. PLAN: Clinically stable, s/p abx discontinued this am, continue present care, follow recommendations of consultants Discussed with staff Problems: Consultation Date/Type/Reason Admit Date/Time Aug 15, 2016 at 15:31 Type of Consultation: Infectious disease Referring Provider: SHEN GAYLE MD Exam/Review of Systems Vital Signs Vitals Vital Signs Date Time Temp Pulse Resp B/P Pulse Ox O2 Delivery O2 Flow Rate FiO2 08/23/16 08:14 97.4 67 18 116/55 97 08/20/16 15:11 Room Air Intake and Output 08/22/16 08/22/16 08/23/16 15:00 23:00 07:00 Intake Total 970 ml Balance 970 ml Results Result Diagram: 08/22/16 0548 08/23/16 0602 Results 24 hrs Laboratory Tests Test 08/23/16 06:02 Sodium Level 133 L Potassium Level 4.5 Chloride Level 100 Carbon Dioxide Level 26 Anion Gap 12 Blood Urea Nitrogen 42 H Creatinine 1.20 H Glucose Level 98 Calcium Level 9.6 Magnesium Level 1.9 Medications Medications Current Medications Acetaminophen (Tylenol Tab) 650 mg Q4H PRN PO PAIN AND OR ELEVATED TEMP; Start 08/13/16 at 17:30 Albuterol (Proventil 0.083% (Neb)) 2.5 mg Q6H PRN NEB WHEEZING AND SOB; Start 08/13/16 at 17:30 Ascorbic Acid (Vitamin C) 500 mg DAILY PO Last administered on 08/23/16t 08:41 ; Admin Dose 500 MG; Start 08/14/16 at 09:00 Aspirin (Aspirin) 81 mg DAILY PO Last administered on 08/23/16 08:41; Admin Dose 81 MG; Start 08/14/16 at 09:00 Bisacodyl (Dulcolax Supp) 10 mg DAILY PRN [place] CONSTIPATION; Start 08/13/16 at 17: 30 Clonazepam (Klonopin) 0.25 mg BID PRN PO ANXIETY Last administered on 02:03; Admin Dose 0.25 MG; Start 08/13/16 at 17:30 Divalproex Sodium (Depakote Sprinkle) 250 mg BID PO Last administered on 08:41; Admin Dose 250 MG; Start 08/13/16 at 21:00 Docusate Sodium (Colace) 200 mg HS PO Last administered on 08/22/16 21:51; Admin Dose 200 MG; Start 08/13/16 at 21:00 Ferrous Sulfate (Ferrous Sulfate (Ec)) 325 mg BID PO Last administered on 08:41; Admin Dose 325 MG; Start 08/13/16 at 21:00 Oxcarbazepine (Trileptal) 300 mg BID PO Last administered on 08/23/16 08:41; Admin Dose 300 MG; Start 08/13/16 at 21:00 Ondansetron HCl (Zofran Inj) 4 mg Q6H PRN IV NAUSEA AND/OR VOMITING; Start 08/13 at 17:30 Enoxaparin Sodium (Lovenox) 30 mg DAILY SC Last administered on 08/23/16 08:55 ; Admin Dose 30 MG; Start 08/14/16 at 09:00 Lorazepam (Ativan) 0.5 mg Q6H PRN PO AGITATION Last administered on 08/19/16 11 :37; Admin Dose 0.5 MG; Start 08/13/16 at 17:30 Quetiapine Fumarate (Seroquel) 100 mg BID PO Last administered on 08/23/16 08: 41; Admin Dose 100 MG; Start 08/16/16 at 21:00 Diphenhydramine HCl (Benadryl) 25 mg Q6H PRN IV itching Last administered on 05:39; Admin Dose 25 MG; Start 08/14/16 at 19:30 Hydrocortisone (Hydrocortisone 1% Cr) 1 applic BID TOP Last administered on 08:42; Admin Dose 1 APPLIC; Start 08/18/16 at 21:00 Nystatin 1 applic 1 applic BID TOP Last administered on 08/23/16 09:00; Admin Dose 1 APPLIC; Start 08/20/16 at 21:00 Sodium Chloride (NS) 1,000 ml @ 100 mls/hr Q10H IV ; Start 08/23/16 at 12:00; Stop 08/23/16 at 21:59 ALFRED GUZMÁN NP Aug 23, 2016 12:17
[2016-08-23 20:18] VITALS: BP 123/56; RESP 20
[2016-08-23] MEDS: DOCUSATE SODIUM 100 MG CAP PO SCH (23:24)
[2016-08-24 02:48] VITALS: BP 127/58; RESP 20
[2016-08-24 05:50] LABS: ADD SCAN DIFF NO
[2016-08-24 06:07] LABS: BASOPHILS % 0.8 % (0.0-2.0); EOSINOPHILS # 0.5 10^3/ul (0.0-0.5); HEMATOCRIT 33.4 % (37.0-47.0); HEMOGLOBIN 10.6 g/dl (12.0-16.0); LYMPHOCYTES # 1.4 10^3/ul (0.8-2.9); LYMPHOCYTES % 26.1 % (15.0-51.0); MEAN CORPUSCULAR HEMOGLOBIN 29.9 pg (29.0-33.0); MEAN CORPUSCULAR HGB CONC 31.7 g/dl (32.0-37.0); MEAN CORPUSCULAR VOLUME 94.4 fl (82.0-101.0); MEAN PLATELET VOLUME 10.1 fl (7.4-10.4); MONOCYTE # 0.5 10^3/ul (0.3-0.9); MONOCYTES % 10.1 % (0.0-11.0); NEUTROPHIL # 2.8 10^3/ul (1.6-7.5); NEUTROPHILS % 53.8 % (39.0-77.0); PLATELET COUNT 278 10^3/UL (140-415); RED BLOOD COUNT 3.54 10^6/ul (4.20-5.40); RED CELL DISTRIBUTION WIDTH 15.3 % (11.5-14.5); WHITE BLOOD COUNT 5.3 10^3/ul (4.8-10.8)
[2016-08-24 06:21] LABS: CALCIUM 9.2 mg/dl (8.4-10.2); CREATININE 1.25 mg/dl (0.44-1.00); POTASSIUM 4.4 mmol/L (3.5-5.1)
[2016-08-24 08:11] VITALS: BP 141/63; RESP 18
[2016-08-24] MEDS: FERROUS SULFATE (EC) 325 MG TAB PO SCH (08:20)
[2016-08-24] MEDS: QUETIAPINE 100 MG TAB PO SCH (08:21)
[2016-08-24] MEDS: OXCARBAZEPINE 300 MG TAB PO SCH (08:21)
[2016-08-24] MEDS: DIVALPROEX SPRINKLE 125 MG CAP PO SCH (08:21)
[2016-08-24] MEDS: ASPIRIN 81 MG TAB PO SCH (08:21)
[2016-08-24] MEDS: ASCORBIC ACID 500 MG TAB PO SCH (08:22)
[2016-08-24] MEDS: ENOXAPARIN 30 MG/0.3 ML SYG SC SCH (08:36)
[2016-08-24] MEDS: HYDROCORTISONE 1% 28 GM CR TOP SCH (09:51)
[2016-08-24] MEDS: NYSTATIN 30 GM POWDER BTL TOP SCH (09:51)
--- NOTE | 2016-08-24 10:37 | CONS ---
Date/Time of Note Date/Time of Note DATE: 08/24/16 TIME: 10:32 Assessment/Plan Assessment/Plan Additional Assessment/Plan 1 . acute Kidney injury due to UTI and prerenal azotemia 2. Acute encephalopathy due to UTI 3. Recurrent UTI as per Urinalysis 4. H/o MRSA Colonisation 5. H/o Bipolar disorder 6. Hypertension 7. Dementia 8. H/o PRODUCTION UNDERWRITER shunt placement Plan : Continue current IV abx as per ID D/c IVF and encourage PO intake Expecting creatinine to improve with IVF BP stable ID following will follow up Plan of care MAR Acevedo/staff Consultation Date/Type/Reason Admit Date/Time Aug 15, 2016 at 15:31 Initial Consult Date 08/14/16 Type of Consultation: Infectious disease Referring Provider: SHEN GAYLE MD Exam/Review of Systems Vital Signs Vitals Vital Signs Date Time Temp Pulse Resp B/P Pulse Ox O2 Delivery O2 Flow Rate FiO2 08/24/16 08:11 97.9 68 18 141/63 98 08/20/16 15:11 Room Air Intake and Output 08/23/16 08/23/16 08/24/16 15:00 23:00 07:00 Intake Total 920 ml 1820 ml 1200 ml Balance 920 ml 1820 ml 1200 ml Results Result Diagram: 08/24/16 0529 08/24/16 0529 Results 24 hrs Laboratory Tests Test 08/24/16 05:29 White Blood Count 5.3 Red Blood Count 3.54 L Hemoglobin 10.6 L Hematocrit 33.4 L Mean Corpuscular Volume 94.4 Mean Corpuscular Hemoglobin 29.9 Mean Corpuscular Hemoglobin Concent 31.7 L Red Cell Distribution Width 15.3 H Platelet Count 278 Mean Platelet Volume 10.1 Neutrophils % 53.8 Lymphocytes % 26.1 Monocytes % 10.1 Eosinophils % 9.0 H Basophils % 0.8 Nucleated Red Blood Cells % 0.0 Neutrophils # 2.8 Lymphocytes # 1.4 Monocytes # 0.5 Eosinophils # 0.5 Basophils # 0.0 Nucleated Red Blood Cells # 0.0 Sodium Level 137 Potassium Level 4.4 Chloride Level 109 Carbon Dioxide Level 23 Anion Gap 9 Blood Urea Nitrogen 40 H Creatinine 1.25 H Glucose Level 109 Calcium Level 9.2 Medications Medications Current Medications Acetaminophen (Tylenol Tab) 650 mg Q4H PRN PO PAIN AND OR ELEVATED TEMP; Start 08/13/16 at 17:30 Albuterol (Proventil 0.083% (Neb)) 2.5 mg Q6H PRN NEB WHEEZING AND SOB; Start 08/13/16 at 17:30 Ascorbic Acid (Vitamin C) 500 mg DAILY PO Last administered on 08/24/16 08:22 ; Admin Dose 500 MG; Start 08/14/16 at 09:00 Aspirin (Aspirin) 81 mg DAILY PO Last administered on 08/24/16 08:21; Admin Dose 81 MG; Start 08/14/16 at 09:00 Bisacodyl (Dulcolax Supp) 10 mg DAILY PRN [place] CONSTIPATION; Start 08/13/16 at 17: 30 Clonazepam (Klonopin) 0.25 mg BID PRN PO ANXIETY Last administered on 02:03; Admin Dose 0.25 MG; Start 08/13/16 at 17:30 Divalproex Sodium (Depakote Sprinkle) 250 mg BID PO Last administered on 08:21; Admin Dose 250 MG; Start 08/13/16 at 21:00 Docusate Sodium (Colace) 200 mg HS PO Last administered on 08/22/16 21:51; Admin Dose 200 MG; Start 08/13/16 at 21:00 Ferrous Sulfate (Ferrous Sulfate (Ec)) 325 mg BID PO Last administered on 08:20; Admin Dose 325 MG; Start 08/13/16 at 21:00 Oxcarbazepine (Trileptal) 300 mg BID PO Last administered on 08/24/16 08:21; Admin Dose 300 MG; Start 08/13/16 at 21:00 Ondansetron HCl (Zofran Inj) 4 mg Q6H PRN IV NAUSEA AND/OR VOMITING; Start 08/13 at 17:30 Enoxaparin Sodium (Lovenox) 30 mg DAILY SC Last administered on 08/24/16 08:36 ; Admin Dose 30 MG; Start 08/14/16 at 09:00 Lorazepam (Ativan) 0.5 mg Q6H PRN PO AGITATION Last administered on 08/19/16 11 :37; Admin Dose 0.5 MG; Start 08/13/16 at 17:30 Quetiapine Fumarate (Seroquel) 100 mg BID PO Last administered on 08/24/16 08: 21; Admin Dose 100 MG; Start 08/16/16 at 21:00 Diphenhydramine HCl (Benadryl) 25 mg Q6H PRN IV itching Last administered on 05:39; Admin Dose 25 MG; Start 08/14/16 at 19:30 Hydrocortisone (Hydrocortisone 1% Cr) 1 applic BID TOP Last administered on 09:51; Admin Dose 1 APPLIC; Start 08/18/16 at 21:00 Nystatin (Nystatin Powder) 1 applic BID TOP Last administered on 08/24/16 09: 51; Admin Dose 1 APPLIC; Start 08/20/16 at 21:00 JAMES POMPA Aug 24, 2016 10:36
[2016-08-24] MEDS: DIPHENHYDRAMINE 50 MG INJ IV PRN (11:57)
--- NOTE | 2016-08-24 14:19 | CONS ---
Date/Time of Note Date/Time of Note DATE: 08/24/16 TIME: 14:18 Assessment/Plan Assessment/Plan Chief Complaint/Hosp Course No acute changes. Awake, looks comfortable, no fevers Allergies: penicillins Invanz Merrem Physical examination: Chronically ill-appearing fragile elderly woman who is alert in no distress. Head atraumatic normocephalic, sclera nonicteric. Neck is supple, trachea midline. Chest rise symmetrical breath sounds clear, diminished basis. Heart S1-S2. Abdomen soft, bowel tones present. Extremities without cyanosis. ASSESSMENT: 1. Acute encephalopathy, resolving 2. 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 History of methicillin-resistant Staphylococcus aureus colonization. 4. Acute kidney injury. 5. Dementia. 6. Hypertension. 7. History of ventriculoperitoneal shunt placement. PLAN: Clinically stable, off antibiotics, continue present care, follow recommendations of consultants Discussed with staff Problems: Consultation Date/Type/Reason Admit Date/Time Aug 15, 2016 at 15:31 Type of Consultation: Infectious disease Referring Provider: SHEN GAYLE MD Exam/Review of Systems Vital Signs Vitals Vital Signs Date Time Temp Pulse Resp B/P Pulse Ox O2 Delivery O2 Flow Rate FiO2 08/24/16 08:11 97.9 68 18 141/63 98 08/20/16 15:11 Room Air Intake and Output 08/23/16 08/23/16 08/24/16 15:00 23:00 07:00 Intake Total 920 ml 1820 ml 1200 ml Balance 920 ml 1820 ml 1200 ml Results Result Diagram: 08/24/16 0529 08/24/16 0529 Results 24 hrs Laboratory Tests Test 08/24/16 05:29 White Blood Count 5.3 Red Blood Count 3.54 L Hemoglobin 10.6 L Hematocrit 33.4 L Mean Corpuscular Volume 94.4 Mean Corpuscular Hemoglobin 29.9 Mean Corpuscular Hemoglobin Concent 31.7 L Red Cell Distribution Width 15.3 H Platelet Count 278 Mean Platelet Volume 10.1 Neutrophils % 53.8 Lymphocytes % 26.1 Monocytes % 10.1 Eosinophils % 9.0 H Basophils % 0.8 Nucleated Red Blood Cells % 0.0 Neutrophils # 2.8 Lymphocytes # 1.4 Monocytes # 0.5 Eosinophils # 0.5 Basophils # 0.0 Nucleated Red Blood Cells # 0.0 Sodium Level 137 Potassium Level 4.4 Chloride Level 109 Carbon Dioxide Level 23 Anion Gap 9 Blood Urea Nitrogen 40 H Creatinine 1.25 H Glucose Level 109 Calcium Level 9.2 Medications Medications Current Medications Acetaminophen (Tylenol Tab) 650 mg Q4H PRN PO PAIN AND OR ELEVATED TEMP; Start 08/13/16 at 17:30 Albuterol (Proventil 0.083% (Neb)) 2.5 mg Q6H PRN NEB WHEEZING AND SOB; Start 08/13/16 at 17:30 Ascorbic Acid (Vitamin C) 500 mg DAILY PO Last administered on 08/24/16 08:22 ; Admin Dose 500 MG; Start 08/14/16 at 09:00 Aspirin (Aspirin) 81 mg DAILY PO Last administered on 08/24/16 08:21; Admin Dose 81 MG; Start 08/14/16 at 09:00 Bisacodyl (Dulcolax Supp) 10 mg DAILY PRN [place] CONSTIPATION; Start 08/13/16 at 17: 30 Clonazepam (Klonopin) 0.25 mg BID PRN PO ANXIETY Last administered on 02:03; Admin Dose 0.25 MG; Start 08/13/16 at 17:30 Divalproex Sodium (Depakote Sprinkle) 250 mg BID PO Last administered on 08:21; Admin Dose 250 MG; Start 08/13/16 at 21:00 Docusate Sodium (Colace) 200 mg HS PO Last administered on 08/22/16 21:51; Admin Dose 200 MG; Start 08/13/16 at 21:00 Ferrous Sulfate (Ferrous Sulfate (Ec)) 325 mg BID PO Last administered on 08:20; Admin Dose 325 MG; Start 08/13/16 at 21:00 Oxcarbazepine (Trileptal) 300 mg BID PO Last administered on 08/24/16 08:21; Admin Dose 300 MG; Start 08/13/16 at 21:00 Ondansetron HCl (Zofran Inj) 4 mg Q6H PRN IV NAUSEA AND/OR VOMITING; Start 08/13 at 17:30 Enoxaparin Sodium (Lovenox) 30 mg DAILY SC Last administered on 08/24/16 08:36 ; Admin Dose 30 MG; Start 08/14/16 at 09:00 Lorazepam (Ativan) 0.5 mg Q6H PRN PO AGITATION Last administered on 08/19/16 11 :37; Admin Dose 0.5 MG; Start 08/13/16 at 17:30 Quetiapine Fumarate (Seroquel) 100 mg BID PO Last administered on 08/24/16 08: 21; Admin Dose 100 MG; Start 08/16/16 at 21:00 Diphenhydramine HCl (Benadryl) 25 mg Q6H PRN IV itching Last administered on 11:57; Admin Dose 25 MG; Start 08/14/16 at 19:30 Hydrocortisone (Hydrocortisone 1% Cr) 1 applic BID TOP Last administered on 09:51; Admin Dose 1 APPLIC; Start 08/18/16 at 21:00 Nystatin (Nystatin Powder) 1 applic BID TOP Last administered on 08/24/16 09: 51; Admin Dose 1 APPLIC; Start 08/20/16 at 21:00 ALFRED GUZMÁN NP Aug 24, 2016 14:19
[2016-08-24 15:39] VITALS: BP 123/62; RESP 20
--- NOTE | 2016-08-26 21:09 | DS ---
Date/Time of Note Date/Time of Note DATE: 08/26/16 TIME: 21:06 Discharge Summary Admission/Discharge Info Admit Date/Time Aug 15, 2016 at 15:31 Discharge Date/Time Aug 24, 2016 at 19:10 Patient Condition: Good Hx of Present Illness The patient is a 76-year-old female history of [employer] shunt, bipolar disorder who presents with agitation and paranoia that has been worse over the last several days. Hospital Course - Acute kidney injury,resolving. Dr. Acevedo is following in nephrology consultation - Recurrent VRE UTI, completed tx with Zyvox. Dr Galvez is following in ID consultation. - Bipolar disorder with psychosis. Status post evaluation by tele-psychiatry. Continue Seroquel, VPA. - Acute metabolic encephalopathy, resolving. - Coronary artery disease, continue aspirin. - History of hydrocephalus, status post [employer] shunt - Epilepsy, continue Trileptal. Home Meds Reported Medications Oxcarbazepine* (Trileptal*) 300 Mg Tablet, 300 MG PO BID, TAB 07/29/16 Quetiapine Fumarate* (Seroquel*) 50 Mg Tablet, 50 MG PO HS, TAB 07/29/16 Quetiapine Fumarate* (Seroquel*) 25 Mg Tablet, 25 MG PO AM, #30 TAB 07/29/16 Guaifenesin-Dextromethorphan* (Robitussin* DM) 100MG/10MG/5ML Syrup, 10 ML PO Q6H Y for COUGH, ML 07/29/16 Multivit,Tx,Iron/Calcm/FA/Mins (Thera-M Caplet) 1 Each Tablet, 1 TAB PO DAILY, TAB 07/29/16 Magnesium Hydroxide* (Milk Of Magnesia*) 400 Mg/5 Ml Oral.susp, 30 ML PO DAILY Y for CONSTIPATION, ML 07/29/16 Mag Hydrox/Al Hydrox/Simeth (Maalox Advanced Suspension) 355 Ml Oral.susp, 30 ML PO Q4H Y for GASTROINTESTINAL UPSET 07/29/16 Lorazepam* (Lorazepam*) 0.5 Mg Tablet, 0.5 MG PO Q6 Y for ANXIETY, TAB 07/29/16 Clonazepam* (Klonopin*) 0.5 Mg Tab, 0.25 MG PO BID Y for ANXIETY, TAB 07/29/16 Ascorbic Acid* (Ascorbic Acid*) 500 Mg/5 Ml Syrup, 500 MG PO DAILY, #150 ML 07/29/16 Acetaminophen* (Acetaminophen*) 650 Mg Tablet, 650 MG PO Q4H Y for PAIN AND OR ELEVATED TEMP, #30 TAB 07/29/16 Ipratropium-Albuterol (Ipratropium-Albuterol) 0.5-3 Mg/3 Ml Ampul.neb, 3 ML INHALATION Q6 Y for SHORTNESS OF BREATH, #30 VIAL 07/29/16 Na Phos,M-B/Na Phos,Di-Ba (Fleet Enema Extra) 230 Ml Enema, 230 ML RC Q48H Y for CONSTIPATION, ENEMA 07/29/16 Ferrous Sulfate* (Ferrous Sulfate*) 325 Mg Tabec, 325 MG PO BID, TAB 07/29/16 Bisacodyl (Dulcolax) 10 Mg Supp.rect, 10 MG RC DAILY Y for CONSTIPATION, SUPP.RECT 07/29/16 Divalproex Sodium* (Depakote* Sprinkle) 125 Mg Cap.sprink, 250 MG PO BID, #180 CAP 07/29/16 Cranberry Extract (Cranberry) 425 Mg Capsule, 425 MG PO BID, CAP 07/29/16 Docusate Sodium* (Colace*) 100 Mg Capsule, 200 MG PO HS, #60 CAP 07/29/16 Diphenhydramine Hcl* (Diphenhydramine Hcl*) 25 Mg Capsule, 25 MG PO Q6 Y for ITCHING, CAP 07/29/16 Aspirin* (Aspirin* Chew) 81 Mg Tab.chew, 81 MG PO DAILY, TAB.CHEW 07/29/16 Albuterol Sulfate* (Albuterol Sulfate* Neb) 0.083%-3 Ml Neb, 2.5 MG NEB Q6H Y for WHEEZING AND SOB, #30 VIAL 07/29/16 Follow-up Plan BMP in 3 days on Saturday-. Primary Care Provider Will Felipe MD Time spent on discharge: > 30 minutes Pending Labs Laboratory Tests Test 08/26/16 09:17 Lab Scanned Report REFERENCE [id number] UMESH WILLETT Aug 26, 2016 21:09
== END 2016-08-24 19:10 | DRG 682 ==
LOC: E/R 13:22 → MS2 16:40 → INTOOBSV 16:40 → OBSVTOIN 08-15 15:31 → MS2 08-18 16:57
PROVIDERS: ADMIT Internal Medicine; ATTEND Internal Medicine
DX: N17.9 Acute kidney failure, unspecified (principal); G93.41 Metabolic encephalopathy; G91.9 Hydrocephalus, unspecified; G93.89 Other specified disorders of brain; N39.0 Urinary tract infection, site not specified; F23 Brief psychotic disorder; F22 Delusional disorders; F31.9 Bipolar disorder, unspecified; G40.909 Epilepsy, unspecified, not intractable, without status epilepticus; I25.10 Atherosclerotic heart disease of native coronary artery without angina pectoris; Z98.2 Presence of cerebrospinal fluid drainage device; B96.89 Other specified bacterial agents as the cause of diseases classified elsewhere; Z16.21 Resistance to vancomycin; R45.1 Restlessness and agitation
CPT/HCPCS: 36415; 70450; 80048; 80053; 80164; 80306; 80307; 81001; 83735; 85025; 87081; 87086; A4310; G0378; J1200; J1650; J7030; J7042; P9612